=== PATIENT | female | born 1970 | race Caucasian/White ===

== ENCOUNTER 2016-04-16 08:22 | Emergency (ER) | payer OTHER ==
[~2016-04-16] VITALS: Ht 172.7 cm; Wt 70.3 kg
[~2016-04-16 08:22] MED LIST: COLA100C PO; FLON0.054; IBUP80TA PO; NEXI20CA PO; PERC5TAB6 PO; PROM-190 PO; PROZ10CA7 PO; WELLTAB40 PO
[2016-04-16] MEDS ORDERED: CLAR10CA3 PO (08:37)
[2016-04-16] MEDS ORDERED: ALBU17IN2 INH (08:37)
[2016-04-16] MEDS ORDERED: MUCI600T34 PO (08:37)
[2016-04-16] MEDS ORDERED: NS 500 ML IV ONE ×2 (08:45→11:00)
[2016-04-16] MEDS ORDERED: methylPREDNISolone INJ 125 MG/2 ML VIAL (J2930) IV ONE (08:45)
[2016-04-16] MEDS ORDERED: ALBUTEROL SULFATE 2.5 MG/0.5 ML INH NEB SOLN As Ordered ONE (08:57)
[2016-04-16] MEDS: IPRATROPIUM 0.5MG/ALBUTEROL 2.5MG INH SOL UD 3ML (DUONEB)(J7620) NEB PRN ×3 (08:58→09:16)
[2016-04-16 09:22] LABS: BASO % 0.6 % (0.0-1.0); EOS # 0.1 K/mm3 (0.0-0.50); EOS % 1.4 % (0.0-3.0); LARGE UNSTAINED CELL # 0.2 K/mm3 (0.0-0.4); LARGE UNSTAINED CELL % 2.3 % (0.0-4.0); LYMPH # 1.1 K/mm3 (1.5-4.5); LYMPH % 13.7 % (24.0-44.0); MEAN CORPUSCULAR HEMOGLOBIN 30.5 pg (27.0-33.0); MEAN CORPUSCULAR VOLUME 87.3 fl (80.0-96.0); MONO # 0.4 K/mm3 (0.0-0.8); MONO % 4.7 % (0.0-5.0); NEUTROPHILS # 6.4 K/mm3 (1.8-7.7); NEUTROPHILS % 77.3 % (36.0-66.0); PLATELET COUNT, AUTOMATED 356 k/mm3 (150-450); RED CELL DISTRIBUTION WIDTH 11.6 % (11.5-14.5); WHITE BLOOD COUNT 8.2 K/mm3 (4.0-10.0)
[2016-04-16 09:38] LABS: ALBUMIN 3.6 GM/DL (3.2-5.2); ALBUMIN/GLOBULIN RATIO 0.92 (1.00-1.93); ALKALINE PHOSPHATASE 85 U/L (45-117); ALT/SGPT 25 U/L (12-78); ANION GAP 10 MEQ/L (8-16); AST/SGOT 18 U/L (15-37); BILIRUBIN,DIRECT 0.2 MG/DL (0.0-0.2); BILIRUBIN,TOTAL 0.9 MG/DL (0.2-1.0); BLOOD UREA NITROGEN 10 MG/DL (7-18); CALCIUM LEVEL 8.8 MG/DL (8.5-10.1); CARBON DIOXIDE LEVEL 25 MEQ/L (21-32); CHLORIDE LEVEL 101 MEQ/L (98-107); GLOMERULAR FILTRATION RATE > 60.0 (>58); GLUCOSE, FASTING 120 MG/DL (70-105); POTASSIUM SERUM 3.7 MEQ/L (3.5-5.1); SODIUM LEVEL 136 MEQ/L (136-145); TOTAL PROTEIN 7.5 GM/DL (6.4-8.2)
[2016-04-16] MEDS ORDERED: NS 1,000 ML IV ONE (10:30)
[2016-04-16] MEDS ORDERED: ISOVUE-370 76% 100ML VIAL (Q9967) As Ordered ONE (10:34)
--- NOTE | 2016-04-16 11:48 | REP ---
PORTABLE CHEST: AP portable view of the chest is performed. There are no prior studies for comparison. There are mildly increased interstitial markings in the lung bases bilaterally. This may represent mild interstitial fibrosis versus a mild degree of acute interstitial edema or pneumonitis. The heart is normal in size. The mediastinal silhouette is unremarkable. The visualized osseous structures appear intact. IMPRESSION: Mildly increased bibasilar interstitial markings may represent mild fibrosis versus mild interstitial pneumonitis or edema. Signed by Edwin Rivas MD 04/16/2016 08:31 P
[2016-04-16] MEDS ORDERED: MOXIFLOXACIN 400 MG TAB PO ONE (12:30)
--- NOTE | 2016-04-16 12:48 | REP ---
CT ANGIOGRAM OF THE CHEST WITH IV CONTRAST: TECHNIQUE: Axial contrast enhanced images from the thoracic inlet to the upper abdomen using 100 mL Isovue 370 intravenous contrast material with multiplanar reformations. Pulmonary arteries appear to opacify well with contrast with no definite pulmonary embolism. There is no evidence of mediastinal, hilar, or chest wall lymphadenopathy. There is no pleural or pericardial effusion. The heart is normal in size. Mild patchy infiltrate is seen in the left lower lobe. Visualized upper abdominal structures are unremarkable. IMPRESSION: Mild patchy infiltrate left lower lobe. No CT evidence of pulmonary embolism. Signed by Edwin Rivas MD 04/16/2016 08:32 P
[2016-04-16] MEDS ORDERED: AVEL1TAB PO (13:25)
[2016-04-16] MEDS ORDERED: PRED20TA PO (13:33)
[2016-04-16 13:52] VITALS: BP 110/56
--- NOTE | 2016-04-17 12:18 | ECGEPIP ---
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
--- NOTE | 2016-04-17 12:20 | ECGEPIP ---
Stationary ECG Study 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
== END 2016-04-16 14:00 | disposition home or self-care (01) ==
LOC: EDBD 08:22 → M ED 09:28
DX: J18.9 Pneumonia, unspecified organism (principal); J98.01 Acute bronchospasm; R07.9 Chest pain, unspecified; Z77.22 Contact with and (suspected) exposure to environmental tobacco smoke (acute) (chronic); Z88.2 Allergy status to sulfonamides; Z79.899 Other long term (current) drug therapy
CPT/HCPCS: 36415; 71010; 71275; 80048; 80076; 82550; 82553; 83605; 83880; 85025; 85379; 87040; 93005; 93041; 94640; 94760; 96361; 96374; 99285; J2930; Q9967

== ENCOUNTER → 2016-04-20 | Outpatient (REF) | payer OTHER ==
[~2016-04-20] MED LIST changes: +ALBU17IN2 INH; +AVEL1TAB PO; +CLAR10CA3 PO; +MUCI600T34 PO; +PRED20TA PO
[2016-04-24 00:06] LABS: L PNEUMOPHILIA 1-6 IgG <1:128 (<1:128); L PNEUMOPHILIA 1-6 IgM < 1:16 (< 1:16)
== END ==
LOC: M LAB REF 12:42
PROVIDERS: ATTEND Internal Medicine Pulmonary Disease
DX: R05 Cough (principal)

== ENCOUNTER → 2016-05-21 | Outpatient (CLI) | payer OTHER ==
[~2016-05-21] MED LIST changes: -COLA100C PO; +COLA100C3 PO
--- NOTE | 2016-05-21 12:27 | REP ---
PA and lateral chest: Comparison is 04/16/2016. The lung lea are clear. The cardiac size is normal The toña, mediastinum, and bony thorax are unremarkable except for thoracic scoliosis convex right, unchanged. Impression: Negative PA and lateral chest. Signed by Edwin Piña MD 05/21/2016 12:18 P
== END ==
LOC: M SMT 11:06
PROVIDERS: ATTEND Internal Medicine Pulmonary Disease
DX: R05 Cough (principal)

== ENCOUNTER → 2016-06-02 | Outpatient (CLI) | payer OTHER ==
[~2016-06-02] MED LIST changes: +ISOVUE-370 76% 100ML VIAL (Q9967) As Ordered ONE
--- NOTE | 2016-06-02 16:51 | REP ---
CT NECK WITH CONTRAST: HISTORY: Right parotid swelling. CONTRAST: Isovue-370 75 mL. Calcification is present in the right tonsil. This is secondary to previous inflammatory disease. The naso-, hunter-, and hypopharynx, larynx, and subglottic trachea are otherwise normal in appearance. The salivary and thyroid glands are normal in density and size. Small lymph nodes less than 1 cm in size are present in the internal jugular chains, posterior triangles , submandibular and submental areas. Degenerative change is present in the cervical spine. The lung apices are clear. Minimal mucosal thickening is present in the ethmoid and maxillary sinuses. IMPRESSION: There is no neck mass or adenopathy. Signed by Joey Pinto MD 06/02/2016 04:53 P
== END ==
LOC: M RAD 16:05
PROVIDERS: ATTEND Otolaryngology
DX: K11.23 Chronic sialoadenitis (principal)
CPT/HCPCS: 70491; Q9967

== ENCOUNTER → 2016-06-10 | Outpatient (CLI) | payer OTHER ==
[~2016-06-10] MED LIST changes: -ISOVUE-370 76% 100ML VIAL (Q9967) As Ordered ONE
--- NOTE | 2016-06-10 08:01 | REP ---
Clinical: Abnormal lung findings. Followup. Comparison: 04/16/2016. Findings: The bilateral lung lea are well-aerated, symmetric and clear. No pulmonary parenchymal consolidation, nodule or mass lesion is appreciated. No pleural effusion/reaction or pneumothorax. Tracheobronchial tree is patent. Previously noted left lower lobe infiltrate has resolved. No obvious adenopathy. Thoracic aorta, heart and pericardium are normal for noncontrast evaluation. Surrounding musculoskeletal structures are intact. Impression: Normal noncontrast chest CT. Previously noted left lower lobe infiltrate resolved. No acute mediastinal or pleuroparenchymal process appreciated. Signed by Perico Ace MD 06/10/2016 07:52 A
== END ==
LOC: M RAD 07:11
PROVIDERS: ATTEND Internal Medicine Pulmonary Disease
DX: R91.8 Other nonspecific abnormal finding of lung field (principal)

== ENCOUNTER → 2016-06-18 | Outpatient (CLI) | payer OTHER ==
[2016-06-24 14:18] LABS: L PNEUMOPHILIA 1-6 IgG <1:128 (<1:128); L PNEUMOPHILIA 1-6 IgM < 1:16 (< 1:16)
== END ==
LOC: M LRY 16:50
PROVIDERS: ATTEND Internal Medicine Pulmonary Disease
DX: R05 Cough (principal)

== ENCOUNTER → 2016-07-14 | Outpatient (REF) | payer OTHER ==
[2016-07-14 16:07] LABS: EOS # 0.2 K/mm3 (0.0-0.50); EOS % 3.8 % (0.0-3.0); LARGE UNSTAINED CELL # 0.1 K/mm3 (0.0-0.4); LARGE UNSTAINED CELL % 1.7 % (0.0-4.0); LYMPH # 1.7 K/mm3 (1.5-4.5); LYMPH % 30.5 % (24.0-44.0); MEAN CORPUSCULAR HEMOGLOBIN 31.3 pg (27.0-33.0); MEAN CORPUSCULAR VOLUME 91.9 fl (80.0-96.0); MONO # 0.4 K/mm3 (0.0-0.8); MONO % 6.8 % (0.0-5.0); NEUTROPHILS % 56.2 % (36.0-66.0); PLATELET COUNT, AUTOMATED 262 k/mm3 (150-450); RED CELL DISTRIBUTION WIDTH 12.7 % (11.5-14.5); WHITE BLOOD COUNT 5.4 K/mm3 (4.0-10.0)
[2016-07-14 16:08] LABS: ALBUMIN 3.9 GM/DL (3.2-5.2); ALBUMIN/GLOBULIN RATIO 1.18 (1.00-1.93); ALKALINE PHOSPHATASE 55 U/L (45-117); ALT/SGPT 25 U/L (12-78); ANION GAP 5 MEQ/L (8-16); AST/SGOT 16 U/L (15-37); BILIRUBIN,TOTAL 0.6 MG/DL (0.2-1.0); BLOOD UREA NITROGEN 12 MG/DL (7-18); CALCIUM LEVEL 8.9 MG/DL (8.5-10.1); CARBON DIOXIDE LEVEL 29 MEQ/L (21-32); CHLORIDE LEVEL 105 MEQ/L (98-107); CREATININE FOR GFR 0.71 MG/DL (0.55-1.02); GLOMERULAR FILTRATION RATE > 60.0 (>58); GLUCOSE, FASTING 91 MG/DL (70-105); IMMUNOGLOBULIN E 46.5 IU/ML (<100); IMMUNOGLOBULIN G 1020 MG/DL (681-1648); SODIUM LEVEL 139 MEQ/L (136-145); TOTAL PROTEIN 7.2 GM/DL (6.4-8.2)
[2016-07-14 20:29] LABS: ERYTHROCYTE SEDIMENTATION RATE 8 mm/hr (0-20)
[2016-07-17 08:06] LABS: IgG SERUM (part of Subclasses) 961 mg/dL (700-1600); IgG Subclass 1 472 mg/dL (248-810); IgG Subclass 2 367 mg/dL (130-555); IgG Subclass 3 90 mg/dL (15-102); IgG Subclass 4 99 mg/dL (2-96)
== END ==
LOC: M SFHCPLAZ 12:43
PROVIDERS: ATTEND Internal Medicine Infectious Disease
DX: J15.7 Pneumonia due to Mycoplasma pneumoniae (principal); R21 Rash and other nonspecific skin eruption

== ENCOUNTER → 2016-07-27 | Outpatient (REF) | payer OTHER | LOC: M SFHCPLAZ 13:06 | PROVIDERS: ATTEND Internal Medicine Infectious Disease | DX: J15.7 Pneumonia due to Mycoplasma pneumoniae (principal) ==

== ENCOUNTER → 2016-08-09 | Outpatient (CLI) | payer OTHER | LOC: M SMT 09:58 | PROVIDERS: ATTEND Internal Medicine Infectious Disease | DX: J15.7 Pneumonia due to Mycoplasma pneumoniae (principal) ==

== ENCOUNTER → 2016-08-10 | Outpatient (CLI) | payer OTHER ==
[~2016-08-10] MED LIST changes: +METHACHOLINE KIT (J7674) INH ONE
--- NOTE | 2016-08-10 09:21 | PFTRPT ---
Tech: Grey JONES RRT Age: 45 Sex: Female Race: Height: 68.00 Inches Weight: 158.00 Lbs BSA: 1.85 Diagnosis: R05 METHACHOLINE CHALLENGE REPORT: ORDERING PROVIDER: Nikloas Cutler MD DATE OF SERVICE: 08/10/16 INTERPRETATION: The study was of excellent technical quality. Under protocol, methacholine was administered. At a dose of 2.5 mg (13.875 CDUs), a 22% decline in the FEV1 was noted. The PC20 of 1.61 is significant. Flow rates returned to baseline post bronchodilator administration. IMPRESSION: Positive methacholine challenge study. MTDD
== END ==
LOC: M CARPUL 08:38
PROVIDERS: ATTEND Internal Medicine Pulmonary Disease
DX: R05 Cough (principal)

== ENCOUNTER → 2016-09-09 | Outpatient (CLI) | payer OTHER ==
[~2016-09-09] MED LIST changes: -AVEL1TAB PO; +AVEL1TAB3 PO; -COLA100C3 PO; +COLA100C5 PO; -METHACHOLINE KIT (J7674) INH ONE; -MUCI600T34 PO; +MUCI600T37 PO; +PERC5TAB12 PO; -PERC5TAB6 PO
[2016-09-15 00:06] LABS: ANTI TETANUS ANTIBODY 1.32 IU/mL (<0.10); STREP PNEUMO TYPE 12F 0.7 ug/mL (>1.3); STREP PNEUMO TYPE 18C 8.4 ug/mL (>1.3); STREP PNEUMO TYPE 19A 13.8 ug/mL (>1.3); STREP PNEUMO TYPE 19F 14.4 ug/mL (>1.3); STREP PNEUMO TYPE 23F 13.5 ug/mL (>1.3); STREP PNEUMO TYPE 6B 21.9 ug/mL (>1.3); STREP PNEUMO TYPE 7F 1.2 ug/mL (>1.3); STREP PNEUMO TYPE 9N 6.9 ug/mL (>1.3); STREP PNEUMO TYPE 9V 4.4 ug/mL (>1.3)
== END ==
LOC: M LRY 09:43
PROVIDERS: ATTEND Allergy & Immunology Allergy
DX: J32.9 Chronic sinusitis, unspecified (principal)

== ENCOUNTER → 2017-02-26 | Outpatient (CLI) | payer OTHER | LOC: M RAD 09:47 | DX: R48.0 Dyslexia and alexia (principal) ==

== ENCOUNTER → 2017-03-29 | Outpatient (REF) | payer OTHER ==
[2017-03-29 14:29] LABS: ESTIMATED AVERAGE GLUCOSE 100 MG/DL (60-110); HEMOGLOBIN A1c 5.1 %
[2017-03-29 14:34] LABS: TOTAL PROTEIN 7.5 GM/DL (6.4-8.2)
[2017-03-29 14:36] LABS: VITAMIN B12 LEVEL 755 PG/ML
[2017-03-30 12:51] LABS: ALBUMIN % 61.3 % (55.8-66.1); ALPHA-1-GLOBULIN % 4.4 % (2.9-4.9); ALPHA-1-GLOBULINS 0.33 GM/DL (0.17-0.41); ALPHA-2-GLOBULINS 0.65 GM/DL (0.42-0.99); ALPHA-2-GLOBULINS % 8.7 % (7.1-11.8); BETA-1-GLOBULINS 0.49 GM/DL (0.28-0.60); BETA-1-GLOBULINS % 6.5 % (4.7-7.2); BETA-2-GLOBULINS 0.44 GM/DL (0.19-0.55); BETA-2-GLOBULINS % 5.9 % (3.2-6.5); GAMMA GLOBULIN % 13.2 % (11.1-18.8); GAMMA GLOBULINS 0.99 GM/DL (0.65-1.58)
== END ==
LOC: M LABNEURO 08:59
DX: G31.84 Mild cognitive impairment of uncertain or unknown etiology (principal)
CPT/HCPCS: 82746

== ENCOUNTER 2017-06-02 07:41 | Emergency (ER) | payer OTHER ==
[2017-06-02 08:58] LABS: BASO % 0.7 % (0.0-1.0); EOS # 0.2 10^3/uL (0.0-0.50); EOS % 4.2 % (0.0-3.0); HEMATOCRIT 44.2 % (36.0-47.0); IMMATURE GRANULOCYTE % 0.4 % (0-3.0); LYMPH % 22.2 % (24.0-44.0); MEAN CORPUSCULAR HEMOGLOBIN 30.9 pg (27.0-33.0); MEAN CORPUSCULAR HGB CONC 33.9 g/dl (32.0-36.5); MEAN CORPUSCULAR VOLUME 90.9 fl (80.0-96.0); MONO # 0.7 10^3/uL (0.0-0.8); MONO % 15.2 % (0.0-5.0); NEUTROPHILS # 2.6 10^3/uL (1.8-7.7); NEUTROPHILS % 57.3 % (36.0-66.0); PLATELET COUNT, AUTOMATED 267 10^3/uL (150-450); RED BLOOD COUNT 4.86 10^6/uL (4.00-5.40); RED CELL DISTRIBUTION WIDTH 11.8 % (11.5-14.5); WHITE BLOOD COUNT 4.5 10^3/uL (4.0-10.0)
[2017-06-02 09:13] LABS: KETONE, URINE AUTO RFX NEGATIVE (NEGATIVE); LEUKOCYTE ESTERASE UR AUTO RFX NEGATIVE (NEGATIVE); NITRITE, URINE AUTO RFX NEGATIVE (NEGATIVE); RBC, URINE AUTO RFX 1 /HPF (0-3); SPECIFIC GRAVITY UR AUTO RFX 1.004 (1.002-1.035); SQUAM EPITHELIAL CELL UR AURFX 0 /HPF (0-6); WBC, URINE AUTO RFX 1 /HPF (0-3)
[2017-06-02 09:16] LABS: ALBUMIN 4.1 GM/DL (3.2-5.2); ALBUMIN/GLOBULIN RATIO 1.14 (1.00-1.93); ALKALINE PHOSPHATASE 58 U/L (45-117); ALT/SGPT 50 U/L (12-78); AMYLASE 41 U/L (25-115); ANION GAP 5 MEQ/L (8-16); AST/SGOT 39 U/L (7-37); BILIRUBIN,DIRECT 0.2 MG/DL (0.0-0.2); BILIRUBIN,TOTAL 0.6 MG/DL (0.2-1.0); BLOOD UREA NITROGEN 9 MG/DL (7-18); CALCIUM LEVEL 9.4 MG/DL (8.5-10.1); CARBON DIOXIDE LEVEL 28 MEQ/L (21-32); CHLORIDE LEVEL 107 MEQ/L (98-107); CREATININE FOR GFR 0.85 MG/DL (0.55-1.30); GLOMERULAR FILTRATION RATE > 60.0 (>58); GLUCOSE, FASTING 100 MG/DL (70-100); LIPASE 178 U/L (73-393); POTASSIUM SERUM 4.2 MEQ/L (3.5-5.1); SODIUM LEVEL 140 MEQ/L (136-145); TOTAL PROTEIN 7.7 GM/DL (6.4-8.2)
[2017-06-02] MEDS: NS 1,000 ML IV (09:20)
[2017-06-02] MEDS ORDERED: ISOVUE-370 76% 100ML VIAL (Q9967) As Ordered (09:44)
== END 2017-06-02 10:20 | disposition home or self-care (01) ==
LOC: M ED 07:41
DX: E86.0 Dehydration (principal); M32.9 Systemic lupus erythematosus, unspecified; G47.33 Obstructive sleep apnea (adult) (pediatric); F33.9 Major depressive disorder, recurrent, unspecified; Z79.899 Other long term (current) drug therapy; Z79.51 Long term (current) use of inhaled steroids; Z98.890 Other specified postprocedural states; Z88.8 Allergy status to other drugs, medicaments and biological substances; Z91.040 Latex allergy status; Z88.2 Allergy status to sulfonamides; Z91.048 Other nonmedicinal substance allergy status
CPT/HCPCS: Q9967

== ENCOUNTER → 2017-06-10 | Outpatient (REF) | payer OTHER ==
[2017-06-10 10:57] LABS: INR 0.92; PROTHROMBIN TIME 12.4 SECONDS (12.4-14.5)
[2017-06-10 10:58] LABS: PARTIAL THROMBOPLASTIN TIME 26.1 SECONDS (26.8-37.9)
[2017-06-10 11:13] LABS: COLLAGEN EPINEPHRINE 122 SECONDS (74-162)
[2017-06-14 00:06] LABS: F8 ACTIVITY FOR F8 PANEL 113 % (57-163); F8 ACTIVITY vWB FOR F8 PANEL 89 % (50-200); F8 ANTIGEN FOR F8 PANEL 140 % (50-200); INTERPRETATION: Note (.)
== END ==
LOC: M ONCM 09:32
DX: L93.0 Discoid lupus erythematosus (principal); D68.8 Other specified coagulation defects
CPT/HCPCS: 85246

== ENCOUNTER → 2017-06-16 | Outpatient (CLI) | payer OTHER | LOC: M RAD 07:32 | DX: R10.11 Right upper quadrant pain (principal) | CPT/HCPCS: A9537 ==

== ENCOUNTER → 2017-11-28 | Outpatient (CLI) | payer OTHER | LOC: M CARPUL 11:16 | DX: I10 Essential (primary) hypertension (principal) ==

== ENCOUNTER → 2017-12-22 | Outpatient (CLI) | payer OTHER | LOC: M RAD 06:18 | DX: R10.13 Epigastric pain (principal) | CPT/HCPCS: 76705 ==

== ENCOUNTER → 2018-02-02 | Outpatient (REF) | payer OTHER ==
[~2018-02-02] MED LIST changes: +BENA25CA4 PO; +IMUR50TA7 PO; +PHEN-593 PO; +QVAR80AE10 IN; +VALT1TAB PO; +ZOFR4TAB14 PO; +plaquenil PO
== END ==
LOC: M SFHCPLAZ 15:43
PROVIDERS: ATTEND Internal Medicine Infectious Disease
DX: Z22.322 Carrier or suspected carrier of Methicillin resistant Staphylococcus aureus (principal)

== ENCOUNTER → 2018-02-11 | Outpatient (REF) | payer OTHER ==
[2018-02-11 22:19] LABS: CHLAMYDIA DNA AMPLIFICATION NEGATIVE (NEGATIVE); GC DNA AMPLIFICATION NEGATIVE (NEGATIVE)
== END ==
LOC: M SFHCLERA 09:51
PROVIDERS: ATTEND Nurse Practitioner Family
DX: N89.8 Other specified noninflammatory disorders of vagina (principal)

== ENCOUNTER 2018-02-12 14:33 | Emergency (ER) | payer OTHER ==
[~2018-02-12] VITALS: Ht 172.7 cm; Wt 72.7 kg
[2018-02-12 14:33] VITALS: BP 136/83
[~2018-02-12 14:33] MED LIST changes: -BENA25CA4 PO; -IMUR50TA7 PO; -PHEN-593 PO; -VALT1TAB PO
[2018-02-12] MEDS ORDERED: PHEN-593 PO (14:41)
[2018-02-12] MEDS ORDERED: IMUR50TA7 PO (14:41)
[2018-02-12] MEDS ORDERED: VALT1TAB PO (16:03)
[2018-02-12] MEDS ORDERED: BENA25CA4 PO (16:03)
== END 2018-02-12 16:10 | disposition home or self-care (01) ==
LOC: M ED 14:33
DX: R10.2 Pelvic and perineal pain (principal); N76.5 Ulceration of vagina; M32.9 Systemic lupus erythematosus, unspecified; G47.33 Obstructive sleep apnea (adult) (pediatric); M54.9 Dorsalgia, unspecified; F41.9 Anxiety disorder, unspecified; F32.9 Major depressive disorder, single episode, unspecified; Z88.3 Allergy status to other anti-infective agents; Z88.2 Allergy status to sulfonamides; Z91.040 Latex allergy status; Z91.048 Other nonmedicinal substance allergy status; Z79.899 Other long term (current) drug therapy; Z79.51 Long term (current) use of inhaled steroids

== ENCOUNTER → 2018-03-02 | Outpatient (REF) | payer OTHER ==
[~2018-03-02] MED LIST changes: +BENA25CA4 PO; +IMUR50TA7 PO; +PHEN-593 PO; +VALT1TAB PO
== END ==
LOC: M SFHCPLAZ 13:54
PROVIDERS: ATTEND Internal Medicine Infectious Disease
DX: Z22.322 Carrier or suspected carrier of Methicillin resistant Staphylococcus aureus (principal)

== ENCOUNTER → 2018-05-22 | Outpatient (REF) | payer OTHER ==
[~2018-05-22] MED LIST changes: +IMUR50TA10 PO; -IMUR50TA7 PO
== END ==
LOC: M SFHCPLAZ 15:34
PROVIDERS: ATTEND Internal Medicine Infectious Disease
DX: Z22.322 Carrier or suspected carrier of Methicillin resistant Staphylococcus aureus (principal)

== ENCOUNTER → 2019-01-02 | Outpatient (CLI) | payer OTHER ==
--- NOTE | 2019-01-02 15:35 | REP ---
Two-view chest: 01/02/2019. Indication: Dyspnea. Comparison: 05/21/2016. Findings: The lungs are clear. There is no pleural effusion or pneumothorax. Dextroscoliotic curve of the thoracic spine is present with the convexity centered at T10/T11. The cardiomediastinal silhouette is unremarkable. Impression: No acute cardiopulmonary process. Electronically Signed by Rafy Cotto DO 01/02/2019 12:00 P
== END ==
LOC: M LRY 11:37
PROVIDERS: ATTEND Nurse Practitioner Family
DX: R06.89 Other abnormalities of breathing (principal)

== ENCOUNTER → 2019-01-02 | Outpatient (CLI) | payer OTHER ==
[2019-01-02 16:39] LABS: BASO # 0.1 10^3/uL (0.0-0.2); EOS # 0.3 10^3/uL (0.0-0.5); EOS % 5.2 % (0.0-3.0); HEMATOCRIT 41.6 % (36.0-47.0); HEMOGLOBIN 13.8 g/dl (12.0-15.5); LYMPH # 1.5 10^3/uL (1.5-5.0); LYMPH % 28.1 % (24.0-44.0); MEAN CORPUSCULAR HEMOGLOBIN 33.2 pg (27.0-33.0); MEAN CORPUSCULAR HGB CONC 33.2 g/dl (32.0-36.5); MONO # 0.8 10^3/uL (0.0-0.8); NEUTROPHILS # 2.6 10^3/uL (1.5-8.5); NEUTROPHILS % 50.3 % (36.0-66.0); PLATELET COUNT, AUTOMATED 240 10^3/uL (150-450); RED BLOOD COUNT 4.16 10^6/uL (4.00-5.40); WHITE BLOOD COUNT 5.2 10^3/uL (4.0-10.0)
[2019-01-02 16:47] LABS: ALBUMIN 3.8 GM/DL (3.2-5.2); ALT/SGPT 24 U/L (12-78); BILIRUBIN,TOTAL 0.5 MG/DL (0.2-1.0); BLOOD UREA NITROGEN 10 MG/DL (7-18); CALCIUM LEVEL 8.9 MG/DL (8.5-10.1); CARBON DIOXIDE LEVEL 32 MEQ/L (21-32); CHLORIDE LEVEL 104 MEQ/L (98-107); CREATININE FOR GFR 0.73 MG/DL (0.55-1.30); GLOMERULAR FILTRATION RATE > 60.0 (>58); GLUCOSE, FASTING 93 MG/DL (70-100); POTASSIUM SERUM 4.1 MEQ/L (3.5-5.1); SODIUM LEVEL 141 MEQ/L (136-145); TOTAL PROTEIN 7.4 GM/DL (6.4-8.2)
== END ==
LOC: M LRY 13:00
DX: M35.1 Other overlap syndromes (principal); Z79.51 Long term (current) use of inhaled steroids; Z79.899 Other long term (current) drug therapy
CPT/HCPCS: 36415; 71046; 80053; 85025; G0463

== ENCOUNTER → 2019-02-28 | Outpatient (CLI) | payer OTHER ==
[2019-02-28 17:16] LABS: ALBUMIN 4.1 GM/DL (3.2-5.2); ALT/SGPT 24 U/L (12-78); BILIRUBIN,TOTAL 0.8 MG/DL (0.2-1.0); BLOOD UREA NITROGEN 10 MG/DL (7-18); CALCIUM LEVEL 8.9 MG/DL (8.5-10.1); CARBON DIOXIDE LEVEL 28 MEQ/L (21-32); CHLORIDE LEVEL 105 MEQ/L (98-107); CREATININE FOR GFR 0.65 MG/DL (0.55-1.30); GLOMERULAR FILTRATION RATE > 60.0 (>58); GLUCOSE, FASTING 98 MG/DL (70-100); POTASSIUM SERUM 4.1 MEQ/L (3.5-5.1); SODIUM LEVEL 139 MEQ/L (136-145); TOTAL PROTEIN 7.3 GM/DL (6.4-8.2)
[2019-02-28 17:24] LABS: BASO # 0.1 10^3/uL (0.0-0.2); EOS # 0.2 10^3/uL (0.0-0.5); HEMATOCRIT 41.4 % (36.0-47.0); HEMOGLOBIN 13.7 g/dl (12.0-15.5); LYMPH # 1.4 10^3/uL (1.5-5.0); LYMPH % 27.1 % (24.0-44.0); MEAN CORPUSCULAR HEMOGLOBIN 32.4 pg (27.0-33.0); MEAN CORPUSCULAR HGB CONC 33.1 g/dl (32.0-36.5); MEAN CORPUSCULAR VOLUME 97.9 fl (80.0-96.0); MONO # 0.5 10^3/uL (0.0-0.8); MONO % 9.6 % (0.0-5.0); NEUTROPHILS % 58.9 % (36.0-66.0); PLATELET COUNT, AUTOMATED 203 10^3/uL (150-450); RED BLOOD COUNT 4.23 10^6/uL (4.00-5.40)
== END ==
LOC: M LRY 10:44
PROVIDERS: ATTEND Nurse Practitioner Family
DX: M35.1 Other overlap syndromes (principal); Z79.899 Other long term (current) drug therapy
CPT/HCPCS: 36415; 80053; 85025; G0463

== ENCOUNTER → 2019-03-26 | Outpatient (CLI) | payer OTHER ==
--- NOTE | 2019-03-26 15:39 | REP ---
Clinical: Adnexal cyst. Technique: Transabdominal pelvic ultrasound followed by transvaginal examination for better evaluation of the endometrium and adnexa rate Findings: Bladder is normal and measures 10.8 x 10.4 x 11.5 cm. Evidence of prior hysterectomy. Right ovary measures 4.0 x 2.3 x 2.0 cm (RI 0.44) and includes 2.0 cm presumed physiologic cyst. Left ovary is not identified and the previously suggested 4 cm left adnexal cyst may have resolved. Impression: 1. Evidence of prior hysterectomy. 2. Left ovary and previously identified left adnexal cyst not visualized. 3. Right ovary includes new 2 cm physiologic cyst. Electronically Signed by Perico Ace MD 03/26/2019 03:31 P
== END ==
LOC: M LRY 13:44
PROVIDERS: ATTEND Family Medicine
DX: N83.291 Other ovarian cyst, right side (principal)

== ENCOUNTER → 2019-08-07 | Outpatient (REF) | payer OTHER ==
[~2019-08-07] MED LIST changes: +BUPR150T3; +GABA-1171; +HYDR200T3; +LORA-674; +MELO15TA28; +OFLOSO AD; +REST0.05; +SERT50TA29; +VALA1TAB5
[2019-08-07 14:13] LABS: BASO # 0.1 10^3/uL (0.0-0.2); BASO % 1.2 % (0.0-1.0); EOS # 0.1 10^3/uL (0.0-0.5); EOS % 2.5 % (0.0-3.0); HEMATOCRIT 40.8 % (36.0-47.0); HEMOGLOBIN 14.2 g/dl (12.0-15.5); LYMPH # 0.9 10^3/uL (1.5-5.0); LYMPH % 21.7 % (24.0-44.0); MEAN CORPUSCULAR HEMOGLOBIN 36.1 pg (27.0-33.0); MEAN CORPUSCULAR HGB CONC 34.8 g/dl (32.0-36.5); MEAN CORPUSCULAR VOLUME 103.8 fl (80.0-96.0); MONO # 0.5 10^3/uL (0.0-0.8); MONO % 11.1 % (0.0-5.0); NEUTROPHILS # 2.6 10^3/uL (1.5-8.5); NEUTROPHILS % 63.3 % (36.0-66.0); PLATELET COUNT, AUTOMATED 243 10^3/uL (150-450); RED BLOOD COUNT 3.93 10^6/uL (4.00-5.40); WHITE BLOOD COUNT 4.1 10^3/uL (4.0-10.0)
[2019-08-07 14:25] LABS: ALBUMIN 4.3 GM/DL (3.2-5.2); ALT/SGPT 56 U/L (12-78); BILIRUBIN,TOTAL 0.9 MG/DL (0.2-1.0); BLOOD UREA NITROGEN 10 MG/DL (7-18); CALCIUM LEVEL 9.6 MG/DL (8.5-10.1); CARBON DIOXIDE LEVEL 30 MEQ/L (21-32); CHLORIDE LEVEL 102 MEQ/L (98-107); CREATININE FOR GFR 0.62 MG/DL (0.55-1.30); GLOMERULAR FILTRATION RATE > 60.0 (>58); GLUCOSE, FASTING 95 MG/DL (70-100); POTASSIUM SERUM 4.4 MEQ/L (3.5-5.1); SODIUM LEVEL 136 MEQ/L (136-145); TOTAL PROTEIN 7.5 GM/DL (6.4-8.2)
== END ==
LOC: M SFHCLERA 10:43
PROVIDERS: ATTEND Family Medicine
DX: M32.9 Systemic lupus erythematosus, unspecified (principal)
CPT/HCPCS: 36415; 80053; 85025; G0463

== ENCOUNTER → 2019-08-13 | Outpatient (CLI) | payer OTHER ==
[~2019-08-13] MED LIST changes: -BUPR150T3; -GABA-1171; -HYDR200T3; -LORA-674; -MELO15TA28; -OFLOSO AD; -REST0.05; -SERT50TA29; -VALA1TAB5
--- NOTE | 2019-08-13 09:57 | REPPI ---
Clinical: Cervical pain. Technique: AP, lateral, flexion/extension, bilateral oblique, and open mouth views of the cervical spine. The placenta overlies the closed to the for further. Findings: There appears to be chronic anterolisthesis at the C7-T1 level of approximately 5 mm which appears to remain relatively stable on flexion and extension. Early advanced degenerative disc osteophyte complexes are also identified at the C4-5 C5-6, and to a lesser extent C6-7 levels. Findings include osteophytosis, endplate sclerosis, and disc space narrowing. Oblique views suggest foraminal narrowing due to hypertrophic facet changes. Open mouth view demonstrates normal C1-C2 articulation and odontoid process. Impression: Degenerative changes as described above. Electronically Signed by Perico Ace MD 08/13/2019 09:48 A
== END ==
LOC: M PLAIMG 09:24
PROVIDERS: ATTEND Family Medicine
DX: M54.2 Cervicalgia (principal)
CPT/HCPCS: 72052; G0463

== ENCOUNTER → 2019-10-08 | Outpatient (CLI) | payer OTHER ==
[~2019-10-08] MED LIST changes: +BUPR150T3; +GABA-1171; +HYDR200T3; +LORA-674; +MELO15TA28; +OFLOSO AD; +REST0.05; +SERT50TA29; +VALA1TAB5
--- NOTE | 2019-10-08 13:22 | REPVR ---
PROCEDURE INFORMATION: Exam: CT Maxillofacial Without Contrast, Sinus Exam date and time: 10/08/2019 12:59 PM Age: 48 years old Clinical indication: Condition or disease; Other: Rhinitis; Additional info: J30.9 allergic rhinitis TECHNIQUE: Imaging protocol: CT Maxillofacial without contrast. Focus on the sinuses. Radiation optimization: All CT scans at this facility use at least one of these dose optimization techniques: automated exposure control; mA and/or kV adjustment per patient size (includes targeted exams where dose is matched to clinical indication); or iterative reconstruction. COMPARISON: No relevant prior studies available. FINDINGS: Frontal sinuses: There is minimal mucosal thickening in the frontal sinuses near the frontal recesses. No air-fluid levels. Ethmoid air cells: Normal. No air-fluid levels. Sphenoid sinuses: Normal. No air-fluid levels. Maxillary sinuses: There is moderate mucosal thickening in the right maxillary sinus and mild mucosal thickening in the left maxillary sinus. There are no air-fluid levels. The right ostiomeatal unit is patent. There is obstruction of the left maxillary ostium and infundibulum by mucosal thickening. Orbits: Unremarkable. Nasal cavity/Septum: Unremarkable. Soft tissues: Unremarkable. Bones/joints: Unremarkable. IMPRESSION: 1. No acute abnormality. 2. Chronic findings as discussed above. Electronically signed by: Lucas Nguyen On 10/08/2019 13:22:49 PM
== END ==
LOC: M RAD 12:49
PROVIDERS: ATTEND Otolaryngology
DX: J30.9 Allergic rhinitis, unspecified (principal); R19.7 Diarrhea, unspecified

== ENCOUNTER → 2019-10-08 | Outpatient (REF) | payer OTHER | LOC: M SFHCLERA 13:55 | PROVIDERS: ATTEND Family Medicine | DX: R19.7 Diarrhea, unspecified (principal) ==

== ENCOUNTER → 2019-11-21 | Outpatient (CLI) | payer OTHER ==
[2019-11-21 18:39] LABS: BASO # 0.1 10^3/uL (0.0-0.2); EOS # 0.2 10^3/uL (0.0-0.5); EOS % 3.6 % (0.0-3.0); HEMATOCRIT 35.2 % (36.0-47.0); HEMOGLOBIN 12.1 g/dl (12.0-15.5); LYMPH # 1.7 10^3/uL (1.5-5.0); MEAN CORPUSCULAR HGB CONC 34.4 g/dl (32.0-36.5); MEAN CORPUSCULAR VOLUME 104.8 fl (80.0-96.0); MONO # 0.6 10^3/uL (0.0-0.8); MONO % 11.3 % (0.0-5.0); NEUTROPHILS # 2.5 10^3/uL (1.5-8.5); NEUTROPHILS % 49.5 % (36.0-66.0); PLATELET COUNT, AUTOMATED 250 10^3/uL (150-450); RED BLOOD COUNT 3.36 10^6/uL (4.00-5.40); WHITE BLOOD COUNT 5.1 10^3/uL (4.0-10.0)
[2019-11-21 19:00] LABS: ALBUMIN 4.1 GM/DL (3.2-5.2); ALT/SGPT 39 U/L (12-78); BILIRUBIN,TOTAL 0.9 MG/DL (0.2-1.0); BLOOD UREA NITROGEN 10 MG/DL (7-18); CALCIUM LEVEL 9.4 MG/DL (8.5-10.1); CARBON DIOXIDE LEVEL 32 MEQ/L (21-32); CHLORIDE LEVEL 101 MEQ/L (98-107); CREATININE FOR GFR 0.68 MG/DL (0.55-1.30); GLOMERULAR FILTRATION RATE > 60.0 (>58); GLUCOSE, FASTING 95 MG/DL (70-100); POTASSIUM SERUM 3.8 MEQ/L (3.5-5.1); SODIUM LEVEL 137 MEQ/L (136-145); TOTAL PROTEIN 7.7 GM/DL (6.4-8.2)
== END ==
LOC: M LAB 16:46
PROVIDERS: ATTEND Nurse Practitioner Family
DX: R41.3 Other amnesia (principal); R23.8 Other skin changes; Z79.899 Other long term (current) drug therapy

== ENCOUNTER → 2019-11-21 | Outpatient (CLI) | payer OTHER ==
--- NOTE | 2019-11-21 18:57 | REPVR ---
PROCEDURE INFORMATION: Exam: MR Lumbar Spine Without Contrast. Exam date and time: 11/21/2019 5:52 PM Age: 48 years old Clinical indication: Condition or disease; Spondylosis, lumbosacral; Thoracolumbar region; With myelopathy; Additional info: Spondyls w/o myelopathy or radiculopathy, thoracol TECHNIQUE: Imaging protocol: Multiplanar magnetic resonance images of the lumbar spine without intravenous contrast. COMPARISON: No relevant prior studies available. FINDINGS: Vertebrae: No acute compression fracture is seen. Bone marrow signal is heterogeneous but within normal limits. Spinal cord: The conus medullaris terminates at the T12-L1 level. There is no evidence of arachnoiditis or cauda equina compression. L1-L2: No significant disc disease. No significant spinal stenosis or neural foraminal narrowing. L2-L3: There is minimal diffuse circumferential disc bulging and mild facet arthropathy. There is no significant spinal canal or neural foraminal stenosis. L3-L4: There is minimal diffuse circumferential disc bulging and mild facet arthropathy. There is no significant spinal canal or neural foraminal stenosis. L4-L5: There is mild diffuse circumferential disc bulging, thickening of the ligamentum flavum, and facet arthropathy. This is causing minimal spinal canal stenosis and minimal left neural foraminal narrowing. L5-S1: There is mild diffuse circumferential disc bulging and moderate facet arthropathy. There is no spinal canal stenosis or right neural foraminal narrowing. Mild left neural foraminal narrowing is present. Soft tissues: Unremarkable. IMPRESSION: 1. No acute abnormality. 2. Chronic findings as discussed above. Electronically signed by: Lucas Nguyen On 11/21/2019 18:57:23 PM
== END ==
LOC: M RAD 16:52
PROVIDERS: ATTEND Pain Medicine Interventional Pain Medicine
DX: M47.817 Spondylosis without myelopathy or radiculopathy, lumbosacral region (principal); M51.26 Other intervertebral disc displacement, lumbar region; R41.3 Other amnesia; R23.8 Other skin changes; Z79.899 Other long term (current) drug therapy

== ENCOUNTER 2019-12-06 18:24 | Emergency (ER) | payer OTHER ==
[~2019-12-06] VITALS: Ht 172.7 cm; Wt 81.8 kg
[~2019-12-06 18:24] MED LIST changes: -BUPR150T3; -GABA-1171; -HYDR200T3; -LORA-674; -MELO15TA28; -OFLOSO AD; -REST0.05; -SERT50TA29; -VALA1TAB5
[2019-12-06 19:00] VITALS: BP 130/84
[2019-12-06] MEDS ORDERED: HYDR200T3 (19:13)
[2019-12-06] MEDS ORDERED: REST0.05 (19:13)
[2019-12-06] MEDS ORDERED: BUPR150T3 (19:13)
[2019-12-06] MEDS ORDERED: GABA-1171 (19:13)
[2019-12-06] MEDS ORDERED: VALA1TAB5 (19:13)
[2019-12-06] MEDS ORDERED: OFLOSO AD (19:13)
[2019-12-06] MEDS ORDERED: SERT50TA29 (19:13)
[2019-12-06] MEDS ORDERED: MELO15TA28 (19:13)
[2019-12-06] MEDS ORDERED: LORA-674 (19:13)
== END 2019-12-06 20:20 | disposition left against medical advice (07) ==
LOC: EDBD 18:24 → M ED 18:24
DX: Z53.20 Procedure and treatment not carried out because of patient's decision for unspecified reasons (principal); I86.8 Varicose veins of other specified sites; J45.909 Unspecified asthma, uncomplicated; Z91.040 Latex allergy status; Z88.1 Allergy status to other antibiotic agents; Z88.2 Allergy status to sulfonamides

== ENCOUNTER → 2020-03-05 | Outpatient (REF) | payer OTHER ==
[~2020-03-05] MED LIST changes: +BUPR150T4; +GABA-1171; +HYDR200T3; +LORA-674; +MELO15TA28; +OFLOSO AD; -PHEN-593 PO; +PHEN1TAB73 PO; +REST0.05; +SERT50TA29; +VALA1TAB5
== END ==
LOC: M LAB REF 15:59
PROVIDERS: ATTEND Otolaryngology
DX: H92.01 Otalgia, right ear (principal)

== ENCOUNTER → 2020-05-28 | Outpatient (CLI) | payer OTHER ==
[~2020-05-28] MED LIST changes: +BUPR150T12; -BUPR150T4; +ISOVUE-370 76% 100ML VIAL As Ordered ONE
--- NOTE | 2020-05-28 11:23 | REP ---
INDICATION: TINITUS, NEOPLASM PAROTID GLAND. COMPARISON: CT maxillofacial 10/08/2019. TECHNIQUE: Axial CT images with multiplanar reformations with contrast. FINDINGS: PE oropharynx, nasopharynx, hypopharynx and larynx appear unremarkable. No significant lymphadenopathy. And no mass lesion or abnormal enhancement. No definite parotid lesion is seen. Dental hardware somewhat limits evaluation at the levels of the hardware. Paranasal sinuses and mastoid air cells are clear. IAC's are clear. The right vertebral artery is dominant. Vertebral arteries are present throughout their cervical course. The common and internal carotid arteries widely patent. There is straightening of the cervical spine and moderate multilevel degenerative disc disease. No definite high-grade canal stenosis. There is significant multilevel foraminal stenosis secondary to disc osteophyte complex formation. IMPRESSION: 1. No definite mass lesion or lymphadenopathy. No definite parotid lesion seen. 2. ICAs appear clear. 3. Degenerative changes of the cervical spine with multilevel foraminal stenosis. <Electronically signed by Atul Varghese > 05/28/20 [id number]
--- NOTE | 2020-05-28 11:56 | REP ---
INDICATION: TINITUS, NEOPLASM PAROTID GLAND. COMPARISON: None. TECHNIQUE: Axial CT images with multiplanar reformations. FINDINGS: On the right, EAC and IAC are clear. The cochlear and semicircular canals appear intact. Ossicles and scutum appear intact. No definite abnormal soft tissue or abnormal bony erosion. On the left, EAC and IAC are clear. The cochlear and semicircular canals appear intact. Ossicles and scutum appear intact. No definite abnormal soft tissue or abnormal bony erosion. IMPRESSION: Normal examination. No mass lesions, no evidence of abnormal bony erosion. <Electronically signed by Atul Varghese > 05/28/20 [id number]
== END ==
LOC: M RAD 09:42
PROVIDERS: ATTEND Otolaryngology
DX: H93.11 Tinnitus, right ear (principal); M50.30 Other cervical disc degeneration, unspecified cervical region; M99.81 Other biomechanical lesions of cervical region
CPT/HCPCS: 70480; 70491; Q9967

== ENCOUNTER → 2020-06-24 | Outpatient (CLI) | payer OTHER ==
[~2020-06-24] MED LIST changes: -ISOVUE-370 76% 100ML VIAL As Ordered ONE
--- NOTE | 2020-06-24 08:39 | REP ---
INDICATION: PULSITILE TINITIS RIGHT EAR, CAROTID STENOSIS? COMPARISON: None. TECHNIQUE: Rivas scale and color Doppler evaluation using linear high frequency transducer Findings: FINDINGS: Two-dimensional rivas scale and color images demonstrate normal arterial lumen with laminar flow and no appreciable narrowing. Color Doppler interrogation demonstrates normal arterial wave patterns and velocities with no significant spectral broadening. Normal flow direction is appreciated in the bilateral vertebral arteries. ICA peak systolic velocity: Right 74.6 cm/s; Left 62.7 cm/s ICA diastolic velocity: Right 25.4 cm/s; Left 24.3 cm/s ECA peak systolic velocity: Right 86.3 cm/s; Left 104.0 cm/s CCA peak systolic velocity: Right 106.0 cm/s; Left 118.0 cm/s ICA/CCA ratio: Right 0.70 cm/s; Left 0.53 cm/s IMPRESSION: No hemodynamically significant areas of narrowing or stenosis appreciated. Based on set standards narrowing falls within the normal range. <Electronically signed by Perico Ace > 06/24/20 0825
== END ==
LOC: M RAD 07:43
PROVIDERS: ATTEND Otolaryngology
DX: H93.A1 Pulsatile tinnitus, right ear (principal)

== ENCOUNTER → 2020-09-11 | Outpatient (REF) | payer OTHER | LOC: M SFHCLERA 09:30 | PROVIDERS: ATTEND Nurse Practitioner Family | DX: Z51.81 Encounter for therapeutic drug level monitoring (principal); Z79.899 Other long term (current) drug therapy ==

== ENCOUNTER → 2020-09-11 | Outpatient (CLI) | payer OTHER ==
--- NOTE | 2020-09-11 10:14 | REP ---
INDICATION: SCIATICA. COMPARISON: None. TECHNIQUE: Five views of the lumbar spine are provided. FINDINGS: Lumbar vertebral body heights are preserved. Alignment is normal. There is disc space narrowing at L4-5 mild in degree. Disc spaces are otherwise preserved. There is no evidence of spondylolysis or spondylolisthesis. There is osteoarthritic facet hypertrophy and narrowing at L5-S1 and L4-5 bilaterally. Sacrum and SI joints are intact. Psoas margins are symmetric. There are clips in right upper quadrant of the abdomen. The bowel gas pattern is normal. IMPRESSION: Mild degenerative disc disease at L4-5 and facet osteoarthropathy at L4-5 and L5-S1 bilaterally. No acute bony abnormality. <Electronically signed by Rodrigo Mayfield > 09/11/20 [id number]
[2020-09-11 12:12] LABS: BASO # 0.1 10^3/uL (0.0-0.2); EOS # 0.1 10^3/uL (0.0-0.5); EOS % 2.9 % (0.0-3.0); HEMATOCRIT 40.5 % (36.0-47.0); HEMOGLOBIN 13.5 g/dl (12.0-15.5); LYMPH % 21.6 % (24.0-44.0); MEAN CORPUSCULAR HEMOGLOBIN 33.3 pg (27.0-33.0); MEAN CORPUSCULAR HGB CONC 33.3 g/dl (32.0-36.5); MONO # 0.7 10^3/uL (0.0-0.8); MONO % 13.5 % (2.0-8.0); NEUTROPHILS # 2.9 10^3/uL (1.5-8.5); NEUTROPHILS % 60.2 % (36.0-66.0); PLATELET COUNT, AUTOMATED 220 10^3/uL (150-450); RED BLOOD COUNT 4.05 10^6/uL (4.00-5.40); WHITE BLOOD COUNT 4.8 10^3/uL (4.0-10.0)
[2020-09-11 12:54] LABS: ALBUMIN 3.7 GM/DL (3.2-5.2); ALT/SGPT 39 U/L (12-78); BILIRUBIN,TOTAL 0.5 MG/DL (0.2-1.0); BLOOD UREA NITROGEN 11 MG/DL (7-18); CARBON DIOXIDE LEVEL 30 MEQ/L (21-32); CHLORIDE LEVEL 104 MEQ/L (98-107); CREATININE FOR GFR 0.53 MG/DL (0.55-1.30); GLOMERULAR FILTRATION RATE > 60.0 (>51); GLUCOSE, FASTING 86 MG/DL (70-100); POTASSIUM SERUM 4.2 MEQ/L (3.5-5.1); SODIUM LEVEL 138 MEQ/L (136-145); TOTAL PROTEIN 6.8 GM/DL (6.4-8.2)
== END ==
LOC: M WUC 09:49
PROVIDERS: ATTEND Nurse Practitioner Family
DX: Z51.81 Encounter for therapeutic drug level monitoring (principal); M54.42 Lumbago with sciatica, left side

== ENCOUNTER 2020-09-20 08:06 | Emergency (ER) | payer OTHER ==
[~2020-09-20] VITALS: Ht 172.7 cm; Wt 91.4 kg
[2020-09-20] MEDS ORDERED: ZANA4TAB (08:18)
[2020-09-20] MEDS ORDERED: METH4PACK (08:18)
[2020-09-20] MEDS ORDERED: MORPHINE 4 MG/ML 1ML VIAL/SYRINGE (J2270) IV ONE (08:55)
[2020-09-20 09:07] LABS: BASO # 0.1 10^3/uL (0.0-0.2); EOS # 0.1 10^3/uL (0.0-0.5); EOS % 1.4 % (0.0-3.0); HEMOGLOBIN 15.2 g/dl (12.0-15.5); LYMPH # 1.6 10^3/uL (1.5-5.0); LYMPH % 27.1 % (24.0-44.0); MEAN CORPUSCULAR HEMOGLOBIN 33.7 pg (27.0-33.0); MEAN CORPUSCULAR HGB CONC 33.8 g/dl (32.0-36.5); MEAN CORPUSCULAR VOLUME 99.8 fl (80.0-96.0); MONO # 0.7 10^3/uL (0.0-0.8); MONO % 11.8 % (2.0-8.0); NEUTROPHILS # 3.4 10^3/uL (1.5-8.5); NEUTROPHILS % 57.7 % (36.0-66.0); PLATELET COUNT, AUTOMATED 257 10^3/uL (150-450); RED BLOOD COUNT 4.51 10^6/uL (4.00-5.40); WHITE BLOOD COUNT 5.8 10^3/uL (4.0-10.0)
[2020-09-20 09:31] LABS: BLOOD UREA NITROGEN 15 MG/DL (7-18); CALCIUM LEVEL 9.7 MG/DL (8.5-10.1); CARBON DIOXIDE LEVEL 30 MEQ/L (21-32); CHLORIDE LEVEL 102 MEQ/L (98-107); GLOMERULAR FILTRATION RATE > 60.0 (>51); GLUCOSE, FASTING 93 MG/DL (70-100); POTASSIUM SERUM 4.3 MEQ/L (3.5-5.1); SODIUM LEVEL 138 MEQ/L (136-145)
[2020-09-20] MEDS ORDERED: PERC5TAB12 PO (09:59)
[2020-09-20 10:00] VITALS: BP 137/88
[2020-09-20] MEDS ORDERED: CYCL5TAB PO (10:00)
== END 2020-09-20 10:12 | disposition home or self-care (01) ==
LOC: M ED 08:06
DX: M54.42 Lumbago with sciatica, left side (principal); J45.909 Unspecified asthma, uncomplicated; F41.9 Anxiety disorder, unspecified; G47.33 Obstructive sleep apnea (adult) (pediatric); M32.9 Systemic lupus erythematosus, unspecified; Z79.899 Other long term (current) drug therapy; Z88.1 Allergy status to other antibiotic agents; Z88.2 Allergy status to sulfonamides; Z88.8 Allergy status to other drugs, medicaments and biological substances; Z91.040 Latex allergy status
CPT/HCPCS: 80048; 85025; 96374; 99284; J2270

== ENCOUNTER → 2020-10-01 | Outpatient (CLI) | payer OTHER ==
[~2020-10-01] MED LIST changes: +CYCL5TAB PO; +METH4PACK; +ZANA4TAB
--- NOTE | 2020-10-02 11:35 | REPVR ---
PROCEDURE INFORMATION: Exam: MR Lumbar Spine Without Contrast Exam date and time: 10/01/2020 11:11 AM Age: 49 years old Clinical indication: Low back pain; Additional info: Lt sided lbp w/ sciatica TECHNIQUE: Imaging protocol: Multiplanar magnetic resonance images of the lumbar spine without intravenous contrast. COMPARISON: MRI-Spine, L.S. without con 11/21/2019 5:49 PM FINDINGS: Vertebrae: There is 3 mm of grade 1 retrolisthesis of L5 with respect to S1. Normal vertebral body alignment is otherwise preserved. Vertebral body heights are within normal limits. Aside from scattered multilevel hemangiomas, marrow signal is within normal limits. Spinal cord: Normal signal. No cord compression. L1-L2: No significant disc disease. No significant spinal canal stenosis. No neural foraminal stenosis. L2-L3: No significant disc disease. No significant spinal canal stenosis. No neural foraminal stenosis. L3-L4: There is shallow disc bulging. There is mild facet hypertrophy. The spinal canal and neural foramina are patent. L4-L5: There is shallow disc bulging. There is moderate facet hypertrophy. Fluid is noted within the facet joints. The neural foramina are patent. L5-S1: There is diffuse disc bulging/uncovering related to listhesis with a superimposed large left foraminal disc extrusion. This contributes to severe left neural foraminal narrowing and compression of the exiting left L5 nerve root. Soft tissues: Unremarkable. Reproductive: There is a partially imaged 3.1 cm right adnexal cyst. This would be better evaluated sonographically on a nonemergent basis. IMPRESSION: Large left foraminal disc extrusion at L5/S1 results in potential compromise of the exiting left L5 nerve root. Electronically signed by: Sana Prather On 10/02/2020 11:35:14 AM
== END ==
LOC: M PLAIMG 09:49
PROVIDERS: ATTEND Family Medicine
DX: M54.42 Lumbago with sciatica, left side (principal)

== ENCOUNTER → 2020-12-09 | Outpatient (CLI) | payer OTHER ==
--- NOTE | 2020-12-09 12:12 | REP ---
INDICATION: RT OVARIAN CYST. COMPARISON: 03/26/2019 pelvic ultrasound. MRI lumbar spine 10/01/2020. TECHNIQUE: Transabdominal and transvaginal scanning performed. FINDINGS: There has been a prior hysterectomy. The bladder measures 14.5 x 10.0 x 9.2cm. The right ovary has dimensions of 2.4 x 1.7 x 2.6 cm. It's Doppler flow is normal with a resistive index of 0.63. The left ovary could not be visualized. A simple cystic structure of the right ovary is unchanged compared to 03/26/2019 exam, 1.8 x 1.2 x 1.6 cm. No free fluid is seen in the cul-de-sac. IMPRESSION: Stable simple cyst right ovary compared to 03/26/2019, maximum diameter 1.8 cm. <Electronically signed by Edwin Rivas > 12/09/20 [id number]
== END ==
LOC: M RAD 09:38
PROVIDERS: ATTEND Family Medicine
DX: N83.201 Unspecified ovarian cyst, right side (principal)

== ENCOUNTER 2020-12-20 21:23 | Inpatient (IN) | payer OTHER ==
[~2020-12-20] VITALS: Ht 172.7 cm; Wt 93.6 kg
[~2020-12-20 21:23] MED LIST changes: -BUPR150T12; +BUPR150T12 PO; -HYDR200T3; +HYDR200T3 PO; -LORA-674; +LORA-674 PO; -MELO15TA28; +MELO15TA28 PO; -REST0.05; +REST0.05 OU
--- OUTSIDE RECORDS SUMMARY | 2020-12-20 21:29 | CCD | Continuity of Care Document ---
Author Author Radha SHAY F.N.P. Organization Unknown Address [address], [address] [place] [address] Phone [phone] Care Team Providers Care Analysis Specialist Name Role Phone Joey Botello DO AUTM [phone] Problems Description No Information Available Social History Type Date Description Comments Sex Unknown ETOH Use Currently consumes alcohol DAILY Tobacco Use Start: Unknown Patient has never smoked Sun Exposure moderate amount of sun exposure Sun Exposure Tanning bed - Has used in past. No longer using. Sun Exposure Has experienced blistering from sunburns Sun Exposure history of sunburn Sun Exposure Uses > 30 SPF Allergies, Adverse Reactions, Alerts Active Allergies Criticality Reaction | Severity Comments Date sulfa Unable to assess criticality 09/15/2020 Medications Active Medications SIG Qnty Indications Ordering Provide r Date Metronidazole 1% Gel apply to face sparingly daily 55gm L71.0 Robert BloodNDominguezP. 2020 Mobic Unknown Plaquenil Unknown Imuran Unknown Wellbutrin XL Unknown Zoloft Unknown Restasis Unknown Albuterol Sulfate Unknown 0 000 Qvar Redihaler Unknown Valacyclovir HCL Unknown 00 Immunizations Description No Information Available Vital Signs Date Vital Result Comment 09/15/2020 7:59am BP Systolic 115 mmHg BP Diastolic 75 mmHg Weight 207.00 lb Height 68 inches 5'8" BMI (Body Mass Index) 31.5 kg/m2 Results Test Acquired Date Facility Test Result H/L Range Note BXDX Pathology 09/15/2020 [facility] LC Icd9 Code ICD9 Code: L57.0 1, 2 PDFReport SEE IMAGE 1 Recheck for any [place] 2 ICD9 Code: L57.0 Protocol: shave Clinical Text: BCC Final Diagnosis: FOCAL PARTIAL THICKNESS SQUAMOUS ATYPIA, CONSISTENT WITH EARLY ACTINIC KERATOSIS, WITH ALSO MILD PERIFOLLICULAR LYMPHOCYTIC INFILTRATE, SEE NOTE. Final Diagnosis: NOTE: THE FINDINGS ARE SUBTLE AND NO CARCINOMA IS SEEN. THERE IS EARLY ACTINIC KERATOSIS AND POSSIBLE ROSACEA LIKE CHANGES. IF THERE IS NODULARITY OR INDURATION REMAINING CLINICALLY, A DEEPER BIOPSY IS RECOMMENDED. Gross Text: The specimen grossly was oval shaped, measuring 5 x 3 mm. on the surface and 1 mm. deep. All of the tissue was submitted for processing. Microscopic Description: The epidermis shows partial thickness keratinocytic atypia between adnexa. There is a focal dermal fibrosis. Deeper levels were examined. CPT: 98675*1 Procedures Date Code Description Status 09/15/2020 59747 Office Consultation Level 4 Comp leted 09/15/2020 95466 Shave Biopsy Of Skin, Single Les ion Completed Medical Devices Description No Information Available Encounters Type Date Location Provider Dx Diagnosis Office Visit 09/15/2020 7:45a Main Office Ernestina O'christian, F.N.P. R21 Rash and other nonspecific skin eruption D48.5 Neoplasm of uncertain behavi or of skin L71.0 Perioral dermatitis R20.8 Other disturbances of skin s ensation Assessments Date Code Description Provider 09/15/2020 R21 Rash and other nonspecific skin eruption Ernestina O'christian, F.N.P. 09/15/2020 D48.5 Neoplasm of uncertain behavior o f skin Ernestina O'christian, F.N.P. 09/15/2020 L71.0 Perioral dermatitis Ernestina O' christian, F.N.P. 09/15/2020 R20.8 Other disturbances of skin sensa tion Ernestina O'christian, F.N.P. Plan of Treatment Future Appointment(s):* 10/15/2020 8:45 am - Ernestina O'christian, F.N.P. at Main Office 09/15/2020 - Ernestina O'christian, F.N.P.* R21 Rash and other nonspecific skin eruption* Comments:* See below * D48.5 Neoplasm of uncertain behavior of skin* Comments:* Shave biopsy todayWound care instructions given. Will call with pathology when available. * L71.0 Perioral dermatitis* New Medication:* Metronidazole 1 % - apply to face sparingly daily * Comments:* Discussed diagnosis and treatment - Perioral dermatitis. Discussed perioral dermatitis can return once you have had it.Discussed it can get better with topicals.Discussed it can also get better with change of seasons.Start Metronidazole 1% gel daily to face. Call with problems.` * R20.8 Other disturbances of skin sensation* Comments:* See above. * Follow up:* 1 month - perioral derm fu Functional Status Description No Information Available Mental Status Description No Information Available Referrals Refer to Reason for Referral Status Appt Date Ernestina Shay FNP Created [address], [address] [place] [address] [phone]
--- OUTSIDE RECORDS SUMMARY | 2020-12-20 21:29 | CCD ---
Author Author [facility] em[facility] Organization [facility] ems Address Unknown Phone Unavailable Care Team Providers Care Collision Repairer Name Role Phone Tavo Boetllo Unavailable PROBLEMS Type Condition ICD9-CM Code [id number] Code Onset Dates Condition S tatus W/U Status Risk SNOMED Code Notes Problem Malar rash R21 Active confirmed 82927213 Problem Post-nasal drip R09.82 Active confirmed 7580 3007 Problem MRSA carrier Z22.322 Active confirmed 123723 000 Problem Lesion of throat J39.2 Active confirmed 758 83704 Problem Adnexal cyst N94.9 Active confirmed 8838581 1922490 Problem Nasal ulcer J34.0 Active confirmed 69895344 Problem Dysthymia F34.1 Active confirmed 34338036 Problem Moderate persistent asthma, unspecified whether complicate d J45.40 Active confirmed 607367570 Problem Anxiety F41.9 Active confirmed 75222896 Problem Lupus M32.9 Active confirmed 122044904 Problem Memory loss R41.3 Active confirmed 84716580 Problem History of skin cancer Z85.828 Active confirmed 167399969 Problem ANETA (obstructive sleep apnea) G47.33 Active confirm ed 57776713 Problem Acute left-sided low back pain with left-sided sciatica M54.42 Active confirmed 644342233 Problem Seasonal allergies J30.2 Active confirmed 4 94294999 Problem Pneumonia of left lower lobe due to Mycoplasma pneumoniae J15.7 Active confirmed 11175657 Problem Thoracic disc disease M51.9 Active confirmed 865586904 Problem Other chronic pain G89.29 Active confirmed 8 8480404 Problem Gastroesophageal reflux disease without esophagitis K21.9 Active confirmed 297421497 Problem Short-term memory loss R41.3 Active confirmed 098603401 ALLERGIES Allergen (clinical drug ingredient) Drug/Non Drug Allergy do cumented on EMR Reaction Allergy Type Onset Date Status Latex (for allergy use only) Rash Drug Allergy Active Sulfa (for allergy use only) Joint swelling Drug Allergy Active Adhesive Bandages Rash Drug Allergy Activ e topiramate Topamax([facility] Code:[address]-43) Rash Drug Allergy Active ENCOUNTERS from 1970 to 2020-09-23 Encounter Location Date Provider Diagnosis [facility] [address] [facility] [phone] [place] [address] Sep, Tavo Botello IMMUNIZATIONS Vaccine Route Administration Date Status Influenza 6mo & up Fluzone Unknown Mar 10, 2015 Other s SOCIAL HISTORY Tobacco Use: Social History Observation Description Date Details (start date - stop date) Never Smoker Sex Assigned At : Social History Observation Description Sex Assigned At Unknown Education: Question Answer Notes Level of Education: College Language: Question Answer Notes Languages spoken: Thai Druze: Question Answer Notes Druze 01 Agnostic Sexual Hx: Question Answer Notes Had sex in the last 12 months (vaginal, oral, or anal)? Yes with Men only Use protection? No Alcohol Screening: Question Answer Notes Did you have a drink containing alcohol in the past year? Ye s Points 1 Interpretation Negative How often did you have six or more drinks on one occas ion in the past year? Never (0 points) How many drinks did you have on a typica l day when you were drinking in the past year? 1 or 2 (0 points) How often did you have a drink containing alcohol in t he past year? Monthly or less (1 point) Tobacco Use: Question Answer Notes Are you a: never smoker REASON FOR REFERRAL No Information VITAL SIGNS No information MEDICATIONS Medication SIG (Take, Route, Frequency, Duration) Notes Start Da te End Date Status Mobic 15 MG 1 tablet Orally Once a day Active Medrol 4 MG as directed Orally Daily for 6 days Aug, Active Flonase Allergy Relief 50 MCG/ACT 1 spray in each nost ril Nasally Once a day for 30 day(s) Active Restasis 0.05 % 1 drop into affected eye Ophthalmic Twice a day Active busPIRone HCl 10 MG 1 tablet Orally Daily Active ProAir HFA 108 (90 Base) MCG/ACT 2 puffs as needed Inh alation every 6 hrs for 10 day(s) Dec, Active Cyclobenzaprine HCl 5 MG 1 tablet at bedtime as neede d Orally Once a day for 30 days Jul, Active Spiriva HandiHaler 18 MCG 1 capsule by inhaling the co ntents of the capsule using the HandiHaler device Inhalation Once a day Not-Taking Omeprazole 40 MG 1 cap Orally Daily Active Zoloft 100 MG 1 tablet Orally Once a day Active Valtrex 500 MG 1 tablet Orally Once a day for 30 day(s) Active Zanaflex 4 MG 1 tablet as needed Orally before bedtime for 7 d ay(s) Aug, Active Plaquenil 200 MG 1.5 tablet with food or milk Orally Once a day Active Qvar 40 mg orally Daily Active Wellbutrin XL 150 MG 1 tablet in the morning Orally Once a day Active Claritin 10 MG 1 capsule Orally Once a day for 90 days Active Imuran 50 MG 2 tablets Orally Daily Active PROCEDURES No Information RESULTS No Results REASON FOR VISIT Pain Medicine MEDICAL (GENERAL) HISTORY Type Description Date Medical History MRSA carrier no MRSA infections Medical History lupus erythematosus on Plaquenil Medical History seasonal allergies with sinusitis Medical History history of mycoplasma pneumonia Medical History Mild persistent asthma Medical History ANETA Medical History anxiety Medical History dysthmia Medical History allergic conjunctivitis Medical History Dry eyes with lupus Surgical History Hysterectomy 2014 Surgical History cholecystectomy Surgical History varicous vein surgery bilateral 2004 Hospitalization History related to surgery Hospitalization History pneumonia 05/2016 Goals Section No Information Health Concerns No Information MEDICAL EQUIPMENT No Information MENTAL STATUS No Information FUNCTIONAL STATUS No Information ASSESSMENTS No Information PLAN OF TREATMENT Medication Medication Name Sig Start Date Stop Date Medrol 4 MG as directed Orally Daily for 6 days Aug, Zanaflex 4 MG 1 tablet as needed Orally before bedtime for 7 day(s) Aug, Next Appt Details Provider Name:Tavo Botello, 2020-09-24 01:00:00 PM, [address] [facility], , [place], [address], Insurance Providers Payer Name Payer Address Payer Phone Insured Name Patient Relati onship to Insured Coverage Start Date Coverage End Date [facility] INSURANCE [address] [place] [address] TAVO JOHNSON
--- OUTSIDE RECORDS SUMMARY | 2020-12-20 21:29 | CCD ---
Author Author [facility] em[facility] Organization [facility] ems Address Unknown Phone Unavailable Care Team Providers Care General Distillery Worker Name Role Phone Tavo Botello Unavailable PROBLEMS Type Condition ICD9-CM Code [id number] Code Onset Dates Condition S tatus W/U Status Risk SNOMED Code Notes Problem Lesion of throat J39.2 Active confirmed 758 83077 Problem Malar rash R21 Active confirmed 84031803 Problem Nasal ulcer J34.0 Active confirmed 68434026 Problem MRSA carrier Z22.322 Active confirmed 569843 000 Problem Moderate persistent asthma, unspecified whether complicate d J45.40 Active confirmed 922814515 Problem Adnexal cyst N94.9 Active confirmed 2482341 1402113 Problem Seasonal allergies J30.2 Active confirmed 4 54354305 Problem Dysthymia F34.1 Active confirmed 95383976 Problem Lupus M32.9 Active confirmed 782107444 Problem Memory loss R41.3 Active confirmed 37219227 Problem Thoracic disc disease M51.9 Active confirmed 274297740 Problem Left-sided low back pain wit h left-sided sciatica, unspecified chronicity M54.42 Active confirmed 920505314 Problem Anxiety F41.9 Active confirmed 13905275 Problem Pneumonia of left lower lobe due to Mycoplasma pneumoniae J15.7 Active confirmed 12830356 Problem Acute left-sided low back pain with left-sided sciatica M54.42 Active confirmed 372106388 Problem ANETA (obstructive sleep apnea) G47.33 Active confirm ed 49360565 Problem Post-nasal drip R09.82 Active confirmed 7580 3007 Problem Other chronic pain G89.29 Active confirmed 8 0338172 Problem Gastroesophageal reflux disease without esophagitis K21.9 Active confirmed 890267125 Problem Short-term memory loss R41.3 Active confirmed 370130918 Problem History of skin cancer Z85.828 Active confirmed 431610244 ALLERGIES Allergen (clinical drug ingredient) Drug/Non Drug Allergy do cumented on EMR Reaction Allergy Type Onset Date Status Latex (for allergy use only) Rash Drug Allergy Active Sulfa (for allergy use only) Joint swelling Drug Allergy Active Adhesive Bandages Rash Drug Allergy Activ e topiramate Topamax([facility] Code:[address]-62) Rash Drug Allergy Active ENCOUNTERS from 1969 to 2020-09-29 Encounter [facility] [address] [facility] [phone] [place] [address] 11 Sep, 2020 Tavo Botello IMMUNIZATIONS Vaccine Route Administration Date Status Influenza 6mo & up Fluzone Unknown Mar 10, 2015 Other s SOCIAL HISTORY Tobacco Use: Social History Observation Description Date Details (start date - stop date) Never Smoker Sex Assigned At : Social History Observation Description Sex Assigned At Unknown Education: Question Answer Notes Level of Education: College Language: Question Answer Notes Languages spoken: Korean Muslim: Question Answer Notes Muslim 01 Agnostic Sexual Hx: Question Answer Notes [...] Notes Start Da te End Date Status Claritin 10 MG 1 capsule Orally Once a day for 90 days Active Plaquenil 200 MG 1.5 tablet with food or milk Orally Once a day Active Flonase Allergy Relief 50 MCG/ACT 1 spray in each nost ril Nasally Once a day for 30 day(s) Active Restasis 0.05 % 1 drop into affected eye Ophthalmic Twice a day Active ProAir HFA 108 (90 Base) MCG/ACT 2 puffs as needed Inh alation every 6 hrs for 10 day(s) Dec, Active Mobic 15 MG 1 tablet Orally Once a day Active Spiriva HandiHaler 18 MCG 1 capsule by inhaling the co ntents of the capsule using the HandiHaler device Inhalation Once a day Not-Taking Topamax 25 MG 1 tablet Orally bid for 90 days Sep, Active Percocet 5-325 MG 1 tablet as needed Orally every 6 hrs for 5 days Active Percocet 5-325 MG 1 tablet as needed Orally every 6 hrs fo r 5 days PRN for severe pain MDD=4 tabsDx: 54.42 Sep, A ctive Gabapentin 100 MG 1 capsule Orally Once a day for 30 day(s ) Start once before bed for 5 days, can increase to twice a day for 5 days, then can increase to three times a day Sep, Active Cyclobenzaprine HCl 5 MG 1 tablet at bedtime as neede d Orally three times a day for 30 days Jul, Active Wellbutrin XL 150 MG 1 tablet in the morning Orally Once a day for 90 days Active busPIRone HCl 10 MG 1 tablet Orally Daily Active Qvar 40 mg orally Daily Active Valtrex 500 MG 1 tablet Orally Once a day for 30 day(s) Active metroNIDAZOLE 1 % 1 application Externally Once a day Active Omeprazole 40 MG 1 cap Orally Daily Active Imuran 50 MG 2 tablets Orally Daily Active Percocet 5-325 MG 1 tablet as needed Orally every 6 hrs fo r 5 days MDD= 4 TabsDx: 54.42 Sep, Active oxyCODONE-Acetaminophen 5-325 MG 1 tablet as needed Or ally every 6 hrs for 5 days MDD= 4 TabsDx: 54.42 Sep, Active Zoloft 100 MG 1 tablet Orally Once a day for 90 days Active PROCEDURES No Information RESULTS No Results REASON FOR VISIT MRI lumbar spine MEDICAL (GENERAL) HISTORY Type Description Date Medical [...] related to surgery Hospitalization History pneumonia 05/2016 Hospitalization History sciatica 09/20/2020 Goals Section No Information Health Concerns No Information MEDICAL EQUIPMENT No Information MENTAL STATUS No Information FUNCTIONAL STATUS No Information ASSESSMENTS No Information PLAN OF TREATMENT Medication Medication Name Sig Start Date Stop Date Percocet 5-325 MG 1 tablet as needed Orally every 6 hrs for 5 da ys Sep, Percocet 5-325 MG 1 tablet as needed Orally every 6 hrs for 5 da ys Sep, Percocet 5-325 MG 1 tablet as needed Orally every 6 hrs for 5 da ys Topamax 25 MG 1 tablet Orally bid for 90 days Sep, Zoloft 100 MG 1 tablet Orally Once a day for 90 days oxyCODONE-Acetaminophen 5-325 MG 1 tablet as needed Or ally every 6 hrs for 5 days Sep, Wellbutrin XL 150 MG 1 tablet in the morning Orally Once a day f or 90 days Gabapentin 100 MG 1 capsule Orally Once a day for 30 day(s) 2020 Cyclobenzaprine HCl 5 MG 1 tablet at bedtime as neede d Orally three times a day for 30 days Jul, Insurance Providers Payer Name Payer Address Payer Phone Insured Name Patient Relati onship to Insured Coverage Start Date Coverage End Date [facility] [address] [place] [id number] TAVO JOHNSON
--- OUTSIDE RECORDS SUMMARY | 2020-12-20 21:29 | CCD ---
Continuity of Care Document (CCD) Created on: 11/10/2020 Radha Woodall External Reference #: [id number] : [id number] Sex: Female Author Author Radha SHAY F.N.P. Organization Unknown Address [address], [address] [place] [address] Phone [phone] Care Team Providers Care Maintenance Mechanic Supervisor Name Role Phone Joey Botello DO AUTM [phone] Problems Description No Information Available Social History [...] sunburn Sun Exposure Uses > 30 SPF Allergies and adverse reactions Active Allergies Criticality Reaction | Severity Comments Date sulfa Unable to assess criticality 09/15/2020 Medications Active Medications SIG Qnty Indications Ordering Provide r Date Metronidazole 1% Gel apply to face sparingly daily 55gm L71.0 Aleksey Blood.N.P. 2020 Mobic Unknown Plaquenil Unknown Imuran Unknown Wellbutrin XL Unknown Zoloft Unknown Restasis Unknown Albuterol Sulfate Unknown 0 000 Qvar Redihaler Unknown Valacyclovir HCL Unknown 00 Immunizations Description No Information Available Vital Signs Date Vital Result Comment 11/04/2020 9:51am BP Systolic 142 mmHg BP Diastolic 84 mmHg Heart Rate 75 /min Weight 210.00 lb 09/15/2020 7:59am BP Systolic 115 mmHg BP [...] dermal fibrosis. Deeper levels were examined. CPT: 76296*1 Procedures Date Code Description Status 11/04/2020 53077 Office/Outpatient Established Lo w MDM 20-29 Min Completed 09/15/2020 00585 Office Consultation Level 4 Comp leted 09/15/2020 02558 Shave Biopsy Of Skin, Single Les ion Completed Medical Devices Description No Information Available Encounters Type Date Location Provider Dx Diagnosis Office Visit 11/04/2020 10:00a Main Office Ernestina Tyson'christian, F.N.P. L71.0 Perioral dermatitis L57.0 Actinic keratosis Office Visit 09/15/2020 7:45a Main Office Ernestina Tyson'christian, F.N.P. R21 Rash and other nonspecific skin eruption D48.5 Neoplasm of uncertain behavi or of skin L71.0 Perioral dermatitis R20.8 Other disturbances of skin s ensation Assessments Date Code Description Provider 11/04/2020 L71.0 Perioral dermatitis Ernestina Tyson' christian, F.N.P. 11/04/2020 L57.0 Actinic keratosis Ernestina Tyson'melany barakat, F.N.P. 09/15/2020 R21 Rash and other nonspecific skin eruption Ernestina Tyson'christian, F.N.P. 09/15/2020 D48.5 Neoplasm of uncertain behavior o f skin Robert BloodNRoger. 09/15/2020 L71.0 Perioral dermatitis Christina Moya 09/15/2020 R20.8 Other disturbances of skin sensa tion Sathya Blood. Plan of Treatment 11/04/2020 - Sathya Blood.* L71.0 Perioral dermatitis* Comments:* Improved.Knows that perioral dermatitis can return once you have had it.Continue Metronidazole 1% gel PRN to face.Sunscreen and sun protection discussed. * L57.0 Actinic keratosis* Comments:* Discussed actinic keratoses are precancerous proliferations that occur within sun damaged skin. If untreated, a small subset of AK's can develop into SCC's. No treatment needed at this time.Monitor for recurrence.Call with any problems. * Follow up:* Next available - [facility] Functional Status Description No Information Available Mental Status Description No Information Available Referrals Refer to Reason for Referral Status Appt Date Ernestina Shay FNP Created [address], [address] [place] [address] [phone]
--- OUTSIDE RECORDS SUMMARY | 2020-12-20 21:29 | CCD ---
Author Author [facility] Syst ems Organization [facility] ems Address Unknown Phone Unavailable Care Team Providers Care Guardian Ad Litem Name Role Phone Tavo Botello Unavailable PROBLEMS Type Condition ICD9-CM Code [id number] Code Onset Dates Condition S tatus W/U Status Risk SNOMED Code Notes Problem Lesion of throat J39.2 Active confirmed 758 09419 Problem Malar rash R21 Active confirmed 51242721 Problem Nasal ulcer J34.0 Active confirmed 02284731 Problem MRSA carrier Z22.322 Active confirmed 540120 000 Problem Moderate persistent asthma, unspecified whether complicate d J45.40 Active confirmed 103237535 Problem Adnexal cyst N94.9 Active confirmed 6856798 1953433 Problem Seasonal allergies J30.2 Active confirmed 4 49247306 Problem Dysthymia F34.1 Active confirmed 17201319 Problem Lupus M32.9 Active confirmed 532705760 Problem Memory loss R41.3 Active confirmed 56115147 Problem Thoracic disc disease M51.9 Active confirmed 282332785 Problem Left-sided low back pain wit h left-sided sciatica, unspecified chronicity M54.42 Active confirmed 960781734 Problem Anxiety F41.9 Active confirmed 67365604 Problem Pneumonia of left lower lobe due to Mycoplasma pneumoniae J15.7 Active confirmed 92380191 Problem Acute left-sided low back pain with left-sided sciatica M54.42 Active confirmed 087563912 Problem ANETA (obstructive sleep apnea) G47.33 Active confirm ed 72836021 Problem Post-nasal drip R09.82 Active confirmed 7580 3007 Problem Other chronic pain G89.29 Active confirmed 8 8244916 Problem Gastroesophageal reflux disease without esophagitis K21.9 Active confirmed 286682912 Problem Short-term memory loss R41.3 Active confirmed 428843159 Problem History of skin cancer Z85.828 Active confirmed 860327202 ALLERGIES Allergen (clinical drug ingredient) Drug/Non Drug Allergy do cumented on EMR Reaction Allergy Type Onset Date Status Latex (for allergy use only) Rash Drug Allergy Active Sulfa (for allergy use only) Joint swelling Drug Allergy Active Adhesive Bandages Rash Drug Allergy Activ e topiramate Topamax([facility] Code:[address]-01) Rash Drug Allergy Active ENCOUNTERS from 1969 to 2020-09-30 Encounter Location Date Provider Diagnosis [facility] [place] [address] [facility] [phone] [place] [address] 11 Sep, 2020 Tavo Botello Dysthymia F34.1 and Left-tomas ed low back pain with left- sided sciatica, unspecified chronicity M54.42 IMMUNIZATIONS Vaccine Route Administration Date Status Influenza 6mo & up Fluzone Unknown Mar 10, 2015 Other s SOCIAL HISTORY Tobacco Use: Social History Observation Description Date Details (start date - stop date) Never Smoker Sex Assigned At : Social History Observation Description Sex Assigned At Unknown Education: Question Answer Notes Level of Education: College Language: Question Answer Notes Languages spoken: Maori Mormon: Question Answer Notes Mormon 01 Agnostic Sexual Hx: Question Answer Notes [...] you a: never smoker REASON FOR REFERRAL from 1969 to 2020-09-30 Reason Please evaluate and treat as needed Diagnosis 1 Left-sided low back pain wit h left-sided sciatica, unspecified chronicity (M54.42) Referral Organization [facility] [place] Referring Provider First Name Tavo Referring Provider Last Name Ayan Referring Provider Specialty Family Medicine Referred Provider [place] y Referred Provider Specialty Physical Therapist Referral Priority Urgent VITAL SIGNS Weight 205.8 lbs Sep, Height 68 in Sep, BMI 31.29 kg/m2 Sep, Heart Rate 83 /min Sep, Respiratory Rate 17 /min Sep, Temperature 97.7 degrees Fahrenheit Sep, Oximetry 99 Sep, Blood pressure systolic 147 mm Hg Sep, Blood pressure diastolic 88 mm Hg Sep, MEDICATIONS Medication SIG (Take, Route, Frequency, Duration) [...] r 5 days PRN for severe pain -11/23MDD=4 tabsDx: 54.42 Sep, A ctive Gabapentin 100 [...] Information RESULTS No Results REASON FOR VISIT discuss medication; fmla paperwork MEDICAL (GENERAL) HISTORY Type Description Date Medical [...] No Information FUNCTIONAL STATUS No Information ASSESSMENTS Encounter Date Diagnosis Assessment Notes Treatment Notes Treatm ent Clinical Notes Sep, Dysthymia (ICD-10 - F34.1) Patient no longer following with psychiatrist. Still follows with counselor. Refilling medications at this time. If symptoms worsen will recommend patient follow-up with a psychiatrist. Has been stable on this regimen for a while. Sep, Left-sided low back pain wit h left-sided sciatica, unspecified chronicity (ICD-10 - M54.42) History of left lower extremity radiating pain. Pain radiates down from back into the leg. Patient denies low back pain but that is where pain originates. Has been bothering for the last 6 weeks or so. Denies any injury. Evident on exam patient has decreased sensation on the left lower extremity. Suspect radiculopathy symptoms. Discussed possible causes including herniated disc, pinched nerve. Noted x-ray did not reveal cause. Discussed that MRI may be beneficial. Patient agreed. Ordering at this time. Discussed physical therapy may be beneficial for treatment. Often can be effective. Patient agreed at this time. Referred to physical therapy [facility]. Continue muscle relaxer as needed. Cautioned on sleepiness and use wall driving. Patient understood. Discussed continuation of Percocet to only use with severe pain. Provided prescription to patient. Cautioned patient on side effects and possible risk for dependence and abuse. Patient understood. Also discussed starting medication such as gabapentin for neuropathy/radiculopathy symptoms. May be beneficial. Discussed to start once a day at night and can slowly titrate up to 3 times a day over the next several weeks. Any side effects or questions to call the office. Had errors printing out script of percocet to patient, therefore had to add others to reprint, only one script for 5 days q6h, mdd 4 tablets provided to patient. PLAN OF TREATMENT Medication Medication Name Sig [...] times a day for 30 days Jul, Treatment Notes Assessment Notes Clinical Notes Dysthymia Patient no longer fo llowing with psychiatrist. Still follows with counselor. Refilling medications at this time. If symptoms worsen will recommend patient follow-up with a psychiatrist. Has been stable on this regimen for a while. Left-sided low back pain with left-sided sciatica, unspecifi ed chronicity History of left lower extremity radiating pain. Pain radiates down from back into the leg. Patient denies low back pain but that is where pain originates. Has been bothering for the last 6 weeks or so. Denies any injury. Evident on exam patient has decreased sensation on the left lower extremity. Suspect radiculopathy symptoms. Discussed possible causes including herniated disc, pinched nerve. Noted x-ray did not reveal cause. Discussed that MRI may be beneficial. Patient agreed. Ordering at this time. Discussed physical therapy may be beneficial for treatment. Often can be effective. Patient agreed at this time. Referred to physical therapy [facility].Continue muscle relaxer as needed. Cautioned on sleepiness and use wall driving. Patient understood. Discussed continuation of Percocet to only use with severe pain. Provided prescription to patient. Cautioned patient on side effects and possible risk for dependence and abuse. Patient understood. Also discussed sta rting medication such as gabapentin for neuropathy/radiculopathy symptoms. May be beneficial. Discussed to start once a day at night and can slowly titrate up to 3 times a day over the next several weeks. Any side effects or questions to call the office.Had errors printing out script of percocet to patient, therefore had to add others to reprint, only one script for 5 days q6h, mdd 4 tablets provided to patient. Treatment Notes Test Name Order Date [facility] without con 2020-09-24 Referrals Referral Date Details Please evaluate and treat as needed, Physical Therapy [place] Next Appt Details pending mri/2 mth Reason: Insurance Providers Payer Name Payer Address Payer Phone Insured Name Patient Relati onship to Insured Coverage Start Date Coverage End Date [facility] INS[facility] [id number] [place] [id number] TAVO JOHNSON
--- OUTSIDE RECORDS SUMMARY | 2020-12-20 21:29 | CCD ---
Author Author [facility] Syst ems Organization [facility] ems Address Unknown Phone Unavailable Care Team Providers Care Patch Sander Name Role Phone Tavo Botello Unavailable PROBLEMS Type Condition ICD9-CM Code OMY10-QH Code Onset Dates Condition S tatus W/U Status Risk SNOMED Code Notes Problem MRSA carrier Z22.322 Active confirmed 951015 000 Problem Lesion of throat J39.2 Active confirmed 754 63260 Problem Moderate persistent asthma, unspecified whether complicate d J45.40 Active confirmed 094916240 Problem Nasal ulcer J34.0 Active confirmed 68053132 Problem Dysthymia F34.1 Active confirmed 30797239 Problem Adnexal cyst N94.9 Active confirmed 5616231 1162313 Problem ANETA (obstructive sleep apnea) G47.33 Active confirm ed 76972618 Problem Seasonal allergies J30.2 Active confirmed 4 61501903 Problem Memory loss R41.3 Active confirmed 90301565 Problem Thoracic disc disease M51.9 Active confirmed 919330928 Problem Other chronic pain G89.29 Active confirmed 8 3629929 Problem Acute left-sided low back pain with left-sided sciatica M54.42 Active confirmed 373753945 Problem Lupus M32.9 Active confirmed 474949129 Problem Post-nasal drip R09.82 Active confirmed 7580 3007 Problem Lumbago with sciatica, right side M54.41 Active confirmed 436637951 Problem Anxiety F41.9 Active confirmed 93570447 Problem Pneumonia of left lower lobe due to Mycoplasma pneumoniae J15.7 Active confirmed 58999265 Problem Malar rash R21 Active confirmed 76381818 Problem Gastroesophageal reflux disease without esophagitis K21.9 Active confirmed 318440597 Problem Short-term memory loss R41.3 Active confirmed 305858951 Problem History of skin cancer Z85.828 Active confirmed 273411415 Problem Left-sided low back pain wit h left-sided sciatica, unspecified chronicity M54.42 Active confirmed 814311280 ALLERGIES Allergen (clinical drug ingredient) Drug/Non Drug Allergy do cumented on EMR Reaction Allergy Type Onset Date Status Latex (for allergy use only) Rash Drug Allergy Active Sulfa (for allergy use only) Joint swelling Drug Allergy Active Adhesive Bandages Rash Drug Allergy Activ e topiramate Topamax([facility] Code:[address]-48) Rash Drug Allergy Active ENCOUNTERS from 1969 to 2020-11-26 Encounter Location Date [facility] [address] [facility] [phone] [place] [address] 13 Nov, 2020 Tavo Botello Other chronic pain G89.29 IMMUNIZATIONS Vaccine Route Administration Date Status Influenza 6mo & up Fluzone Unknown Mar 10, 2015 Other s SOCIAL HISTORY Tobacco Use: Social History Observation Description Date Details (start date - stop date) Never Smoker Sex Assigned At : Social History Observation Description Sex Assigned At Unknown Education: Question Answer Notes Level of Education: College Language: Question Answer Notes Languages spoken: Malian Baptist: Question Answer Notes Baptist 01 Agnostic Sexual Hx: Question Answer Notes [...] smoker REASON FOR REFERRAL from 1969 to 2020-11-26 Reason Continued management Diagnosis 1 Other chronic pain (G89.29) Referral Organization [facility] Leonela Referring Provider First Name Tavo Referring Provider Last Name Ayan Referring Provider Specialty Family Medicine Referred Provider Aureliano ([facility]) Jhonathan Referred Provider Specialty Pain Medicine Referral Priority Routine VITAL SIGNS No information MEDICATIONS Medication SIG [...] Once a day for 30 day(s) Active Valtrex 500 MG 1 tablet Orally Once a day for 30 day(s) Active ProAir HFA 108 (90 Base) MCG/ACT 2 puffs as needed Inh alation every 6 hrs for 10 day(s) Dec, Active Topamax 25 MG 1 tablet Orally bid for 90 days Sep, Active Spiriva HandiHaler 18 MCG 1 capsule by inhaling the co ntents of the capsule using the HandiHaler device Inhalation Once a day Not-Taking Percocet 5-325 MG 1 tablet as needed Orally every 6 hrs fo r 5 days MDD= 4 TabsDx: 54.42Severe pain Sep, Active Percocet 5-325 MG 1 tablet as needed Orally every 6 hrs fo r 5 days PRN for severe pain MDD=4 tabsDx: 54.42 Sep, A ctive Percocet 5-325 MG 1 tablet as needed Orally every 6 hrs for 7 days Active Gabapentin 100 MG 1 capsule Orally Once a day for 30 day(s ) Start once before bed for 5 days, can increase to twice a day for 5 days, then can increase to three times a day Sep, Active Restasis 0.05 % 1 drop into affected eye Ophthalmic Twice a day Active Mobic 15 MG 1 tablet Orally Once a day Active busPIRone HCl 10 MG 1 tablet Orally Daily Active Qvar 40 mg orally Daily Active oxyCODONE-Acetaminophen 5-325 MG 1 tablet as needed Or ally every 6 hrs for 5 days MDD= 4 TabsDx: 54.42 Sep, Active metroNIDAZOLE 1 % 1 application Externally Once a day Active Omeprazole 40 MG 1 cap Orally Daily Active Imuran 50 MG 2 tablets Orally Daily Active Cyclobenzaprine HCl 5 MG 1 tablet at bedtime as neede d Orally three times a day for 30 days Jul, Active Wellbutrin XL 150 MG 1 tablet in the morning Orally Once a day for 90 days Active Zoloft 100 MG 1 tablet Orally Once a day for 90 days Active PROCEDURES No Information RESULTS No Results REASON FOR VISIT Pain Management Referral MEDICAL (GENERAL) HISTORY Type Description Date Medical [...] Notes Treatment Notes Treatm ent Clinical Notes Nov, Other chronic pain (ICD-10 - G89.29) PLAN OF TREATMENT Medication Medication Name Sig Start Date Stop Date Percocet 5-325 MG 1 tablet as needed Orally every 6 hrs for 7 da ys Cyclobenzaprine HCl 5 MG 1 tablet at bedtime as neede d Orally three times a day for 30 days Jul, Percocet 5-325 MG 1 tablet as needed Orally every 6 hrs for 5 da ys Sep, Percocet 5-325 MG 1 tablet as needed Orally every 6 hrs for 5 da ys Sep, Zoloft 100 MG 1 tablet Orally Once a day for 90 days Wellbutrin XL 150 MG 1 tablet in the morning Orally Once a day f or 90 days Topamax 25 MG 1 tablet Orally bid for 90 days Sep, Gabapentin 100 MG 1 capsule Orally Once a day for 30 day(s) 2020 oxyCODONE-Acetaminophen 5-325 MG 1 tablet as needed Or ally every 6 hrs for 5 days Sep, Referrals Referral Date Details Continued management, Lilian Dueñas ([facility]) Insurance Providers Payer Name Payer Address Payer Phone Insured Name Patient Relati onship to Insured Coverage Start Date Coverage End Date [facility] INSURANCE [address] [place] [address] TAVO JOHNSON
--- OUTSIDE RECORDS SUMMARY | 2020-12-20 21:29 | CCD ---
Author Author [facility] Syst ems Organization [facility] ems Address Unknown Phone Unavailable Care Team Providers Care Medical Office Assistant Instructor Name Role Phone Tavo Botello Unavailable PROBLEMS Type Condition ICD9-CM Code VFE26-VT Code Onset Dates Condition S tatus W/U Status Risk SNOMED Code Notes Problem MRSA carrier Z22.322 Active confirmed 044189 000 Problem Lesion of throat J39.2 Active confirmed 752 70688 Problem Moderate persistent asthma, unspecified whether complicate d J45.40 Active confirmed 749438203 Problem Nasal ulcer J34.0 Active confirmed 89584739 Problem Dysthymia F34.1 Active confirmed 27909438 Problem Adnexal cyst N94.9 Active confirmed 4105416 4669875 Problem ANETA (obstructive sleep apnea) G47.33 Active confirm ed 35088739 Problem Seasonal allergies J30.2 Active confirmed 4 07827996 Problem Memory loss R41.3 Active confirmed 84871479 Problem Thoracic disc disease M51.9 Active confirmed 149860424 Problem Other chronic pain G89.29 Active confirmed 8 4356047 Problem Acute left-sided low back pain with left-sided sciatica M54.42 Active confirmed 476812068 Problem Lupus M32.9 Active confirmed 504158623 Problem Post-nasal drip R09.82 Active confirmed 7580 3007 Problem Lumbago with sciatica, right side M54.41 Active confirmed 491988455 Problem Anxiety F41.9 Active confirmed 67100608 Problem Pneumonia of left lower lobe due to Mycoplasma pneumoniae J15.7 Active confirmed 79560280 Problem Malar rash R21 Active confirmed 00548996 Problem Gastroesophageal reflux disease without esophagitis K21.9 Active confirmed 806342751 Problem Short-term memory loss R41.3 Active confirmed 489324909 Problem History of skin cancer Z85.828 Active confirmed 376726660 Problem Left-sided low back pain wit h left-sided sciatica, unspecified chronicity M54.42 Active confirmed 118858203 ALLERGIES Allergen (clinical drug ingredient) Drug/Non Drug Allergy do cumented on EMR Reaction Allergy Type Onset Date Status Latex (for allergy use only) Rash Drug Allergy Active Sulfa (for allergy use only) Joint swelling Drug Allergy Active Adhesive Bandages Rash Drug Allergy Activ e topiramate Topamax([facility] Code:[address]-48) Rash Drug Allergy Active ENCOUNTERS from 1970 to 2020-11-19 Encounter Location Date Provider Diagnosis [facility] [place] [address] [facility] [phone] [place] [address] Nov, Tavo Botello Other chronic pain G89.29 an d Left-sided low back pain with left-sided sciatica, unspecified chronicity M54.42 IMMUNIZATIONS Vaccine Route [...] College Language: Question Answer Notes Languages spoken: Spanish Shinto: Question Answer Notes Shinto 01 Agnostic Sexual Hx: Question Answer Notes [...] smoker REASON FOR REFERRAL from 1969 to 2020-11-19 Reason Please evaluate and treat as needed Diagnosis 1 Left-sided low back pain wit h left-sided sciatica, unspecified chronicity (M54.42) Referral Organization [facility] Referring Provider First Name Tavo Referring Provider Last Name Ayan Referring Provider Specialty Family Medicine Referred Provider [facility] Referred Provider Specialty Orthopedic Surgery Referral Priority Urgent Clinical Notes Tavo Botello, DO 11/18/2020 1:53:29 PM > MRI 10/02/20Large left foraminal disc extrusion at L5/S1 results in potential compromise ofthe exiting left L5 nerve root. VITAL SIGNS No information MEDICATIONS Medication SIG [...] Information RESULTS No Results REASON FOR VISIT referral to ortho MEDICAL (GENERAL) HISTORY Type Description Date Medical [...] Nov, Other chronic pain (ICD-10 - G89.29) Nov, Left-sided low back pain wit h left-sided sciatica, unspecified chronicity (ICD-10 - M54.42) PLAN OF TREATMENT Medication Medication Name Sig [...] 5 days Sep, Referrals Referral Date Details Please evaluate and treat as needed, [facility] Insurance Providers Payer Name Payer Address Payer Phone Insured Name Patient Relati onship to Insured Coverage Start Date Coverage End Date [facility] INS[facility] [address] [place] [address] TAVO JOHNSON
--- OUTSIDE RECORDS SUMMARY | 2020-12-20 21:29 | CCD ---
Author Author [facility] Syst ems Organization [facility] ems Address Unknown Phone Unavailable Care Team Providers Care Online Trader Name Role Phone Tavo Botello Unavailable PROBLEMS Type Condition ICD9-CM Code BLZ87-BM Code Onset Dates Condition S tatus W/U Status Risk SNOMED Code Notes Problem Lesion of throat J39.2 Active confirmed 758 13891 Problem Malar rash R21 Active confirmed 84430879 Problem Nasal ulcer J34.0 Active confirmed 39178855 Problem MRSA carrier Z22.322 Active confirmed 965085 000 Problem Moderate persistent asthma, unspecified whether complicate d J45.40 Active confirmed 451543048 Problem Adnexal cyst N94.9 Active confirmed 2299486 9116646 Problem Seasonal allergies J30.2 Active confirmed 4 90062824 Problem Dysthymia F34.1 Active confirmed 48248294 Problem Lupus M32.9 Active confirmed 342398413 Problem Memory loss R41.3 Active confirmed 47338487 Problem Thoracic disc disease M51.9 Active confirmed 484647753 Problem Left-sided low back pain wit h left-sided sciatica, unspecified chronicity M54.42 Active confirmed 957469909 Problem Anxiety F41.9 Active confirmed 82224037 Problem Pneumonia of left lower lobe due to Mycoplasma pneumoniae J15.7 Active confirmed 26611265 Problem Acute left-sided low back pain with left-sided sciatica M54.42 Active confirmed 503266009 Problem ANETA (obstructive sleep apnea) G47.33 Active confirm ed 80062696 Problem Post-nasal drip R09.82 Active confirmed 7580 3007 Problem Other chronic pain G89.29 Active confirmed 8 1748054 Problem Gastroesophageal reflux disease without esophagitis K21.9 Active confirmed 373816919 Problem Short-term memory loss R41.3 Active confirmed 505527005 Problem History of skin cancer Z85.828 Active confirmed 172024559 ALLERGIES Allergen (clinical drug ingredient) Drug/Non Drug Allergy do cumented on EMR Reaction Allergy Type Onset Date Status Latex (for allergy use only) Rash Drug Allergy Active Sulfa (for allergy use only) Joint swelling Drug Allergy Active Adhesive Bandages Rash Drug Allergy Activ e topiramate Topamax([facility] Code:[address]-96) Rash Drug Allergy Active ENCOUNTERS from 1970 to 2020-10-07 Encounter [facility] Date [facility] [address] [facility] [phone] [place] [address] Sep, Tavo Botello Left-sided low back pain wit h left-sided sciatica, unspecified chronicity M54.42 and Cyst of right ovary N83.201 IMMUNIZATIONS Vaccine Route Administration Date Status Influenza 6mo & up Fluzone Unknown Mar 10, 2015 Other s SOCIAL HISTORY Tobacco Use: Social History Observation Description Date Details (start date - stop date) Never Smoker Sex Assigned At : Social History Observation Description Sex Assigned At Unknown Education: Question Answer Notes Level of Education: College Language: Question Answer Notes Languages spoken: Tunisian Judaism: Question Answer Notes Judaism 01 Agnostic Sexual Hx: Question Answer Notes [...] RESULTS No Results REASON FOR VISIT MRI MEDICAL (GENERAL) HISTORY Type Description Date Medical History MRSA carrier no MRSA infections Medical History lupus erythematosus on [place] Medical History seasonal allergies with sinusitis Medical History history of mycoplasma pneumonia Medical History Mild persistent asthma Medical History ANETA Medical History anxiety Medical History dysthmia Medical History allergic conjunctivitis Medical History Dry eyes with lupus Surgical History Hysterectomy 2015 Surgical History cholecystectomy Surgical History varicous vein surgery bilateral 2004 Hospitalization History related to surgery Hospitalization History pneumonia 05/2016 Hospitalization History sciatica 09/20/2020 Goals Section No Information Health Concerns No Information MEDICAL EQUIPMENT No Information MENTAL STATUS No Information FUNCTIONAL STATUS No Information ASSESSMENTS Encounter Date Diagnosis Assessment Notes Treatment Notes Treatm ent Clinical Notes Sep, Left-sided low back pain wit h left-sided sciatica, unspecified chronicity (ICD-10 - M54.42) Sep, Cyst of right ovary (ICD-10 - N83.201) PLAN OF TREATMENT Medication Medication Name Sig [...] every 6 hrs for 5 days Sep, Treatment Notes Test Name Order Date PELVIS NON-OB COMPLETE 2020-10-06 Insurance Providers Payer Name Payer Address Payer Phone Insured Name Patient Relati onship to Insured Coverage Start Date Coverage End Date [facility] [address] [place] [id number] TAVO JOHNSON
--- OUTSIDE RECORDS SUMMARY | 2020-12-20 21:29 | CCD ---
Author Author Merged With [facility] Organization [facility] Address Unknown Phone Unavailable Care Team Providers Care Child And Adolescent Psychiatrist Name Role Phone Magnolia Garcia Unavailable PROBLEMS Type Condition ICD9-CM Code [id number] Code Onset Dates Condition S tatus W/U Status Risk SNOMED Code Notes Problem Lesion of throat J39.2 Active confirmed 758 67845 Problem Malar rash R21 Active confirmed 74563603 Problem Nasal ulcer J34.0 Active confirmed 51874347 Problem MRSA carrier Z22.322 Active confirmed 891097 000 Problem Moderate persistent asthma, unspecified whether complicate d J45.40 Active confirmed 125408646 Problem Adnexal cyst N94.9 Active confirmed 5823565 1680858 Problem Seasonal allergies J30.2 Active confirmed 4 90459827 Problem Dysthymia F34.1 Active confirmed 18578651 Problem Lupus M32.9 Active confirmed 194030603 Problem Memory loss R41.3 Active confirmed 83546875 Problem Thoracic disc disease M51.9 Active confirmed 544892552 Problem Left-sided low back pain wit h left-sided sciatica, unspecified chronicity M54.42 Active confirmed 139019372 Problem Anxiety F41.9 Active confirmed 51607631 Problem Pneumonia of left lower lobe due to Mycoplasma pneumoniae J15.7 Active confirmed 82828755 Problem Acute left-sided low back pain with left-sided sciatica M54.42 Active confirmed 830564963 Problem ANETA (obstructive sleep apnea) G47.33 Active confirm ed 31712406 Problem Post-nasal drip R09.82 Active confirmed 7580 3007 Problem Other chronic pain G89.29 Active confirmed 8 7868529 Problem Gastroesophageal reflux disease without esophagitis K21.9 Active confirmed 589827136 Problem Short-term memory loss R41.3 Active confirmed 918878664 Problem History of skin cancer Z85.828 Active confirmed 279792214 ALLERGIES Allergen (clinical drug ingredient) Drug/Non Drug Allergy do cumented on EMR Reaction Allergy Type Onset Date Status Latex (for allergy use only) Rash Drug Allergy Active Sulfa (for allergy use only) Joint swelling Drug Allergy Active Adhesive Bandages Rash Drug Allergy Activ e topiramate Topamax([facility] Code:[address]-65) Rash Drug Allergy Active ENCOUNTERS from 1969 to 2020-09-24 Encounter Location Date Provider Diagnosis [place] [address] [facility] [phone] [place] [address] Sep, Magnolia Jose IMMUNIZATIONS Vaccine Route Administration Date Status Influenza 6mo & up Fluzone Unknown Mar 10, 2015 Other s SOCIAL HISTORY Tobacco Use: Social History Observation Description Date Details (start date - stop date) Never Smoker Sex Assigned At : Social History Observation Description Sex Assigned At Unknown Education: Question Answer Notes Level of Education: College Language: Question Answer Notes Languages spoken: Italian Amish: Question Answer Notes Amish 01 Agnostic Sexual Hx: Question Answer Notes [...] Information RESULTS No Results REASON FOR VISIT Neurology referral MEDICAL (GENERAL) HISTORY Type Description Date Medical [...] Insured Coverage Start Date Coverage End Date [facility] [employer] [id number] [place] [id number] [place]
--- OUTSIDE RECORDS SUMMARY | 2020-12-20 21:29 | CCD ---
Author Author [facility] Organization [facility] Address Unknown Phone Unavailable Care Team Providers Care Pre Kindergarten Teacher Name Role Phone Tavo Botello Unavailable PROBLEMS Type Condition ICD9-CM Code [id number] Code Onset Dates Condition S tatus W/U Status Risk SNOMED Code Notes Problem Lesion of throat J39.2 Active confirmed 758 50935 Problem Malar rash R21 Active confirmed 30131626 Problem Nasal ulcer J34.0 Active confirmed 61282630 Problem MRSA carrier Z22.322 Active confirmed 497226 000 Problem Moderate persistent asthma, unspecified whether complicate d J45.40 Active confirmed 547715514 Problem Adnexal cyst N94.9 Active confirmed 9123323 2648168 Problem Seasonal allergies J30.2 Active confirmed 4 90099050 Problem Dysthymia F34.1 Active confirmed 24662216 Problem Lupus M32.9 Active confirmed 727135056 Problem Memory loss R41.3 Active confirmed 18861036 Problem Thoracic disc disease M51.9 Active confirmed 100749023 Problem Left-sided low back pain wit h left-sided sciatica, unspecified chronicity M54.42 Active confirmed 625628248 Problem Anxiety F41.9 Active confirmed 66726185 Problem Pneumonia of left lower lobe due to Mycoplasma pneumoniae J15.7 Active confirmed 16621368 Problem Acute left-sided low back pain with left-sided sciatica M54.42 Active confirmed 752388292 Problem ANETA (obstructive sleep apnea) G47.33 Active confirm ed 01735406 Problem Post-nasal drip R09.82 Active confirmed 7580 3007 Problem Other chronic pain G89.29 Active confirmed 8 4841859 Problem Gastroesophageal reflux disease without esophagitis K21.9 Active confirmed 489593523 Problem Short-term memory loss R41.3 Active confirmed 202996261 Problem History of skin cancer Z85.828 Active confirmed 334204274 ALLERGIES Allergen (clinical drug ingredient) Drug/Non Drug Allergy do cumented on EMR Reaction Allergy Type Onset Date Status Latex (for allergy use only) Rash Drug Allergy Active Sulfa (for allergy use only) Joint swelling Drug Allergy Active Adhesive Bandages Rash Drug Allergy Activ e topiramate Topamax([facility] Code:[address]-02) Rash Drug Allergy Active ENCOUNTERS from 1969 to 2020-10-26 Encounter [facility] Date [facility] [address] [facility] [phone] [place] [address] Oct, Tavo Botello IMMUNIZATIONS Vaccine Route Administration Date Status Influenza 6mo & up Fluzone Unknown Mar 10, 2015 Other s SOCIAL HISTORY Tobacco Use: Social History Observation Description Date Details (start date - stop date) Never Smoker Sex Assigned At : Social History Observation Description Sex Assigned At Unknown Education: Question Answer Notes Level of Education: College Language: Question Answer Notes Languages spoken: Yi Hindu: Question Answer Notes Hindu 01 Agnostic Sexual Hx: Question Answer Notes [...] Information RESULTS No Results REASON FOR VISIT physical therapy MEDICAL (GENERAL) HISTORY Type Description Date Medical [...] every 6 hrs for 5 days Sep, Insurance Providers Payer Name Payer Address Payer Phone Insured Name Patient Relati onship to Insured Coverage Start Date Coverage End Date [facility] [employer] [id number] [place] [id number] [place]
--- OUTSIDE RECORDS SUMMARY | 2020-12-20 21:30 | CCD ---
Author Author [facility] Organization [facility] Address Unknown Phone Unavailable Support Name Relationship Address Phone UE Next Of Kin Unknown Unavailable [facility] Next Of Kin [phone] [place] [address] - TAVO JOHNSON Next Of Kin Unknown Unavailable TAVO POE Next Of Kin [phone] [facility] [place] [address] Unavailable [facility] Next Of Kin [address] [place] [place] [address] [place] Next Of Kin [address] [place] [place] [address] [place] Next Of Kin [address] [facility] [place] [place] [address] [employer] [employer] [facility] CIVILIAN Next Of Kin 04/23 [place] [address] [facility] Next Of Kin [address] [place] [place] [address] - TAVO JOHNSON Next Of Kin [address] [place] [address] TAVO JOHNSON ECON [address] [place] [address] Unavailable Care Team Providers Care Fur Puller Name Role Phone Sharif Yuen Unavailable Unavailable Adia Bedoya MD Unavailable Unavailable Adia Bedoya MD Unavailable Unavailable Adia Bedoya MD Unavailable Unavailable Adia Bedoya MD Unavailable Unavailable Adia Bedoya MD Unavailable Unavailable Adia Bedoya MD Unavailable Unavailable Adia Bedoya MD Unavailable Unavailable Adia Bedoya MD Unavailable Unavailable Adia Bedoya MD Unavailable Unavailable Adia Bedoya MD Unavailable Unavailable Adia Bedoya MD Unavailable Unavailable Adia Bedoya MD Unavailable Unavailable Adia Bedoya MD Unavailable Unavailable BollaAdia MD Unavailable Unavailable BollaAdia MD Unavailable Unavailable BollaAdia MD Unavailable Unavailable BollaAdia MD Unavailable Unavailable Bolla, Adia Ring MD Unavailable Unavailable Bolla, Adia Ring MD Unavailable Unavailable Bolla, S Jhonathan HOLLINGSWORTH Unavailable Unavailable Bolla, Adia Ring MD Unavailable Unavailable Bolla, S Jhonathan HOLLINGSWORTH Unavailable Unavailable Bolla, Adia Ring MD Unavailable Unavailable Bolla, S Jhonathan HOLLINGSWORTH Unavailable Unavailable Bolla, Adia Ring MD Unavailable Unavailable Bolla, S Jhonathan HOLLINGSWORTH Unavailable Unavailable BolAdia duvall MD Unavailable Unavailable Bolla, S Jhonathan HOLLINGSWORTH Unavailable Unavailable Bolla, S Jhonathan HOLLINGSWORTH Unavailable Unavailable Bolla, S Jhonathan HOLLINGSWORTH Unavailable Unavailable BolAdia duvall MD Unavailable Unavailable Bolla, Adia Ring MD Unavailable Unavailable BolAdia duvall MD Unavailable Unavailable BollaAdia MD Unavailable Unavailable BolAdia duvall MD Unavailable Unavailable BollaAdia MD Unavailable Unavailable BolAdia duvall MD Unavailable Unavailable BollaAdia MD Unavailable Unavailable BolAdia duvall MD Unavailable Unavailable BollaAdia MD Unavailable Unavailable BolAdia duvall MD Unavailable Unavailable BollaAdia MD Unavailable Unavailable BolAdia duvall MD Unavailable Unavailable BolAdia duvall MD Unavailable Unavailable BolAdia duvall MD Unavailable Unavailable BolAdia duvall MD Unavailable Unavailable BolAdia duvall MD Unavailable Unavailable BolAdia duvall MD Unavailable Unavailable BolAdia duvall MD Unavailable Unavailable Tristen Ryan MD Unavailable Unavailable Tristen Ryan MD Unavailable Unavailable Tristen Ryan MD Unavailable Unavailable Tristen Ryan MD Unavailable Unavailable Tristen Ryan MD Unavailable Unavailable Tristen Ryan MD Unavailable Unavailable Tristen Ryan MD Unavailable Unavailable Tristen Ryan MD Unavailable Unavailable Tristen Ryan MD Unavailable Unavailable Tristen Ryan MD Unavailable Unavailable Tristen Ryan MD Unavailable Unavailable Tristen Ryan MD Unavailable Unavailable Tristen Ryan MD Unavailable Unavailable Tristen Ryan MD Unavailable Unavailable Tristen Ryan MD Unavailable Unavailable DyTristen lucio MD Unavailable Unavailable DyTristen lucio MD Unavailable Unavailable DyTristen lucio MD Unavailable Unavailable DyTristen lucio MD Unavailable Unavailable DyTristen lucio MD Unavailable Unavailable DyTristen lucio MD Unavailable Unavailable DyTristen lucio MD Unavailable Unavailable DyTristen lucio MD Unavailable Unavailable DyTristen lucio MD Unavailable Unavailable Dynaveed, C Humberto MD Unavailable Unavailable DyTristen lucio MD Unavailable Unavailable DyTristen lucio MD Unavailable Unavailable DyTristen lucio MD Unavailable Unavailable DyTristen lucio MD Unavailable Unavailable Dynaveed, C Humberto MD Unavailable Unavailable DyTristen lucio MD Unavailable Unavailable Dynaveed, C Humberto MD Unavailable Unavailable Dynaveed, C Humberto MD Unavailable Unavailable Dynaveed, C Humberto MD Unavailable Unavailable Dynaveed, Tristen Paul MD Unavailable Unavailable DyTristen lucio MD Unavailable Unavailable Dynaveed, C Humberto MD Unavailable Unavailable Dynaveed, Tristen Paul MD Unavailable Unavailable Dynaveed, C Humberto MD Unavailable Unavailable [place], Jordyn AUTOMATIC CIGAR WRAPPER TENDER Unavailable Unavailable [place], Jordyn AUTOMATIC CIGAR WRAPPER TENDER Unavailable Unavailable [place], Jordyn AUTOMATIC CIGAR WRAPPER TENDER Unavailable Unavailable [place], Jordyn AUTOMATIC CIGAR WRAPPER TENDER Unavailable Unavailable [place], Jordyn AUTOMATIC CIGAR WRAPPER TENDER Unavailable Unavailable [place], Jordyn AUTOMATIC CIGAR WRAPPER TENDER Unavailable Unavailable [place], Jordyn AUTOMATIC CIGAR WRAPPER TENDER Unavailable Unavailable [place], Jordyn AUTOMATIC CIGAR WRAPPER TENDER Unavailable Unavailable Cambria, Jordyn AUTOMATIC CIGAR WRAPPER TENDER Unavailable Unavailable [place]ria, Jordyn AUTOMATIC CIGAR WRAPPER TENDER Unavailable Unavailable [place], Jordyn AUTOMATIC CIGAR WRAPPER TENDER Unavailable Unavailable [place], Jordyn AUTOMATIC CIGAR WRAPPER TENDER Unavailable Unavailable [place], Jordyn AUTOMATIC CIGAR WRAPPER TENDER Unavailable Unavailable [place], Jordyn AUTOMATIC CIGAR WRAPPER TENDER Unavailable Unavailable [place], Jordyn AUTOMATIC CIGAR WRAPPER TENDER Unavailable Unavailable [place], Jordyn AUTOMATIC CIGAR WRAPPER TENDER Unavailable Unavailable [place], Jordyn AUTOMATIC CIGAR WRAPPER TENDER Unavailable Unavailable [place], Jordyn AUTOMATIC CIGAR WRAPPER TENDER Unavailable Unavailable [place], Jordyn AUTOMATIC CIGAR WRAPPER TENDER Unavailable Unavailable [place], Jordyn AUTOMATIC CIGAR WRAPPER TENDER Unavailable Unavailable [place], Jordyn AUTOMATIC CIGAR WRAPPER TENDER Unavailable Unavailable [place], Jordyn AUTOMATIC CIGAR WRAPPER TENDER Unavailable Unavailable [place], Jordyn AUTOMATIC CIGAR WRAPPER TENDER Unavailable Unavailable [place], Jordyn AUTOMATIC CIGAR WRAPPER TENDER Unavailable Unavailable [place], Jordyn AUTOMATIC CIGAR WRAPPER TENDER Unavailable Unavailable [place], Jordyn AUTOMATIC CIGAR WRAPPER TENDER Unavailable Unavailable [place], Jordyn AUTOMATIC CIGAR WRAPPER TENDER Unavailable Unavailable [place], Jordyn AUTOMATIC CIGAR WRAPPER TENDER Unavailable Unavailable [place], Jordyn AUTOMATIC CIGAR WRAPPER TENDER Unavailable Unavailable [place], Jordyn AUTOMATIC CIGAR WRAPPER TENDER Unavailable Unavailable [place], Jordyn AUTOMATIC CIGAR WRAPPER TENDER Unavailable Unavailable [place], Jordyn AUTOMATIC CIGAR WRAPPER TENDER Unavailable Unavailable [place], Jordyn AUTOMATIC CIGAR WRAPPER TENDER Unavailable Unavailable [place], Jordyn AUTOMATIC CIGAR WRAPPER TENDER Unavailable Unavailable [place], Jordyn AUTOMATIC CIGAR WRAPPER TENDER Unavailable Unavailable [place], Jordyn AUTOMATIC CIGAR WRAPPER TENDER Unavailable Unavailable HIGINIO CUMMINS MD Unavailable Unavailable CUMMINSHIGINIO HART MD Unavailable Unavailable CUMMINSHIGINIO HART MD Unavailable Unavailable CUMMINSHIGINIO AHRT MD Unavailable Unavailable CUMMINSHIGINIO HART MD Unavailable Unavailable CUMMINSHIGINIO HART MD Unavailable Unavailable CUMMINSHIGINIO HART MD Unavailable Unavailable CUMMINSHIGINIO HART MD Unavailable Unavailable CUMMINSHIGINIO HART MD Unavailable Unavailable CUMMINSHIGINIO HART MD Unavailable Unavailable CUMMINSHIGINIO HART MD Unavailable Unavailable CUMMINSHIGINIO HART MD Unavailable Unavailable CUMMINSHIGINIO HART MD Unavailable Unavailable CUMMINSHIGINIO HART MD Unavailable Unavailable CUMMINSHIGINIO HART MD Unavailable Unavailable HIGINIO CUMMINS MD Unavailable Unavailable CUMMINSHIGINIO HART MD Unavailable Unavailable CUMMINSHIGINIO HART MD Unavailable Unavailable CUMMINSHIGINIO HART MD Unavailable Unavailable CUMMINSHIGINIO HART MD Unavailable Unavailable CUMMINSHIGINIO HART MD Unavailable Unavailable CUMMINSHIGINIO HART MD Unavailable Unavailable CUMMINSHIGINIO HART MD Unavailable Unavailable CUMMINSHIGINIO HART MD Unavailable Unavailable CUMMINSHIGINIO HART MD Unavailable Unavailable CUMMINSHIGINIO HART MD Unavailable Unavailable CUMMINSHIGINIO HART MD Unavailable Unavailable CUMMINSHIGINIO HART MD Unavailable Unavailable CUMMINSHIGINIO HART MD Unavailable Unavailable CUMMINSHIGINIO HART MD Unavailable Unavailable CUMMINSHIGINIO HART MD Unavailable Unavailable CUMMINSHIGINIO HART MD Unavailable Unavailable CUMMINSHIGINIO HART MD Unavailable Unavailable CUMMINSHIGINIO HART MD Unavailable Unavailable CUMMINSHIGINIO HART MD Unavailable Unavailable CUMMINSHIGINIO HART MD Unavailable Unavailable HIGINIO CUMMINS MD Unavailable Unavailable HIGINIO CUMMINS MD Unavailable Unavailable HIGINIO CUMMINS MD Unavailable Unavailable HIGINIO CUMMINS MD Unavailable Unavailable HIGINIO CUMMINS MD Unavailable Unavailable Vaughns II, Aleksey Nguyen MD Unavailable Unavailable Vaughns II, Aleksey Nguyen MD Unavailable Unavailable Vaughns II, Aleskey Nguyen MD Unavailable Unavailable Vaughns II, Aleksey Nguyen MD Unavailable Unavailable Vaughns II, Aleksey Nguyen MD Unavailable Unavailable Vaughns II, Aleksey Nguyen MD Unavailable Unavailable Vaughns II, Aleksey Nguyen MD Unavailable Unavailable Vaughns II, Aleksey Nguyen MD Unavailable Unavailable Vaughns II, Aleksey Nguyen MD Unavailable Unavailable Petros Cutler MD Unavailable Unavailable Petros Cutler MD Unavailable Unavailable Petros Cutlre MD Unavailable Unavailable Petros Cutler MD Unavailable Unavailable Petros Cutler MD Unavailable Unavailable Petros Cutler MD Unavailable Unavailable Petros Cutler MD Unavailable Unavailable Petros Cutler MD Unavailable Unavailable Petros Cutler MD Unavailable Unavailable Petros Cutler MD Unavailable Unavailable Petros Cutler MD Unavailable Unavailable Petros Cutler MD Unavailable Unavailable Petros Cutler MD Unavailable Unavailable Petros Cutler MD Unavailable Unavailable Petros Cutler MD Unavailable Unavailable Petros Cutler MD Unavailable Unavailable Petros Cutler MD Unavailable Unavailable Petros Cutler MD Unavailable Unavailable Petros Cutler MD Unavailable Unavailable Petros Cutler MD Unavailable Unavailable Petros Cutler MD Unavailable Unavailable Petros Cutler MD Unavailable Unavailable Petros Cutler MD Unavailable Unavailable Petros Cutler MD Unavailable Unavailable Petros Cutler MD Unavailable Unavailable Petros Cutler MD Unavailable Unavailable Petros Cutler MD Unavailable Unavailable Petros Cutler MD Unavailable Unavailable Petros Cutler MD Unavailable Unavailable Petros Cutler MD Unavailable Unavailable Petros Cutler MD Unavailable Unavailable Petros Cutler MD Unavailable Unavailable Petros Cutler MD Unavailable Unavailable Petros Cutler MD Unavailable Unavailable Petros Cutler MD Unavailable Unavailable Petros Cutler MD Unavailable Unavailable Petros Cutler MD Unavailable Unavailable Petros Cutler MD Unavailable Unavailable Petros Cutler MD Unavailable Unavailable Petros Cutler MD Unavailable Unavailable Petros Cutler MD Unavailable Unavailable Petros Cutler MD Unavailable Unavailable Petros Cutler MD Unavailable Unavailable Petros Cutler MD Unavailable Unavailable Petros Cutler MD Unavailable Unavailable Petros Cutler MD Unavailable Unavailable Petros Cutler MD Unavailable Unavailable Petros Cutler MD Unavailable Unavailable Petros Cutler MD Unavailable Unavailable Petros Cutler MD Unavailable Unavailable Petros Cutler MD Unavailable Unavailable Cutler, Petros Connor MD Unavailable Unavailable Cutler, Petros Connor MD Unavailable Unavailable Cutler, Petros Connor MD Unavailable Unavailable SHANNAN, C BOLIVAR MD Unavailable Unavailable SHANNAN, C BOLIVAR MD Unavailable Unavailable SHANNAN, C BOLIVAR MD Unavailable Unavailable SHANNAN, C BOLIVAR MD Unavailable Unavailable SHANNAN, C BOLIVAR MD Unavailable Unavailable SHANNAN, C BOLIVAR MD Unavailable Unavailable SHANNAN, C BOLIVAR MD Unavailable Unavailable SHANNAN, C BOLIVAR MD Unavailable Unavailable SHANNAN, C BOLIVAR MD Unavailable Unavailable SHANNAN, C BOLIVAR MD Unavailable Unavailable SHANNAN, C BOLIVAR MD Unavailable Unavailable SHANNAN, C BOLIVAR MD Unavailable Unavailable SHANNAN, C BOLIVAR MD Unavailable Unavailable SHANNAN, C BOLIVAR MD Unavailable Unavailable SHANNAN, C BOLIVAR MD Unavailable Unavailable SHANNAN, C BOLIVAR MD Unavailable Unavailable SHANNAN, C BOLIVAR MD Unavailable Unavailable SHANNAN, C BOLIVAR MD Unavailable Unavailable SHANNAN, C BOLIVAR MD Unavailable Unavailable SHANNAN, C BOLIVAR MD Unavailable Unavailable SHANNAN, C BOLIVAR MD Unavailable Unavailable SHANNAN, C BOLIVAR MD Unavailable Unavailable SHANNAN, C BOLIVAR MD Unavailable Unavailable SHANNAN, C BOLIVAR MD Unavailable Unavailable SHANNAN, C BOLIVAR MD Unavailable Unavailable SHANNAN, C BOLIVAR MD Unavailable Unavailable SHANNAN, C BOLIVAR MD Unavailable Unavailable SHANNAN, C BOLIVAR MD Unavailable Unavailable SHANNAN, C BOLIVAR MD Unavailable Unavailable SHANNAN, C BOLIVAR MD Unavailable Unavailable SHANNAN, C BOLIVAR MD Unavailable Unavailable SHANNAN, C BOLIVAR MD Unavailable Unavailable SHANNAN, C BOLIVAR MD Unavailable Unavailable SHANNAN, C BOLIVAR MD Unavailable Unavailable Re-disclosure Warning The records that you are about to access may contain information from federally-assisted alcohol or drug abuse programs. If such information is present, then the following federally mandated warning applies: This information has been disclosed to you from records protected by federal confidentiality rules (42 CFR part 2). The federal rules prohibit you from making any further disclosure of this information unless further disclosure is expressly permitted by the written consent of the person to whom it pertains or as otherwise permitted by 42 CFR part 2. A general authorization for the release of medical or other information is NOT sufficient for this purpose. The Federal rules restrict any use of the information to criminally investigate or prosecute any alcohol or drug abuse patient.The records that you are about to access may contain highly sensitive health information, the redisclosure of which is protected by Article 27-F of the [facility] Public Health law. If you continue you may have access to information: Regarding HIV / AIDS; Provided by facilities licensed or operated by the [facility] Office of Mental Health; or Provided by the [facility] Office for People With Developmental Disabilities. If such information is present, then the following [facility] mandated warning applies: This information has been disclosed to you from confidential records which are protected by state law. State law prohibits you from making any further disclosure of this information without the specific written consent of the person to whom it pertains, or as otherwise permitted by law. Any unauthorized further disclosure in violation of state law may result in a fine or fpc sentence or both. A general authorization for the release of medical or other information is NOT sufficient authorization for further disc losure. Allergies and Adverse Reactions Type Description Substance Reaction Status Data Source(s ) Propensity to adverse reactions BANDAID ADHESIVE BANDAID ADHESIVE RED NESS [facility] Propensity to adverse reactions LATEX LATEX REDNESS [facility] Propensity to adverse reactions SULFA (sulfonamide) SULFA (sulfo namide) ANAPHYLAXIS [facility] Family History Family Member Name Family Member Gender Family Member Status Date o f Status Description Data Source(s) Unknown Unknown Problem 06/13/2014 12:00:00 AM EDT [facility] ([facility] ) MATERNAL GREAT AUNTS X2 BOTH DIAGNOSED I N THERE 50'S Unknown Male Problem [facility] ([facility]) () Unknown Male Problem [facility] ([facility] () Encounters Encounter Providers Location Date Indications Data Source(s ) Outpatient Attender: Humberto Ryan MDReferrer: Selvin Prado II [id number] 12/09/2020 12:00:00 AM EDT [facility] [place] [address] [address] 11/26/2020 12:00:00 AM EDT eCW1 ([facility]) Outpatient Attender: TAVO CUMMINS MDConsultant: TAVO Bolden MD 11/25/2020 08:19:50 AM EDT [facility] Unknown [address] [address] 11/18/2020 12:00:00 AM EDT eCW1 ([facility]) Outpatient Attender: Ernestina Lozano [facility] Main Office 11/04/2020 10:00:00 AM EDT [facility] [place] [address] [address] 10/23/2020 12:00:00 AM EDT eCW1 ([facility]) [place] [address] [address] 10/06/2020 12:00:00 AM EDT eCW1 ([facility]) [place] [address] [address] 09/24/2020 12:00:00 AM EDT eCW1 ([facility]) [place] [address] [address] 09/24/2020 12:00:00 AM EDT eCW1 ([facility]) [place] [address] [address] 09/23/2020 12:00:00 AM EDT eCW1 ([facility]) [place] [address] [address] 09/22/2020 12:00:00 AM EDT eCW1 ([facility]) Outpatient Attender: Ernestina Lozano [facility] Main Office 09/15/2020 07:45:00 AM EDT [facility] [place] [address] [address] 09/11/2020 12:00:00 AM EDT eCW1 ([facility]) [place] [address] [address] 09/11/2020 12:00:00 AM EDT eCW1 ([facility]) [place] [address] [address] 07/08/2020 12:00:00 AM EDT eCW1 ([facility]) [place] [address] [address] 07/03/2020 12:00:00 AM EDT [facility]CW1 ([facility]) [place] [address] [address] 06/24/2020 12:00:00 AM EDT eCW1 ([facility]) Outpatient Attender: BOLIVAR Mensah/Doreen/Niko/Reind l 06/11/2020 09:00:00 AM EDT [facility] Outpatient Attender: Nikolas Mensah/Doreen/Niko/R celinal 06/04/2020 11:30:00 AM EDT [facility] [place] [address] [address] 06/04/2020 12:00:00 AM EDT eCW1 ([facility]) [place] [address] [address] 05/29/2020 12:00:00 AM EDT eCW1 ([facility]) [place]patient [address] [address] 05/29/2020 12:00:00 AM EDT eCW1 ([facility]) Outpatient Attender: BOLIVAR Mensah/Doreen/Niko/Reind l 04/30/2020 09:00:00 AM EDT [facility] Outpatient Attender: BOLIVAR Mensah/Doreen/Niko/Reind l 03/05/2020 01:30:00 PM EST [facility] ([facility] [place] [address] [address] 03/04/2020 12:00:00 AM EST eCW1 ([facility]) [place] [address] [address] 03/04/2020 12:00:00 AM EST eCW1 ([facility]) Diaphragmatic hernia without obstruction or gangrene 02/04/2020 12:00:00 AM EST Other specified diseases of esophagusInt ramucosal lesion in antrum of stomachIntramucosal lesion in antrum of stomachDvrtclos of lg int w/o perforation or abscess w/o bleedingDiaphragmatic hernia without obstruction or gangreneScreening for malignant neoplasm of colonFamily history of Colon Cancer-2- 2nd degree relativesChange in Bowel HabitsAcid reflux gMED ([facility]) Other specified diseases of esophagus Intramucosal lesion in antrum of stomach Intramucosal lesion in antrum of stomach Dvrtclos of lg int w/o perforation or ab scess w/o bleeding Diaphragmatic hernia without obstruction or gangrene Screening for malignant neoplasm of colo n Family history of Colon Cancer-2- 2nd de gree relatives Change in Bowel Habits Acid reflux Unknown [address] [facility] [place] [address] 01/01/2020 12:00:00 AM EST eCW1 ([facility]) Unknown [address] [facility] [place] [address] 12/31/2019 12:00:00 AM EST eCW1 ([facility]) Jhonathan Bedoya MD: [id number] [facility] [address], [place] [address], Ph. Attender: Jhonathan CHAVEZ - [facility] - Main Office 11/22/2019 12:00:00 AM EDT WERO ([facility]) Outpatient Attender: BOLIVAR Mensah/Doreen/Niko/Damien blankenship 11/19/2019 09:00:00 AM EDT [facility] Unknown [address] [address] 11/16/2019 12:00:00 AM EDT eCW1 ([facility]) Jhonathan Bedoya MD: [id number], [place] [address], Ph. Attender: Jhonathan Bedoya MD [place] - [facility] - Main Office 11/13/2019 12:00:00 AM EDT [facility] ([facility]) Jhonathan Bedoya MD: [id number] [address] [facility] [address], [address], [place] [address], Ph. Attender: Jhonathan Bedoya MD [place] - [facility] - [facility] Office 11/13/2019 12:00:00 AM EDT [facility] ([facility]) Outpatient Attender: Nikolas Mensah/Doreen/Niko/R eindl 11/08/2019 08:30:00 AM EDT [facility] ([facility] [place] [address] [address] 11/06/2019 12:00:00 AM EDT eCW1 ([facility]) [place] [address] [address] 11/06/2019 12:00:00 AM EDT eCW1 ([facility]) Outpatient Attender: TAVO CUMMINS MDConsultant: TAVO Bolden MD 08/21/2019 02:18:00 PM EDT - 09/13/2019 02:14:00 PM EDT [facility] Patient discharged. Outpatient Attender: Sharif Casondmitter: Sharif Lara [address] 07/17/2019 02:30:00 PM EDT [facility] ([facility]) Patient admitted. Immunizations Vaccine Date Status Description Data Source(s) COVID-19 VACCINE Moderna 06/04/2020 12:00:00 AM EDT completed [facility] Vaccine Series Complete: YESThis Data wa s Submitted to [facility] Via [employer]. COVID-19 VACCINE Moderna 05/08/2020 12:00:00 AM EDT completed [place] Vaccine Series Complete: NOThis Data was Submitted to [facility] Via [employer]. Medications Medication Brand Name Start Date Product Form Dose Route Admi nistrative Instructions Pharmacy Instructions Status Indications Reaction Description Data Source(s) Acetaminophen 325 MG / Oxycodone Hydroch loride 5 MG Oral Tablet oxyCODONE- Acetaminophen 5-325 MG oxyCODONE-Acetaminophen 5-325 MG 09/24/2020 12:00:00 A M EDT 1.0 {tablet_as_needed} active o xyCODONE-Acetaminophen 5-325 MG eCW1 ([facility]) gabapentin 100 MG Oral Capsule Gabapentin 100 MG Gabapentin 100 MG 09/24/2020 12:00:00 AM EDT 1.0 {capsule} active G abapentin 100 MG eCW1 ([facility]) topiramate 25 MG Oral Tablet [Topamax] Topamax 25 MG Topamax 25 MG 09/24/2020 12:00:00 AM EDT 1.0 {tablet} active To pamax 25 MG eCW1 ([facility]) Acetaminophen 325 MG / Oxycodone Hydroch loride 5 MG Oral Tablet oxyCODONE- Acetaminophen 5-325 MG oxyCODONE-Acetaminophen 5-325 MG 09/24/2020 12:00:00 A M EDT 1.0 {tablet_as_needed} active o xyCODONE-Acetaminophen 5-325 MG eCW1 ([facility]) Acetaminophen 325 MG / Oxycodone Hydroch loride 5 MG Oral Tablet [Percocet] Percocet 5-325 MG Percocet 5-325 MG 09/24/2020 12:00:00 AM EDT 1 .0 {tablet_as_needed} active Percocet 5-32 5 MG eCW1 ([facility]) gabapentin 100 MG Oral Capsule Gabapentin 100 MG Gabapentin 100 MG 09/24/2020 12:00:00 AM EDT 1.0 {capsule} active G abapentin 100 MG eCW1 ([facility]) Acetaminophen 325 MG / Oxycodone Hydroch loride 5 MG Oral Tablet oxyCODONE- Acetaminophen 5-325 MG oxyCODONE-Acetaminophen 5-325 MG 09/24/2020 12:00:00 A M EDT 1.0 {tablet_as_needed} active o xyCODONE-Acetaminophen 5-325 MG eCW1 ([facility]) Acetaminophen 325 MG / Oxycodone Hydroch loride 5 MG Oral Tablet [Percocet] Percocet 5-325 MG Percocet 5-325 MG 09/24/2020 12:00:00 AM EDT 1 .0 {tablet_as_needed} active Percocet 5-32 5 MG eCW1 ([facility]) Acetaminophen 325 MG / Oxycodone Hydroch loride 5 MG Oral Tablet [Percocet] Percocet 5-325 MG Percocet 5-325 MG 09/24/2020 12:00:00 AM EDT 1 .0 {tablet_as_needed} active Percocet 5-32 5 MG eCW1 ([facility]) gabapentin 100 MG Oral Capsule Gabapentin 100 MG Gabapentin 100 MG 09/24/2020 12:00:00 AM EDT 1.0 {capsule} active G abapentin 100 MG eCW1 ([facility]) topiramate 25 MG Oral Tablet [Topamax] Topamax 25 MG Topamax 25 MG 09/24/2020 12:00:00 AM EDT 1.0 {tablet} active To pamax 25 MG eCW1 ([facility]) gabapentin 100 MG Oral Capsule Gabapentin 100 MG Gabapentin 100 MG 09/24/2020 12:00:00 AM EDT 1.0 {capsule} active G abapentin 100 MG eCW1 ([facility]) Acetaminophen 325 MG / Oxycodone Hydroch loride 5 MG Oral Tablet oxyCODONE- Acetaminophen 5-325 MG oxyCODONE-Acetaminophen 5-325 MG 09/24/2020 12:00:00 A M EDT 1.0 {tablet_as_needed} active o xyCODONE-Acetaminophen 5-325 MG eCW1 ([facility]) Acetaminophen 325 MG / Oxycodone Hydroch loride 5 MG Oral Tablet [Percocet] Percocet 5-325 MG Percocet 5-325 MG 09/24/2020 12:00:00 AM EDT 1 .0 {tablet_as_needed} active Percocet 5-32 5 MG eCW1 ([facility]) topiramate 25 MG Oral Tablet [Topamax] Topamax 25 MG Topamax 25 MG 09/24/2020 12:00:00 AM EDT 1.0 {tablet} active To pamax 25 MG eCW1 ([facility]) Acetaminophen 325 MG / Oxycodone Hydroch loride 5 MG Oral Tablet [Percocet] Percocet 5-325 MG Percocet 5-325 MG 09/24/2020 12:00:00 AM EDT 1 .0 {tablet_as_needed} active Percocet 5-32 5 MG eCW1 ([facility]) Acetaminophen 325 MG / Oxycodone Hydroch loride 5 MG Oral Tablet oxyCODONE- Acetaminophen 5-325 MG oxyCODONE-Acetaminophen 5-325 MG 09/24/2020 12:00:00 A M EDT 1.0 {tablet_as_needed} active o xyCODONE-Acetaminophen 5-325 MG eCW1 ([facility]) Acetaminophen 325 MG / Oxycodone Hydroch loride 5 MG Oral Tablet [Percocet] Percocet 5-325 MG Percocet 5-325 MG 09/24/2020 12:00:00 AM EDT 1 .0 {tablet_as_needed} active Percocet 5-32 5 MG eCW1 ([facility]) Acetaminophen 325 MG / Oxycodone Hydroch loride 5 MG Oral Tablet oxyCODONE- Acetaminophen 5-325 MG oxyCODONE-Acetaminophen 5-325 MG 09/24/2020 12:00:00 A M EDT 1.0 {tablet_as_needed} active o xyCODONE-Acetaminophen 5-325 MG eCW1 ([facility]) Acetaminophen 325 MG / Oxycodone Hydroch loride 5 MG Oral Tablet oxyCODONE- Acetaminophen 5-325 MG oxyCODONE-Acetaminophen 5-325 MG 09/24/2020 12:00:00 A M EDT 1.0 {tablet_as_needed} active o xyCODONE-Acetaminophen 5-325 MG eCW1 ([facility]) Acetaminophen 325 MG / Oxycodone Hydroch loride 5 MG Oral Tablet [Percocet] Percocet 5-325 MG Percocet 5-325 MG 09/24/2020 12:00:00 AM EDT 1 .0 {tablet_as_needed} active Percocet 5-32 5 MG eCW1 ([facility]) topiramate 25 MG Oral Tablet [Topamax] Topamax 25 MG Topamax 25 MG 09/24/2020 12:00:00 AM EDT 1.0 {tablet} active To pamax 25 MG eCW1 ([facility]) Acetaminophen 325 MG / Oxycodone Hydroch loride 5 MG Oral Tablet [Percocet] Percocet 5-325 MG Percocet 5-325 MG 09/24/2020 12:00:00 AM EDT 1 .0 {tablet_as_needed} active Percocet 5-32 5 MG eCW1 ([facility]) Acetaminophen 325 MG / Oxycodone Hydroch loride 5 MG Oral Tablet [Percocet] Percocet 5-325 MG Percocet 5-325 MG 09/24/2020 12:00:00 AM EDT 1 .0 {tablet_as_needed} active Percocet 5-32 5 MG eCW1 ([facility]) gabapentin 100 MG Oral Capsule Gabapentin 100 MG Gabapentin 100 MG 09/24/2020 12:00:00 AM EDT 1.0 {capsule} active G abapentin 100 MG eCW1 ([facility]) Acetaminophen 325 MG / Oxycodone Hydroch loride 5 MG Oral Tablet [Percocet] Percocet 5-325 MG Percocet 5-325 MG 09/24/2020 12:00:00 AM EDT 1 .0 {tablet_as_needed} active Percocet 5-32 5 MG eCW1 ([facility]) gabapentin 100 MG Oral Capsule Gabapentin 100 MG Gabapentin 100 MG 09/24/2020 12:00:00 AM EDT 1.0 {capsule} active G abapentin 100 MG eCW1 ([facility]) topiramate 25 MG Oral Tablet [Topamax] Topamax 25 MG Topamax 25 MG 09/24/2020 12:00:00 AM EDT 1.0 {tablet} active To pamax 25 MG eCW1 ([facility]) topiramate 25 MG Oral Tablet [Topamax] Topamax 25 MG Topamax 25 MG 09/24/2020 12:00:00 AM EDT 1.0 {tablet} active To pamax 25 MG eCW1 ([facility]) topiramate 25 MG Oral Tablet [Topamax] Topamax 25 MG Topamax 25 MG 09/24/2020 12:00:00 AM EDT 1.0 {tablet} active To pamax 25 MG eCW1 ([facility]) Acetaminophen 325 MG / Oxycodone Hydroch loride 5 MG Oral Tablet [Percocet] Percocet 5-325 MG Percocet 5-325 MG 09/24/2020 12:00:00 AM EDT 1 .0 {tablet_as_needed} active Percocet 5-32 5 MG eCW1 ([facility]) Acetaminophen 325 MG / Oxycodone Hydroch loride 5 MG Oral Tablet [Percocet] Percocet 5-325 MG Percocet 5-325 MG 09/24/2020 12:00:00 AM EDT 1 .0 {tablet_as_needed} active Percocet 5-32 5 MG eCW1 ([facility]) gabapentin 100 MG Oral Capsule Gabapentin 100 MG Gabapentin 100 MG 09/24/2020 12:00:00 AM EDT 1.0 {capsule} active G abapentin 100 MG eCW1 ([facility]) Acetaminophen 325 MG / Oxycodone Hydroch loride 5 MG Oral Tablet [Percocet] Percocet 5-325 MG Percocet 5-325 MG 09/24/2020 12:00:00 AM EDT 1 .0 {tablet_as_needed} active Percocet 5-32 5 MG eCW1 ([facility]) Acetaminophen 325 MG / Oxycodone Hydroch loride 5 MG Oral Tablet [Percocet] Percocet 5-325 MG Percocet 5-325 MG 09/24/2020 12:00:00 AM EDT 1 .0 {tablet_as_needed} active Percocet 5-32 5 MG eCW1 ([facility]) Metronidazole 0.01 MG/MG Topical Gel Metronidazole 09/15/2020 12:00 :00 AM EDT active MEDENT ([facility]) tizanidine 4 MG Oral Tablet [Zanaflex] Zanaflex 4 MG Zanafle x 4 MG 09/11/2020 12:00:00 AM EDT 1.0 {tablet_as_needed} active Zanaflex 4 MG eCW1 ([facility]) Medrol 4 MG Medrol 4 MG 09/11/2020 12:00:00 AM EDT active Medrol 4 MG eCW1 ([facility]) tizanidine 4 MG Oral Tablet [Zanaflex] Zanaflex 4 MG Zanafle x 4 MG 09/11/2020 12:00:00 AM EDT 1.0 {tablet_as_needed} active Zanaflex 4 MG eCW1 ([facility]) Medrol 4 MG Medrol 4 MG 09/11/2020 12:00:00 AM EDT active Medrol 4 MG eCW1 ([facility]) Medrol 4 MG Medrol 4 MG 09/11/2020 12:00:00 AM EDT active Medrol 4 MG eCW1 ([facility]) tizanidine 4 MG Oral Tablet [Zanaflex] Zanaflex 4 MG Zanafle x 4 MG 09/11/2020 12:00:00 AM EDT 1.0 {tablet_as_needed} active Zanaflex 4 MG eCW1 ([facility]) Ciprofloxacin 3 MG/ML / Dexamethasone 1 MG/ML Otic Mel pension [Ciprodex] Ciprodex 06/11/2020 12:00:00 AM EDT active MEDENT ([facility], ) 12/24/2019 12:00:00 AM EST compl eted Suprep Bowel Prep Kit 17.5-3.13-1.6 gram recon soln gMED ([facility], /[facility], [facility]) Ofloxacin 3 MG/ML Otic Solution Ofloxacin (Otic) 11/19/2019 12:00:00 AM EDT AURICULAR active MEDENT ([facility], ) Qvar Redihaler Qvar Redihaler 11/08/2019 12:00:00 AM EDT RESPIRATORY active MEDENT ([facility], ) Cyclobenzaprine hydrochloride 5 MG Oral Tablet cyclobe nzaprine 5 mg tablet cyclobenzaprine 5 mg tablet completed cyclobenzaprine hydrochloride 5 MG Oral Tablet WERO ([facility]) buspirone hydrochloride 5 MG Oral Tablet buspirone 5 m g tablet buspirone 5 mg tablet completed buspirone hydro chloride 5 MG Oral Tablet [facility]ERO ([facility]) 0.5 ML Streptococcus pneumoniae serotype 1 capsular antigen diphtheria [id number] protein conjugate vaccine 0.0044 MG/ML / Streptococcus pneumoniae serotype 14 capsular antigen diphtheria [id number] protein conjugate vaccine 0.0044 MG/ML / Streptococcus pneumonia Prevnar 13 (PF) 0.5 mL intramuscular syringe Prevnar 13 (PF) 0.5 mL intramuscular syringe comp leted 0.5 ML Streptococcus pneumoniae serotype 1 capsular antigen diphtheria [id number] protein conjugate vaccine 0.0044 MG/ML / Streptococcus pneumoniae serotype 14 capsular antigen diphtheria [id number] protein conjugate vaccine 0.0044 MG/ML / Streptococcus pneumoniae serotype 18C capsular antigen diphtheria [id number] protein conjugate vaccine 0.0044 MG/ML / Streptococcus pneumoniae serotype 19A capsular antigen d iphtheria [id number] protein conjugate vaccine 0.0044 MG/ML / Streptococcus pneumoniae serotype 19F capsular antigen diphtheria CFQ532 protein conjugate vaccine 0.0044 MG/ML / Streptococcus pneumoniae serotype 23F capsular antigen diphtheria [id number] protein conjugate vaccine 0.0044 MG/ML / Streptococcus pneumoniae serotype 3 capsular antigen diphtheria [id number] protein conjugate vaccine 0.0044 MG/ML / Streptococcus pneumoniae serotype 4 capsular antigen diphtheria FIN394 protein conjugate vaccine 0.0044 MG/ML / Streptococcus pneumoniae serotype 5 capsular antigen diphtheria [id number] protein conjugate vaccine 0.0044 MG/ML / Streptococcus pneumoniae serotype 6A capsular antigen diphtheria [id number] protein conjugate vaccine 0.0044 MG/ML / Streptococcus pneumoniae serotype 6B capsular antigen diphtheria HAO453 protein conjugate vaccine 0.0088 MG/ML / Streptococcus pneumoniae serotype 7F capsular antigen diphtheria [id number] protein conjugate vaccine 0.0044 MG/ML / Streptococcus pneumoniae serotype 9V capsular antigen diphtheria [id number] protein conjugate vaccine 0.0044 MG/ML Prefilled Syringe [Prevnar 13] WERO ([facility]) NITROFURANTOIN, MACROCRYSTALS 25 MG / Ni trofurantoin, Monohydrate 75 MG Oral Capsule nitrofurantoin monohydrate/macrocrystals 100 mg capsule TAKE 1 CAPSULE BY MOUTH TWICE DAILY nitrofurantoin monohydrate/macrocrystals 100 mg capsule TAKE 1 CAPSULE BY MOUTH TWICE DAILY co mpleted nitrofurantoin, macrocrystals 25 MG / nitrofurantoin, monohydrate 75 MG Oral Capsule WERO ([facility]) Cyclobenzaprine hydrochloride 5 MG Oral Tablet cyclobe nzaprine 5 mg tablet cyclobenzaprine 5 mg tablet completed cyclobenzaprine hydrochloride 5 MG Oral Tablet WERO ([facility]) valacyclovir 1000 MG Oral Tablet valacyclovir 1 gram t ablet valacyclovir 1 gram tablet completed valacyclovir 10 00 MG Oral Tablet WERO ([facility]) 24 HR Bupropion Hydrochloride 300 MG Ext ended Release Oral Tablet [Wellbutrin] Wellbutrin XL 300 mg 24 hr tablet, extended release Wellbutrin XL 300 mg 24 hr tablet, extended release completed 24 HR bupropion hydrochloride 300 MG Extended Release Oral Tablet [Wellbutrin] WERO ([facility]) 24 HR Bupropion Hydrochloride 300 MG Ext ended Release Oral Tablet [Wellbutrin] Wellbutrin XL 300 mg 24 hr tablet, extended release Wellbutrin XL 300 mg 24 hr tablet, extended release completed 24 HR bupropion hydrochloride 300 MG Extended Release Oral Tablet [Wellbutrin] WERO ([facility]) Loratadine 10 MG Oral Tablet loratadine 10 mg tablet loratadine 10 mg tablet completed loratadine 10 MG Oral Tablet WERO ([facility]) 0.5 ML Streptococcus pneumoniae serotype 1 capsular antigen diphtheria [id number] protein conjugate vaccine 0.0044 MG/ML / Streptococcus pneumoniae serotype 14 capsular antigen diphtheria TOZ459 protein conjugate vaccine 0.0044 MG/ML / Streptococcus pneumonia Prevnar 13 (PF) 0.5 mL intramuscular syringe Prevnar 13 (PF) 0.5 mL intramuscular syringe comp leted 0.5 ML Streptococcus pneumoniae serotype 1 capsular antigen diphtheria [id number] protein conjugate vaccine 0.0044 MG/ML / Streptococcus pneumoniae serotype 14 capsular antigen diphtheria OSE111 protein conjugate vaccine 0.0044 MG/ML / Streptococcus pneumoniae serotype 18C capsular antigen diphtheria HWA030 protein conjugate vaccine 0.0044 MG/ML / Streptococcus pneumoniae serotype 19A capsular antigen d iphtheria OHF095 protein conjugate vaccine 0.0044 MG/ML / Streptococcus pneumoniae serotype 19F capsular antigen diphtheria BEF447 protein conjugate vaccine 0.0044 MG/ML / Streptococcus pneumoniae serotype 23F capsular antigen diphtheria [id number] protein conjugate vaccine 0.0044 MG/ML / Streptococcus pneumoniae serotype 3 capsular antigen diphtheria [id number] protein conjugate vaccine 0.0044 MG/ML / Streptococcus pneumoniae serotype 4 capsular antigen diphtheria FVC454 protein conjugate vaccine 0.0044 MG/ML / Streptococcus pneumoniae serotype 5 capsular antigen diphtheria [id number] protein conjugate vaccine 0.0044 MG/ML / Streptococcus pneumoniae serotype 6A capsular antigen diphtheria [id number] protein conjugate vaccine 0.0044 MG/ML / Streptococcus pneumoniae serotype 6B capsular antigen diphtheria [id number] protein conjugate vaccine 0.0088 MG/ML / Streptococcus pneumoniae serotype 7F capsular antigen diphtheria [id number] protein conjugate vaccine 0.0044 MG/ML / Streptococcus pneumoniae serotype 9V capsular antigen diphtheria VZA035 protein conjugate vaccine 0.0044 MG/ML Prefilled Syringe [Prevnar 13] WERO ([facility]) 24 HR Bupropion Hydrochloride 150 MG Ext ended Release Oral Tablet bupropion HCl XL 150 mg 24 hr tablet, extended release bupropion HCl XL 150 mg 24 hr tablet, extended release completed 24 HR bupropion hydrochloride 150 MG Extended Release Oral Tablet WERO ([facility]) valacyclovir 1000 MG Oral Tablet valacyclovir 1 gram t ablet valacyclovir 1 gram tablet completed valacyclovir 10 00 MG Oral Tablet WERO ([facility]) Azithromycin 250 MG Oral Tablet azithromycin 250 mg ta blet azithromycin 250 mg tablet completed azithromycin 25 0 MG Oral Tablet WERO ([facility]) bacitracin zinc 0.5 UNT/MG Topical Ointm ent bacitracin zinc 500 unit/gram topical ointment bacitracin zinc 500 unit/gram topical ointment completed bacitracin zinc 0.5 UNT/MG Topic al Ointment WERO ([facility]) bismuth subsalicylate 17.5 MG/ML Oral Hooks spension Bismatrol 262 mg/15 mL oral suspension Bismatrol 262 mg/15 mL oral suspension completed bismuth subsalicylate 17.5 MG/ML Oral Suspension WERO ([facility]) 200 ACTUAT Albuterol 0.09 MG/ACTUAT Mete red Dose Inhaler [ProAir] ProAir HFA 90 mcg/actuation aerosol inhaler ProAir HFA 90 mcg/actuation aerosol inhaler completed [id number] 200 ACTUAT albuterol 0.09 MG/ACTUAT Metered Dose Inhaler [ProAir] WERO ([facility]) Acetaminophen 325 MG Oral Tablet acetaminophen 325 mg tablet acetaminophen 325 mg tablet completed acetaminophe n 325 MG Oral Tablet WERO ([facility]) Azithromycin 250 MG Oral Tablet azithromycin 250 mg ta blet azithromycin 250 mg tablet completed azithromycin 25 0 MG Oral Tablet WERO ([facility]) NITROFURANTOIN, MACROCRYSTALS 25 MG / Ni trofurantoin, Monohydrate 75 MG Oral Capsule nitrofurantoin monohydrate/macrocrystals 100 mg capsule TAKE 1 CAPSULE BY MOUTH TWICE DAILY nitrofurantoin monohydrate/macrocrystals 100 mg capsule TAKE 1 CAPSULE BY MOUTH TWICE DAILY co mpleted nitrofurantoin, macrocrystals 25 MG / nitrofurantoin, monohydrate 75 MG Oral Capsule WERO ([facility]) Sodium Chloride 0.111 MEQ/ML Nasal [place] [Deep Sea] [place] Nasal 0.65 % spray aerosol [place] Nasal 0.65 % spray aerosol completed sodium chloride 0.111 MEQ/ML Nasal [place] [Deep Sea] WERO ([facility]) 24 HR Bupropion Hydrochloride 150 MG Ext ended Release Oral Tablet bupropion HCl XL 150 mg 24 hr tablet, extended release bupropion HCl XL 150 mg 24 hr tablet, extended release completed 24 HR bupropion hydrochloride 150 MG Extended Release Oral Tablet WERO ([facility]) 200 ACTUAT Albuterol 0.09 MG/ACTUAT Mete red Dose Inhaler [ProAir] ProAir HFA 90 mcg/actuation aerosol inhaler ProAir HFA 90 mcg/actuation aerosol inhaler completed [id number] 200 ACTUAT albuterol 0.09 MG/ACTUAT Metered Dose Inhaler [ProAir] WERO ([facility]) Ibuprofen 200 MG Oral Tablet ibuprofen 200 mg tablet ibuprofen 2 00 mg tablet completed ibuprofen 200 MG Oral Tablet W[facility] ([facility]) benzonatate 100 MG Oral Capsule benzonatate 100 mg cap arpita benzonatate 100 mg capsule completed benzonatate 10 0 MG Oral Capsule WERO ([facility]) Sertraline 25 MG Oral Tablet sertraline 25 mg tablet sertraline 25 mg tablet completed sertraline 25 MG Oral Tablet WERO ([facility]) bismuth subsalicylate 17.5 MG/ML Oral Hooks spension Bismatrol 262 mg/15 mL oral suspension Bismatrol 262 mg/15 mL oral suspension completed bismuth subsalicylate 17.5 MG/ML Oral Suspension WERO ([facility]) Ibuprofen 200 MG Oral Tablet ibuprofen 200 mg tablet ibuprofen 2 00 mg tablet completed ibuprofen 200 MG Oral Tablet WERO ([facility]) buspirone hydrochloride 5 MG Oral Tablet buspirone 5 m g tablet buspirone 5 mg tablet completed buspirone hydro chloride 5 MG Oral Tablet WERO ([facility]) benzonatate 100 MG Oral Capsule benzonatate 100 mg cap arpita benzonatate 100 mg capsule completed benzonatate 10 0 MG Oral Capsule WERO ([facility]) Sodium Chloride 0.111 MEQ/ML Nasal [place] [Deep Sea] [place] Nasal 0.65 % spray aerosol [place] Nasal 0.65 % spray aerosol completed sodium chloride 0.111 MEQ/ML Nasal [place] [Deep Sea] WERO ([facility]) Sertraline 25 MG Oral Tablet sertraline 25 mg tablet sertraline 25 mg tablet completed sertraline 25 MG Oral Tablet WERO ([facility]) Insurance Providers Payer name Policy type / Coverage type Policy ID Covered green party ID Covered green party's relationship to [place] Policy [place] Plan Information U [id number] [facility] [id number] U [id number] Self [id number] [facility] [id number] [facility] [id number] [facility] [id number] [facility] [id number] [facility] [id number] [facility] [id number] [facility] [id number] [facility] [id number] [facility] [id number] [facility] [id number] [facility] [id number] [facility] [id number] [facility] [id number] [facility] [id number] U [id number] [facility] [id number] U [id number] Self [id number] U [id number] Self [id number] [facility] (2018) Health Maintenance Organization (O) [id number] Family Dependent [id number] ANSI-Not a Secondary Insurance [id number] ANSI-Not a Secondary Insurance [id number] ANSI-Not a Secondary Insurance [id number] ANSI-Not a Secondary Insurance [id number] ANSI-Not a Secondary Insurance [id number] ANSI-Not a Secondary Insurance [id number] [place] Part B [id number] Family Dependent [id number] [employer] Health Maintenance Organization (HMO) 0 [id number] Family Dependent [id number] [facility] (2018) Health Maintenance Organization (HMO) [id number] Family Dependent [id number] [facility] [place] [id number] 01 [id number] [place] [employer] [id number] Family Dependent [id number] [place] [employer] CO UNAVAILABLE 01 UNAVAILABLE [place] [employer] [facility] PHYSICIAN CO UNAVAILABLE 01 UNAVAILABLE [place] [employer] [id number] Family Dependent [id number] [employer] [place] REG O [id number] P [id number] [employer] [place] O [id number] P [id number] [place] (2018) Commercial [id number] Family Dependent [id number] [employer] [id number] Family Dependent [id number] [employer] PPO O [id number] S [id number] MEDICARE C [id number] S [id number] A [employer] [place] O [id number] O [id number] [employer] [place] [id number] HU2 [id number] [employer] [place] O [id number] S [id number] HEALTH[employer]/ AD O [id number] S [id number] [employer] Health Maintenance Organization (HMO) [id number] Family Dependent [employer]ALTH[employer] O [id number] U [id number] [place] [employer] [id number] HU2 [id number] [place] [employer] [place] [id number] 01 [id number] [employer] [facility]AST REG O [id number] S [id number] [place] [id number] E[place] REGION [id number] [facility] [id number] SPOUSE [id number] EAST [id number] S [id number] [employer] LIFE [id number] S [id number] ANSI-Not a Secondary Insurance [id number] ANSI-Not a Secondary Insurance [id number] [facility] [employer] [place] Part B [id number] Family Dependent [id number] [facility] Health Maintenance Organization (HMO) [id number] Family Dependent [id number] Problems, Conditions, and Diagnoses Code Display Name Description Problem Type Effective Dates Data Source(s) M5442 Lumbago with sciatica, left side Lumbago with sc iatica, left side Diagnosis 11/28/2020 08:58:00 AM EDT [facility] J44.9 Chronic obstructive pulmonary disease, u nspecified Chronic obstructive pulmonary disease, unspecified Diagnosis 10/14/2020 12:00:00 AM EDT [facility] ([facility]) M32.9 Systemic lupus erythematosus, unspecifie d Systemic lupus erythematosus, unspecified Diagnosis 10/14/2020 12:00:00 AM EDT [facility] ([facility]) F41.1 Generalized anxiety disorder Generalized anxiety disor yuri Diagnosis 10/14/2020 12:00:00 AM EDT [facility] ([facility]) F10.10 Alcohol abuse, uncomplicated Alcohol use disorder, Mil d Diagnosis 10/14/2020 12:00:00 AM EDT [facility] ([facility]) F32.9 Major depressive disorder, single episod e, unspecified Unspecified depressive disorder Diagnosis 10/14/2020 12:00:00 AM EDT [facility] ([facility]) M54.41 [id number] Lumbago with sciatica, right side Problem 11/18/2020 12:00:00 AM EDT eCW1 ([facility]) M54.42 [id number] Left-sided low back pain with left-sided sciatica, unspecified chronicity Problem 09/24/2020 12:00:00 AM EDT eCW1 ([facility]) M54.42 [id number] Acute left-sided low back pain w ith left-sided sciatica Problem 09/11/2020 12:00:00 AM EDT eC ([facility]) Z85.828 [id number] History of skin cancer Problem 06/24/2020 12 :00:00 AM EDT eCW1 ([facility]) R41.3 [id number] Short-term memory loss Problem 11/21/2019 12 :00:00 AM EDT eC1 ([facility]) Surgeries/Procedures Procedure Description Date Indications Data Source(s) OFFICE OUTPATIENT VISIT 15 MINUTES 11/04/2020 12:00:00 AM EDT ARNALDO ([facility]) Shave Biopsy Of Skin, Single Lesion 09/15/2020 12:00:0 0 AM EDT ARNALDO ([facility]) OFFICE CONSULTATION NEW/ESTAB PATIENT 60 MIN 12:00:00 AM EDT ARNALDO ([facility]) Spirometry 06/04/2020 12:00:00 AM EDT M MIKAELA ([facility]) EGD 02/04/2020 12:00:00 AM EST g MED ([facility], /[facility]) Colonoscopy 02/04/2020 12:00:00 AM EST g MED ([facility], /[facility]) MRI, lumbar spine, w/o contrast 11/13/2019 12:00:00 AM EDT WERO ([facility]) Spirometry 11/08/2019 12:00:00 AM EDT Myah AL ([facility], ) Results ID Date Data Source [id number] 12/09/2020 03:22:27 PM EDT [facility] Name Value Range Interpretation Code Description Data Maude rce(s) Supporting Document(s) Progress Note [facility] YKRZWq8qIzGBQaQn27/RMQwdAMVbw3FxRBavBPo9FHexMDFqF3OcWMR3zJ4bBCC3WZzTWmHxBgGjLJE6 lbm [file] 7zkEOxhz9e+5dBQGuT7PLlk6t+wall cleaner/dFs89PVSNPqHXFSDQAxcK8QQBwPw6JDAvJunfJfpmLMnk0o8ES [file] AgICAgICAgICAgICAgICAgICAgICAgICAgICAgICAgICAgICAgICAgICAgICAgICAgICAgICAgICAgIC AgICANCiAgICAgICAgICAgICAgICAgICAgICAgICAg ICAgICAgICAgICAgICAgICAgICAgICAgICAgICAgICAgICAgICAgICAgICAgICAgICAgICAgICAgICAg ICAgICAgICAgICAgICANCiAgICAgICAgICAgICAgICAgICAgICAgICAgICAgICAgICAgICAgICAgICAg ICAgICAgICAgICAgICAgICAgICAgICAgICAgICAgIC AgICAgICAgICAgICAgICAgICAgICAgICANCiAgICAgICAgICAgICAgICAgICAgICAgICAgICAgICAgIC AgICAgICAgICAgICAgICAgICAgICAgICAgICAgICAgICAgICAgICAgICAgICAgICAgICAgICAgICAgIC AgICAgICANCiAgICAgICAgICAgICAgICAgICAgICAg ICAgICAgICAgICAgICAgICAgICAgICAgICAgICAgICAgICAgICAgICAgICAgICAgICAgICAgICAgICAg ICAgICAgICAgICAgICAgICANCiAgICAgICAgICAgICAgICAgICAgICAgICAgICAgICAgICAgICAgICAg ICAgICAgICAgICAgICAgICAgICAgICAgICAgICAgIC AgICAgICAgICAgICAgICAgICAgICAgICAgICANCiAgICAgICAgICAgICAgICAgICAgICAgICAgICAgIC AgICAgICAgICAgICAgICAgICAgICAgICAgICAgICAgICAgICAgICAgICAgICAgICAgICAgICAgICAgIC AgICAgICAgICANCiAgICAgICAgICAgICAgICAgICAg ICAgICAgICAgICAgICAgICAgICAgICAgICAgICAgICAgICAgICAgICAgICAgICAgICAgICAgICAgICAg ICAgICAgICAgICAgICAgICAgICANCiAgICAgICAgICAgICAgICAgICAgICAgICAgICAgICAgICAgICAg ICAgICAgICAgICAgICAgICAgICAgICAgICAgICAgIC AgICAgICAgICAgICAgICAgICAgICAgICAgICAgICANCiAgICAgICAgICAgICAgICAgICAgICAgICAgIC AgICAgICAgICAgICAgICAgICAgICAgICAgICAgICAgICAgICAgICAgICAgICAgICAgICAgICAgICAgIC AgICAgICAgICAgICANCjw/iPDoL3xqvGQtehC4I6rs Ns9WGv0IQF7uj5NnLZErLPrckrLzJpjSJaDgPOZrBjdVMvk6GSccDO3IjKAzO5MwB2XpYIwlJW1RHUHl KIGjsZEaIASyZUCrDnH1BXVvBDduCE4HcBLaJMrsPTEsLNUjOfNkYMNqOBVhKRSuQYJcQQQKWZ2DMpEv F0NclM21VDXPCv8+EKqomtAsYkyLBnS4DBHtg2TkQR z0TI3UBPWxDjqcs2ObNazoCCJZCFlbDX9DYBQ1COU1JHBpYe5VRIGtN732czHcIZ0NGd7PTeIkIX0igt 9BLpdoSYMsAslGCyy3JAtuSW5AcJIzYWgSlc7tbyLrnkCPe0UxrkFkiNYWRL1yhpBMEQXprYudCMiVWF wgTUQgYXQgMTAvMjYvMjAyMSAgMTozMCBQTSkNCiAg C7Eis6SoQwZ1WIRbMyRyOZfdVIPhRzA3FT67rGjzNW3ZBOKiRMUaWU31IEG4QTBeVj0AWy2QCfHvHH9n tg7TVdPuWAYzKlnNQgj1VZurKS2ZtLWcQ3XncNPsx8sWNtYjE0AXCTE9OGNkMp6HMFGhAmQdZUOmQEll BD8xOQVgIZPYkVdwukE4HL0HBA4yhiUgKP3KVtHkWi 4sUe8HDdTaO5KhY9BtQXKcUXUICApyYM8GMJtkEO6yUK5Xq2WCvJPzeL0ope4JGFTcSLFrMmisej3EUq uyL7Q0sGkvXYKpPsdlHDXJTCsxRG4TZWTaAQK9TKFkVnGzTUVIHkYlA30hQA2HY4Phg31xYhG8CQQlUl HmFIyrPZ10zQbgfsNhaXIwiAchHU4NQf8+DQplbmRv SdfSYcrxOTGVDlKsRuTZFpYrHNQcOEFfVVOiDaZ2EcGmHr0VBOIvPVSkFYNcOiBxHFJnPGFsVItqGRBw DYGbUHPrXNHaRNMtRP0VMoKfRRNsTZW9JHbaNEEbHLZayp8LOYMpDLPuLVL8YhIoBOGpNTZeOZuzVKAo MVWzMqZrVNNmVHAkPT2GPoCsAOWdOVY4QWSuAQHzAP Scbs4CDFOiYJJsHiOvDSJrNIHkILRsBNlqHFIlRAF6QrI4SQMbGTOzQV1XTtXuEWYhLEZ2JVXmVOVjEW Fsnw4OKQNsDXGnXWQxPgDsXWWkCLWaYYzkUFXiJUSfNADzDNYbDOGpMX4UNkQfCMDwXGC1CxizRCLfMH Uwxg5PYSToKGHcLcN5ClTdKSPlMGQhVVdwSPEoIQCh Vgq9YDXoPSGjUE5NUmZvSYCoBEC5TqukHWBuPYFygz8MDHNrRHYvSDqvRcImRYOcBFSxKCsyZNEmBQY7 ZWQ2GZJgRKKnKI1PPcVvNPWwODNsEQCzKHYyOVVidj4CILHpQTU2Dqt7BWRzDPVhCHLcFPonFNQqOVL9 GLbyGPOwOLJnWK3OSmYzLLCzQYu0COYiKVYzCCGggg 8QOFYoBKG6MMUzATChREKcGTXkZLqtVQUkQFU2RgizRKWmZBTnGI2RNrVvHEZdPDM4RiChGJFbXNMrvx 5RCPLcOKS0ZIwmTpXeTHEpENIePLqjKHXsBPYwRBelICFqWIWlXN1SJxUuBCOdDIE0LZfeAIQnRCWhxj 9FQUKlSDK8Wvw3FSApATAgONHtPAnzERAlNFJrWOX1 MVNoIRMqRK3EYrDtFGDgYULyQUxeOVOfPNGamk3XkQCgqNgvon2HKJiTDg8GyZxdXYFoWCmuNc6boETx FCNqCMVIHs6ZvzAnRBRmJYTVLYdgWEFcLCwkPRp4KnThBVF2ENO3SyA6NFB9NfObJlTqNIZxQ1HlOqG0 F5R3IMpzPDVoFxClBGufWjd7Uwj7T3QsHZF2JuD5J0 Q+BG2wZNr+Fk3Ze7SbbeL8oyRmLZa9RyTrOg7TRFIAW9JBUd== ID Date Data Source [id number] 09/15/2020 08:28:00 AM EDT MEDENT ([facility]) Name Value Range Interpretation Code Description Data Maude rce(s) Supporting Document(s) Laboratory test finding (navigational concept) Laboratory test result MEDENT ([facility]) Recheck for any AK Laboratory test finding (navigational concept) Laboratory test result MEDENT ([facility]) Recheck for any [place] ID Date Data Source Comprehensive Metabolic Profile (CMP) 09/11/2020 12:00:00 AM EDT eCW1 ([facility]) Name Value Range Interpretation Code Description Data Maude rce(s) Supporting Document(s) 11 7-18 BLOOD UREA NITROGEN eCW1 ([facility]) 0.53 0.55-1.30 CREATININE FOR GFR eCW1 ([facility] to [facility]) 86 70-100 GLUCOSE, FASTING eCW1 ([facility]) 138 136-145 SODIUM LEVEL eCW1 ([facility]) > 60.0 >51 GLOMERULAR FILTRATION RATE eCW 1 ([facility]) 4.2 3.5-5.1 POTASSIUM SERUM eCW1 ([facility]) 104 98-107 CHLORIDE LEVEL eCW1 ([facility]) 9.0 8.5-10.1 CALCIUM LEVEL eCW1 ([facility]) 30 21-32 CARBON DIOXIDE LEVEL eCW1 ([facility]) 25 7-37 AST/SGOT eCW1 ([facility]) 39 12-78 ALT/SGPT eCW1 ([facility]) 0.5 0.2-1.0 BILIRUBIN,TOTAL eCW1 ([facility]) 6.8 6.4-8.2 TOTAL PROTEIN eCW1 ([facility]) 65 45-117 ALKALINE PHOSPHATASE eCW1 ([facility]) 3.7 3.2-5.2 ALBUMIN eCW1 ([facility]) 1.2 1.2-2.2 ALBUMIN/GLOBULIN RATIO eCW1 ([facility]) ID Date Data Source CBC with Differential 09/11/2020 12:00:00 AM EDT eCW1 ([facility]) Name Value Range Interpretation Code Description Data Maude rce(s) Supporting Document(s) 4.05 4.00-5.40 RED BLOOD COUNT eCW1 ([facility]) 4.8 4.0-10.0 WHITE BLOOD COUNT eCW1 ([facility]) 40.5 36.0-47.0 HEMATOCRIT eCW1 ([facility]) 100.0 80.0-96.0 MEAN CORPUSCULAR VOLUME e CW1 ([facility]) 13.5 12.0-15.5 HEMOGLOBIN eCW1 ([facility]) 11.7 11.5-14.5 RED CELL DISTRIBUTION WID TH eCW1 ([facility]) 33.3 27.0-33.0 MEAN CORPUSCULAR HEMOGLOB IN eCW1 ([facility]) 33.3 32.0-36.5 MEAN CORPUSCULAR HGB CONC eCW1 ([facility]) 21.6 24.0-44.0 LYMPH % eCW1 ([facility]) 220 150-450 PLATELET COUNT, AUTOMATED eCW1 ([facility]) 60.2 36.0-66.0 NEUTROPHILS % eCW1 ([facility]) 2.9 0.0-3.0 EOS % eCW1 ([facility]) 13.5 2.0-8.0 MONO % eCW1 ([facility]) 2.9 1.5-8.5 NEUTROPHILS # eCW1 ([facility]) 1.0 0.0-1.0 BASO % eCW1 ([facility]) 0.7 0.0-0.8 MONO # eCW1 ([facility]) 1.0 1.5-5.0 LYMPH # eCW1 ([facility]) 0.1 0.0-0.5 EOS # eCW1 ([facility]) 0.1 0.0-0.2 BASO # eCW1 ([facility]) ID Date Data Source [id number] 03/05/2020 04:07:00 PM EST MEDENT ([facility]) Name Value Range Interpretation Code Description Data Maude rce(s) Supporting Document(s) Fungal Smear Laboratory test result MEDENT ([facility]) Testing performed at reference lab . Rep ort copy to follow on a separate form. 04/03/20 REF LAB#:[id number] FAISAL/Calcofluor preparatio No fungus observed. Fungal Culture Other Source Laboratory test result MEDENT ([facility]) Testing performed at reference lab . Rep ort copy to follow on a separate form. 04/03/20 REF LAB#:[id number] FUNGUS CULTURE [facility] No Yeast or Mold Isolated after 4 weeks. ID Date Data Source [id number] 03/05/2020 04:07:00 PM EST MEDENT ([facility]) Name Value Range Interpretation Code Description Data Maude rce(s) Supporting Document(s) Bacteria identified in Ear by Aerobe culture Laboratory test res ult Normal (applies to non-numeric results) MEDENT [facility] FULL REPORT IN LAB NOTES (eCW and Medent ). DECREASED NORMAL ZAC PRESENT ID Date Data Source [id number] 02/13/2020 12:00:00 AM EST [facility] Tavo Cummins DO Patient Name: BLANK [id number] [facility] Date of : 1970[place] [address] Date of Exam: 02/13/2020PH#: Fax: [phone] EXAM: MAMMO SCREENING WITH CADCLINICAL INFORMATION: Screening.Based on the personal health history and familial cancer history yourpatient supplied at the time of imaging, her lifetime risk of breast cancerestimated by the Tyrer-Cuzick model is 21.5%. However, due to the unknowngene mutation status, there are limitations to the accuracy of this riskestimate. Similarly, if anything changes in the personal and/or familyhistory this percentage could increase or decrease. Currently, [facility] and [place] Cancer Society recommendadjunctive breast MRI screening starting at age 30 for women with a> 20-25% lifetime risk of developing breast cancer.The patient has previously received genetic testing.Digital screening (2D only) mammography was performed bilaterally in the CCand MLO projections. Today's exam was compared to the prior exam(s).By history, the patient has no complaints of a palpable breast abnormalityor other significant breast complaints.The patient states last clinical breast exam was over a year ago.The breasts are unchanged in size and shape. Once again, denseheterogeneous fibroglandular elements are seen bilaterally in a stableappearing pattern but to such a degree that the s ensitivity of themammogram in detecting cancer is decreased. There are no vianney- soft tissuedensities or spiculated masses. There is no internal architecturaldistortion. There are no suspicious vianney-calcific clusters. Skinthickening or nipple retraction is not present. Stable benigncalcifications are again seen bilaterally.The Volpara volumetric breast density category is C, the breasts areheterogeneously dense which may obscure small masses.IMPRESSION:BI-RADS Category 2 - Benign Finding(s). Stable mammogram. There is noevidence of malignant alteration of the breasts. Followup examinationrecommended in one year.This mammogram was read with the assistance of [employer], an FDAapproved computer aided detection system for mammography.Negative x-ray reports should not delay surgical consultation if a dominantor clinically suspicious mass is present.Not all breast cancers can be identified by mammography. Therefore, werecommend that you continue to perform regular breast self-examination andphysical examination and then promptly contact your physician of anyconcerns or changes.Adenosis and dense breasts may obscure an underlying neoplasm.CHRISTINA Russ/Ameya you for referamie PARSONA ALEX to our office. Electronically Signed - CHEVY NOYOLA, DO 02/13/20 16:43 Name Value Range Interpretation Code Description Data Maude rce(s) Supporting Document(s) ID Date Data Source [id number] 01/30/2020 01:48:00 PM EST [facility] Name Value Range Interpretation Code Description Data Maude rce(s) Supporting Document(s) SARS coronavirus 2 RNA [Presence] in Res piratory specimen by JOAO with probe detection [facility] This lab was ordered by Magan wiseman of [facility] and reported by [employer]. ID Date Data Source [id number] 01/30/2020 12:00:00 AM EST gMED ([facility], /[facility] [employer]) Name Value Range Interpretation Code Description Data Maude rce(s) Supporting Document(s) Venipuncture DONE -- Venipuncture gMED ([facility]) ID Date Data Source [id number] 01/30/2020 12:00:00 AM EST gMED ([facility]) Name Value Range Interpretation Code Description Data Maude rce(s) Supporting Document(s) Tissue Transglutaminase IgA 7 Units 0-20 Tissue T ransglutaminase IgA gMED ([facility], /[facility]) Total IgA 277 mg/dL 40-350 Total IgA gMED ([facility], /[facility]) Tissue Transglutaminase IgG 2 Units 0-20 Tissue T ransglutaminase IgG gMED ([facility], /[facility]) ID Date Data Source [id number] 01/30/2020 12:00:00 AM EST [facility]MED [facility] [employer], [facility]) Name Value Range Interpretation Code Description Data Maude rce(s) Supporting Document(s) C reactive protein [Mass/volume] in Serum or Plasma <0.4 0-1.0 CRP gMED ([facility], /[facility] [employer], [facility]) ID Date Data Source GASTROINTESTINAL GI PANEL (GIPANEL) 11/13/2019 04:31:35 AM EDT eCW1 ([facility]) Name Value Range Interpretation Code Description Data Maude rce(s) Supporting Document(s) This Gastrointestinal PCR Panel detects the following bacteria, GASTROINTESTINAL (GI) PANEL eCW1 ([facility]) ID Date Data Source TSH 11/13/2019 04:30:15 AM EDT eCW1 ([facility]) Name Value Range Interpretation Code Description Data Maude rce(s) Supporting Document(s) 1.430 THYROID STIMULATING HORMONE eC W1 ([facility]) ID Date Data Source ERYTHROCYTE SEDIMENTATION RATE 11/13/2019 04:30:15 AM EDT eC W1 ([facility]) Name Value Range Interpretation Code Description Data Maude rce(s) Supporting Document(s) 5 ERYTHROCYTE SEDIMENTATION RATE eCW1 ([facility]) ID Date Data Source C REACTIVE PROTEIN QUANTITATIV (At [facility]) 11/13/2019 04:30 :15 AM EDT eCW1 ([facility]) Name Value Range Interpretation Code Description Data Maude rce(s) Supporting Document(s) < 0.30 C REACTIVE PROTEIN QUANTI TATIV eCW1 ([facility]) ID Date Data Source [id number] 11/08/2019 08:18:00 AM EDT MEDENT ([facility], ) Name Value Range Interpretation Code Description Data Maude rce(s) Supporting Document(s) FVC-Pred 3.38 L MEDENT ([facility], ) PDFReport Laboratory test result MEDENT ([facility], ) FVC-Pre 3.83 L MEDENT ([facility], ) FVC-LLN 2.58 L MEDENT ([facility], ) FVC-%Pred-Pre 113 L MEDENT ([facility], ) Fev1-Pred 2.72 L MEDENT ([facility], ) Fev1-Pre 2.82 L MEDENT ([facility], ) Fev1-%Pred-Pre 103 L MEDENT ([facility], ) Fev1-LLN 2.03 L MEDENT ([facility], ) Fev6-Pre 3.83 L MEDENT ([facility], ) Fev6-Pred 3.30 L MEDENT ([facility]) Fev6-%Pred-Pre 116 L MEDENT ([facility]) Fev6-LLN 2.51 L MEDENT ([facility]) Osm9yis-Rgt 74 % MEDENT ([facility]) Ocf7jkl-Ucwr 82 % MEDENT ([facility]) Jra2zqd-XVQ 71 % MEDENT ([facility]) Jsn0fhu-%Pred-Pre 90 % MEDENT ([facility]) Bxd8zck-Qrtk 98 % MEDENT ([facility]) Mdv7mtl-Gsu 100 % MEDENT ([facility]) Xcm1taj-%Pred-Pre 102 % MEDENT ([facility]) FEFMax-%Pred-Pre 93 L/E/sec MEDENT ([facility]) FEFMax-Pre 6.43 L/E/sec MEDENT ([facility]) FEFMax-Pred 6.91 L/E/sec MEDENT ([facility]) Nbe7708-Yktn 2.78 L/E/sec MEDENT ([facility]) FEFMax-LLN 4.64 L/E/sec MEDENT ([facility]) Dry7092-%Pred-Pre 75 L/E/sec MEDENT ([facility]) Nxr5836-RKJ 1.23 L/E/sec MEDENT ([facility]) Vpm2380-Hac 2.11 L/E/sec MEDENT ([facility]) ExpTime-Pre 5.66 sec MEDENT ([facility]) Hxr1kxt8-Upud 84 % MEDENT ([facility]) Fht1zoc5-LWB 74 % MEDENT ([facility]) Opo2jef3-%Pred-Pre 88 % MEDENT ([facility]) Xjf5cjq6-Kic 74 % MEDENT ([facility]) Procedure Social History Code Duration Value Status Description Data Source(s ) Smoking 09/24/2020 12:00:00 AM EDT Never Smoker completed Never S moker eCW1 ([facility]) Smoking 09/24/2020 12:00:00 AM EDT Never Smoker completed Never S moker eCW1 ([facility]) Smoking 09/24/2020 12:00:00 AM EDT Never Smoker completed Never S moker eCW1 ([facility]) Smoking 09/24/2020 12:00:00 AM EDT Never Smoker completed Never S moker eCW1 ([facility]) Smoking 09/24/2020 12:00:00 AM EDT Never Smoker completed Never S moker eCW1 ([facility]) Smoking 09/24/2020 12:00:00 AM EDT Never Smoker completed Never S moker eCW1 ([facility]) Smoking 09/24/2020 12:00:00 AM EDT Never Smoker completed Never S moker eCW1 ([facility]) Smoking 09/11/2020 12:00:00 AM EDT Never Smoker completed Never S moker eCW1 ([facility]) Smoking 09/11/2020 12:00:00 AM EDT Never Smoker completed Never S moker eCW1 ([facility]) Smoking 09/11/2020 12:00:00 AM EDT Never Smoker completed Never S moker eCW1 ([facility]) Smoking 06/04/2020 12:00:00 AM EDT Non Smoker completed Non Smoke r MEDENT ([facility] ) Smoking 05/29/2020 12:00:00 AM EDT Never Smoker completed Never S moker eCW1 ([facility]) Smoking 05/29/2020 12:00:00 AM EDT Never Smoker completed Never S moker eCW1 ([facility]) Smoking 05/29/2020 12:00:00 AM EDT Never Smoker completed Never S moker eCW1 ([facility]) Smoking 05/29/2020 12:00:00 AM EDT Never Smoker completed Never S moker eCW1 ([facility]) Smoking 05/29/2020 12:00:00 AM EDT Never Smoker completed Never S moker eCW1 ([facility]) Smoking 05/29/2020 12:00:00 AM EDT Never Smoker completed Never S moker eCW1 ([facility]) Vital Signs ID Date Data Source UNK Name Value Range Interpretation Code Description Data Source(s) Diastolic blood pressure 84 mm[Hg] 84 mm[Hg] MEDENT ([facility]) Systolic blood pressure 142 mm[Hg] 142 mm[Hg] M EDENT ([facility]) Heart rate 75 /min 75 /min MEDENT ([facility]) Body weight 210.00 [lb_av] 210.00 [lb_av] MEDEN T ([facility]) Diastolic blood pressure 88 mm[Hg] 88 mm[Hg] eCW1 ([facility]) Body weight 205.8 [lb_av] 205.8 [lb_av] eCW1 ([facility]) Body height 68 [in_i] 68 [in_i] eCW1 ([facility]) Body mass index (BMI) [Ratio] 31.29 kg/m2 31.29 kg/m2 [facility] ([facility]) Respiratory rate 17 /min 17 /min eCW1 ([facility]) Body temperature 97.7 [degF] 97.7 [degF] eCW1 ( [facility]) Systolic blood pressure 147 mm[Hg] 147 mm[Hg] e CW1 ([facility]) Heart rate 83 /min 83 /min eCW1 ([facility]) Body mass index (BMI) [Ratio] 31.5 kg/m2 31.5 k g/m2 MEDENT ([facility]) Body height 68 [in_i] 68 [in_i] MEDENT ([facility]) 5'8" Systolic blood pressure 115 mm[Hg] 115 mm[Hg] M EDENT ([facility]) Diastolic blood pressure 75 mm[Hg] 75 mm[Hg] MEDENT ([facility]) Body weight 207.00 [lb_av] 207.00 [lb_av] MEDEN T ([facility]) Body weight 207.00 [lb_av] 207.00 [lb_av] MEDEN T ([facility]) Body height 68 [in_i] 68 [in_i] MEDENT ([facility]) 5'8" Body mass index (BMI) [Ratio] 31.5 kg/m2 31.5 k g/m2 MEDENT ([facility]) Respiratory rate 16 /min 16 /min eCW1 ([facility]) Body temperature 98.2 [degF] 98.2 [degF] eCW1 ( [facility]) Systolic blood pressure 124 mm[Hg] 124 mm[Hg] e CW1 ([facility]) Body weight 208 [lb_av] 208 [lb_av] eCW1 ([facility]) Diastolic blood pressure 81 mm[Hg] 81 mm[Hg] eCW1 ([facility]) Body height 68 [in_i] 68 [in_i] eCW1 ([facility]) Body mass index (BMI) [Ratio] 31.62 kg/m2 31.62 kg/m2 eCW1 ([facility]) Heart rate 77 /min 77 /min eCW1 ([facility]) Nixon body weight 140 [lb_av] 140 [lb_av] MEDEN T ([facility] Body weight 89.359 kg 89.359 kg ARNALDO ([facility], ) Body surface area Derived from formula 2.03 m2 2.03 m2 [facility] ([facility]) Body height 68 [in_i] 68 [in_i] [facility] ([facility]) 5'8" Body weight 197.00 [lb_av] 197.00 [lb_av] MEDEN T ([facility]) Body mass index (BMI) [Ratio] 30.0 kg/m2 30.0 k g/m2 [facility] ([facility]) Body height 68 [in_i] 68 [in_i] [facility] ([facility]) 5'8" Body weight 89.359 kg 89.359 kg [facility] ([facility]) Systolic blood pressure 122 mm[Hg] 122 mm[Hg] [facility] Diastolic blood pressure 80 mm[Hg] 80 mm[Hg] [facility] ([facility]) Heart rate 72 /min 72 /min [facility] ([facility]) Oxygen saturation in Arterial blood by Pulse oximetry 98 % 98 % [facility] ([facility]) Room Air Body weight 197.00 [lb_av] 197.00 [lb_av] MEDEN T ([facility]) Body mass index (BMI) [Ratio] 30.0 kg/m2 30.0 k g/m2 [facility] ([facility]) [place] body weight 140 [lb_av] 140 [lb_av] [facility] Body surface area Derived from formula 2.03 m2 2.03 m2 [facility] ([facility]) Diastolic blood pressure 82 mm[Hg] 82 mm[Hg] eCW1 ([facility]) Body weight 195 [lb_av] 195 [lb_av] eCW1 ([facility]) Body height 68 [in_i] 68 [in_i] eCW1 ([facility]) Body mass index (BMI) [Ratio] 29.65 kg/m2 29.65 kg/m2 W1 ([facility]) Heart rate 73 /min 73 /min eCW1 ([facility]) Respiratory rate 17 /min 17 /min eCW1 ([facility]) Body temperature 97.9 [degF] 97.9 [degF] eCW1 ( [facility]) Systolic blood pressure 122 mm[Hg] 122 mm[Hg] e CW1 ([facility]) Body weight 185.00 [lb_av] 185.00 [lb_av] MEDEN T ([facility]) Body mass index (BMI) [Ratio] 28.1 kg/m2 28.1 k g/m2 MEDENT ([facility]) Body height 68 [in_i] 68 [in_i] MEDENT ([facility]) 5'8" Body surface area Derived from formula 1.98 m2 1.98 m2 [facility] ([facility]) [place] body weight 140 [lb_av] 140 [lb_av] MEDEN T ([facility]) Body weight 83.916 kg 83.916 kg MEDENT ([facility]) Body height 68 [in_i] 68 [in_i] MEDENT ([facility]) 5'8" Body weight 187.00 [lb_av] 187.00 [lb_av] MEDEN T ([facility]) Body mass index (BMI) [Ratio] 28.4 kg/m2 28.4 k g/m2 MEDENT ([facility]) [place] body weight 140 [lb_av] 140 [lb_av] MEDEN T ([facility]) Body weight 84.823 kg [facility].823 [facility] Body surface area Derived from formula 1.99 m2 1.99 m2 [facility] ([facility]) Systolic blood pressure 122 mm[Hg] 122 mm[Hg] g MED ([facility], /[facility]) Body height 68 [in_i] 68 [in_i] gMED ([facility], /[facility]) Body weight 175 [lb_av] 175 [lb_av] gMED ([facility], /[facility]) Body mass index (BMI) [Ratio] 26.61 kg/m2 26.61 kg/m2 gMED ([facility], /[facility], [facility]) Diastolic blood pressure 75 mm[Hg] 75 mm[Hg] gMED ([facility], /[facility]) Body temperature 98.2 [degF] 98.2 [degF] gMED ( [facility], /[facility], [facility]) Heart rate 75 /min 75 /min gMED ([facility], /[facility]) Respiratory rate 16 /min 16 /min gMED ([facility] /[facility], [facility]) Oxygen saturation in Arterial blood by Pulse oximetry 96 % 96 % gMED ([facility], /[facility], [facility]) Body height 68 [in_i] 68 [in_i] [facility] 5'8" Body weight 187.00 [lb_av] 187.00 [lb_av] MEDEN T ([facility]) Body mass index (BMI) [Ratio] 28.4 kg/m2 28.4 k g/m2 [facility] ([facility]) [place] body weight 140 [lb_av] 140 [lb_av] MEDEN T ([facility]) Body weight 84.823 kg 84.823 kg [facility] ([facility]) Body surface area Derived from formula 1.99 m2 1.99 m2 [facility] ([facility]) Diastolic blood pressure 79 mm[Hg] 79 mm[Hg] WERO ([facility]) Body height 68 [in_i] 68 [in_i] WERO ([facility]) Systolic blood pressure 121 mm[Hg] 121 mm[Hg] A THENA ([facility]) Body weight 184 [lb_av] 184 [lb_av] WERO ([facility]) Body mass index (BMI) [Ratio] 28 kg/m2 28 kg/ m2 WERO ([facility]) Diastolic blood pressure 79 mm[Hg] 79 mm[Hg] WERO ([facility]) Body height 68 [in_i] 68 [in_i] WERO ([facility]) Body mass index (BMI) [Ratio] 28 kg/m2 28 kg/ m2 WERO ([facility]) Systolic blood pressure 121 mm[Hg] 121 mm[Hg] A THENA ([facility]) Body weight 184 [lb_av] 184 [lb_av] WERO ([facility]) Body weight 84.823 kg 84.823 kg [facility] Systolic blood pressure 110 mm[Hg] 110 mm[Hg] EDENT ([facility], ) Diastolic blood pressure 70 mm[Hg] 70 mm[Hg] [facility] ([facility]) Body weight 187.00 [lb_av] 187.00 [lb_av] MEDEN T ([facility], ) Body mass index (BMI) [Ratio] 28.4 kg/m2 28.4 k g/m2 [facility], ) [place] body weight 140 [lb_av] 140 [lb_av] MEDEN T ([facility], ) Heart rate 80 /min 80 /min [facility] ([facility], ) Oxygen saturation in Arterial blood by Pulse oximetry 97 % 97 % [facility] ([facility], ) Room Air Body height 68 [in_i] 68 [in_i] [facility] ([facility], ) 5'8" ID Date Data Source [id number] 11/20/2020 10:57:34 AM EDT [facility] ([facility]) Name Value Range Interpretation Code Description Data Source(s) Diastolic blood pressure 84 mm[Hg] 84 mm[Hg] [facility] ([facility]) Systolic blood pressure 143 mm[Hg] 143 mm[Hg] M HARS ([facility]) Body weight 210.2 [lb_av] 210.2 [lb_av] [facility] ( [facility]) Body height 68 [in_i] 68 [in_i] [facility] ([facility]) Patient Treatment Plan of Care Planned Activity Planned Date Details Description Data Source (s) Acetaminophen 325 MG / Oxycodone Hydrochloride 5 MG Or al Tablet 09/24/2020 12:00:00 AM EDT eCW1 ([facility]) gabapentin 100 MG Oral Capsule 09/24/2020 12:00:00 AM EDT eCW1 ([facility]) Acetaminophen 325 MG / Oxycodone Hydrochloride 5 MG Or al Tablet [Percocet] 09/24/2020 12:00:00 AM EDT eCW1 ([facility]) Acetaminophen 325 MG / Oxycodone Hydrochloride 5 MG Or al Tablet [Percocet] 09/24/2020 12:00:00 AM EDT eCW1 ([facility]) topiramate 25 MG Oral Tablet [Topamax] 09/24/2020 12:00:00 AM EDT eCW1 ([facility]) Acetaminophen 325 MG / Oxycodone Hydrochloride 5 MG Or al Tablet 09/24/2020 12:00:00 AM EDT eCW1 ([facility]) gabapentin 100 MG Oral Capsule 09/24/2020 12:00:00 AM EDT eCW1 ([facility]) Acetaminophen 325 MG / Oxycodone Hydrochloride 5 MG Or al Tablet [Percocet] 09/24/2020 12:00:00 AM EDT eCW1 ([facility]) Acetaminophen 325 MG / Oxycodone Hydrochloride 5 MG Or al Tablet [Percocet] 09/24/2020 12:00:00 AM EDT eCW1 ([facility]) topiramate 25 MG Oral Tablet [Topamax] 09/24/2020 12:00:00 AM EDT eCW1 ([facility]) Acetaminophen 325 MG / Oxycodone Hydrochloride 5 MG Or al Tablet 09/24/2020 12:00:00 AM EDT eCW1 ([facility]) gabapentin 100 MG Oral Capsule 09/24/2020 12:00:00 AM EDT eCW1 ([facility]) Acetaminophen 325 MG / Oxycodone Hydrochloride 5 MG Or al Tablet [Percocet] 09/24/2020 12:00:00 AM EDT eCW1 ([facility]) Acetaminophen 325 MG / Oxycodone Hydrochloride 5 MG Or al Tablet [Percocet] 09/24/2020 12:00:00 AM EDT eCW1 ([facility]) topiramate 25 MG Oral Tablet [Topamax] 09/24/2020 12:00:00 AM EDT eCW1 ([facility]) Acetaminophen 325 MG / Oxycodone Hydrochloride 5 MG Or al Tablet 09/24/2020 12:00:00 AM EDT eCW1 ([facility]) gabapentin 100 MG Oral Capsule 09/24/2020 12:00:00 AM EDT eCW1 ([facility]) Acetaminophen 325 MG / Oxycodone Hydrochloride 5 MG Or al Tablet [Percocet] 09/24/2020 12:00:00 AM EDT eCW1 ([facility]) Acetaminophen 325 MG / Oxycodone Hydrochloride 5 MG Or al Tablet [Percocet] 09/24/2020 12:00:00 AM EDT eCW1 ([facility]) topiramate 25 MG Oral Tablet [Topamax] 09/24/2020 12:00:00 AM EDT eCW1 ([facility]) Acetaminophen 325 MG / Oxycodone Hydrochloride 5 MG Or al Tablet 09/24/2020 12:00:00 AM EDT eCW1 ([facility]) Acetaminophen 325 MG / Oxycodone Hydrochloride 5 MG Or al Tablet [Percocet] 09/24/2020 12:00:00 AM EDT eCW1 ([facility]) gabapentin 100 MG Oral Capsule 09/24/2020 12:00:00 AM EDT eCW1 ([facility]) Acetaminophen 325 MG / Oxycodone Hydrochloride 5 MG Or al Tablet [Percocet] 09/24/2020 12:00:00 AM EDT eCW1 ([facility]) topiramate 25 MG Oral Tablet [Topamax] 09/24/2020 12:00:00 AM EDT eCW1 ([facility]) Acetaminophen 325 MG / Oxycodone Hydrochloride 5 MG Or al Tablet 09/24/2020 12:00:00 AM EDT eCW1 ([facility]) Acetaminophen 325 MG / Oxycodone Hydrochloride 5 MG Or al Tablet [Percocet] 09/24/2020 12:00:00 AM EDT eCW1 ([facility]) gabapentin 100 MG Oral Capsule 09/24/2020 12:00:00 AM EDT eCW1 ([facility]) Acetaminophen 325 MG / Oxycodone Hydrochloride 5 MG Or al Tablet [Percocet] 09/24/2020 12:00:00 AM EDT eCW1 ([facility]) topiramate 25 MG Oral Tablet [Topamax] 09/24/2020 12:00:00 AM EDT eCW1 ([facility]) Acetaminophen 325 MG / Oxycodone Hydrochloride 5 MG Or al Tablet 09/24/2020 12:00:00 AM EDT eCW1 ([facility]) Acetaminophen 325 MG / Oxycodone Hydrochloride 5 MG Or al Tablet [Percocet] 09/24/2020 12:00:00 AM EDT eCW1 ([facility]) gabapentin 100 MG Oral Capsule 09/24/2020 12:00:00 AM EDT eCW1 ([facility]) Acetaminophen 325 MG / Oxycodone Hydrochloride 5 MG Or al Tablet [Percocet] 09/24/2020 12:00:00 AM EDT eCW1 ([facility]) topiramate 25 MG Oral Tablet [Topamax] 09/24/2020 12:00:00 AM EDT eCW1 ([facility]) Medrol 4 MG 09/11/2020 12:00:00 AM EDT e CW1 ([facility]) tizanidine 4 MG Oral Tablet [Zanaflex] 09/11/2020 12:00:00 AM EDT eCW1 ([facility]) Medrol 4 MG 09/11/2020 12:00:00 AM EDT e CW1 ([facility]) tizanidine 4 MG Oral Tablet [Zanaflex] 09/11/2020 12:00:00 AM EDT eCW1 ([facility]) Medrol 4 MG 09/11/2020 12:00:00 AM EDT e CW1 ([facility]) tizanidine 4 MG Oral Tablet [Zanaflex] 09/11/2020 12:00:00 AM EDT eCW1 ([facility]) 12/24/2019 12:00:00 AM EST g MED ([facility], /[facility], [facility]) NITROFURANTOIN, MACROCRYSTALS 25 MG / Ni trofurantoin, Monohydrate 75 MG Oral Capsule [facility] Ibuprofen 200 MG Oral Tablet WERO ([facility]) Sodium Chloride 0.111 MEQ/ML Nasal [place] [Deep Sea] WERO ([facility]) Cyclobenzaprine hydrochloride 5 MG Oral Tablet WERO ([facility]) buspirone hydrochloride 5 MG Oral Tablet WERO ([facility]) 24 HR Bupropion Hydrochloride 150 MG Extended Release Oral Tablet WERO ([facility]) bismuth subsalicylate 17.5 MG/ML Oral Suspension WERO ([facility]) benzonatate 100 MG Oral Capsule WERO ([facility]) Azithromycin 250 MG Oral Tablet WERO ([facility]) 24 HR Bupropion Hydrochloride 300 MG Extended Release Oral Tablet [Wellbutrin] WERO ([facility]) valacyclovir 1000 MG Oral Tablet WERO ([facility]) Sertraline 25 MG Oral Tablet WERO ([facility]) 200 ACTUAT Albuterol 0.09 MG/ACTUAT Metered Dose Inhaler [ProAir] WERO ([facility]) 0.5 ML Streptococcus pneumoniae serotype 1 capsular antigen diphtheria [id number] protein conjugate vaccine 0.0044 MG/ML / Streptococcus pneumoniae serotype 14 capsular antigen diphtheria [id number] protein conjugate vaccine 0.0044 MG/ML / Streptococcus pneumonia WERO ( [facility]) NITROFURANTOIN, MACROCRYSTALS 25 MG / Ni trofurantoin, Monohydrate 75 MG Oral Capsule [facility] ([facility] Loratadine 10 MG Oral Tablet WERO ([facility]) Ibuprofen 200 MG Oral Tablet WERO ([facility]) Sodium Chloride 0.111 MEQ/ML Nasal [place] [[place]] WERO ([facility]) Cyclobenzaprine hydrochloride 5 MG Oral Tablet WERO ([facility]) buspirone hydrochloride 5 MG Oral Tablet WERO ([facility]) 24 HR Bupropion Hydrochloride 150 MG Extended Release Oral Tablet WERO ([facility]) bismuth subsalicylate 17.5 MG/ML Oral Suspension WERO ([facility]) benzonatate 100 MG Oral Capsule WERO ([facility]) bacitracin zinc 0.5 UNT/MG Topical Ointment WERO ([facility]) Azithromycin 250 MG Oral Tablet WERO ([facility]) Acetaminophen 325 MG Oral Tablet WERO ([facility]) 24 HR Bupropion Hydrochloride 300 MG Extended Release Oral Tablet [Wellbutrin] WERO ([facility]) valacyclovir 1000 MG Oral Tablet WERO ([facility]) Sertraline 25 MG Oral Tablet WERO ([facility]) 200 ACTUAT Albuterol 0.09 MG/ACTUAT Metered Dose Inhaler [ProAir] WERO ([facility]) 0.5 ML Streptococcus pneumoniae serotype 1 capsular antigen diphtheria [id number] protein conjugate vaccine 0.0044 MG/ML / Streptococcus pneumoniae serotype 14 capsular antigen diphtheria [id number] protein conjugate vaccine 0.0044 MG/ML / Streptococcus pneumonia WERO ( [facility])
[2020-12-20 22:22] LABS: HEMATOCRIT 43.1 % (36.0-47.0); HEMOGLOBIN 14.5 g/dl (12.0-15.5); MEAN CORPUSCULAR HEMOGLOBIN 33.3 pg (27.0-33.0); MEAN CORPUSCULAR HGB CONC 33.6 g/dl (32.0-36.5); MEAN CORPUSCULAR VOLUME 98.9 fl (80.0-96.0); PLATELET COUNT, AUTOMATED 243 10^3/uL (150-450); RED BLOOD COUNT 4.36 10^6/uL (4.00-5.40); WHITE BLOOD COUNT 7.6 10^3/uL (4.0-10.0)
[2020-12-20 22:44] LABS: AMPHETAMINES LEVEL URINE NEGATIVE (NEGATIVE); BARBITURATES URINE NEGATIVE (NEGATIVE); BENZODIAZEPINES URINE NEGATIVE (NEGATIVE); CANNABINOIDS URINE POSITIVE (NEGATIVE); COCAINE METABOLITE URINE NEGATIVE (NEGATIVE); METHADONE URINE NEGATIVE (NEGATIVE); OPIATES URINE NEGATIVE (NEGATIVE); PHENCYCLIDINE URINE NEGATIVE (NEGATIVE)
[2020-12-20 22:54] LABS: BLOOD UREA NITROGEN 10 MG/DL (7-18); CALCIUM LEVEL 9.5 MG/DL (8.5-10.1); CARBON DIOXIDE LEVEL 26 MEQ/L (21-32); CHLORIDE LEVEL 108 MEQ/L (98-107); CREATININE FOR GFR 0.75 MG/DL (0.55-1.30); GLOMERULAR FILTRATION RATE > 60.0 (>51); GLUCOSE, FASTING 110 MG/DL (70-100); POTASSIUM SERUM 4.1 MEQ/L (3.5-5.1); SODIUM LEVEL 144 MEQ/L (136-145)
[2020-12-20 22:55] LABS: ACETAMINOPHEN LEVEL < 2.0 UG/ML (10.0-30.0); ALBUMIN 4.2 GM/DL (3.2-5.2); ALT/SGPT 60 U/L (12-78); BILIRUBIN,DIRECT 0.1 MG/DL (0.0-0.2); BILIRUBIN,TOTAL 0.3 MG/DL (0.2-1.0); ETHYL ALCOHOL (ETHANOL) 0.208 % (0.000-0.010); SALICYLATE LEVEL < 1.7 MG/DL (5.0-30.0)
--- OUTSIDE RECORDS SUMMARY | 2020-12-21 03:01 | CCD ---
Author Author [facility] Organization [facility] Address Unknown Phone Unavailable Support Name Relationship Address Phone UE Next Of Kin Unknown Unavailable [facility] CIVILIAN Next Of Kin [id number] [place] [address] - TAVO JOHNSON Next Of Kin Unknown Unavailable TAVO POE Next Of Kin [address] [place] [address] Unavailable [employer] Next Of Kin [address] [place] [place] [address] [place] Next Of Kin [address] [place] [place] [address] [place] Next Of Kin [address] [facility] [place] [address] [employer] CIVILIAN Next Of Kin 04/[address] [place] [address] [facility] CIVILIAN Next Of Kin [address] [place] [place] [address] - TAVO JOHNSON Next Of Kin [address] [place] [address] TAVO JOHNSON ECON [address] [place] [address] Unavailable Care Team Providers Care Razor Sharpener Name Role Phone Shraif Yuen Unavailable Unavailable Adia Bedoya MD Unavailable [...] Unavailable Dynaveed, C Humberto MD Unavailable Unavailable Swift, Jordyn E MAIL SYSTEM ADMINISTRATOR Unavailable Unavailable Swift, Jordyn E MAIL SYSTEM ADMINISTRATOR Unavailable Unavailable Swift, Jordyn E MAIL SYSTEM ADMINISTRATOR Unavailable Unavailable Swift, Jordyn E MAIL SYSTEM ADMINISTRATOR Unavailable Unavailable Swift, Jordyn E MAIL SYSTEM ADMINISTRATOR Unavailable Unavailable Swift, Jordyn E MAIL SYSTEM ADMINISTRATOR Unavailable Unavailable Swift, Jordyn E MAIL SYSTEM ADMINISTRATOR Unavailable Unavailable Swift, Jordyn E MAIL SYSTEM ADMINISTRATOR Unavailable Unavailable Swift, Jordyn E MAIL SYSTEM ADMINISTRATOR Unavailable Unavailable Swift, Jordyn E MAIL SYSTEM ADMINISTRATOR Unavailable Unavailable Swift, Jordyn E MAIL SYSTEM ADMINISTRATOR Unavailable Unavailable Swift, Jordyn E MAIL SYSTEM ADMINISTRATOR Unavailable Unavailable Swift, Jordyn E MAIL SYSTEM ADMINISTRATOR Unavailable Unavailable Swift, Jordyn E MAIL SYSTEM ADMINISTRATOR Unavailable Unavailable Swift, Jordyn E MAIL SYSTEM ADMINISTRATOR Unavailable Unavailable Swift, Jordyn E MAIL SYSTEM ADMINISTRATOR Unavailable Unavailable Swift, Jordyn E MAIL SYSTEM ADMINISTRATOR Unavailable Unavailable Swift, Jordyn E MAIL SYSTEM ADMINISTRATOR Unavailable Unavailable Swift, Jordyn E MAIL SYSTEM ADMINISTRATOR Unavailable Unavailable Swift, Jordyn E MAIL SYSTEM ADMINISTRATOR Unavailable Unavailable Swift, Jordyn E MAIL SYSTEM ADMINISTRATOR Unavailable Unavailable Swift, Jordyn E MAIL SYSTEM ADMINISTRATOR Unavailable Unavailable Swift, Jordyn E MAIL SYSTEM ADMINISTRATOR Unavailable Unavailable Swift, Jordyn E MAIL SYSTEM ADMINISTRATOR Unavailable Unavailable Swift, Jordyn E MAIL SYSTEM ADMINISTRATOR Unavailable Unavailable Swift, Jordyn E MAIL SYSTEM ADMINISTRATOR Unavailable Unavailable Swift, Jordyn E MAIL SYSTEM ADMINISTRATOR Unavailable Unavailable Swift, Jordyn E MAIL SYSTEM ADMINISTRATOR Unavailable Unavailable Swift, Jordyn E MAIL SYSTEM ADMINISTRATOR Unavailable Unavailable Swift, Jordyn E MAIL SYSTEM ADMINISTRATOR Unavailable Unavailable Swift, Jordyn E MAIL SYSTEM ADMINISTRATOR Unavailable Unavailable Swift, Jordyn E MAIL SYSTEM ADMINISTRATOR Unavailable Unavailable Swift, Jordyn E MAIL SYSTEM ADMINISTRATOR Unavailable Unavailable Swift, Jordyn E MAIL SYSTEM ADMINISTRATOR Unavailable Unavailable Swift, Jordyn E MAIL SYSTEM ADMINISTRATOR Unavailable Unavailable Swift, Jordyn E MAIL SYSTEM ADMINISTRATOR Unavailable Unavailable HIGINIO CUMMINS MD Unavailable Unavailable [...] is protected by Article 27-F of the [facility] Public Health law. If you continue you may have access to information: Regarding HIV / AIDS; Provided by facilities licensed or operated by the [facility] Office of Mental Health; or Provided by the [facility] Office for People With Developmental Disabilities. If such information is present, then the following [facility] mandated warning applies: This information has been [...] law may result in a fine or longterm sentence or both. A general authorization for the release of medical or other information is NOT sufficient authorization for further disc losure. Allergies and Adverse Reactions Type Description Substance Reaction Status Data Source(s ) Propensity to adverse reactions BANDAID ADHESIVE BANDAID ADHESIVE RED NESS [facility] Propensity to adverse reactions LATEX LATEX REDNESS [facility] Propensity to adverse reactions SULFA (sulfonamide) SULFA (sulfo namide) ANAPHYLAXIS [facility] Family History Family Member Name Family Member Gender Family Member Status Date o f Status Description Data Source(s) Unknown Unknown Problem 06/13/2014 12:00:00 AM EDT [facility] ([facility], ) MATERNAL GREAT AUNTS X2 BOTH DIAGNOSED I N THERE 50'S Unknown Male Problem MEDENT ([facility]) () Unknown Male Problem MEDENT ([facility] () Encounters Encounter Providers Location Date Indications Data Source(s ) Outpatient Attender: Humberto Ryan MDReferrer: Selvin Prado II [id number] 12/09/2020 12:00:00 AM EDT [facility] Unknown [address] [facility] [address] 11/26/2020 12:00:00 AM EDT eCW1 ([facility]) Outpatient Attender: TAVO CUMMINS MDConsultant: TAVO Bolden MD 11/25/2020 08:19:50 AM EDT [facility] Unknown [address] [facility] [address] 11/18/2020 12:00:00 AM EDT eCW1 ([facility]) Outpatient Attender: Ernestina Lozano [facility] Main Office 11/04/2020 10:00:00 AM EDT [facility] ([facility] [place] [address] [facility] [address] 10/23/2020 12:00:00 AM EDT eCW1 ([facility]) [place] [address] [facility] [address] 10/06/2020 12:00:00 AM EDT eCW1 ([facility]) Outpatient [address] [facility] [address] 09/24/2020 12:00:00 AM EDT eCW1 ([facility]) [place] [address] [facility] [address] 09/24/2020 12:00:00 AM EDT eCW1 ([facility]) [place] [address] [facility] [address] 09/23/2020 12:00:00 AM EDT eCW1 ([facility]) [place] [address] [facility] [address] 09/22/2020 12:00:00 AM EDT eCW1 ([facility]) Outpatient Attender: Ernestina Lozano [facility] Main Office 09/15/2020 07:45:00 AM EDT [facility] ([facility] Out[place] [address] [facility] [address] 09/11/2020 12:00:00 AM EDT eCW1 ([facility]) [place] [address] [facility] [address] 09/11/2020 12:00:00 AM EDT eCW1 ([facility]) [place] [address] [facility] [address] 07/08/2020 12:00:00 AM EDT eCW1 ([facility]) [place] [address] [facility] [address] 07/03/2020 12:00:00 AM EDT eCW1 ([facility]) [place] [address] [facility] [address] 06/24/2020 12:00:00 AM EDT eCW1 ([facility]) Outpatient Attender: BOLIVAR Mensah/Doreen/Niko/Reind l 06/11/2020 09:00:00 AM EDT MEDENT ([facility] ) Outpatient Attender: Nikolas Mensah/Doreen/Niko/R celinal 06/04/2020 11:30:00 AM EDT MED[facility] ([facility] ) [place] [address] [facility] [address] 06/04/2020 12:00:00 AM EDT eCW1 ([facility]) [place] [address] [facility] [address] 05/29/2020 12:00:00 AM EDT eCW1 ([facility]) Outpatient [address] [facility] [address] 05/29/2020 12:00:00 AM EDT eCW1 ([facility]) Outpatient Attender: BOLIVAR Mensah/Doreen/Niko/Reind l 04/30/2020 09:00:00 AM EDT [facility] ([facility] Outpatient Attender: BOLIVAR Mensah/Doreen/Niko/Reind l 03/05/2020 01:30:00 PM EST [facility] ([facility] [place] [address] [facility] [address] 03/04/2020 12:00:00 AM EST eCW1 ([facility]) [place] [address] [facility] [address] 03/04/2020 12:00:00 AM EST eCW1 ([facility]) Diaphragmatic hernia without obstruction or gangrene 02/04/2020 12:00:00 AM EST Other specified diseases of esophagusInt ramucosal lesion in antrum of stomachIntramucosal lesion in antrum of stomachDvrtclos of lg int w/o perforation or abscess w/o bleedingDiaphragmatic hernia without obstruction or gangreneScreening for malignant neoplasm of colonFamily history of Colon Cancer-2- 2nd degree relativesChange in Bowel HabitsAcid reflux gMED ([facility], [facility]) Other specified diseases of esophagus Intramucosal lesion in antrum of stomach Intramucosal lesion in antrum of stomach Dvrtclos of lg int w/o perforation or ab scess w/o bleeding Diaphragmatic hernia without obstruction or gangrene Screening for malignant neoplasm of colo n Family history of Colon Cancer-2- 2nd de gree relatives Change in Bowel Habits Acid reflux Unknown [address] [facility] Y [address] 01/01/2020 12:00:00 AM EST eCW1 ([facility]) Unknown [address] [facility] Y [address] 12/31/2019 12:00:00 AM EST eCW1 ([facility]) Jhonathan Bedoya MD: [id number] [facility] [address], [place] [address], Ph. Attender: Jhonathan CHAVEZ - [facility] - Main Office 11/22/2019 12:00:00 AM EDT WERO ([facility]) Outpatient Attender: BOLIVAR Mensah/Doreen/Niko/Damien blankenship 11/19/2019 09:00:00 AM EDT MEDENT ([facility]) Unknown [address] [facility], [place] [address] 11/16/2019 12:00:00 AM EDT eCW1 ([facility]) Jhonathan Bedoya MD: [address], [place] [address], Ph. Attender: Jhonathan Bedoya [place] - [facility] - Main Office 11/13/2019 12:00:00 AM EDT WERO ([facility]) Jhonathan Bedoya MD: [address] [facility] [address], [address], [place] [address], Ph. Attender: Jhonathan Bedoya [place] - [facility] 11/13/2019 12:00:00 AM EDT WERO ([facility]) Outpatient Attender: Nikolas Mensah/Doreen/Niko/R eindl 11/08/2019 08:30:00 AM EDT [facility] ([facility] [place] [address] [facility] [address] 11/06/2019 12:00:00 AM EDT eCW1 ([facility]) Unknown [address] [facility] [address] 11/06/2019 12:00:00 AM EDT eCW1 ([facility]) Outpatient Attender: TAVO CUMMINS MDConsultant: TAVO Bolden MD 08/21/2019 02:18:00 PM EDT - 09/13/2019 02:14:00 PM EDT [facility] Patient discharged. Outpatient Attender: Sharif Casondmitter: Sharif Lara [address] 07/17/2019 02:30:00 PM EDT [facility] ([facility]) Patient admitted. Immunizations Vaccine Date Status Description Data Source(s) COVID-19 VACCINE Moderna 06/04/2020 12:00:00 AM EDT completed [place] Vaccine Series Complete: YESThis Data wa s Submitted to [facility] Via [employer] COVID-19 VACCINE Moderna 05/08/2020 12:00:00 AM EDT completed [place] Vaccine Series Complete: NOThis Data was Submitted to [facility] Via [employer] Medications Medication Brand Name Start Date Product Form Dose Route Admi nistrative Instructions Pharmacy Instructions Status Indications Reaction Description Data Source(s) Acetaminophen 325 MG / Oxycodone Hydroch loride 5 MG Oral Tablet oxyCODONE- Acetaminophen 5-325 MG oxyCODONE-Acetaminophen 5-325 MG 09/24/2020 12:00:00 A M EDT 1.0 {tablet_as_needed} active o xyCODONE-Acetaminophen 5-325 MG eCW1 ([facility]) gabapentin 100 MG Oral Capsule Gabapentin 100 MG Gabapentin 100 MG 09/24/2020 12:00:00 AM EDT 1.0 {capsule} active G abapentin 100 MG eCW1 ([facility]) topiramate 25 MG Oral Tablet [Topamax] Topamax 25 MG Topamax 25 MG 09/24/2020 12:00:00 AM EDT 1.0 {tablet} active To pamax 25 MG eCW1 ([facility]) Acetaminophen 325 MG / Oxycodone Hydroch loride 5 MG Oral Tablet oxyCODONE- Acetaminophen 5-325 MG oxyCODONE-Acetaminophen 5-325 MG 09/24/2020 12:00:00 A M EDT 1.0 {tablet_as_needed} active o xyCODONE-Acetaminophen 5-325 MG eCW1 ([facility]) Acetaminophen 325 MG / Oxycodone Hydroch loride 5 MG Oral Tablet [Percocet] Percocet 5-325 MG Percocet 5-325 MG 09/24/2020 12:00:00 AM EDT 1 .0 {tablet_as_needed} active Percocet 5-32 5 MG eCW1 ([facility]) gabapentin 100 MG Oral Capsule Gabapentin 100 MG Gabapentin 100 MG 09/24/2020 12:00:00 AM EDT 1.0 {capsule} active G abapentin 100 MG eCW1 ([facility]) Acetaminophen 325 MG / Oxycodone Hydroch loride 5 MG Oral Tablet oxyCODONE- Acetaminophen 5-325 MG oxyCODONE-Acetaminophen 5-325 MG 09/24/2020 12:00:00 A M EDT 1.0 {tablet_as_needed} active o xyCODONE-Acetaminophen 5-325 MG eCW1 ([facility]) Acetaminophen 325 MG / Oxycodone Hydroch loride 5 MG Oral Tablet [Percocet] Percocet 5-325 MG Percocet 5-325 MG 09/24/2020 12:00:00 AM EDT 1 .0 {tablet_as_needed} active Percocet 5-32 5 MG eCW1 ([facility]) Acetaminophen 325 MG / Oxycodone Hydroch loride 5 MG Oral Tablet [Percocet] Percocet 5-325 MG Percocet 5-325 MG 09/24/2020 12:00:00 AM EDT 1 .0 {tablet_as_needed} active Percocet 5-32 5 MG eCW1 ([facility]) gabapentin 100 MG Oral Capsule Gabapentin 100 MG Gabapentin 100 MG 09/24/2020 12:00:00 AM EDT 1.0 {capsule} active G abapentin 100 MG eCW1 ([facility]) topiramate 25 MG Oral Tablet [Topamax] Topamax 25 MG Topamax 25 MG 09/24/2020 12:00:00 AM EDT 1.0 {tablet} active To pamax 25 MG eCW1 ([facility]) gabapentin 100 MG Oral Capsule Gabapentin 100 MG Gabapentin 100 MG 09/24/2020 12:00:00 AM EDT 1.0 {capsule} active G abapentin 100 MG eCW1 ([facility]) Acetaminophen 325 MG / Oxycodone Hydroch loride 5 MG Oral Tablet oxyCODONE- Acetaminophen 5-325 MG oxyCODONE-Acetaminophen 5-325 MG 09/24/2020 12:00:00 A M EDT 1.0 {tablet_as_needed} active o xyCODONE-Acetaminophen 5-325 MG eCW1 ([facility]) Acetaminophen 325 MG / Oxycodone Hydroch loride 5 MG Oral Tablet [Percocet] Percocet 5-325 MG Percocet 5-325 MG 09/24/2020 12:00:00 AM EDT 1 .0 {tablet_as_needed} active Percocet 5-32 5 MG eCW1 ([facility]) topiramate 25 MG Oral Tablet [Topamax] Topamax 25 MG Topamax 25 MG 09/24/2020 12:00:00 AM EDT 1.0 {tablet} active To pamax 25 MG eCW1 ([facility]) Acetaminophen 325 MG / Oxycodone Hydroch loride 5 MG Oral Tablet [Percocet] Percocet 5-325 MG Percocet 5-325 MG 09/24/2020 12:00:00 AM EDT 1 .0 {tablet_as_needed} active Percocet 5-32 5 MG eCW1 ([facility]) Acetaminophen 325 MG / Oxycodone Hydroch loride 5 MG Oral Tablet oxyCODONE- Acetaminophen 5-325 MG oxyCODONE-Acetaminophen 5-325 MG 09/24/2020 12:00:00 A M EDT 1.0 {tablet_as_needed} active o xyCODONE-Acetaminophen 5-325 MG eCW1 ([facility]) Acetaminophen 325 MG / Oxycodone Hydroch loride 5 MG Oral Tablet [Percocet] Percocet 5-325 MG Percocet 5-325 MG 09/24/2020 12:00:00 AM EDT 1 .0 {tablet_as_needed} active Percocet 5-32 5 MG eCW1 ([facility]) Acetaminophen 325 MG / Oxycodone Hydroch loride 5 MG Oral Tablet oxyCODONE- Acetaminophen 5-325 MG oxyCODONE-Acetaminophen 5-325 MG 09/24/2020 12:00:00 A M EDT 1.0 {tablet_as_needed} active o xyCODONE-Acetaminophen 5-325 MG eCW1 ([facility]) Acetaminophen 325 MG / Oxycodone Hydroch loride 5 MG Oral Tablet oxyCODONE- Acetaminophen 5-325 MG oxyCODONE-Acetaminophen 5-325 MG 09/24/2020 12:00:00 A M EDT 1.0 {tablet_as_needed} active o xyCODONE-Acetaminophen 5-325 MG eCW1 ([facility]) Acetaminophen 325 MG / Oxycodone Hydroch loride 5 MG Oral Tablet [Percocet] Percocet 5-325 MG Percocet 5-325 MG 09/24/2020 12:00:00 AM EDT 1 .0 {tablet_as_needed} active Percocet 5-32 5 MG eCW1 ([facility]) topiramate 25 MG Oral Tablet [Topamax] Topamax 25 MG Topamax 25 MG 09/24/2020 12:00:00 AM EDT 1.0 {tablet} active To pamax 25 MG eCW1 ([facility]) Acetaminophen 325 MG / Oxycodone Hydroch loride 5 MG Oral Tablet [Percocet] Percocet 5-325 MG Percocet 5-325 MG 09/24/2020 12:00:00 AM EDT 1 .0 {tablet_as_needed} active Percocet 5-32 5 MG eCW1 ([facility]) Acetaminophen 325 MG / Oxycodone Hydroch loride 5 MG Oral Tablet [Percocet] Percocet 5-325 MG Percocet 5-325 MG 09/24/2020 12:00:00 AM EDT 1 .0 {tablet_as_needed} active Percocet 5-32 5 MG eCW1 ([facility]) gabapentin 100 MG Oral Capsule Gabapentin 100 MG Gabapentin 100 MG 09/24/2020 12:00:00 AM EDT 1.0 {capsule} active G abapentin 100 MG eCW1 ([facility]) Acetaminophen 325 MG / Oxycodone Hydroch loride 5 MG Oral Tablet [Percocet] Percocet 5-325 MG Percocet 5-325 MG 09/24/2020 12:00:00 AM EDT 1 .0 {tablet_as_needed} active Percocet 5-32 5 MG eCW1 ([facility]) gabapentin 100 MG Oral Capsule Gabapentin 100 MG Gabapentin 100 MG 09/24/2020 12:00:00 AM EDT 1.0 {capsule} active G abapentin 100 MG eCW1 ([facility]) topiramate 25 MG Oral Tablet [Topamax] Topamax 25 MG Topamax 25 MG 09/24/2020 12:00:00 AM EDT 1.0 {tablet} active To pamax 25 MG eCW1 ([facility]) topiramate 25 MG Oral Tablet [Topamax] Topamax 25 MG Topamax 25 MG 09/24/2020 12:00:00 AM EDT 1.0 {tablet} active To pamax 25 MG eCW1 ([facility]) topiramate 25 MG Oral Tablet [Topamax] Topamax 25 MG Topamax 25 MG 09/24/2020 12:00:00 AM EDT 1.0 {tablet} active To pamax 25 MG eCW1 ([facility]) Acetaminophen 325 MG / Oxycodone Hydroch loride 5 MG Oral Tablet [Percocet] Percocet 5-325 MG Percocet 5-325 MG 09/24/2020 12:00:00 AM EDT 1 .0 {tablet_as_needed} active Percocet 5-32 5 MG eCW1 ([facility]) Acetaminophen 325 MG / Oxycodone Hydroch loride 5 MG Oral Tablet [Percocet] Percocet 5-325 MG Percocet 5-325 MG 09/24/2020 12:00:00 AM EDT 1 .0 {tablet_as_needed} active Percocet 5-32 5 MG eCW1 ([facility]) gabapentin 100 MG Oral Capsule Gabapentin 100 MG Gabapentin 100 MG 09/24/2020 12:00:00 AM EDT 1.0 {capsule} active G abapentin 100 MG eCW1 ([facility]) Acetaminophen 325 MG / Oxycodone Hydroch loride 5 MG Oral Tablet [Percocet] Percocet 5-325 MG Percocet 5-325 MG 09/24/2020 12:00:00 AM EDT 1 .0 {tablet_as_needed} active Percocet 5-32 5 MG eCW1 ([facility]) Acetaminophen 325 MG / Oxycodone Hydroch loride 5 MG Oral Tablet [Percocet] Percocet 5-325 MG Percocet 5-325 MG 09/24/2020 12:00:00 AM EDT 1 .0 {tablet_as_needed} active Percocet 5-32 5 MG eCW1 ([facility]) Metronidazole 0.01 MG/MG Topical Gel Metronidazole 09/15/2020 12:00 :00 AM EDT active MEDENT ([facility]) tizanidine 4 MG Oral Tablet [Zanaflex] Zanaflex 4 MG Zanafle x 4 MG 09/11/2020 12:00:00 AM EDT 1.0 {tablet_as_needed} active Zanaflex 4 MG eCW1 ([facility]) Medrol 4 MG Medrol 4 MG 09/11/2020 12:00:00 AM EDT active Medrol 4 MG eCW1 ([facility]) tizanidine 4 MG Oral Tablet [Zanaflex] Zanaflex 4 MG Zanafle x 4 MG 09/11/2020 12:00:00 AM EDT 1.0 {tablet_as_needed} active Zanaflex 4 MG eCW1 ([facility]) Medrol 4 MG Medrol 4 MG 09/11/2020 12:00:00 AM EDT active Medrol 4 MG eCW1 ([facility]) Medrol 4 MG Medrol 4 MG 09/11/2020 12:00:00 AM EDT active Medrol 4 MG eCW1 ([facility]) tizanidine 4 MG Oral Tablet [Zanaflex] Zanaflex 4 MG Zanafle x 4 MG 09/11/2020 12:00:00 AM EDT 1.0 {tablet_as_needed} active Zanaflex 4 MG eCW1 ([facility]) Ciprofloxacin 3 MG/ML / Dexamethasone 1 MG/ML Otic Mel pension [Ciprodex] Ciprodex 06/11/2020 12:00:00 AM EDT active MEDENT ([facility], ) 12/24/2019 12:00:00 AM EST compl eted Suprep Bowel Prep Kit 17.5-3.13-1.6 gram recon soln gMED ([facility] /[facility]) Ofloxacin 3 MG/ML Otic Solution Ofloxacin (Otic) 11/19/2019 12:00:00 AM EDT AURICULAR active MEDENT ([facility], ) Qvar Redihaler Qvar Redihaler 11/08/2019 12:00:00 AM EDT RESPIRATORY active MEDENT ([facility], ) Cyclobenzaprine hydrochloride 5 MG Oral Tablet cyclobe nzaprine 5 mg tablet cyclobenzaprine 5 mg tablet completed cyclobenzaprine hydrochloride 5 MG Oral Tablet WERO ([facility]) buspirone hydrochloride 5 MG Oral Tablet buspirone 5 m g tablet buspirone 5 mg tablet completed buspirone hydro chloride 5 MG Oral Tablet WERO ([facility]) 0.5 ML Streptococcus pneumoniae serotype 1 capsular antigen diphtheria [id number] protein conjugate vaccine 0.0044 MG/ML / Streptococcus pneumoniae serotype 14 capsular antigen diphtheria [id number] protein conjugate vaccine 0.0044 MG/ML / Streptococcus pneumonia Prevnar 13 (PF) 0.5 mL intramuscular syringe Prevnar 13 (PF) 0.5 mL intramuscular syringe comp leted 0.5 ML Streptococcus pneumoniae serotype 1 capsular antigen diphtheria [id number] protein conjugate vaccine 0.0044 MG/ML / Streptococcus pneumoniae serotype 14 capsular antigen diphtheria [id number] protein conjugate vaccine 0.0044 MG/ML / Streptococcus pneumoniae serotype 18C capsular antigen diphtheria [id number] protein conjugate vaccine 0.0044 MG/ML / Streptococcus pneumoniae serotype 19A capsular antigen d iphtheria [id number] protein conjugate vaccine 0.0044 MG/ML / Streptococcus pneumoniae serotype 19F capsular antigen diphtheria [id number] protein conjugate vaccine 0.0044 MG/ML / Streptococcus pneumoniae serotype 23F capsular antigen diphtheria [id number] protein conjugate vaccine 0.0044 MG/ML / Streptococcus pneumoniae serotype 3 capsular antigen diphtheria [id number] protein conjugate vaccine 0.0044 MG/ML / Streptococcus pneumoniae serotype 4 capsular antigen diphtheria [id number] protein conjugate vaccine 0.0044 MG/ML / Streptococcus pneumoniae serotype 5 capsular antigen diphtheria [id number] protein conjugate vaccine 0.0044 MG/ML / Streptococcus pneumoniae serotype 6A capsular antigen diphtheria [id number] protein conjugate vaccine 0.0044 MG/ML / Streptococcus pneumoniae serotype 6B capsular antigen diphtheria [id number] protein conjugate vaccine 0.0088 MG/ML / Streptococcus pneumoniae serotype 7F capsular antigen diphtheria [id number] protein conjugate vaccine 0.0044 MG/ML / Streptococcus pneumoniae serotype 9V capsular antigen diphtheria [id number] protein conjugate vaccine 0.0044 MG/ML Prefilled Syringe [Prevnar 13] WERO ([facility]) NITROFURANTOIN, MACROCRYSTALS 25 MG / Ni trofurantoin, Monohydrate 75 MG Oral Capsule nitrofurantoin monohydrate/macrocrystals 100 mg capsule TAKE 1 CAPSULE BY MOUTH TWICE DAILY nitrofurantoin monohydrate/macrocrystals 100 mg capsule TAKE 1 CAPSULE BY MOUTH TWICE DAILY co mpleted nitrofurantoin, macrocrystals 25 MG / nitrofurantoin, monohydrate 75 MG Oral Capsule WERO ([facility]) Cyclobenzaprine hydrochloride 5 MG Oral Tablet cyclobe nzaprine 5 mg tablet cyclobenzaprine 5 mg tablet completed cyclobenzaprine hydrochloride 5 MG Oral Tablet WERO ([facility]) valacyclovir 1000 MG Oral Tablet valacyclovir 1 gram t ablet valacyclovir 1 gram tablet completed valacyclovir 10 00 MG Oral Tablet WERO ([facility]) 24 HR Bupropion Hydrochloride 300 MG Ext ended Release Oral Tablet [Wellbutrin] Wellbutrin XL 300 mg 24 hr tablet, extended release Wellbutrin XL 300 mg 24 hr tablet, extended release completed 24 HR bupropion hydrochloride 300 MG Extended Release Oral Tablet [Wellbutrin] WERO ([facility]) 24 HR Bupropion Hydrochloride 300 MG Ext ended Release Oral Tablet [Wellbutrin] Wellbutrin XL 300 mg 24 hr tablet, extended release Wellbutrin XL 300 mg 24 hr tablet, extended release completed 24 HR bupropion hydrochloride 300 MG Extended Release Oral Tablet [Wellbutrin] WERO ([facility]) Loratadine 10 MG Oral Tablet loratadine 10 mg tablet loratadine 10 mg tablet completed loratadine 10 MG Oral Tablet WERO ([facility]) 0.5 ML Streptococcus pneumoniae serotype 1 capsular antigen diphtheria [id number] protein conjugate vaccine 0.0044 MG/ML / Streptococcus pneumoniae serotype 14 capsular antigen diphtheria AIN091 protein conjugate vaccine 0.0044 MG/ML / Streptococcus pneumonia Prevnar 13 (PF) 0.5 mL intramuscular syringe Prevnar 13 (PF) 0.5 mL intramuscular syringe comp leted 0.5 ML Streptococcus pneumoniae serotype 1 capsular antigen diphtheria SVL256 protein conjugate vaccine 0.0044 MG/ML / Streptococcus pneumoniae serotype 14 capsular antigen diphtheria OZT304 protein conjugate vaccine 0.0044 MG/ML / Streptococcus pneumoniae serotype 18C capsular antigen diphtheria MEO680 protein conjugate vaccine 0.0044 MG/ML / Streptococcus pneumoniae serotype 19A capsular antigen d iphtheria ABP585 protein conjugate vaccine 0.0044 MG/ML / Streptococcus pneumoniae serotype 19F capsular antigen diphtheria WVK008 protein conjugate vaccine 0.0044 MG/ML / Streptococcus pneumoniae serotype 23F capsular antigen diphtheria KGB787 protein conjugate vaccine 0.0044 MG/ML / Streptococcus pneumoniae serotype 3 capsular antigen diphtheria VJI674 protein conjugate vaccine 0.0044 MG/ML / Streptococcus pneumoniae serotype 4 capsular antigen diphtheria FQC589 protein conjugate vaccine 0.0044 MG/ML / Streptococcus pneumoniae serotype 5 capsular antigen diphtheria CYP550 protein conjugate vaccine 0.0044 MG/ML / Streptococcus pneumoniae serotype 6A capsular antigen diphtheria KIT888 protein conjugate vaccine 0.0044 MG/ML / Streptococcus pneumoniae serotype 6B capsular antigen diphtheria QLS755 protein conjugate vaccine 0.0088 MG/ML / Streptococcus pneumoniae serotype 7F capsular antigen diphtheria VGZ491 protein conjugate vaccine 0.0044 MG/ML / Streptococcus pneumoniae serotype 9V capsular antigen diphtheria WYM453 protein conjugate vaccine 0.0044 MG/ML Prefilled Syringe [Prevnar 13] WERO ([facility]) 24 HR Bupropion Hydrochloride 150 MG Ext ended Release Oral Tablet bupropion HCl XL 150 mg 24 hr tablet, extended release bupropion HCl XL 150 mg 24 hr tablet, extended release completed 24 HR bupropion hydrochloride 150 MG Extended Release Oral Tablet WERO ([facility]) valacyclovir 1000 MG Oral Tablet valacyclovir 1 gram t ablet valacyclovir 1 gram tablet completed valacyclovir 10 00 MG Oral Tablet WERO ([facility]) Azithromycin 250 MG Oral Tablet azithromycin 250 mg ta blet azithromycin 250 mg tablet completed azithromycin 25 0 MG Oral Tablet WERO ([facility]) bacitracin zinc 0.5 UNT/MG Topical Ointm ent bacitracin zinc 500 unit/gram topical ointment bacitracin zinc 500 unit/gram topical ointment completed bacitracin zinc 0.5 UNT/MG Topic al Ointment WERO ([facility]) bismuth subsalicylate 17.5 MG/ML Oral Hooks spension Bismatrol 262 mg/15 mL oral suspension Bismatrol 262 mg/15 mL oral suspension completed bismuth subsalicylate 17.5 MG/ML Oral Suspension WERO ([facility]) 200 ACTUAT Albuterol 0.09 MG/ACTUAT Mete red Dose Inhaler [ProAir] ProAir HFA 90 mcg/actuation aerosol inhaler ProAir HFA 90 mcg/actuation aerosol inhaler completed [id number] 200 ACTUAT albuterol 0.09 MG/ACTUAT Metered Dose Inhaler [ProAir] WREO ([facility]) Acetaminophen 325 MG Oral Tablet acetaminophen 325 mg tablet acetaminophen 325 mg tablet completed acetaminophe n 325 MG Oral Tablet WERO ([facility]) Azithromycin 250 MG Oral Tablet azithromycin 250 mg ta blet azithromycin 250 mg tablet completed azithromycin 25 0 MG Oral Tablet WERO ([facility]) NITROFURANTOIN, MACROCRYSTALS 25 MG / Ni trofurantoin, Monohydrate 75 MG Oral Capsule nitrofurantoin monohydrate/macrocrystals 100 mg capsule TAKE 1 CAPSULE BY MOUTH TWICE DAILY nitrofurantoin monohydrate/macrocrystals 100 mg capsule TAKE 1 CAPSULE BY MOUTH TWICE DAILY co mpleted nitrofurantoin, macrocrystals 25 MG / nitrofurantoin, monohydrate 75 MG Oral Capsule WERO ([facility]) Sodium Chloride 0.111 MEQ/ML Nasal [place] [Deep Sea] [place] Nasal 0.65 % spray aerosol [place] Nasal 0.65 % spray aerosol completed sodium chloride 0.111 MEQ/ML Nasal [place] [Deep Sea] WERO ([facility]) 24 HR Bupropion Hydrochloride 150 MG Ext ended Release Oral Tablet bupropion HCl XL 150 mg 24 hr tablet, extended release bupropion HCl XL 150 mg 24 hr tablet, extended release completed 24 HR bupropion hydrochloride 150 MG Extended Release Oral Tablet WERO ([facility]) 200 ACTUAT Albuterol 0.09 MG/ACTUAT Mete red Dose Inhaler [ProAir] ProAir HFA 90 mcg/actuation aerosol inhaler ProAir HFA 90 mcg/actuation aerosol inhaler completed [id number] 200 ACTUAT albuterol 0.09 MG/ACTUAT Metered Dose Inhaler [ProAir] WERO ([facility]) Ibuprofen 200 MG Oral Tablet ibuprofen 200 mg tablet ibuprofen 2 00 mg tablet completed ibuprofen 200 MG Oral Tablet WERO ([facility]) benzonatate 100 MG Oral Capsule benzonatate 100 mg cap arpita benzonatate 100 mg capsule completed benzonatate 10 0 MG Oral Capsule WERO ([facility]) Sertraline 25 MG Oral Tablet sertraline 25 mg tablet sertraline 25 mg tablet completed sertraline 25 MG Oral Tablet WERO ([facility]) bismuth subsalicylate 17.5 MG/ML Oral Hooks spension Bismatrol 262 mg/15 mL oral suspension Bismatrol 262 mg/15 mL oral suspension completed bismuth subsalicylate 17.5 MG/ML Oral Suspension WERO ([facility]) Ibuprofen 200 MG Oral Tablet ibuprofen 200 mg tablet ibuprofen 2 00 mg tablet completed ibuprofen 200 MG Oral Tablet WERO ([facility]) buspirone hydrochloride 5 MG Oral Tablet buspirone 5 m g tablet buspirone 5 mg tablet completed buspirone hydro chloride 5 MG Oral Tablet WERO ([facility]) benzonatate 100 MG Oral Capsule benzonatate 100 mg cap arpita benzonatate 100 mg capsule completed benzonatate 10 0 MG Oral Capsule WERO ([facility]) Sodium Chloride 0.111 MEQ/ML Nasal [place] [Deep Sea] [place] Nasal 0.65 % spray aerosol [place] Nasal 0.65 % spray aerosol completed sodium chloride 0.111 MEQ/ML Nasal [place] [Deep Sea] WERO ([facility]) Sertraline 25 MG Oral Tablet sertraline 25 mg tablet sertraline 25 mg tablet completed sertraline 25 MG Oral Tablet WERO ([facility]) Insurance Providers Payer name Policy type / Coverage type Policy ID Covered libertarian ID Covered libertarian's relationship to zurita Policy [place] Plan Information U [id number] [facility] [id number] U [id number] Self [id number] [facility] [id number] [facility] [id number] [facility] [id number] [facility] [id number] [facility] [id number] [facility] [id number] [facility] [id number] [facility] [id number] [facility] [id number] [facility] [id number] [facility] [id number] [facility] [id number] [facility] [id number] [facility] [id number] U [id number] [facility] [id number] U [id number] Self [id number] U [id number] Self [id number] [facility] (2018) Health Maintenance Organization (O) [id number] Family Dependent [id number] ANSI-Not a Secondary Insurance [id number] ANSI-Not a Secondary Insurance [id number] ANSI-Not a Secondary Insurance [id number] ANSI-Not a Secondary Insurance [id number] ANSI-Not a Secondary Insurance [id number] ANSI-Not a Secondary Insurance [id number] [facility] [id number] Family Dependent [id number] [employer] Health Maintenance Organization (HMO) 0 [id number] Family Dependent [id number] [facility] (2018) Health Maintenance Organization (HMO) [id number] Family Dependent [id number] [facility] [employer] [place] [id number] 01 [id number] [place] [employer] [id number] Family Dependent [id number] EAST [employer] CO UNAVAILABLE 01 UNAVAILABLE [place] [employer] - PHYSICIAN CO UNAVAILABLE 01 UNAVAILABLE [place] [employer] Commercial [id number] Family Dependent [id number] HUMANA EAST REG O [id number] P [id number] [employer] [place] O [id number] P [id number] East (2018) Commercial [id number] Family Dependent [id number] [employer] [id number] Family Dependent [id number] [employer] PPO O [id number] S [id number] MEDICARE C [id number] S [id number] A [employer] [place] O [id number] O [id number] [employer] [place] [id number] HU2 [id number] [employer] [place] O [id number] S [id number] HEALTH[employer]/ AD O [id number] S [id number] [employer] Health Maintenance Organization (HMO) [id number] Family Dependent HEALTH[employer] O [id number] U 07 [id number] EAST HUMANA [id number] HU2 [id number] [place] [employer] [place] [id number] 01 [id number] [employer] EAST REG O [id number] S [id number] [place] [id number] EAST REGION [id number] [facility] [id number] SPOUSE [id number] EAST [id number] S [id number] FOR LIFE [id number] S [id number] ANSI-Not a Secondary Insurance [id number] ANSI-Not a Secondary Insurance [id number] [facility] Part B [id number] Family Dependent [id number] [facility] Health Maintenance Organization (HMO) [id number] Family Dependent [id number] Problems, Conditions, and Diagnoses Code Display Name Description Problem Type Effective Dates Data Source(s) M5442 Lumbago with sciatica, left side Lumbago with sc iatica, left side Diagnosis 11/28/2020 08:58:00 AM EDT [facility] J44.9 Chronic obstructive pulmonary disease, u nspecified Chronic obstructive pulmonary disease, unspecified Diagnosis 10/14/2020 12:00:00 AM EDT [facility] ([facility]) M32.9 Systemic lupus erythematosus, unspecifie d Systemic lupus erythematosus, unspecified Diagnosis 10/14/2020 12:00:00 AM EDT [facility] ([facility]) F41.1 Generalized anxiety disorder Generalized anxiety disor yuri Diagnosis 10/14/2020 12:00:00 AM EDT [facility] ([facility]) F10.10 Alcohol abuse, uncomplicated Alcohol use disorder, Mil d Diagnosis 10/14/2020 12:00:00 AM EDT [facility] ([facility]) F32.9 Major depressive disorder, single episod e, unspecified Unspecified depressive disorder Diagnosis 10/14/2020 12:00:00 AM EDT [facility] ([facility]) M54.41 [id number] Lumbago with sciatica, right side Problem 11/18/2020 12:00:00 AM EDT eCW1 ([facility]) M54.42 [id number] Left-sided low back pain with left-sided sciatica, unspecified chronicity Problem 09/24/2020 12:00:00 AM EDT eCW1 ([facility]) M54.42 [id number] Acute left-sided low back pain w ith left-sided sciatica Problem 09/11/2020 12:00:00 AM EDT eC ([facility]) Z85.828 [id number] History of skin cancer Problem 06/24/2020 12 :00:00 AM EDT eCW1 ([facility]) R41.3 [id number] Short-term memory loss Problem 11/21/2019 12 :00:00 AM EDT eC1 ([facility]) Surgeries/Procedures Procedure Description Date Indications Data Source(s) OFFICE OUTPATIENT VISIT 15 MINUTES 11/04/2020 12:00:00 AM EDT ARNALDO ([facility]) Shave Biopsy Of Skin, Single Lesion 09/15/2020 12:00:0 0 AM EDT ARNALDO ([facility]) OFFICE CONSULTATION NEW/ESTAB PATIENT 60 MIN 12:00:00 AM EDT ARNALDO ([facility]) Spirometry 06/04/2020 12:00:00 AM EDT M MIKAELA ([facility]) EGD 02/04/2020 12:00:00 AM EST g MED ([facility], /[facility]) Colonoscopy 02/04/2020 12:00:00 AM EST g MED ([facility] /[facility]) MRI, lumbar spine, w/o contrast 11/13/2019 12:00:00 AM EDT WERO ([facility]) Spirometry 11/08/2019 12:00:00 AM EDT Myah AL (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/fRr01TDPEUmIWDIHEAjlZ6GIRdBk9RNIqHynhPjxoDLmg1u6YL [file] AgICAgICAgICAgICAgICAgICAgICAgICAgICAgICAgICAgICAgICAgICAgICAgICAgICAgICAgICAgIC AgICANCiAgICAgICAgICAgICAgICAgICAgICAgICAg ICAgICAgICAgICAgICAgICAgICAgICAgICAgICAgICAgICAgICAgICAgICAgICAgICAgICAgICAgICAg ICAgICAgICAgICAgICANCiAgICAgICAgICAgICAgICAgICAgICAgICAgICAgICAgICAgICAgICAgICAg ICAgICAgICAgICAgICAgICAgICAgICAgICAgICAgIC AgICAgICAgICAgICAgICAgICAgICAgICANCiAgICAgICAgICAgICAgICAgICAgICAgICAgICAgICAgIC AgICAgICAgICAgICAgICAgICAgICAgICAgICAgICAgICAgICAgICAgICAgICAgICAgICAgICAgICAgIC AgICAgICANCiAgICAgICAgICAgICAgICAgICAgICAg ICAgICAgICAgICAgICAgICAgICAgICAgICAgICAgICAgICAgICAgICAgICAgICAgICAgICAgICAgICAg ICAgICAgICAgICAgICAgICANCiAgICAgICAgICAgICAgICAgICAgICAgICAgICAgICAgICAgICAgICAg ICAgICAgICAgICAgICAgICAgICAgICAgICAgICAgIC AgICAgICAgICAgICAgICAgICAgICAgICAgICANCiAgICAgICAgICAgICAgICAgICAgICAgICAgICAgIC AgICAgICAgICAgICAgICAgICAgICAgICAgICAgICAgICAgICAgICAgICAgICAgICAgICAgICAgICAgIC AgICAgICAgICANCiAgICAgICAgICAgICAgICAgICAg ICAgICAgICAgICAgICAgICAgICAgICAgICAgICAgICAgICAgICAgICAgICAgICAgICAgICAgICAgICAg ICAgICAgICAgICAgICAgICAgICANCiAgICAgICAgICAgICAgICAgICAgICAgICAgICAgICAgICAgICAg ICAgICAgICAgICAgICAgICAgICAgICAgICAgICAgIC AgICAgICAgICAgICAgICAgICAgICAgICAgICAgICANCiAgICAgICAgICAgICAgICAgICAgICAgICAgIC AgICAgICAgICAgICAgICAgICAgICAgICAgICAgICAgICAgICAgICAgICAgICAgICAgICAgICAgICAgIC AgICAgICAgICAgICANCjw/xPZuM7mhkLOoyjP2E1qz Jh7UHq3VSB8yl3AqBHQwJKoiosOyCnrTUsVeBYQaTieXJje9XYdyTE2ViPKnM2DkB9KhENtjYL9DLUNk WKJymCAyJXZfVJTqDcC5EZMhRTleHR5CzRSnSSwxJXUsGYEtMiVdJQKiKKOtOISaMTUdYCCPNZ2CDsJe L5QjgX01NWPFZq6+CKftuqQoFgxHGpD4HLDgd7PqRO o3FP5OBSShVoiht9PjRqmcFOWCBJrwRQ0MWZY2JSJ1LJQmZs6ZSYCsI523ooScUT5IUs6OLwSjQK0nww 2ZSnhvYRXxPeyZBfg2YTkeBL8DmXNjAVaPpz8nzkTmqeUWf5VmthGhdQDVQW8ncyKTDQNwlPcvFRlAIR wgTUQgYXQgMTAvMjYvMjAyMSAgMTozMCBQTSkNCiAg F5Rkj3DrItM0IBZmXjLaYGmxOPQyOdW1SN26kJjkLS9AGFGxZAGcUV39YJC8JYLxWn2NXh6EIgWhVC3y ya0AUuCbAXZhZddNNmx8UDweGA0NeRGyG5EnhGTqf6mEKkNoO6YAIOC6JFRoYn2WLDDrNuQlBQYqEAhc UW2rZAVtEMIDoJbvobK8UK8HIA3vliXdMH0CAcSjNs 8tSg3FNaTdA7JbW7CaIGOcVHBOEQorQG1PCMixAB5mAZ7Dg1JVgEAlgE6wrp1ZXXJqXYPnFajhcq4ZNo roC2D9jQtvVESyAkqpRCQODRjwNB4RZGHcWVY5LZPfUyNpIJEMNkDkT98gRG0IN9Uid06gBxP7JIYzTg MnVNilSU45rEzauhIbkMFdlEqvRP3KQe5+DQplbmRv RlpUYkhsKSXZZjHyCtQJTaAoRPGmOQUuZMMmQcA7DsPfEs4WJAGjOKTwLJLgJcJjHFDlFLCpWZoyJJUt MGFhFYKfNOPnASOfPE7XUoSpHUYuLMG3JVwmCMLmRSSwwb2OBIRgMSMbOXE4LmHaIUTjDJFiLTqcSKBc MRMsSiLrVONbRRCfDO9SLsLdKEVcNIF7JIGwQADxVJ Thpk3BGNDvQJWwQoBvWYNzXUMvHVZfVOgiLBImDRU5IwV9HKSkOSPzUQ2UKkWnLMAyKLE4AHTnWCIwJN Nzcm8QRFHyIPGcAPBdSvJcVZNoGZGcWGitCDWdVQPhKDTmNTSnNNQvDF4NHrYpYWXqONC7LltfIOLmQZ Aldo5TELEyEMDdKvJ2GlRqMYVeKLHjUPfvUXCiYRGo Rzm7ZCSgMQYdTP7AGsJfOLVkWTT5PzqtELVdPEJmsa6PPIHoROQxQFioBmJbMXHxRFRpKFtsZFXhIFB1 UIM3XHQaUBYvHR9HCxIaEAIbLJHaCCJpEVRyTSErma4OGLBzIDG8Qql7SASeBYTrFRYbIZkvRWJbHIK8 NZobTMCuGYDfPW1AKdPlBBYsIMg4OAEwTUJuVLQyyk 6CQVWuOYN4ONTlOAPjWDDqSYTtUVdnLMLeDBO8QkpmXKVePUUsRQ2MNuBePAVbSZE0YcXsBKIeVSLniy 1PDKPrOEX4HHxqFrRiSIYpPUOvUCyfFWNhXHJkQRimQHXpCDUgME6XQgOiRORoLUM9UVcyTHPsOWLeog 4KMUBnSIT9Uid6TIUbJZPuWSWeDSkdECGgIVBgCTG7 JHGySCLzAC9EZaOpLTMeLHOxDLksGAOyMVLoap9XzATdjIgmyh4TOSpUSy6NfJbuIGVgMPmmJp4koLMt JUUoGWCJHt9XfnPmTDFtSQXRJFcrTNBzPJwdXCy3PtJyIXU0FSD6NbK1VEE9VhQzYcNhOQXrC2BaAaD9 E1O2ZJiyVAPrSzVqAZkuCwg0Dpm5N6LzZZQ0WhR4K5 Q+KB6iYSk+Zm4Xn7RlgmC7eiOeMUc1OxYgEy1QRVNOQ7ISFc== ID Date Data Source [id number] 09/15/2020 08:28:00 AM EDT MEDENT ([facility]) Name Value Range Interpretation Code Description Data Maude rce(s) Supporting Document(s) Laboratory test finding (navigational concept) Laboratory test result [facility] ([facility]) Recheck for any AK Laboratory test finding (navigational concept) Laboratory test result [facility] ([facility]) Recheck for any [place] ID Date Data Source Comprehensive Metabolic Profile (CMP) 09/11/2020 12:00:00 AM EDT eCW1 ([facility]) Name Value Range Interpretation Code Description Data Maude rce(s) Supporting Document(s) 11 7-18 BLOOD UREA NITROGEN eCW1 ([facility]) 0.53 0.55-1.30 CREATININE FOR GFR eCW1 ([facility]) 86 70-100 GLUCOSE, FASTING eCW1 ([facility]) 138 136-145 SODIUM LEVEL eCW1 ([facility]) > 60.0 >51 GLOMERULAR FILTRATION RATE eCW 1 ([facility]) 4.2 3.5-5.1 POTASSIUM SERUM eCW1 ([facility]) 104 98-107 CHLORIDE LEVEL eCW1 ([facility]) 9.0 8.5-10.1 CALCIUM LEVEL eCW1 ([facility]) 30 21-32 CARBON DIOXIDE LEVEL eCW1 ([facility]) 25 7-37 AST/SGOT eCW1 ([facility]) 39 12-78 ALT/SGPT eCW1 ([facility]) 0.5 0.2-1.0 BILIRUBIN,TOTAL eCW1 ([facility]) 6.8 6.4-8.2 TOTAL PROTEIN eCW1 ([facility]) 65 45-117 ALKALINE PHOSPHATASE eCW1 ([facility]) 3.7 3.2-5.2 ALBUMIN eCW1 ([facility]) 1.2 1.2-2.2 ALBUMIN/GLOBULIN RATIO eCW1 ([facility]) ID Date Data Source CBC with Differential 09/11/2020 12:00:00 AM EDT eCW1 ([facility]) Name Value Range Interpretation Code Description Data Maude rce(s) Supporting Document(s) 4.05 4.00-5.40 RED BLOOD COUNT eCW1 ([facility]) 4.8 4.0-10.0 WHITE BLOOD COUNT eCW1 ([facility]) 40.5 36.0-47.0 HEMATOCRIT eCW1 ([facility]) 100.0 80.0-96.0 MEAN CORPUSCULAR VOLUME e CW1 ([facility]) 13.5 12.0-15.5 HEMOGLOBIN eCW1 ([facility]) 11.7 11.5-14.5 RED CELL DISTRIBUTION WID TH eCW1 ([facility]) 33.3 27.0-33.0 MEAN CORPUSCULAR HEMOGLOB IN eCW1 ([facility]) 33.3 32.0-36.5 MEAN CORPUSCULAR HGB CONC eCW1 ([facility]) 21.6 24.0-44.0 LYMPH % eCW1 ([facility]) 220 150-450 PLATELET COUNT, AUTOMATED eCW1 ([facility]) 60.2 36.0-66.0 NEUTROPHILS % eCW1 ([facility]) 2.9 0.0-3.0 EOS % eCW1 ([facility]) 13.5 2.0-8.0 MONO % eCW1 ([facility]) 2.9 1.5-8.5 NEUTROPHILS # eCW1 ([facility]) 1.0 0.0-1.0 BASO % eCW1 ([facility]) 0.7 0.0-0.8 MONO # eCW1 ([facility]) 1.0 1.5-5.0 LYMPH # eCW1 ([facility]) 0.1 0.0-0.5 EOS # eCW1 ([facility]) 0.1 0.0-0.2 BASO # eCW1 ([facility]) ID Date Data Source [id number] 03/05/2020 04:07:00 PM EST MEDENT ([facility]) Name Value Range Interpretation Code Description Data Maude rce(s) Supporting Document(s) Fungal Smear Laboratory test result MEDENT ([facility]) Testing performed at reference lab . Rep ort copy to follow on a separate form. 04/03/20 REF LAB#:[id number] FAISAL/Calcofluor preparatio No fungus observed. Fungal Culture Other Source Laboratory test result MEDENT ([facility]) Testing performed at reference lab . Rep ort copy to follow on a separate form. 04/03/20 REF LAB#:[id number] FUNGUS CULTURE [facility] No Yeast or Mold Isolated after 4 weeks. ID Date Data Source [id number] 03/05/2020 04:07:00 PM EST MEDENT ([facility]) Name Value Range Interpretation Code Description Data Maude rce(s) Supporting Document(s) Bacteria identified in Ear by Aerobe culture Laboratory test res ult Normal (applies to non-numeric results) [facility] FULL REPORT IN LAB NOTES (eCW and [facility] ). DECREASED NORMAL ZAC PRESENT ID Date Data Source [id number] 02/13/2020 12:00:00 AM EST [facility] Tavo Cummins DO Patient Name: BLANK [id number] [facility] Date of : 1970[place] [address] Date of Exam: 02/13/2020PH#: Fax: [phone] EXAM: [...] this percentage could increase or decrease. Currently, [facility] and [employer] recommendadjunctive breast MRI screening starting [...] read with the assistance of Shahrzad Cooley [employer], an FDAapproved computer aided detection system for [...] rce(s) Supporting Document(s) ID Date Data Source [id number] 01/30/2020 01:48:00 PM EST [facility] Name Value Range Interpretation Code Description Data Maude rce(s) Supporting Document(s) SARS coronavirus 2 RNA [Presence] in Res piratory specimen by JOAO with probe detection [facility] This lab was ordered by Magan wiseman of [facility] and reported by [facility]. ID Date Data Source [id number] 01/30/2020 12:00:00 AM EST [facility]MED ([facility], /[facility]) Name Value Range Interpretation Code Description Data Maude rce(s) Supporting Document(s) Venipuncture DONE -- Venipuncture gMED ([facility], /[facility]) ID Date Data Source [id number] 01/30/2020 12:00:00 AM EST [facility]MED ([facility], /[facility]) Name Value Range Interpretation Code Description Data Maude rce(s) Supporting Document(s) Tissue Transglutaminase IgA 7 Units 0-20 Tissue T ransglutaminase IgA gMED ([facility], /[facility]) Total IgA 277 mg/dL 40-350 Total IgA gMED ([facility], /[facility]) Tissue Transglutaminase IgG 2 Units 0-20 Tissue T ransglutaminase IgG gMED ([facility], /[facility]) ID Date Data Source [id number] 01/30/2020 12:00:00 AM EST gMED ([facility], /[facility], [facility]) Name Value Range Interpretation Code Description Data Maude rce(s) Supporting Document(s) C reactive protein [Mass/volume] in Serum or Plasma <0.4 0-1.0 CRP gMED ([facility], /[facility], [facility]) ID Date Data Source GASTROINTESTINAL GI PANEL (GIPANEL) 11/13/2019 04:31:35 AM EDT eCW1 ([facility]) Name Value Range Interpretation Code Description Data Maude rce(s) Supporting Document(s) This Gastrointestinal PCR Panel detects the following bacteria, GASTROINTESTINAL (GI) PANEL eCW1 ([facility]) ID Date Data Source TSH 11/13/2019 04:30:15 AM EDT eCW1 ([facility]) Name Value Range Interpretation Code Description Data Maude rce(s) Supporting Document(s) 1.430 THYROID STIMULATING HORMONE eC W1 ([facility]) ID Date Data Source ERYTHROCYTE SEDIMENTATION RATE 11/13/2019 04:30:15 AM EDT eC W1 ([facility]) Name Value Range Interpretation Code Description Data Maude rce(s) Supporting Document(s) 5 ERYTHROCYTE SEDIMENTATION RATE eCW1 ([facility]) ID Date Data Source C REACTIVE PROTEIN QUANTITATIV (At [facility]) 11/13/2019 04:30 :15 AM EDT eCW1 ([facility]) Name Value Range Interpretation Code Description Data Maude rce(s) Supporting Document(s) < 0.30 C REACTIVE PROTEIN QUANTI TATIV eCW1 ([facility]) ID Date Data Source [id number] 11/08/2019 08:18:00 AM EDT MEDENT ([facility], ) Name Value Range Interpretation Code Description Data Maude rce(s) Supporting Document(s) FVC-Pred 3.38 L MEDENT ([facility], ) PDFReport Laboratory test result MEDENT ([facility], ) FVC-Pre 3.83 L MEDENT ([facility], ) FVC-LLN 2.58 L MEDENT ([facility], ) FVC-%Pred-Pre 113 L MEDENT ([facility], ) Fev1-Pred 2.72 L MEDENT ([facility], ) Fev1-Pre 2.82 L MEDENT ([facility], ) Fev1-%Pred-Pre 103 L MEDENT ([facility], ) Fev1-LLN 2.03 L MEDENT ([facility], ) Fev6-Pre 3.83 L MEDENT ([facility], ) Fev6-Pred 3.30 L MEDENT ([facility]) Fev6-%Pred-Pre 116 L MEDENT ([facility]) Fev6-LLN 2.51 L MEDENT ([facility]) [id number]-Ajs 74 % MEDENT ([facility]) Kkf4hci-Rasa 82 % MEDENT ([facility]) Iwg5kbj-NAS 71 % MEDENT ([facility]) Mrw9axd-%Pred-Pre 90 % MEDENT (Health system) Iyp1rwy-Uzso 98 % MEDENT ([facility]) Uqq7pqj-Lsf 100 % MEDENT ([facility]) Kgo5ulr-%Pred-Pre 102 % MEDENT (Health system) FEFMax-%Pred-Pre 93 L/E/sec MEDENT (Health system) FEFMax-Pre 6.43 L/E/sec MEDENT ([facility]) FEFMax-Pred 6.91 L/E/sec MEDENT ([facility]) [id number] 2.78 L/E/sec MEDENT ([facility]) FEFMax-LLN 4.64 L/E/sec MEDENT ([facility]) Uvo0730-%Pred-Pre 75 L/E/sec MEDENT ([facility]) [id number]-MIE 1.23 L/E/sec MEDENT ([facility]) [id number]-Wcp 2.11 L/E/sec MEDENT ([facility]) ExpTime-Pre 5.66 sec MEDENT ([facility]) [id number]-Ddqf 84 % MEDENT ([facility]) Ozo3lzq4-GCM 74 % MEDENT ([facility]) Imj8mae8-%Pred-Pre 88 % MEDENT ([facility]) Ldi2lud9-Ipf 74 % MEDENT ([facility]) Procedure Social History Code Duration Value Status Description Data Source(s ) Smoking 09/24/2020 12:00:00 AM EDT Never Smoker completed Never S moker eCW1 ([facility]) Smoking 09/24/2020 12:00:00 AM EDT Never Smoker completed Never S moker eCW1 ([facility]) Smoking 09/24/2020 12:00:00 AM EDT Never Smoker completed Never S moker eCW1 ([facility]) Smoking 09/24/2020 12:00:00 AM EDT Never Smoker completed Never S moker eCW1 ([facility]) Smoking 09/24/2020 12:00:00 AM EDT Never Smoker completed Never S moker eCW1 ([facility]) Smoking 09/24/2020 12:00:00 AM EDT Never Smoker completed Never S moker eCW1 ([facility]) Smoking 09/24/2020 12:00:00 AM EDT Never Smoker completed Never S moker eCW1 ([facility]) Smoking 09/11/2020 12:00:00 AM EDT Never Smoker completed Never S moker eCW1 ([facility]) Smoking 09/11/2020 12:00:00 AM EDT Never Smoker completed Never S moker eCW1 ([facility]) Smoking 09/11/2020 12:00:00 AM EDT Never Smoker completed Never S moker eCW1 ([facility]) Smoking 06/04/2020 12:00:00 AM EDT Non Smoker completed Non Smoke r MEDENT ([facility], ) Smoking 05/29/2020 12:00:00 AM EDT Never Smoker completed Never S moker eCW1 ([facility]) Smoking 05/29/2020 12:00:00 AM EDT Never Smoker completed Never S moker eCW1 ([facility]) Smoking 05/29/2020 12:00:00 AM EDT Never Smoker completed Never S moker eCW1 ([facility]) Smoking 05/29/2020 12:00:00 AM EDT Never Smoker completed Never S moker eCW1 ([facility]) Smoking 05/29/2020 12:00:00 AM EDT Never Smoker completed Never S moker eCW1 ([facility]) Smoking 05/29/2020 12:00:00 AM EDT Never Smoker completed Never S moker eCW1 ([facility]) Vital Signs ID Date Data Source UNK Name Value Range Interpretation Code Description Data Source(s) Systolic blood pressure 142 mm[Hg] 142 mm[Hg] M EDENT ([facility]) Diastolic blood pressure 84 mm[Hg] 84 mm[Hg] MEDENT ([facility]) Body weight 210.00 [lb_av] 210.00 [lb_av] MEDEN T ([facility]) Heart rate 75 /min 75 /min MEDENT ([facility]) Diastolic blood pressure 88 mm[Hg] 88 mm[Hg] eCW1 ([facility]) Body weight 205.8 [lb_av] 205.8 [lb_av] eCW1 ([facility]) Body height 68 [in_i] 68 [in_i] eCW1 ([facility]) Body mass index (BMI) [Ratio] 31.29 kg/m2 31.29 kg/m2 W1 ([facility]) Heart rate 83 /min 83 /min eCW1 ([facility]) Respiratory rate 17 /min 17 /min eCW1 ([facility]) Body temperature 97.7 [degF] 97.7 [degF] eCW1 ( [facility]) Systolic blood pressure 147 mm[Hg] 147 mm[Hg] e CW1 ([facility]) Body mass index (BMI) [Ratio] 31.5 kg/m2 31.5 k g/m2 MEDENT ([facility]) Body height 68 [in_i] 68 [in_i] MEDENT ([facility]) 5'8" Systolic blood pressure 115 mm[Hg] 115 mm[Hg] M EDENT ([facility]) Diastolic blood pressure 75 mm[Hg] 75 mm[Hg] MEDENT ([facility]) Body weight 207.00 [lb_av] 207.00 [lb_av] MEDEN T ([facility]) Body weight 207.00 [lb_av] 207.00 [lb_av] MEDEN T ([facility]) Body height 68 [in_i] 68 [in_i] MEDENT ([facility]) 5'8" Body mass index (BMI) [Ratio] 31.5 kg/m2 31.5 k g/m2 MEDENT ([facility]) Respiratory rate 16 /min 16 /min eCW1 ([facility]) Body weight 208 [lb_av] 208 [lb_av] eCW1 ([facility]) Body temperature 98.2 [degF] 98.2 [degF] eCW1 ( [facility]) Body height 68 [in_i] 68 [in_i] eCW1 ([facility]) Body mass index (BMI) [Ratio] 31.62 kg/m2 31.62 kg/m2 eCW1 ([facility]) Systolic blood pressure 124 mm[Hg] 124 mm[Hg] e CW1 ([facility]) Heart rate 77 /min 77 /min eCW1 ([facility]) Diastolic blood pressure 81 mm[Hg] 81 mm[Hg] eCW1 ([facility]) [place] body weight 140 [lb_av] 140 [lb_av] MEDEN T ([facility], ) Body weight 89.359 kg 89.359 kg [facility] ([facility], ) Body surface area Derived from formula 2.03 m2 2.03 m2 [facility] ([facility]) Body height 68 [in_i] 68 [in_i] [facility] 5'8" Body weight 197.00 [lb_av] 197.00 [lb_av] MEDEN T ([facility]) Body mass index (BMI) [Ratio] 30.0 kg/m2 30.0 k g/m2 [facility] ([facility]) Body height 68 [in_i] 68 [in_i] [facility] 5'8" Body weight 89.359 kg 89.359 kg [facility] ([facility]) Body weight 197.00 [lb_av] 197.00 [lb_av] MEDEN T ([facility]) Body mass index (BMI) [Ratio] 30.0 kg/m2 30.0 k g/m2 [facility] ([facility]) [place] body weight 140 [lb_av] 140 [lb_av] MEDEN T ([facility]) Systolic blood pressure 122 mm[Hg] 122 mm[Hg] M EDENT ([facility]) Body surface area Derived from formula 2.03 m2 2.03 m2 [facility] ([facility]) Diastolic blood pressure 80 mm[Hg] 80 mm[Hg] [facility] ([facility]) Heart rate 72 /min 72 /min [facility] ([facility]) Oxygen saturation in Arterial blood by Pulse oximetry 98 % 98 % [facility] ([facility]) Room Air Body weight 195 [lb_av] 195 [lb_av] eCW1 ([facility]) Body height 68 [in_i] 68 [in_i] eCW1 ([facility]) Body mass index (BMI) [Ratio] 29.65 kg/m2 29.65 kg/m2 W1 ([facility]) Heart rate 73 /min 73 /min eCW1 ([facility]) Diastolic blood pressure 82 mm[Hg] 82 mm[Hg] eCW1 ([facility]) Respiratory rate 17 /min 17 /min eCW1 ([facility]) Body temperature 97.9 [degF] 97.9 [degF] eCW1 ( [facility]) Systolic blood pressure 122 mm[Hg] 122 mm[Hg] e CW1 ([facility]) Body surface area Derived from formula 1.98 m2 1.98 m2 MEDENT ([facility]) Body weight 185.00 [lb_av] 185.00 [lb_av] MEDEN T ([facility]) Body height 68 [in_i] 68 [in_i] MEDENT ([facility]) 5'8" Body mass index (BMI) [Ratio] 28.1 kg/m2 28.1 k g/m2 [facility] ([facility]) [place] body weight 140 [lb_av] 140 [lb_av] MEDEN T ([facility]) Body weight 83.916 kg 83.916 kg [facility] ([facility]) Body height 68 [in_i] 68 [in_i] MEDENT ([facility]) 5'8" Body weight 187.00 [lb_av] 187.00 [lb_av] MEDEN T ([facility]) Body mass index (BMI) [Ratio] 28.4 kg/m2 28.4 k g/m2 [facility] ([facility]) [place] body weight 140 [lb_av] 140 [lb_av] MEDEN T ([facility]) Body weight 84.823 kg 84.823 kg [facility] ([facility]) Body surface area Derived from formula 1.99 m2 1.99 m2 [facility] ([facility]) Body height 68 [in_i] 68 [in_i] gMED ([facility], /[facility]) Systolic blood pressure 122 mm[Hg] 122 mm[Hg] g MED ([facility], /[facility]) Body weight 175 [lb_av] 175 [lb_av] gMED ([facility], /[facility]) Body mass index (BMI) [Ratio] 26.61 kg/m2 26.61 kg/m2 gMED ([facility], /[facility], [facility]) Diastolic blood pressure 75 mm[Hg] 75 mm[Hg] gMED ([facility], /[facility]) Body temperature 98.2 [degF] 98.2 [degF] gMED ( [facility], /[facility]) Heart rate 75 /min 75 /min gMED ([facility] /[facility]) Respiratory rate 16 /min 16 /min gMED ([facility], /[facility]) Oxygen saturation in Arterial blood by Pulse oximetry 96 % 96 % gMED ([facility], /[facility]) Body height 68 [in_i] 68 [in_i] [facility] ([facility]) 5'8" Body weight 187.00 [lb_av] 187.00 [lb_av] MEDEN T ([facility]) Body mass index (BMI) [Ratio] 28.4 kg/m2 28.4 k g/m2 [facility] ([facility]) [place] body weight 140 [lb_av] 140 [lb_av] MEDEN T ([facility]) Body weight 84.823 kg 84.823 kg [facility] ([facility]) Body surface area Derived from formula 1.99 m2 1.99 m2 [facility] ([facility]) Systolic blood pressure 121 mm[Hg] 121 mm[Hg] A THENA ([facility]) Diastolic blood pressure 79 mm[Hg] 79 mm[Hg] WERO ([facility]) Body height 68 [in_i] 68 [in_i] WERO ([facility]) Body mass index (BMI) [Ratio] 28 kg/m2 28 kg/ m2 WERO ([facility]) Body weight 184 [lb_av] 184 [lb_av] WERO ([facility]) Diastolic blood pressure 79 mm[Hg] 79 mm[Hg] WERO ([facility]) Body height 68 [in_i] 68 [in_i] WERO ([facility]) Body mass index (BMI) [Ratio] 28 kg/m2 28 kg/ m2 WERO ([facility]) Systolic blood pressure 121 mm[Hg] 121 mm[Hg] A THENA ([facility]) Body weight 184 [lb_av] 184 [lb_av] WERO ([facility]) [place] body weight 140 [lb_av] 140 [lb_av] MEDEN T ([facility], ) Body weight 84.823 kg 84.823 kg [facility] ([facility], ) Heart rate 80 /min 80 /min [facility] ([facility], ) Oxygen saturation in Arterial blood by Pulse oximetry 97 % 97 % [facility] ([facility], ) Room Air Body height 68 [in_i] 68 [in_i] [facility] ([facility], ) 5'8" Systolic blood pressure 110 mm[Hg] 110 mm[Hg] EDENT ([facility], ) Diastolic blood pressure 70 mm[Hg] 70 mm[Hg] [facility] ([facility], ) Body weight 187.00 [lb_av] 187.00 [lb_av] MEDEN T ([facility], ) Body mass index (BMI) [Ratio] 28.4 kg/m2 28.4 k g/m2 [facility] ([facility], ) ID Date Data Source [id number] 11/20/2020 10:57:34 AM EDT [facility] ([facility]) Name Value Range Interpretation Code Description Data Source(s) Diastolic blood pressure 84 mm[Hg] 84 mm[Hg] [facility] ([facility]) Systolic blood pressure 143 mm[Hg] 143 mm[Hg] M HARS ([facility]) Body weight 210.2 [lb_av] 210.2 [lb_av] [facility] ( [facility]) Body height 68 [in_i] 68 [in_i] [facility] ([facility]) Patient Treatment Plan of Care Planned Activity Planned Date Details Description Data Source (s) Acetaminophen 325 MG / Oxycodone Hydrochloride 5 MG Or al Tablet 09/24/2020 12:00:00 AM EDT eCW1 ([facility]) gabapentin 100 MG Oral Capsule 09/24/2020 12:00:00 AM EDT eCW1 ([facility]) Acetaminophen 325 MG / Oxycodone Hydrochloride 5 MG Or al Tablet [Percocet] 09/24/2020 12:00:00 AM EDT eCW1 ([facility]) Acetaminophen 325 MG / Oxycodone Hydrochloride 5 MG Or al Tablet [Percocet] 09/24/2020 12:00:00 AM EDT eCW1 ([facility]) topiramate 25 MG Oral Tablet [Topamax] 09/24/2020 12:00:00 AM EDT eCW1 ([facility]) Acetaminophen 325 MG / Oxycodone Hydrochloride 5 MG Or al Tablet 09/24/2020 12:00:00 AM EDT eCW1 ([facility]) gabapentin 100 MG Oral Capsule 09/24/2020 12:00:00 AM EDT eCW1 ([facility]) Acetaminophen 325 MG / Oxycodone Hydrochloride 5 MG Or al Tablet [Percocet] 09/24/2020 12:00:00 AM EDT eCW1 ([facility]) Acetaminophen 325 MG / Oxycodone Hydrochloride 5 MG Or al Tablet [Percocet] 09/24/2020 12:00:00 AM EDT eCW1 ([facility]) topiramate 25 MG Oral Tablet [Topamax] 09/24/2020 12:00:00 AM EDT eCW1 ([facility]) Acetaminophen 325 MG / Oxycodone Hydrochloride 5 MG Or al Tablet 09/24/2020 12:00:00 AM EDT eCW1 ([facility]) gabapentin 100 MG Oral Capsule 09/24/2020 12:00:00 AM EDT eCW1 ([facility]) Acetaminophen 325 MG / Oxycodone Hydrochloride 5 MG Or al Tablet [Percocet] 09/24/2020 12:00:00 AM EDT eCW1 ([facility]) Acetaminophen 325 MG / Oxycodone Hydrochloride 5 MG Or al Tablet [Percocet] 09/24/2020 12:00:00 AM EDT eCW1 ([facility]) topiramate 25 MG Oral Tablet [Topamax] 09/24/2020 12:00:00 AM EDT eCW1 ([facility]) Acetaminophen 325 MG / Oxycodone Hydrochloride 5 MG Or al Tablet 09/24/2020 12:00:00 AM EDT eCW1 ([facility]) gabapentin 100 MG Oral Capsule 09/24/2020 12:00:00 AM EDT eCW1 ([facility]) Acetaminophen 325 MG / Oxycodone Hydrochloride 5 MG Or al Tablet [Percocet] 09/24/2020 12:00:00 AM EDT eCW1 ([facility]) Acetaminophen 325 MG / Oxycodone Hydrochloride 5 MG Or al Tablet [Percocet] 09/24/2020 12:00:00 AM EDT eCW1 ([facility]) topiramate 25 MG Oral Tablet [Topamax] 09/24/2020 12:00:00 AM EDT eCW1 ([facility]) Acetaminophen 325 MG / Oxycodone Hydrochloride 5 MG Or al Tablet 09/24/2020 12:00:00 AM EDT eCW1 ([facility]) Acetaminophen 325 MG / Oxycodone Hydrochloride 5 MG Or al Tablet [Percocet] 09/24/2020 12:00:00 AM EDT eCW1 ([facility]) gabapentin 100 MG Oral Capsule 09/24/2020 12:00:00 AM EDT eCW1 ([facility]) Acetaminophen 325 MG / Oxycodone Hydrochloride 5 MG Or al Tablet [Percocet] 09/24/2020 12:00:00 AM EDT eCW1 ([facility]) topiramate 25 MG Oral Tablet [Topamax] 09/24/2020 12:00:00 AM EDT eCW1 ([facility]) Acetaminophen 325 MG / Oxycodone Hydrochloride 5 MG Or al Tablet 09/24/2020 12:00:00 AM EDT eCW1 ([facility]) Acetaminophen 325 MG / Oxycodone Hydrochloride 5 MG Or al Tablet [Percocet] 09/24/2020 12:00:00 AM EDT eCW1 ([facility]) gabapentin 100 MG Oral Capsule 09/24/2020 12:00:00 AM EDT eCW1 ([facility]) Acetaminophen 325 MG / Oxycodone Hydrochloride 5 MG Or al Tablet [Percocet] 09/24/2020 12:00:00 AM EDT eCW1 ([facility]) topiramate 25 MG Oral Tablet [Topamax] 09/24/2020 12:00:00 AM EDT eCW1 ([facility]) Acetaminophen 325 MG / Oxycodone Hydrochloride 5 MG Or al Tablet 09/24/2020 12:00:00 AM EDT eCW1 ([facility]) Acetaminophen 325 MG / Oxycodone Hydrochloride 5 MG Or al Tablet [Percocet] 09/24/2020 12:00:00 AM EDT eCW1 ([facility]) gabapentin 100 MG Oral Capsule 09/24/2020 12:00:00 AM EDT eCW1 ([facility]) Acetaminophen 325 MG / Oxycodone Hydrochloride 5 MG Or al Tablet [Percocet] 09/24/2020 12:00:00 AM EDT eCW1 ([facility]) topiramate 25 MG Oral Tablet [Topamax] 09/24/2020 12:00:00 AM EDT eCW1 ([facility]) Medrol 4 MG 09/11/2020 12:00:00 AM EDT e CW1 ([facility]) tizanidine 4 MG Oral Tablet [Zanaflex] 09/11/2020 12:00:00 AM EDT eCW1 ([facility]) Medrol 4 MG 09/11/2020 12:00:00 AM EDT e CW1 ([facility]) tizanidine 4 MG Oral Tablet [Zanaflex] 09/11/2020 12:00:00 AM EDT eCW1 ([facility]) Medrol 4 MG 09/11/2020 12:00:00 AM EDT e CW1 ([facility]) tizanidine 4 MG Oral Tablet [Zanaflex] 09/11/2020 12:00:00 AM EDT eCW1 ([facility]) 12/24/2019 12:00:00 AM EST g MED ([facility], /[facility], [facility]) NITROFURANTOIN, MACROCRYSTALS 25 MG / Ni trofurantoin, Monohydrate 75 MG Oral Capsule WERO [facility] Ibuprofen 200 MG Oral Tablet WERO ([facility]) Sodium Chloride 0.111 MEQ/ML Nasal [place] [[place]] WERO ([facility]) Cyclobenzaprine hydrochloride 5 MG Oral Tablet WERO ([facility]) buspirone hydrochloride 5 MG Oral Tablet WERO ([facility]) 24 HR Bupropion Hydrochloride 150 MG Extended Release Oral Tablet WERO ([facility]) bismuth subsalicylate 17.5 MG/ML Oral Suspension WERO ([facility]) benzonatate 100 MG Oral Capsule WERO ([facility]) Azithromycin 250 MG Oral Tablet WERO ([facility]) 24 HR Bupropion Hydrochloride 300 MG Extended Release Oral Tablet [Wellbutrin] WERO ([facility]) valacyclovir 1000 MG Oral Tablet WERO ([facility]) Sertraline 25 MG Oral Tablet WERO ([facility]) 200 ACTUAT Albuterol 0.09 MG/ACTUAT Metered Dose Inhaler [ProAir] WERO ([facility]) 0.5 ML Streptococcus pneumoniae serotype 1 capsular antigen diphtheria [id number] protein conjugate vaccine 0.0044 MG/ML / Streptococcus pneumoniae serotype 14 capsular antigen diphtheria [id number] protein conjugate vaccine 0.0044 MG/ML / Streptococcus pneumonia WERO ( [facility]) NITROFURANTOIN, MACROCRYSTALS 25 MG / Ni trofurantoin, Monohydrate 75 MG Oral Capsule [facility] ([facility] Loratadine 10 MG Oral Tablet WERO ([facility]) Ibuprofen 200 MG Oral Tablet WERO ([facility]) Sodium Chloride 0.111 MEQ/ML Nasal [place] [[place]] WERO ([facility]) Cyclobenzaprine hydrochloride 5 MG Oral Tablet WERO ([facility]) buspirone hydrochloride 5 MG Oral Tablet WERO ([facility]) 24 HR Bupropion Hydrochloride 150 MG Extended Release Oral Tablet WERO ([facility]) bismuth subsalicylate 17.5 MG/ML Oral Suspension WERO ([facility]) benzonatate 100 MG Oral Capsule WERO ([facility]) bacitracin zinc 0.5 UNT/MG Topical Ointment WERO ([facility]) Azithromycin 250 MG Oral Tablet WERO ([facility]) Acetaminophen 325 MG Oral Tablet WERO ([facility]) 24 HR Bupropion Hydrochloride 300 MG Extended Release Oral Tablet [Wellbutrin] [facility] ([facility]) valacyclovir 1000 MG Oral Tablet [facility] ([facility]) Sertraline 25 MG Oral Tablet [facility] ([facility]) 200 ACTUAT Albuterol 0.09 MG/ACTUAT Metered Dose Inhaler [ProAir] [facility] ([facility]) 0.5 ML Streptococcus pneumoniae serotype 1 capsular antigen diphtheria [id number] protein conjugate vaccine 0.0044 MG/ML / Streptococcus pneumoniae serotype 14 capsular antigen diphtheria [id number] protein conjugate vaccine 0.0044 MG/ML / Streptococcus pneumonia [facility] ( [facility])
--- NOTE | 2020-12-21 05:54 | ECGEPIP ---
[facility] - ED Test Date: 2020-12-21 Pat Name: SURY JOHNSON Department: Room: - Gender: Female Communications Project Lead: ALLAN : 1970 Requested By: BELA Hill Order Number: [id number] Reading MD: Mando Cardenas Measurements Intervals [place] Rate: 76 P: 54 MN: 156 QRS: 24 QRSD: 76 T: 16 QT: 374 QTc: 420 Interpretive Statements Normal sinus rhythm SIMILAR TO 06/02/17 Electronically Signed on 12-21-2020 5:54:05 EST by Mando Cardenas
[2020-12-21] MEDS ORDERED: AZAT50TA2 PO (07:23)
[2020-12-21] MEDS ORDERED: TOPI25TA10 PO (07:23)
[2020-12-21] MEDS ORDERED: VITMTA PO (07:23)
[2020-12-21] MEDS ORDERED: FISH1000 PO (07:23)
[2020-12-21] MEDS ORDERED: ZOLO100T PO (12:40)
[2020-12-21] MEDS ORDERED: OMEP-221 PO (12:40)
[2020-12-21] MEDS ORDERED: VENTAER INH (16:35)
[2020-12-21] MEDS ORDERED: QVAR80AE8 INH (16:35)
[2020-12-21] MEDS ORDERED: VALT500T PO (16:35)
[2020-12-21] MEDS ORDERED: HOME MED LIST COMPLETE! XX SCH (16:40)
[2020-12-22] MEDS ORDERED: SERTRALINE 100 MG TAB PO SCH (09:00)
[2020-12-22] MEDS ORDERED: HYDROXYCHLOROQUINE 200 MG TAB PO SCH (09:00)
[2020-12-22] MEDS ORDERED: LORATADINE 10 MG TAB PO SCH (09:00)
[2020-12-22] MEDS ORDERED: TOPIRAMATE (TopAMAX) 25 MG TAB PO SCH (09:00)
[2020-12-22] MEDS ORDERED: MULTIVITAMINS/MINERALS THERAP 1 TAB PO SCH (09:00)
[2020-12-22] MEDS ORDERED: buPROPion **XL** TABLET 150MG (WELLBUTRIN XL) PO SCH (09:00)
[2020-12-22 09:45] LABS: RSV AMPLIFICATION NEGATIVE (NEGATIVE)
[2020-12-22] MEDS ORDERED: traZODone 50 MG TAB PO PRN (10:25)
[2020-12-22] MEDS ORDERED: MAALOX 30 ML SUSP *UDC PO PRN (10:25)
[2020-12-22] MEDS ORDERED: ALBUTEROL 90 MCG/ACT 8GM HFA INHALER INH PRN (10:25)
[2020-12-22] MEDS ORDERED: MOM 30ML SUSPENSION UDC PO PRN (10:25)
--- OUTSIDE RECORDS SUMMARY | 2020-12-22 10:48 | CCD ---
Author Author [facility] Organization [facility] Address Unknown Phone Unavailable Support Name Relationship Address Phone UE Next Of Kin Unknown Unavailable [facility] Next Of Kin [phone] [place] [address] - TAVO JOHNSON Next Of Kin Unknown Unavailable TAVO POE Next Of Kin [address] [facility] [address] Unavailable [facility] [facility] [employer] Next Of Kin [phone] [place] [address] [place] Next Of Kin [address] [place] [address] [place] Next Of Kin [address] [facility] [place] [address] [facility] CIVILIAN Next Of Kin 04/[address] [place] [address] [facility] Next Of Kin [address] [place] [address] - TAVO JOHNSON Next Of Kin [address] [place] [address] TAVO JOHNSON ECON [address] [place] [address] Unavailable Care Team Providers Care 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 Parts Assembler Name Role Phone Sharif Yuen Unavailable Unavailable [...] Unavailable Dynaveed, C Humberto MD Unavailable Unavailable Garza, Jordyn SUGAR TRUCKER Unavailable Unavailable Garza, Jordyn SUGAR TRUCKER Unavailable Unavailable Garza, Jordyn SUGAR TRUCKER Unavailable Unavailable Garza, Jordyn SUGAR TRUCKER Unavailable Unavailable Garza, Jordyn SUGAR TRUCKER Unavailable Unavailable Garza, Jordyn SUGAR TRUCKER Unavailable Unavailable Garza, Jordyn SUGAR TRUCKER Unavailable Unavailable Garza, Jordyn SUGAR TRUCKER Unavailable Unavailable Garza, Jordyn SUGAR TRUCKER Unavailable Unavailable Garza, Jordyn SUGAR TRUCKER Unavailable Unavailable Garza, Jordyn SUGAR TRUCKER Unavailable Unavailable Garza, Jordyn SUGAR TRUCKER Unavailable Unavailable Garza, Jordyn SUGAR TRUCKER Unavailable Unavailable Garza, Jordyn SUGAR TRUCKER Unavailable Unavailable Garza, Jordyn SUGAR TRUCKER Unavailable Unavailable Garza, Jordyn SUGAR TRUCKER Unavailable Unavailable Garza, Jordyn SUGAR TRUCKER Unavailable Unavailable Garza, Jordyn SUGAR TRUCKER Unavailable Unavailable Garza, Jordyn SUGAR TRUCKER Unavailable Unavailable Garza, Jordyn SUGAR TRUCKER Unavailable Unavailable Garza, Jordyn SUGAR TRUCKER Unavailable Unavailable Garza, Jordyn SUGAR TRUCKER Unavailable Unavailable Garza, Jordyn SUGAR TRUCKER Unavailable Unavailable Garza, Jordyn SUGAR TRUCKER Unavailable Unavailable Garza, Jordyn SUGAR TRUCKER Unavailable Unavailable Garza, Jordyn SUGAR TRUCKER Unavailable Unavailable Garza, Jordyn SUGAR TRUCKER Unavailable Unavailable Garza, Jordyn SUGAR TRUCKER Unavailable Unavailable Garza, Jordyn SUGAR TRUCKER Unavailable Unavailable Garza, Jordyn SUGAR TRUCKER Unavailable Unavailable Garza, Jordyn SUGAR TRUCKER Unavailable Unavailable Garza, Jordyn SUGAR TRUCKER Unavailable Unavailable Garza, Jordyn SUGAR TRUCKER Unavailable Unavailable Garza, Jordyn SUGAR TRUCKER Unavailable Unavailable Garza, Jordyn SUGAR TRUCKER Unavailable Unavailable Garza, Jordyn SUGAR TRUCKER Unavailable Unavailable HIGINIO CUMMINS MD Unavailable Unavailable [...] Unavailable Unavailable Petros Cutler MD Unavailable Unavailable Petrso Cutler MD Unavailable Unavailable Petros Cutler MD [...] Unavailable Unavailable Petros Cutler MD Unavailable Unavailable Pteros Cutler MD Unavailable Unavailable Petros Cutler MD [...] is protected by Article 27-F of the [facility] Public Health law. If you continue you may have access to information: Regarding HIV / AIDS; Provided by facilities licensed or operated by the [facility] Office of Mental Health; or Provided by the [facility] Office for People With Developmental Disabilities. If such information is present, then the following [facility] mandated warning applies: This information has been [...] law may result in a fine or correction sentence or both. A general authorization for the release of medical or other information is NOT sufficient authorization for further disc losure. Allergies and Adverse Reactions Type Description Substance Reaction Status Data Source(s ) Propensity to adverse reactions BANDAID ADHESIVE BANDAID ADHESIVE RED NESS [facility] Propensity to adverse reactions LATEX LATEX REDNESS [facility] Propensity to adverse reactions SULFA (sulfonamide) SULFA (sulfo namide) ANAPHYLAXIS [facility] Family History Family Member Name Family Member Gender Family Member Status Date o f Status Description Data Source(s) Unknown Unknown Problem 06/13/2014 12:00:00 AM EDT [facility] ([facility] ) MATERNAL GREAT AUNTS X2 BOTH DIAGNOSED I N THERE 50'S Unknown Male Problem MEDENT ([facility]) () Unknown Male Problem MEDENT ([facility] () Encounters Encounter Providers Location Date Indications Data Source(s ) Outpatient Attender: Humberto Ryan MDReferrer: Selvin Prado II [id number] 12/09/2020 12:00:00 AM EDT [facility] Unknown [address] [facility] [address] 11/26/2020 12:00:00 AM EDT eCW1 ([facility]) Outpatient Attender: TAVO CUMMINS MDConsultant: TAVO Bolden MD 11/25/2020 08:19:50 AM EDT [facility] Unknown [address] [facility] [address] 11/18/2020 12:00:00 AM EDT [facility]CW1 [facility] Outpatient Attender: Ernestina Lozano [facility] Main Office 11/04/2020 10:00:00 AM EDT [facility] Unknown [address] [facility] [address] 10/23/2020 12:00:00 AM EDT eCW1 ([facility]) Unknown [address] [facility] [address] 10/06/2020 12:00:00 AM EDT eCW1 ([facility]) Outpatient [address] [facility] [address] 09/24/2020 12:00:00 AM EDT eCW1 ([facility] Unknown [address] [facility] [address] 09/24/2020 12:00:00 AM EDT eCW1 ([facility] Unknown [address] [facility] [address] 09/23/2020 12:00:00 AM EDT eCW1 ([facility] Unknown [address] [facility] [address] 09/22/2020 12:00:00 AM EDT eCW1 ([facility]) Outpatient Attender: Ernestina Lozano [facility] Main Office 09/15/2020 07:45:00 AM EDT [facility] Outpatient [address] [facility] [address] 09/11/2020 12:00:00 AM EDT eCW1 ([facility]) Unknown [address] [facility] [address] 09/11/2020 12:00:00 AM EDT eCW1 ([facility] Unknown [address] [facility] [address] 07/08/2020 12:00:00 AM EDT eCW1 ([facility] Unknown [address] [facility] [address] 07/03/2020 12:00:00 AM EDT [facility] [place] [address] [facility] [address] 06/24/2020 12:00:00 AM EDT [facility]) Outpatient Attender: BOLIVAR Mensah/Doreen/Niko/Reind l 06/11/2020 09:00:00 AM EDT MED[facility] ([facility] ) Outpatient Attender: Nikolas Mensah/Doreen/Niko/R celinal 06/04/2020 11:30:00 AM EDT MED[facility] ([facility] ) Unknown [address] [facility] [address] 06/04/2020 12:00:00 AM EDT eCW1 ([facility]) Unknown [address] [facility] [address] 05/29/2020 12:00:00 AM EDT eCW1 ([facility]) Outpatient [address] [facility] [address] 05/29/2020 12:00:00 AM EDT eCW1 ([facility]) Outpatient Attender: BOLIVAR Mensah/Doreen/Niko/Reind l 04/30/2020 09:00:00 AM EDT [facility] ([facility] Outpatient Attender: BOLIVAR Mensah/Doreen/Niko/Reind l 03/05/2020 01:30:00 PM EST [facility] ([facility] Unknown [address] [facility] [address] 03/04/2020 12:00:00 AM EST eCW1 ([facility]) Unknown [address] [facility] [address] 03/04/2020 12:00:00 AM EST eCW1 ([facility]) Diaphragmatic hernia without obstruction or gangrene 02/04/2020 12:00:00 AM EST Other specified diseases of esophagusInt ramucosal lesion in antrum of stomachIntramucosal lesion in antrum of stomachDvrtclos of lg int w/o perforation or abscess w/o bleedingDiaphragmatic hernia without obstruction or gangreneScreening for malignant neoplasm of colonFamily history of Colon Cancer-2- 2nd degree relativesChange in Bowel HabitsAcid reflux gMED ([facility]) Other specified diseases of esophagus Intramucosal lesion in antrum of stomach Intramucosal lesion in antrum of stomach Dvrtclos of lg int w/o perforation or ab scess w/o bleeding Diaphragmatic hernia without obstruction or gangrene Screening for malignant neoplasm of colo n Family history of Colon Cancer-2- 2nd de gree relatives Change in Bowel Habits Acid reflux Unknown [address] [facility] [place] [address] 01/01/2020 12:00:00 AM EST eCW1 ([facility]) Unknown [address] [facility] [place] [address] 12/31/2019 12:00:00 AM EST eCW1 ([facility]) Jhonathan Bedoya MD: [address] [facility] [address], [place] [address], Ph. Attender: Jhonathan CHAVEZ - [facility] - Main Office 11/22/2019 12:00:00 AM EDT WERO ([facility]) Outpatient Attender: BOLIVAR Mensah/Doreen/Niko/Damien blankenship 11/19/2019 09:00:00 AM EDT MEDENT ([facility]) Unknown [address] [facility], [place] [address] 11/16/2019 12:00:00 AM EDT eCW1 ([facility]) Jhonathan Bedoya MD: [address], [place] [address], Ph. Attender: Jhon[place] Bedoya MD [place] - [facility] - Main Office 11/13/2019 12:00:00 AM EDT WERO ([facility]) Jhonathan Bedoya MD: [address] [facility] [address], [address], [place] [address], Ph. Attender: Jhonathan Bedoya MD [place] - [facility] - [facility] Office 11/13/2019 12:00:00 AM EDT WERO ([facility]) Outpatient Attender: Nikolas Mensah/Doreen/Niko/R eindl 11/08/2019 08:30:00 AM EDT [facility] ([facility] Unknown [address] [facility] [address] 11/06/2019 12:00:00 AM EDT eCW1 ([facility]) Unknown [address] [facility] [address] 11/06/2019 12:00:00 AM EDT eCW1 ([facility]) Outpatient Attender: TAVO CUMMINS MDConsultant: TAVO Bolden MD 08/21/2019 02:18:00 PM EDT - 09/13/2019 02:14:00 PM EDT [facility] Patient discharged. Outpatient Attender: Sharif Casondmitter: Sharif Lara [address] 07/17/2019 02:30:00 PM EDT [facility] [[email or web address] ([facility]) Patient admitted. Immunizations Vaccine Date Status Description Data Source(s) COVID-19 VACCINE Moderna 06/04/2020 12:00:00 AM EDT completed [facility] Vaccine Series Complete: YESThis Data wa s Submitted to [facility] Via [employer] COVID-19 VACCINE Moderna 05/08/2020 12:00:00 AM EDT completed [facility] Vaccine Series Complete: NOThis Data was Submitted to [facility] [employer] Medications Medication Brand Name Start Date Product Form Dose Route Admi nistrative Instructions Pharmacy Instructions Status Indications Reaction Description Data Source(s) Acetaminophen 325 MG / Oxycodone Hydroch loride 5 MG Oral Tablet oxyCODONE- Acetaminophen 5-325 MG oxyCODONE-Acetaminophen 5-325 MG 09/24/2020 12:00:00 A M EDT 1.0 {tablet_as_needed} active o xyCODONE-Acetaminophen 5-325 MG eCW1 (Pending Sale To [facility]) gabapentin 100 MG Oral Capsule Gabapentin 100 MG Gabapentin 100 MG 09/24/2020 12:00:00 AM EDT 1.0 {capsule} active G abapentin 100 MG eCW1 (Pending Sale To [facility]) topiramate 25 MG Oral Tablet [Topamax] Topamax 25 MG Topamax 25 MG 09/24/2020 12:00:00 AM EDT 1.0 {tablet} active To pamax 25 MG eCW1 (Pending Sale To [facility]) Acetaminophen 325 MG / Oxycodone Hydroch loride 5 MG Oral Tablet oxyCODONE- Acetaminophen 5-325 MG oxyCODONE-Acetaminophen 5-325 MG 09/24/2020 12:00:00 A M EDT 1.0 {tablet_as_needed} active o xyCODONE-Acetaminophen 5-325 MG eCW1 (Pending Sale To [facility]) Acetaminophen 325 MG / Oxycodone Hydroch loride 5 MG Oral Tablet [Percocet] Percocet 5-325 MG Percocet 5-325 MG 09/24/2020 12:00:00 AM EDT 1 .0 {tablet_as_needed} active Percocet 5-32 5 MG eCW1 (Pending Sale To [facility]) gabapentin 100 MG Oral Capsule Gabapentin 100 MG Gabapentin 100 MG 09/24/2020 12:00:00 AM EDT 1.0 {capsule} active G abapentin 100 MG eCW1 (Pending Sale To [facility]) Acetaminophen 325 MG / Oxycodone Hydroch loride 5 MG Oral Tablet oxyCODONE- Acetaminophen 5-325 MG oxyCODONE-Acetaminophen 5-325 MG 09/24/2020 12:00:00 A M EDT 1.0 {tablet_as_needed} active o xyCODONE-Acetaminophen 5-325 MG eCW1 (Pending Sale To [facility]) Acetaminophen 325 MG / Oxycodone Hydroch loride 5 MG Oral Tablet [Percocet] Percocet 5-325 MG Percocet 5-325 MG 09/24/2020 12:00:00 AM EDT 1 .0 {tablet_as_needed} active Percocet 5-32 5 MG eCW1 (Pending Sale To [facility]) Acetaminophen 325 MG / Oxycodone Hydroch loride 5 MG Oral Tablet [Percocet] Percocet 5-325 MG Percocet 5-325 MG 09/24/2020 12:00:00 AM EDT 1 .0 {tablet_as_needed} active Percocet 5-32 5 MG eCW1 (Pending Sale To [facility]) gabapentin 100 MG Oral Capsule Gabapentin 100 MG Gabapentin 100 MG 09/24/2020 12:00:00 AM EDT 1.0 {capsule} active G abapentin 100 MG eCW1 (Pending Sale To [facility]) topiramate 25 MG Oral Tablet [Topamax] Topamax 25 MG Topamax 25 MG 09/24/2020 12:00:00 AM EDT 1.0 {tablet} active To pamax 25 MG eCW1 (Pending Sale To [facility]) gabapentin 100 MG Oral Capsule Gabapentin 100 MG Gabapentin 100 MG 09/24/2020 12:00:00 AM EDT 1.0 {capsule} active G abapentin 100 MG eCW1 (Pending Sale To [facility]) Acetaminophen 325 MG / Oxycodone Hydroch loride 5 MG Oral Tablet oxyCODONE- Acetaminophen 5-325 MG oxyCODONE-Acetaminophen 5-325 MG 09/24/2020 12:00:00 A M EDT 1.0 {tablet_as_needed} active o xyCODONE-Acetaminophen 5-325 MG eCW1 (Pending Sale To [facility]) Acetaminophen 325 MG / Oxycodone Hydroch loride 5 MG Oral Tablet [Percocet] Percocet 5-325 MG Percocet 5-325 MG 09/24/2020 12:00:00 AM EDT 1 .0 {tablet_as_needed} active Percocet 5-32 5 MG eCW1 (Pending Sale To [facility]) topiramate 25 MG Oral Tablet [Topamax] Topamax 25 MG Topamax 25 MG 09/24/2020 12:00:00 AM EDT 1.0 {tablet} active To pamax 25 MG eCW1 (Pending Sale To [facility]) Acetaminophen 325 MG / Oxycodone Hydroch loride 5 MG Oral Tablet [Percocet] Percocet 5-325 MG Percocet 5-325 MG 09/24/2020 12:00:00 AM EDT 1 .0 {tablet_as_needed} active Percocet 5-32 5 MG eCW1 (Pending Sale To [facility]) Acetaminophen 325 MG / Oxycodone Hydroch loride 5 MG Oral Tablet oxyCODONE- Acetaminophen 5-325 MG oxyCODONE-Acetaminophen 5-325 MG 09/24/2020 12:00:00 A M EDT 1.0 {tablet_as_needed} active o xyCODONE-Acetaminophen 5-325 MG eCW1 (Pending Sale To [facility]) Acetaminophen 325 MG / Oxycodone Hydroch loride 5 MG Oral Tablet [Percocet] Percocet 5-325 MG Percocet 5-325 MG 09/24/2020 12:00:00 AM EDT 1 .0 {tablet_as_needed} active Percocet 5-32 5 MG eCW1 (Pending Sale To [facility]) Acetaminophen 325 MG / Oxycodone Hydroch loride 5 MG Oral Tablet oxyCODONE- Acetaminophen 5-325 MG oxyCODONE-Acetaminophen 5-325 MG 09/24/2020 12:00:00 A M EDT 1.0 {tablet_as_needed} active o xyCODONE-Acetaminophen 5-325 MG eCW1 (Pending Sale To [facility]) Acetaminophen 325 MG / Oxycodone Hydroch loride 5 MG Oral Tablet oxyCODONE- Acetaminophen 5-325 MG oxyCODONE-Acetaminophen 5-325 MG 09/24/2020 12:00:00 A M EDT 1.0 {tablet_as_needed} active o xyCODONE-Acetaminophen 5-325 MG eCW1 (Pending Sale To [facility]) Acetaminophen 325 MG / Oxycodone Hydroch loride 5 MG Oral Tablet [Percocet] Percocet 5-325 MG Percocet 5-325 MG 09/24/2020 12:00:00 AM EDT 1 .0 {tablet_as_needed} active Percocet 5-32 5 MG eCW1 (Pending Sale To [facility]) topiramate 25 MG Oral Tablet [Topamax] Topamax 25 MG Topamax 25 MG 09/24/2020 12:00:00 AM EDT 1.0 {tablet} active To pamax 25 MG eCW1 (Pending Sale To [facility]) Acetaminophen 325 MG / Oxycodone Hydroch loride 5 MG Oral Tablet [Percocet] Percocet 5-325 MG Percocet 5-325 MG 09/24/2020 12:00:00 AM EDT 1 .0 {tablet_as_needed} active Percocet 5-32 5 MG eCW1 (Pending Sale To [facility]) Acetaminophen 325 MG / Oxycodone Hydroch loride 5 MG Oral Tablet [Percocet] Percocet 5-325 MG Percocet 5-325 MG 09/24/2020 12:00:00 AM EDT 1 .0 {tablet_as_needed} active Percocet 5-32 5 MG eCW1 (Pending Sale To [facility]) gabapentin 100 MG Oral Capsule Gabapentin 100 MG Gabapentin 100 MG 09/24/2020 12:00:00 AM EDT 1.0 {capsule} active G abapentin 100 MG eCW1 (Pending Sale To [facility]) Acetaminophen 325 MG / Oxycodone Hydroch loride 5 MG Oral Tablet [Percocet] Percocet 5-325 MG Percocet 5-325 MG 09/24/2020 12:00:00 AM EDT 1 .0 {tablet_as_needed} active Percocet 5-32 5 MG eCW1 (Pending Sale To [facility]) gabapentin 100 MG Oral Capsule Gabapentin 100 MG Gabapentin 100 MG 09/24/2020 12:00:00 AM EDT 1.0 {capsule} active G abapentin 100 MG eCW1 (Pending Sale To [facility]) topiramate 25 MG Oral Tablet [Topamax] Topamax 25 MG Topamax 25 MG 09/24/2020 12:00:00 AM EDT 1.0 {tablet} active To pamax 25 MG eCW1 (Pending Sale To [facility]) topiramate 25 MG Oral Tablet [Topamax] Topamax 25 MG Topamax 25 MG 09/24/2020 12:00:00 AM EDT 1.0 {tablet} active To pamax 25 MG eCW1 (Pending Sale To [facility]) topiramate 25 MG Oral Tablet [Topamax] Topamax 25 MG Topamax 25 MG 09/24/2020 12:00:00 AM EDT 1.0 {tablet} active To pamax 25 MG eCW1 (Pending Sale To [facility]) Acetaminophen 325 MG / Oxycodone Hydroch loride 5 MG Oral Tablet [Percocet] Percocet 5-325 MG Percocet 5-325 MG 09/24/2020 12:00:00 AM EDT 1 .0 {tablet_as_needed} active Percocet 5-32 5 MG eCW1 (Pending Sale To [facility]) Acetaminophen 325 MG / Oxycodone Hydroch loride 5 MG Oral Tablet [Percocet] Percocet 5-325 MG Percocet 5-325 MG 09/24/2020 12:00:00 AM EDT 1 .0 {tablet_as_needed} active Percocet 5-32 5 MG eCW1 (Pending Sale To [facility]) gabapentin 100 MG Oral Capsule Gabapentin 100 MG Gabapentin 100 MG 09/24/2020 12:00:00 AM EDT 1.0 {capsule} active G abapentin 100 MG eCW1 (Pending Sale To [facility]) Acetaminophen 325 MG / Oxycodone Hydroch loride 5 MG Oral Tablet [Percocet] Percocet 5-325 MG Percocet 5-325 MG 09/24/2020 12:00:00 AM EDT 1 .0 {tablet_as_needed} active Percocet 5-32 5 MG eCW1 (Pending Sale To [facility]) Acetaminophen 325 MG / Oxycodone Hydroch loride 5 MG Oral Tablet [Percocet] Percocet 5-325 MG Percocet 5-325 MG 09/24/2020 12:00:00 AM EDT 1 .0 {tablet_as_needed} active Percocet 5-32 5 MG eCW1 (Pending Sale To [facility]) Metronidazole 0.01 MG/MG Topical Gel Metronidazole 09/15/2020 12:00 :00 AM EDT active MEDENT ([facility]) tizanidine 4 MG Oral Tablet [Zanaflex] Zanaflex 4 MG Zanafle x 4 MG 09/11/2020 12:00:00 AM EDT 1.0 {tablet_as_needed} active Zanaflex 4 MG eCW1 (Pending Sale To [facility]) Medrol 4 MG Medrol 4 MG 09/11/2020 12:00:00 AM EDT active Medrol 4 MG eCW1 (Pending Sale To [facility]) tizanidine 4 MG Oral Tablet [Zanaflex] Zanaflex 4 MG Zanafle x 4 MG 09/11/2020 12:00:00 AM EDT 1.0 {tablet_as_needed} active Zanaflex 4 MG eCW1 (Pending Sale To [facility]) Medrol 4 MG Medrol 4 MG 09/11/2020 12:00:00 AM EDT active Medrol 4 MG eCW1 (Pending Sale To [facility]) Medrol 4 MG Medrol 4 MG 09/11/2020 12:00:00 AM EDT active Medrol 4 MG eCW1 (Pending Sale To [facility]) tizanidine 4 MG Oral Tablet [Zanaflex] Zanaflex 4 MG Zanafle x 4 MG 09/11/2020 12:00:00 AM EDT 1.0 {tablet_as_needed} active Zanaflex 4 MG eCW1 (Pending Sale To [facility]) Ciprofloxacin 3 MG/ML / Dexamethasone 1 MG/ML Otic Mel pension [Ciprodex] Ciprodex 06/11/2020 12:00:00 AM EDT active MEDENT ([facility], ) 12/24/2019 12:00:00 AM EST compl eted Suprep Bowel Prep Kit 17.5-3.13-1.6 gram recon soln gMED ([facility]) Ofloxacin 3 MG/ML Otic Solution Ofloxacin (Otic) 11/19/2019 12:00:00 AM EDT AURICULAR active MEDENT ([facility], ) Qvar Redihaler Qvar Redihaler 11/08/2019 12:00:00 AM EDT RESPIRATORY active MEDENT ([facility], ) Cyclobenzaprine hydrochloride 5 MG Oral Tablet cyclobe nzaprine 5 mg tablet cyclobenzaprine 5 mg tablet completed cyclobenzaprine hydrochloride 5 MG Oral Tablet WERO ([facility]) buspirone hydrochloride 5 MG Oral Tablet buspirone 5 m g tablet buspirone 5 mg tablet completed buspirone hydro chloride 5 MG Oral Tablet [facility] ([facility]) 0.5 ML Streptococcus pneumoniae serotype 1 capsular antigen diphtheria [id number] protein conjugate vaccine 0.0044 MG/ML / Streptococcus pneumoniae serotype 14 capsular antigen diphtheria [id number] protein conjugate vaccine 0.0044 MG/ML / Streptococcus pneumonia Prevnar 13 (PF) 0.5 mL intramuscular syringe Prevnar 13 (PF) 0.5 mL intramuscular syringe comp leted 0.5 ML Streptococcus pneumoniae serotype 1 capsular antigen diphtheria [id number] protein conjugate vaccine 0.0044 MG/ML / Streptococcus pneumoniae serotype 14 capsular antigen diphtheria [id number] protein conjugate vaccine 0.0044 MG/ML / Streptococcus pneumoniae serotype 18C capsular antigen diphtheria [id number] protein conjugate vaccine 0.0044 MG/ML / Streptococcus pneumoniae serotype 19A capsular antigen d iphtheria [id number] protein conjugate vaccine 0.0044 MG/ML / Streptococcus pneumoniae serotype 19F capsular antigen diphtheria [id number] protein conjugate vaccine 0.0044 MG/ML / Streptococcus pneumoniae serotype 23F capsular antigen diphtheria [id number] protein conjugate vaccine 0.0044 MG/ML / Streptococcus pneumoniae serotype 3 capsular antigen diphtheria [id number] protein conjugate vaccine 0.0044 MG/ML / Streptococcus pneumoniae serotype 4 capsular antigen diphtheria [id number] protein conjugate vaccine 0.0044 MG/ML / Streptococcus pneumoniae serotype 5 capsular antigen diphtheria [id number] protein conjugate vaccine 0.0044 MG/ML / Streptococcus pneumoniae serotype 6A capsular antigen diphtheria [id number] protein conjugate vaccine 0.0044 MG/ML / Streptococcus pneumoniae serotype 6B capsular antigen diphtheria [id number] protein conjugate vaccine 0.0088 MG/ML / Streptococcus pneumoniae serotype 7F capsular antigen diphtheria [id number] protein conjugate vaccine 0.0044 MG/ML / Streptococcus pneumoniae serotype 9V capsular antigen diphtheria [id number] protein conjugate vaccine 0.0044 MG/ML Prefilled Syringe [Prevnar 13] WERO ([facility]) NITROFURANTOIN, MACROCRYSTALS 25 MG / Ni trofurantoin, Monohydrate 75 MG Oral Capsule nitrofurantoin monohydrate/macrocrystals 100 mg capsule TAKE 1 CAPSULE BY MOUTH TWICE DAILY nitrofurantoin monohydrate/macrocrystals 100 mg capsule TAKE 1 CAPSULE BY MOUTH TWICE DAILY co mpleted nitrofurantoin, macrocrystals 25 MG / nitrofurantoin, monohydrate 75 MG Oral Capsule WERO ([facility]) Cyclobenzaprine hydrochloride 5 MG Oral Tablet cyclobe nzaprine 5 mg tablet cyclobenzaprine 5 mg tablet completed cyclobenzaprine hydrochloride 5 MG Oral Tablet WERO ([facility]) valacyclovir 1000 MG Oral Tablet valacyclovir 1 gram t ablet valacyclovir 1 gram tablet completed valacyclovir 10 00 MG Oral Tablet WERO ([facility]) 24 HR Bupropion Hydrochloride 300 MG Ext ended Release Oral Tablet [Wellbutrin] Wellbutrin XL 300 mg 24 hr tablet, extended release Wellbutrin XL 300 mg 24 hr tablet, extended release completed 24 HR bupropion hydrochloride 300 MG Extended Release Oral Tablet [Wellbutrin] WERO ([facility]) 24 HR Bupropion Hydrochloride 300 MG Ext ended Release Oral Tablet [Wellbutrin] Wellbutrin XL 300 mg 24 hr tablet, extended release Wellbutrin XL 300 mg 24 hr tablet, extended release completed 24 HR bupropion hydrochloride 300 MG Extended Release Oral Tablet [Wellbutrin] WERO ([facility]) Loratadine 10 MG Oral Tablet loratadine 10 mg tablet loratadine 10 mg tablet completed loratadine 10 MG Oral Tablet WERO ([facility]) 0.5 ML Streptococcus pneumoniae serotype 1 capsular antigen diphtheria [id number] protein conjugate vaccine 0.0044 MG/ML / Streptococcus pneumoniae serotype 14 capsular antigen diphtheria [id number] protein conjugate vaccine 0.0044 MG/ML / Streptococcus pneumonia Prevnar 13 (PF) 0.5 mL intramuscular syringe Prevnar 13 (PF) 0.5 mL intramuscular syringe comp leted 0.5 ML Streptococcus pneumoniae serotype 1 capsular antigen diphtheria [id number] protein conjugate vaccine 0.0044 MG/ML / Streptococcus pneumoniae serotype 14 capsular antigen diphtheria [id number] protein conjugate vaccine 0.0044 MG/ML / Streptococcus pneumoniae serotype 18C capsular antigen diphtheria [id number] protein conjugate vaccine 0.0044 MG/ML / Streptococcus pneumoniae serotype 19A capsular antigen d iphtheria [id number] protein conjugate vaccine 0.0044 MG/ML / Streptococcus pneumoniae serotype 19F capsular antigen diphtheria [id number] protein conjugate vaccine 0.0044 MG/ML / Streptococcus pneumoniae serotype 23F capsular antigen diphtheria [id number] protein conjugate vaccine 0.0044 MG/ML / Streptococcus pneumoniae serotype 3 capsular antigen diphtheria AUP010 protein conjugate vaccine 0.0044 MG/ML / Streptococcus pneumoniae serotype 4 capsular antigen diphtheria PQB634 protein conjugate vaccine 0.0044 MG/ML / Streptococcus pneumoniae serotype 5 capsular antigen diphtheria LAL215 protein conjugate vaccine 0.0044 MG/ML / Streptococcus pneumoniae serotype 6A capsular antigen diphtheria [id number] protein conjugate vaccine 0.0044 MG/ML / Streptococcus pneumoniae serotype 6B capsular antigen diphtheria [id number] protein conjugate vaccine 0.0088 MG/ML / Streptococcus pneumoniae serotype 7F capsular antigen diphtheria UYI371 protein conjugate vaccine 0.0044 MG/ML / Streptococcus pneumoniae serotype 9V capsular antigen diphtheria [id number] protein conjugate vaccine 0.0044 MG/ML Prefilled Syringe [Prevnar 13] WERO ([facility]) 24 HR Bupropion Hydrochloride 150 MG Ext ended Release Oral Tablet bupropion HCl XL 150 mg 24 hr tablet, extended release bupropion HCl XL 150 mg 24 hr tablet, extended release completed 24 HR bupropion hydrochloride 150 MG Extended Release Oral Tablet WERO ([facility]) valacyclovir 1000 MG Oral Tablet valacyclovir 1 gram t ablet valacyclovir 1 gram tablet completed valacyclovir 10 00 MG Oral Tablet WERO ([facility]) Azithromycin 250 MG Oral Tablet azithromycin 250 mg ta blet azithromycin 250 mg tablet completed azithromycin 25 0 MG Oral Tablet WERO ([facility]) bacitracin zinc 0.5 UNT/MG Topical Ointm ent bacitracin zinc 500 unit/gram topical ointment bacitracin zinc 500 unit/gram topical ointment completed bacitracin zinc 0.5 UNT/MG Topic al Ointment WERO ([facility]) bismuth subsalicylate 17.5 MG/ML Oral Hooks spension Bismatrol 262 mg/15 mL oral suspension Bismatrol 262 mg/15 mL oral suspension completed bismuth subsalicylate 17.5 MG/ML Oral Suspension WERO ([facility]) 200 ACTUAT Albuterol 0.09 MG/ACTUAT Mete red Dose Inhaler [ProAir] ProAir HFA 90 mcg/actuation aerosol inhaler ProAir HFA 90 mcg/actuation aerosol inhaler completed [id number] 200 ACTUAT albuterol 0.09 MG/ACTUAT Metered Dose Inhaler [ProAir] WERO ([facility]) Acetaminophen 325 MG Oral Tablet acetaminophen 325 mg tablet acetaminophen 325 mg tablet completed acetaminophe n 325 MG Oral Tablet WERO ([facility]) Azithromycin 250 MG Oral Tablet azithromycin 250 mg ta blet azithromycin 250 mg tablet completed azithromycin 25 0 MG Oral Tablet WERO ([facility]) NITROFURANTOIN, MACROCRYSTALS 25 MG / Ni trofurantoin, Monohydrate 75 MG Oral Capsule nitrofurantoin monohydrate/macrocrystals 100 mg capsule TAKE 1 CAPSULE BY MOUTH TWICE DAILY nitrofurantoin monohydrate/macrocrystals 100 mg capsule TAKE 1 CAPSULE BY MOUTH TWICE DAILY co mpleted nitrofurantoin, macrocrystals 25 MG / nitrofurantoin, monohydrate 75 MG Oral Capsule WERO ([facility]) Sodium Chloride 0.111 MEQ/ML Nasal [place] [Deep Sea] Deep Sea Nasal 0.65 % spray aerosol [place] Nasal 0.65 % spray aerosol completed sodium chloride 0.111 MEQ/ML Nasal [place] [Deep Sea] WERO ([facility]) 24 HR Bupropion Hydrochloride 150 MG Ext ended Release Oral Tablet bupropion HCl XL 150 mg 24 hr tablet, extended release bupropion HCl XL 150 mg 24 hr tablet, extended release completed 24 HR bupropion hydrochloride 150 MG Extended Release Oral Tablet WERO ([facility]) 200 ACTUAT Albuterol 0.09 MG/ACTUAT Mete red Dose Inhaler [ProAir] ProAir HFA 90 mcg/actuation aerosol inhaler ProAir HFA 90 mcg/actuation aerosol inhaler completed [id number] 200 ACTUAT albuterol 0.09 MG/ACTUAT Metered Dose Inhaler [ProAir] WERO ([facility]) Ibuprofen 200 MG Oral Tablet ibuprofen 200 mg tablet ibuprofen 2 00 mg tablet completed ibuprofen 200 MG Oral Tablet WERO ([facility]) benzonatate 100 MG Oral Capsule benzonatate 100 mg cap arpita benzonatate 100 mg capsule completed benzonatate 10 0 MG Oral Capsule WERO ([facility]) Sertraline 25 MG Oral Tablet sertraline 25 mg tablet sertraline 25 mg tablet completed sertraline 25 MG Oral Tablet WERO ([facility]) bismuth subsalicylate 17.5 MG/ML Oral Hooks spension Bismatrol 262 mg/15 mL oral suspension Bismatrol 262 mg/15 mL oral suspension completed bismuth subsalicylate 17.5 MG/ML Oral Suspension WERO ([facility]) Ibuprofen 200 MG Oral Tablet ibuprofen 200 mg tablet ibuprofen 2 00 mg tablet completed ibuprofen 200 MG Oral Tablet WERO ([facility]) buspirone hydrochloride 5 MG Oral Tablet buspirone 5 m g tablet buspirone 5 mg tablet completed buspirone hydro chloride 5 MG Oral Tablet WERO ([facility]) benzonatate 100 MG Oral Capsule benzonatate 100 mg cap arpita benzonatate 100 mg capsule completed benzonatate 10 0 MG Oral Capsule WERO ([facility]) Sodium Chloride 0.111 MEQ/ML Nasal [place] [Deep Sea] Deep Sea Nasal 0.65 % spray aerosol [place] Nasal 0.65 % spray aerosol completed sodium chloride 0.111 MEQ/ML Nasal [place] [Deep Sea] [facility] ([facility]) Sertraline 25 MG Oral Tablet sertraline 25 mg tablet sertraline 25 mg tablet completed sertraline 25 MG Oral Tablet WERO ([facility]) Insurance Providers Payer name Policy type / Coverage type Policy ID Covered libertarian ID Covered libertarian's relationship to zurita Policy [place] Plan Information U [id number] [facility] [id number] U [id number] Self [id number] [facility] [id number] [facility] [id number] [facility] [id number] [facility] [id number] [facility] [id number] [facility] [id number] [facility] [id number] [facility] [id number] [facility] [id number] [facility] [id number] [facility] [id number] [facility] [id number] [facility] [id number] [facility] [id number] U [id number] [facility] [id number] U [id number] Self [id number] U [id number] Self [id number] [facility] (2018) Health Maintenance Organization (O) [id number] Family Dependent [id number] ANSI-Not a Secondary Insurance [id number] ANSI-Not a Secondary Insurance [id number] ANSI-Not a Secondary Insurance [id number] ANSI-Not a Secondary Insurance [id number] ANSI-Not a Secondary Insurance [id number] ANSI-Not a Secondary Insurance [id number] [facility] Part B [id number] Family Dependent [id number] [employer] Health Maintenance Organization (HMO) 0 [id number] Family Dependent [id number] [facility] (2018) Health Maintenance Organization (HMO) [id number] Family Dependent [id number] [facility] [employer] [place] [id number] 01 [id number] [place] [employer] Commercial [id number] Family Dependent [id number] [place] [employer] CO UNAVAILABLE 01 UNAVAILABLE [place] [employer] - PHYSICIAN CO UNAVAILABLE 01 UNAVAILABLE [place] [employer] Commercial [id number] Family Dependent [id number] HUMANA EAST REG O [id number] P [id number] [employer] [place] O [id number] P [id number] East (2018) Commercial [id number] Family Dependent [id number] Prime Commercial [id number] Family Dependent [id number] [employer] PPO O [id number] S [id number] MEDICARE C [id number] S [id number] A [employer] [place] O [id number] O [id number] [employer] [place] [id number] HU2 [id number] [employer] [place] O [id number] S [id number] HEALTH[employer]/ AD O [id number] S [id number] [employer] Health Maintenance Organization (HMO) [id number] Family Dependent HEALTHNET O [id number] U [id number] [place] HUMANA [id number] HU2 [id number] [place] [employer] [place] [id number] 01 [id number] HU[employer] EAST REG O [id number] S [id number] [place] [id number] [place] REGION [id number] [facility] [id number] SPOUSE [id number] EAST [id number] S [id number] FOR LIFE [id number] S [id number] ANSI-Not a Secondary Insurance [id number] ANSI-Not a Secondary Insurance [id number] [facility] Part B [id number] Family Dependent [id number] [facility] Health Maintenance Organization (HMO) [id number] Family Dependent [id number] Problems, Conditions, and Diagnoses Code Display Name Description Problem Type Effective Dates Data Source(s) M5442 Lumbago with sciatica, left side Lumbago with sc iatica, left side Diagnosis 11/28/2020 08:58:00 AM EDT [facility] J44.9 Chronic obstructive pulmonary disease, u nspecified Chronic obstructive pulmonary disease, unspecified Diagnosis 10/14/2020 12:00:00 AM EDT [facility] ([facility]) M32.9 Systemic lupus erythematosus, unspecifie d Systemic lupus erythematosus, unspecified Diagnosis 10/14/2020 12:00:00 AM EDT [facility] [[email or web address] ([facility]) F41.1 Generalized anxiety disorder Generalized anxiety disor yuri Diagnosis 10/14/2020 12:00:00 AM EDT [facility] [[email or web address] ([facility]) F10.10 Alcohol abuse, uncomplicated Alcohol use disorder, Mil d Diagnosis 10/14/2020 12:00:00 AM EDT [facility] [[email or web address] ([facility]) F32.9 Major depressive disorder, single episod e, unspecified Unspecified depressive disorder Diagnosis 10/14/2020 12:00:00 AM EDT [facility] [[email or web address] ([facility]) M54.41 [id number] Lumbago with sciatica, right side Problem 11/18/2020 12:00:00 AM EDT eCW1 ([facility]) M54.42 [id number] Left-sided low back pain with left-sided sciatica, unspecified chronicity Problem 09/24/2020 12:00:00 AM EDT eCW1 ([facility]) M54.42 [id number] Acute left-sided low back pain w ith left-sided sciatica Problem 09/11/2020 12:00:00 AM EDT eC ([facility]) Z85.828 [id number] History of skin cancer Problem 06/24/2020 12 :00:00 AM EDT eCW1 ([facility]ending [facility] To [facility]) R41.3 [id number] Short-term memory loss Problem 11/21/2019 12 :00:00 AM EDT eC1 ([facility]ending [facility] To [facility]) Surgeries/Procedures Procedure Description Date Indications Data Source(s) OFFICE OUTPATIENT VISIT 15 MINUTES 11/04/2020 12:00:00 AM EDT ARNALDO ([facility]) Shave Biopsy Of Skin, Single Lesion 09/15/2020 12:00:0 0 AM EDT [facility] ([facility]) OFFICE CONSULTATION NEW/ESTAB PATIENT 60 MIN 12:00:00 AM EDT [facility] ([facility]) Spirometry 06/04/2020 12:00:00 AM EDT M MIKAELA ([facility]) EGD 02/04/2020 12:00:00 AM EST g MED ([facility], /[facility]) Colonoscopy 02/04/2020 12:00:00 AM EST g MED ([facility]) MRI, lumbar spine, w/o contrast 11/13/2019 12:00:00 AM EDT WERO ([facility]) Spirometry 11/08/2019 12:00:00 AM EDT [place] ([facility] ) Results ID Date Data Source [id number] 12/09/2020 03:22:27 PM EDT [facility] Name Value Range Interpretation Code Description Data Maude rce(s) Supporting Document(s) Progress Note [facility] KXJRTw4hDdUALsSy53/FPNaoXTVvx6EhWOvcFBk5JWqaMXEjX8MmDTT6gR9nZGK0MBjTQnUtOkKdCOE7 lbm [file] 8olPCazc0y+3oUKQwO3JFap9l+audience development manager/zNl22FOSQMfPTFNBLQtrI0PQYwKz0NQKuHqtdItltKJhu4h7NM [file] AgICAgICAgICAgICAgICAgICAgICAgICAgICAgICAgICAgICAgICAgICAgICAgICAgICAgICAgICAgIC AgICANCiAgICAgICAgICAgICAgICAgICAgICAgICAg ICAgICAgICAgICAgICAgICAgICAgICAgICAgICAgICAgICAgICAgICAgICAgICAgICAgICAgICAgICAg ICAgICAgICAgICAgICANCiAgICAgICAgICAgICAgICAgICAgICAgICAgICAgICAgICAgICAgICAgICAg ICAgICAgICAgICAgICAgICAgICAgICAgICAgICAgIC AgICAgICAgICAgICAgICAgICAgICAgICANCiAgICAgICAgICAgICAgICAgICAgICAgICAgICAgICAgIC AgICAgICAgICAgICAgICAgICAgICAgICAgICAgICAgICAgICAgICAgICAgICAgICAgICAgICAgICAgIC AgICAgICANCiAgICAgICAgICAgICAgICAgICAgICAg ICAgICAgICAgICAgICAgICAgICAgICAgICAgICAgICAgICAgICAgICAgICAgICAgICAgICAgICAgICAg ICAgICAgICAgICAgICAgICANCiAgICAgICAgICAgICAgICAgICAgICAgICAgICAgICAgICAgICAgICAg ICAgICAgICAgICAgICAgICAgICAgICAgICAgICAgIC AgICAgICAgICAgICAgICAgICAgICAgICAgICANCiAgICAgICAgICAgICAgICAgICAgICAgICAgICAgIC AgICAgICAgICAgICAgICAgICAgICAgICAgICAgICAgICAgICAgICAgICAgICAgICAgICAgICAgICAgIC AgICAgICAgICANCiAgICAgICAgICAgICAgICAgICAg ICAgICAgICAgICAgICAgICAgICAgICAgICAgICAgICAgICAgICAgICAgICAgICAgICAgICAgICAgICAg ICAgICAgICAgICAgICAgICAgICANCiAgICAgICAgICAgICAgICAgICAgICAgICAgICAgICAgICAgICAg ICAgICAgICAgICAgICAgICAgICAgICAgICAgICAgIC AgICAgICAgICAgICAgICAgICAgICAgICAgICAgICANCiAgICAgICAgICAgICAgICAgICAgICAgICAgIC AgICAgICAgICAgICAgICAgICAgICAgICAgICAgICAgICAgICAgICAgICAgICAgICAgICAgICAgICAgIC AgICAgICAgICAgICANCjw/nENfN2sddVRlrjT4P8pj Fo6BNi4FHC8bn8OoSXPbZWuswhDwMjzOFzDkWRQgAiaFFni9NSrnMI5WhTZmH7ApE5PcGMguVL6QRRBs MHRpeJFoWKVdZVQoHgR0FVGeKYriNF1ZrYMcGZlzBYEsNXYiZmUxJMTmQPCyLWOtPEWeJUDQZC6JZfHx L7IioB59HFCOEk6+XOochjSfJdnPWxC0IJZdx9KkHV l2PP8CHXArOdjip3MwPypmSJXXZOmaTW2OOOI3JPT8EUAyQi1ONWGrF816smRxDW3ZXl5EYjPdDM5fuc 4WOswqVLDdBqfHIxo5GUkuKF7NwODtUIoImz2pphAccvKNw1HdjbWomOELIK2fomFXBZZooQjgUObDQT wgTUQgYXQgMTAvMjYvMjAyMSAgMTozMCBQTSkNCiAg H2Vtp6HxBnN0CFRdUgXsJWqtWUUjUuZ8BN25nFvgMF8MNUTbQMIuKP50WTZ5FXRiEf7EIu3NRxUlQO8w cn5QFoJdYHIbUtvEIhi1YJtxHI9UmDLnW7AhgHSii0jVKrXxF8YIQCM5JOYsUu2LJSWvUcVsGRNwOBqp YN1pXTNwRUNNdViygmB8MO0XFN1ulqOkBO8PVfAeMs 9sVd0VCoYwW6KqH5EiVPRfJBJZNAbvIP6VTGccDE8mGQ8Gv1WJgHCnqO2apl5WURCtUMGbSoivdt4FBx zzF2O5iQjaXLIjRvfgWETXHBqlZN1LMBHxXHG7YHKoVcFtHUXNIeBdD85zYR8PT1Aux64gFtG0XTBpQi CbWDeyPV34kDdjvvVjdQNfnPwfWJ7DKg6+DQplbmRv MpiHCjxcADHEOkXgJjQFLwIlIGLzPFIzLJDtElH6IvRzNr0VKIXgHPVbTFUkWmEbQZToLONhFYtlOKPs TLTbZZKyZZFcWGNoYJ8YKmIkFXSgKRT0QUehNJTuGUMbpy2YTRQpWEMdUHC5IlQfSBQxBFUmUGafGWDt XTHbAmZxHEOpTGGqJG9BOuEgJTAfSRW6FMEjABRaHV Eiyr9VZNWqSDYdKxMjBRYmLDLgMPXoNPbhOLRwUOM3ZrA2VSDhIKWhIV8XGkBhPNVwOWP5UUUsQDIuCD Lbmu8CTRFnLXTeWBGrUdCwITGqYDKkCVwjYHBuXNZgWBPfCQKfCWGnZV4HOiBgIAIbJJR6NuwfSPDfLI Bzcc4UZORfPEFtBpI9ReQzHXWeGTMrLHuoMYZyDWLm Lbw4ZOPvMWGwFD6HGjIkYXUgDJA9PkzlSXUxHKJrzd2YDYFbODYoUJolNtMySUOoBEOnPIqaNIFsFFU4 QNN4TDJzVRXpLB1XQtWiUPJuFKXsMSIoZYOyIOWhom7KOWUsQKX4Zzx5LZSbKZKeLMQcRKaxPCGrVIB7 FIcoUNJnKEKeAC2TVeOtAPWzDMa4CAKdUMBbOPAhxl 4TXZSrLPE6ZNDxEWIxVTVcKBPhZRsnJRNpWLS7SxirKGGuOUUsVU6BGcFpWDQwYTU5LaVvXCCpSZWggy 0CGLVaYBD1MNnfMgHyUNKeZQDeIDfkZSIpNFLdPTkpYFSzPPFkWT6YLfXrHBAsPDC2ISyuGMLzHPYagu 0HBQCpXAU0Hks0LCYdQBVnFPKsKXydPKKnVXFjKRN1 DELkPNAkWH5QCfSbJXRqCXNyEMiqYKLyMNAxca0AjYGlqRqafp4EHKlYYl7BxSfzXBSwNQjsKc6ggIYl PGSvKIKHTy4EqqVhMIOdRTYTCGqfCVRaIFljTLd8QwNcSNT4HPG0TuN2ALT7XrKfRzPpSSLnJ0SfIoA5 S6W9VZknZAQcPgHdDXdwOip4Lxc1S9TfGAD7NuC5U1 Q+TT4yOBh+Gb0Tu0UgeiH4zcMxVBi7CwRtCq6MMPRMP8VPZh== ID Date Data Source [id number] 09/15/2020 08:28:00 AM EDT [facility]ENT ([facility]) Name Value Range Interpretation Code Description Data Maude rce(s) Supporting Document(s) Laboratory test finding (navigational concept) Laboratory test result [facility] ([facility]) Recheck for any AK Laboratory test finding (navigational concept) Laboratory test result [facility] ([facility]) Recheck for any [place] ID Date Data Source Comprehensive Metabolic Profile (CMP) 09/11/2020 12:00:00 AM EDT eCW1 (Pending [facility] To [facility]) Name Value Range Interpretation Code Description Data Maude rce(s) Supporting Document(s) 11 7-18 BLOOD UREA NITROGEN eCW1 ([facility]) 0.53 0.55-1.30 CREATININE FOR GFR eCW1 ([facility]) 86 70-100 GLUCOSE, FASTING eCW1 ([facility]) 138 136-145 SODIUM LEVEL eCW1 ([facility]) > 60.0 >51 GLOMERULAR FILTRATION RATE eCW 1 ([facility]) 4.2 3.5-5.1 POTASSIUM SERUM eCW1 ([facility]) 104 98-107 CHLORIDE LEVEL eCW1 ([facility]ending [facility] To [facility]) 9.0 8.5-10.1 CALCIUM LEVEL eCW1 (Pending [facility] To [facility]) 30 21-32 CARBON DIOXIDE LEVEL eCW1 ([facility]) 25 7-37 AST/SGOT eCW1 ([facility]) 39 12-78 ALT/SGPT eCW1 ([facility]) 0.5 0.2-1.0 BILIRUBIN,TOTAL eCW1 ([facility]) 6.8 6.4-8.2 TOTAL PROTEIN eCW1 ([facility]ending [facility]) 65 45-117 ALKALINE PHOSPHATASE eCW1 ([facility]) 3.7 3.2-5.2 ALBUMIN eCW1 ([facility]) 1.2 1.2-2.2 ALBUMIN/GLOBULIN RATIO eCW1 ([facility]) ID Date Data Source CBC with Differential 09/11/2020 12:00:00 AM EDT eCW1 ([facility]) Name Value Range Interpretation Code Description Data Maude rce(s) Supporting Document(s) 4.05 4.00-5.40 RED BLOOD COUNT eCW1 ([facility]) 4.8 4.0-10.0 WHITE BLOOD COUNT eCW1 ([facility]) 40.5 36.0-47.0 HEMATOCRIT eCW1 ([facility]) 100.0 80.0-96.0 MEAN CORPUSCULAR VOLUME e CW1 ([facility]) 13.5 12.0-15.5 HEMOGLOBIN eCW1 (Critical access hospital) 11.7 11.5-14.5 RED CELL DISTRIBUTION WID TH eCW1 ([facility]ending [facility] To [facility]) 33.3 27.0-33.0 MEAN CORPUSCULAR HEMOGLOB IN eCW1 (Pending [facility] To [facility]) 33.3 32.0-36.5 MEAN CORPUSCULAR HGB CONC eCW1 ([facility]ending [facility] To [facility]) 21.6 24.0-44.0 LYMPH % eCW1 ([facility]) 220 150-450 PLATELET COUNT, AUTOMATED eCW1 ([facility]) 60.2 36.0-66.0 NEUTROPHILS % eCW1 ([facility]ending [facility] To [facility]) 2.9 0.0-3.0 EOS % eCW1 ([facility]) 13.5 2.0-8.0 MONO % eCW1 ([facility]) 2.9 1.5-8.5 NEUTROPHILS # eCW1 (Pending [facility]) 1.0 0.0-1.0 BASO % eCW1 ([facility]) 0.7 0.0-0.8 MONO # eCW1 ([facility]) 1.0 1.5-5.0 LYMPH # eCW1 ([facility]) 0.1 0.0-0.5 EOS # eCW1 ([facility]) 0.1 0.0-0.2 BASO # eCW1 ([facility]) ID Date Data Source [id number] 03/05/2020 04:07:00 PM EST MED[facility] ([facility]) Name Value Range Interpretation Code Description Data Maude rce(s) Supporting Document(s) Fungal Smear Laboratory test result [facility] ([facility]) Testing performed at reference lab . Rep ort copy to follow on a separate form. 04/03/20 REF LAB#:[id number] FAISAL/Calcofluor preparatio No fungus observed. Fungal Culture Other Source Laboratory test result [facility] ([facility]) Testing performed at reference lab . Rep ort copy to follow on a separate form. 04/03/20 REF LAB#:[id number] FUNGUS CULTURE [facility] No Yeast or Mold Isolated after 4 weeks. ID Date Data Source [id number] 03/05/2020 04:07:00 PM EST [facility] ([facility]) Name Value Range Interpretation Code Description Data Maude rce(s) Supporting Document(s) Bacteria identified in Ear by Aerobe culture Laboratory test res ult Normal (applies to non-numeric results) [facility] FULL REPORT IN LAB NOTES (eCW and [facility] ). DECREASED NORMAL ZAC PRESENT ID Date Data Source [id number] 02/13/2020 12:00:00 AM EST [facility] Tavo Cummins DO Patient Name: BLANK [id number] [facility] Date of : 1970[place] [address] Date of Exam: 02/13/2020PH#: Fax: [phone] EXAM: [...] this percentage could increase or decrease. [facility] and [employer] recommendadjunctive breast MRI screening starting [...] read with the assistance of Shahrzad Cooley [employer], an FDAapproved computer aided detection system for [...] rce(s) Supporting Document(s) ID Date Data Source [id number] 01/30/2020 01:48:00 PM EST [facility] Name Value Range Interpretation Code Description Data Maude rce(s) Supporting Document(s) SARS coronavirus 2 RNA [Presence] in Res piratory specimen by JOAO with probe detection [facility] This lab was ordered by Magan wiseman of [facility] and reported by [employer]. ID Date Data Source [id number] 01/30/2020 12:00:00 AM EST gMED ([facility], /[facility]) Name Value Range Interpretation Code Description Data Maude rce(s) Supporting Document(s) Venipuncture DONE -- Venipuncture gMED ([facility], /[facility]) ID Date Data Source [id number] 01/30/2020 12:00:00 AM EST gMED ([facility], /[facility]) Name Value Range Interpretation Code Description Data Maude rce(s) Supporting Document(s) Tissue Transglutaminase IgA 7 Units 0-20 Tissue T ransglutaminase IgA gMED ([facility], /[facility]) Total IgA 277 mg/dL 40-350 Total IgA gMED ([facility], /[facility]) Tissue Transglutaminase IgG 2 Units 0-20 Tissue T ransglutaminase IgG gMED ([facility], /[facility]) ID Date Data Source [id number] 01/30/2020 12:00:00 AM EST [facility], [facility]) Name Value Range Interpretation Code Description Data Maude rce(s) Supporting Document(s) C reactive protein [Mass/volume] in Serum or Plasma <0.4 0-1.0 CRP gMED ([facility], /[facility], [facility]) ID Date Data Source GASTROINTESTINAL GI PANEL (GIPANEL) 11/13/2019 04:31:35 AM EDT eCW1 (Pending Sale To [facility]) Name Value Range Interpretation Code Description Data Maude rce(s) Supporting Document(s) This Gastrointestinal PCR Panel detects the following bacteria, GASTROINTESTINAL (GI) PANEL eCW1 (Pending Sale To [facility]) ID Date Data Source TSH 11/13/2019 04:30:15 AM EDT eCW1 ([facility]) Name Value Range Interpretation Code Description Data Maude rce(s) Supporting Document(s) 1.430 THYROID STIMULATING HORMONE eC W1 (Pending Sale To [facility]) ID Date Data Source ERYTHROCYTE SEDIMENTATION RATE 11/13/2019 04:30:15 AM EDT eC W1 (Pending Sale To [facility]) Name Value Range Interpretation Code Description Data Maude rce(s) Supporting Document(s) 5 ERYTHROCYTE SEDIMENTATION RATE eCW1 (Pending Sale To [facility]) ID Date Data Source C REACTIVE PROTEIN QUANTITATIV (At [facility]) 11/13/2019 04:30 :15 AM EDT eCW1 (Pending Sale To [facility]) Name Value Range Interpretation Code Description Data Maude rce(s) Supporting Document(s) < 0.30 C REACTIVE PROTEIN QUANTI TATIV eCW1 (Pending Sale To [facility]) ID Date Data Source [id number] 11/08/2019 08:18:00 AM EDT MEDENT ([facility], ) Name Value Range Interpretation Code Description Data Maude rce(s) Supporting Document(s) FVC-Pred 3.38 L MEDENT ([facility], ) PDFReport Laboratory test result MEDENT ([facility], ) FVC-Pre 3.83 L MEDENT ([facility], ) FVC-LLN 2.58 L MEDENT ([facility], ) FVC-%Pred-Pre 113 L MEDENT ([facility], ) Fev1-Pred 2.72 L MEDENT ([facility], ) Fev1-Pre 2.82 L MEDENT ([facility], ) Fev1-%Pred-Pre 103 L MEDENT ([facility], ) Fev1-LLN 2.03 L MEDENT ([facility], ) Fev6-Pre 3.83 L MEDENT ([facility], ) Fev6-Pred 3.30 L MEDENT ([facility]) Fev6-%Pred-Pre 116 L MEDENT ([facility]) Fev6-LLN 2.51 L MEDENT ([facility]) Bsk7cdl-Nyb 74 % MEDENT ([facility]) Mvr9fji-Jibx 82 % MEDENT ([facility]) Rrg3isf-DSS 71 % MEDENT ([facility]) Vej3rqc-%Pred-Pre 90 % MEDENT ([facility]) Boh5eha-Rlly 98 % MEDENT ([facility]) Hmz0otc-Inv 100 % MEDENT ([facility]) Yhq2kzs-%Pred-Pre 102 % MEDENT ([facility]) FEFMax-%Pred-Pre 93 L/E/sec MEDENT ([facility]) FEFMax-Pre 6.43 L/E/sec MEDENT ([facility]) FEFMax-Pred 6.91 L/E/sec MEDENT ([facility]) Pxf3469-Rres 2.78 L/E/sec MEDENT ([facility]) FEFMax-LLN 4.64 L/E/sec MEDENT ([facility]) Zns6040-%Pred-Pre 75 L/E/sec MEDENT ([facility]) Qba8541-ALN 1.23 L/E/sec MEDENT ([facility]) Dmc7780-Ngo 2.11 L/E/sec MEDENT ([facility]) ExpTime-Pre 5.66 sec MEDENT ([facility]) Lms0hcp2-Edye 84 % MEDENT ([facility]) Npb1mte9-VEE 74 % MEDENT ([facility]) Vet7ozx0-%Pred-Pre 88 % MEDENT ([facility]) Seg9hwh3-Sij 74 % MEDENT ([facility]) Procedure Social History Code Duration Value Status Description Data Source(s ) Smoking 09/24/2020 12:00:00 AM EDT Never Smoker completed Never S moker eCW1 (Pending Sale To [facility]) Smoking 09/24/2020 12:00:00 AM EDT Never Smoker completed Never S moker eCW1 (Pending Sale To [facility]) Smoking 09/24/2020 12:00:00 AM EDT Never Smoker completed Never S moker eCW1 (Pending Sale To [facility]) Smoking 09/24/2020 12:00:00 AM EDT Never Smoker completed Never S moker eCW1 (Pending Sale To [facility]) Smoking 09/24/2020 12:00:00 AM EDT Never Smoker completed Never S moker eCW1 (Pending Sale To [facility]) Smoking 09/24/2020 12:00:00 AM EDT Never Smoker completed Never S moker eCW1 (Pending Sale To [facility]) Smoking 09/24/2020 12:00:00 AM EDT Never Smoker completed Never S moker eCW1 (Pending Sale To [facility]) Smoking 09/11/2020 12:00:00 AM EDT Never Smoker completed Never S moker eCW1 (Pending Sale To [facility]) Smoking 09/11/2020 12:00:00 AM EDT Never Smoker completed Never S moker eCW1 (Pending Sale To [facility]) Smoking 09/11/2020 12:00:00 AM EDT Never Smoker completed Never S moker eCW1 (Pending Sale To [facility]) Smoking 06/04/2020 12:00:00 AM EDT Non Smoker completed Non Smoke r MEDENT ([facility], ) Smoking 05/29/2020 12:00:00 AM EDT Never Smoker completed Never S moker eCW1 (Pending Sale To [facility]) Smoking 05/29/2020 12:00:00 AM EDT Never Smoker completed Never S moker eCW1 (Pending Sale To [facility]) Smoking 05/29/2020 12:00:00 AM EDT Never Smoker completed Never S moker eCW1 (Pending Sale To [facility]) Smoking 05/29/2020 12:00:00 AM EDT Never Smoker completed Never S moker eCW1 (Pending Sale To [facility]) Smoking 05/29/2020 12:00:00 AM EDT Never Smoker completed Never S moker eCW1 (Pending Sale To [facility]) Smoking 05/29/2020 12:00:00 AM EDT Never Smoker completed Never S moker eCW1 (Pending Sale To [facility]) Vital Signs ID Date Data Source UNK Name Value Range Interpretation Code Description Data Source(s) Systolic blood pressure 142 mm[Hg] 142 mm[Hg] M EDENT ([facility]) Diastolic blood pressure 84 mm[Hg] 84 mm[Hg] MEDENT ([facility]) Heart rate 75 /min 75 /min MEDENT ([facility]) Body weight 210.00 [lb_av] 210.00 [lb_av] MEDEN T ([facility]) Body weight 205.8 [lb_av] 205.8 [lb_av] eCW1 ([facility]) Body height 68 [in_i] 68 [in_i] eCW1 ([facility]) Body mass index (BMI) [Ratio] 31.29 kg/m2 31.29 kg/m2 eCW1 (Pending Sale To [facility]) Heart rate 83 /min 83 /min eCW1 ([facility]) Respiratory rate 17 /min 17 /min eCW1 ([facility]) Body temperature 97.7 [degF] 97.7 [degF] eCW1 ( Pending Sale To [facility]) Systolic blood pressure 147 mm[Hg] 147 mm[Hg] e CW1 (Pending Sale To [facility]) Diastolic blood pressure 88 mm[Hg] 88 mm[Hg] eCW1 (Pending Sale To [facility]) Systolic blood pressure 115 mm[Hg] 115 mm[Hg] M EDENT ([facility]) Diastolic blood pressure 75 mm[Hg] 75 mm[Hg] MEDENT ([facility]) Body weight 207.00 [lb_av] 207.00 [lb_av] MEDEN T ([facility]) Body height 68 [in_i] 68 [in_i] MEDENT ([facility]) 5'8" Body mass index (BMI) [Ratio] 31.5 kg/m2 31.5 k g/m2 MEDENT ([facility]) Body weight 207.00 [lb_av] 207.00 [lb_av] MEDEN T ([facility]) Body height 68 [in_i] 68 [in_i] MEDENT ([facility]) 5'8" Body mass index (BMI) [Ratio] 31.5 kg/m2 31.5 k g/m2 MEDENT ([facility]) Body weight 208 [lb_av] 208 [lb_av] eCW1 ([facility]) Body height 68 [in_i] 68 [in_i] eCW1 ([facility]) Body mass index (BMI) [Ratio] 31.62 kg/m2 31.62 kg/m2 W1 (Pending Sale To [facility]) Heart rate 77 /min 77 /min eCW1 ([facility]) Respiratory rate 16 /min 16 /min eCW1 (Critical access hospital) Body temperature 98.2 [degF] 98.2 [degF] eCW1 ( Pending Sale To [facility]) Systolic blood pressure 124 mm[Hg] 124 mm[Hg] e CW1 (Pending Sale To [facility]) Diastolic blood pressure 81 mm[Hg] 81 mm[Hg] eCW1 (Pending Sale To [facility]) [place] body weight 140 [lb_av] 140 [lb_av] MEDEN T ([facility], ) Body weight 89.359 kg 89.359 kg MEDJONAH ([facility], ) Body surface area Derived from formula 2.03 m2 2.03 m2 [facility] ([facility]) Body height 68 [in_i] 68 [in_i] [facility] ([facility]) 5'8" Body weight 197.00 [lb_av] 197.00 [lb_av] MEDEN T ([facility]) Body mass index (BMI) [Ratio] 30.0 kg/m2 30.0 k g/m2 [facility] ([facility]) Body height 68 [in_i] 68 [in_i] [facility] ([facility]) 5'8" Body weight 89.359 kg 89.359 kg [facility] ([facility]) Systolic blood pressure 122 mm[Hg] 122 mm[Hg] [facility]) Diastolic blood pressure 80 mm[Hg] 80 mm[Hg] [facility] ([facility]) Heart rate 72 /min 72 /min [facility] ([facility]) Oxygen saturation in Arterial blood by Pulse oximetry 98 % 98 % [facility] ([facility]) Room Air Body weight 197.00 [lb_av] 197.00 [lb_av] MEDEN T ([facility]) Body mass index (BMI) [Ratio] 30.0 kg/m2 30.0 k g/m2 [facility] ([facility]) [place] body weight 140 [lb_av] 140 [lb_av] [facility] Body surface area Derived from formula 2.03 m2 2.03 m2 [facility] ([facility]) Body weight 195 [lb_av] 195 [lb_av] eCW1 ([facility]) Body height 68 [in_i] 68 [in_i] eCW1 ([facility]) Body mass index (BMI) [Ratio] 29.65 kg/m2 29.65 kg/m2 W1 (Pending Sale To [facility]) Heart rate 73 /min 73 /min eCW1 ([facility]) Respiratory rate 17 /min 17 /min eCW1 (Critical access hospital) Body temperature 97.9 [degF] 97.9 [degF] eCW1 ( Pending Sale To [facility]) Systolic blood pressure 122 mm[Hg] 122 mm[Hg] e CW1 (Pending Sale To [facility]) Diastolic blood pressure 82 mm[Hg] 82 mm[Hg] eCW1 (Pending Sale To [facility]) Body height 68 [in_i] 68 [in_i] MEDENT ([facility]) 5'8" Body weight 185.00 [lb_av] 185.00 [lb_av] MEDEN T ([facility]) Body mass index (BMI) [Ratio] 28.1 kg/m2 28.1 k g/m2 MEDENT ([facility]) [place] body weight 140 [lb_av] 140 [lb_av] MEDEN T ([facility]) Body weight 83.916 kg 83.916 kg [facility] ([facility]) Body surface area Derived from formula 1.98 m2 1.98 m2 [facility] ([facility]) Body height 68 [in_i] 68 [in_i] MEDENT ([facility]) 5'8" Body weight 187.00 [lb_av] 187.00 [lb_av] MEDEN T ([facility]) Body mass index (BMI) [Ratio] 28.4 kg/m2 28.4 k g/m2 [facility] ([facility]) [place] body weight 140 [lb_av] 140 [lb_av] MEDEN T ([facility]) Body weight 84.823 kg 84.823 kg MEDENT ([facility]) Body surface area Derived from formula 1.99 m2 1.99 m2 [facility] ([facility]) Body height 68 [in_i] 68 [in_i] gMED ([facility], /[facility], [facility]) Body weight 175 [lb_av] 175 [lb_av] gMED ([facility], /[facility]) Body mass index (BMI) [Ratio] 26.61 kg/m2 26.61 kg/m2 gMED ([facility], /[facility]) Systolic blood pressure 122 mm[Hg] 122 mm[Hg] g MED ([facility], /[facility]) Diastolic blood pressure 75 mm[Hg] 75 mm[Hg] gMED ([facility], /[facility]) Body temperature 98.2 [degF] 98.2 [degF] gMED ( [facility], /[facility]) Heart rate 75 /min 75 /min gMED ([facility] /[facility]) Respiratory rate 16 /min 16 /min gMED ([facility], /[facility]) Oxygen saturation in Arterial blood by Pulse oximetry 96 % 96 % gMED ([facility], /[facility]) Body height 68 [in_i] 68 [in_i] [facility] 5'8" Body weight 187.00 [lb_av] 187.00 [lb_av] MEDEN T ([facility]) Body mass index (BMI) [Ratio] 28.4 kg/m2 28.4 k g/m2 [facility] ([facility]) [place] body weight 140 [lb_av] 140 [lb_av] MEDEN T ([facility]) Body weight 84.823 kg 84.823 kg [facility] ([facility]) Body surface area Derived from formula 1.99 m2 1.99 m2 [facility] Systolic blood pressure 121 mm[Hg] 121 mm[Hg] A THENA ([facility]) Body weight 184 [lb_av] 184 [lb_av] WERO ([facility]) Diastolic blood pressure 79 mm[Hg] 79 mm[Hg] WERO ([facility]) Body height 68 [in_i] 68 [in_i] WERO ([facility]) Body mass index (BMI) [Ratio] 28 kg/m2 28 kg/ m2 WERO ([facility]) Diastolic blood pressure 79 mm[Hg] 79 mm[Hg] WERO ([facility]) Body height 68 [in_i] 68 [in_i] WERO ([facility]) Body mass index (BMI) [Ratio] 28 kg/m2 28 kg/ m2 WERO ([facility]) Systolic blood pressure 121 mm[Hg] 121 mm[Hg] A THENA ([facility]) Body weight 184 [lb_av] 184 [lb_av] WERO ([facility]) Systolic blood pressure 110 mm[Hg] 110 mm[Hg] M EDENT ([facility], ) Diastolic blood pressure 70 mm[Hg] 70 mm[Hg] MEDENT ([facility]) Body weight 187.00 [lb_av] 187.00 [lb_av] MEDEN T ([facility]) Body mass index (BMI) [Ratio] 28.4 kg/m2 28.4 k g/m2 [facility] ([facility]) [place] body weight 140 [lb_av] 140 [lb_av] MEDEN T ([facility], ) Body weight 84.823 kg 84.823 kg [facility] ([facility]) Heart rate 80 /min 80 /min [facility] ([facility], ) Oxygen saturation in Arterial blood by Pulse oximetry 97 % 97 % [facility] ([facility]) Room Air Body height 68 [in_i] 68 [in_i] [facility] ([facility]) 5'8" ID Date Data Source [id number] 11/20/2020 10:57:34 AM EDT [facility] [[email or web address] ([facility]) Name Value Range Interpretation Code Description Data Source(s) Diastolic blood pressure 84 mm[Hg] 84 mm[Hg] [facility] [[email or web address] ([facility]) Systolic blood pressure 143 mm[Hg] 143 mm[Hg] M HARS ([facility]) Body weight 210.2 [lb_av] 210.2 [lb_av] [facility] [[email or web address] ( [facility]) Body height 68 [in_i] 68 [in_i] [facility] [[email or web address] ([facility]) Patient Treatment Plan of Care Planned Activity Planned Date Details Description Data Source (s) Acetaminophen 325 MG / Oxycodone Hydrochloride 5 MG Or al Tablet 09/24/2020 12:00:00 AM EDT eCW1 ([facility]) gabapentin 100 MG Oral Capsule 09/24/2020 12:00:00 AM EDT eCW1 (Pending Sale To [facility]) Acetaminophen 325 MG / Oxycodone Hydrochloride 5 MG Or al Tablet [Percocet] 09/24/2020 12:00:00 AM EDT eCW1 ([facility]) Acetaminophen 325 MG / Oxycodone Hydrochloride 5 MG Or al Tablet [Percocet] 09/24/2020 12:00:00 AM EDT eCW1 ([facility]) topiramate 25 MG Oral Tablet [Topamax] 09/24/2020 12:00:00 AM EDT eCW1 (Pending Sale To [facility]) Acetaminophen 325 MG / Oxycodone Hydrochloride 5 MG Or al Tablet 09/24/2020 12:00:00 AM EDT eCW1 ([facility]) gabapentin 100 MG Oral Capsule 09/24/2020 12:00:00 AM EDT eCW1 (Pending Sale To [facility]) Acetaminophen 325 MG / Oxycodone Hydrochloride 5 MG Or al Tablet [Percocet] 09/24/2020 12:00:00 AM EDT eCW1 ([facility]) Acetaminophen 325 MG / Oxycodone Hydrochloride 5 MG Or al Tablet [Percocet] 09/24/2020 12:00:00 AM EDT eCW1 ([facility]) topiramate 25 MG Oral Tablet [Topamax] 09/24/2020 12:00:00 AM EDT eCW1 (Pending Sale To [facility]) Acetaminophen 325 MG / Oxycodone Hydrochloride 5 MG Or al Tablet 09/24/2020 12:00:00 AM EDT eCW1 ([facility]) gabapentin 100 MG Oral Capsule 09/24/2020 12:00:00 AM EDT eCW1 (Pending Sale To [facility]) Acetaminophen 325 MG / Oxycodone Hydrochloride 5 MG Or al Tablet [Percocet] 09/24/2020 12:00:00 AM EDT eCW1 ([facility]) Acetaminophen 325 MG / Oxycodone Hydrochloride 5 MG Or al Tablet [Percocet] 09/24/2020 12:00:00 AM EDT eCW1 ([facility]) topiramate 25 MG Oral Tablet [Topamax] 09/24/2020 12:00:00 AM EDT eCW1 (Pending Sale To [facility]) Acetaminophen 325 MG / Oxycodone Hydrochloride 5 MG Or al Tablet 09/24/2020 12:00:00 AM EDT eCW1 ([facility]) gabapentin 100 MG Oral Capsule 09/24/2020 12:00:00 AM EDT eCW1 (Pending Sale To [facility]) Acetaminophen 325 MG / Oxycodone Hydrochloride 5 MG Or al Tablet [Percocet] 09/24/2020 12:00:00 AM EDT eCW1 ([facility]) Acetaminophen 325 MG / Oxycodone Hydrochloride 5 MG Or al Tablet [Percocet] 09/24/2020 12:00:00 AM EDT eCW1 ([facility]) topiramate 25 MG Oral Tablet [Topamax] 09/24/2020 12:00:00 AM EDT eCW1 (Pending Sale To [facility]) Acetaminophen 325 MG / Oxycodone Hydrochloride 5 MG Or al Tablet 09/24/2020 12:00:00 AM EDT eCW1 ([facility]) Acetaminophen 325 MG / Oxycodone Hydrochloride 5 MG Or al Tablet [Percocet] 09/24/2020 12:00:00 AM EDT eCW1 ([facility]) gabapentin 100 MG Oral Capsule 09/24/2020 12:00:00 AM EDT eCW1 (Pending Sale To [facility]) Acetaminophen 325 MG / Oxycodone Hydrochloride 5 MG Or al Tablet [Percocet] 09/24/2020 12:00:00 AM EDT eCW1 ([facility]) topiramate 25 MG Oral Tablet [Topamax] 09/24/2020 12:00:00 AM EDT eCW1 (Pending Sale To [facility]) Acetaminophen 325 MG / Oxycodone Hydrochloride 5 MG Or al Tablet 09/24/2020 12:00:00 AM EDT eCW1 ([facility]) Acetaminophen 325 MG / Oxycodone Hydrochloride 5 MG Or al Tablet [Percocet] 09/24/2020 12:00:00 AM EDT eCW1 ([facility]) gabapentin 100 MG Oral Capsule 09/24/2020 12:00:00 AM EDT eCW1 (Pending Sale To [facility]) Acetaminophen 325 MG / Oxycodone Hydrochloride 5 MG Or al Tablet [Percocet] 09/24/2020 12:00:00 AM EDT eCW1 ([facility]) topiramate 25 MG Oral Tablet [Topamax] 09/24/2020 12:00:00 AM EDT eCW1 (Pending Sale To [facility]) Acetaminophen 325 MG / Oxycodone Hydrochloride 5 MG Or al Tablet 09/24/2020 12:00:00 AM EDT eCW1 ([facility]) Acetaminophen 325 MG / Oxycodone Hydrochloride 5 MG Or al Tablet [Percocet] 09/24/2020 12:00:00 AM EDT eCW1 ([facility]) gabapentin 100 MG Oral Capsule 09/24/2020 12:00:00 AM EDT eCW1 (Pending Sale To [facility]) Acetaminophen 325 MG / Oxycodone Hydrochloride 5 MG Or al Tablet [Percocet] 09/24/2020 12:00:00 AM EDT eCW1 ([facility]) topiramate 25 MG Oral Tablet [Topamax] 09/24/2020 12:00:00 AM EDT eCW1 (Pending Sale To [facility]) Medrol 4 MG 09/11/2020 12:00:00 AM EDT e CW1 (Pending Sale To [facility]) tizanidine 4 MG Oral Tablet [Zanaflex] 09/11/2020 12:00:00 AM EDT eCW1 (Pending Sale To [facility]) Medrol 4 MG 09/11/2020 12:00:00 AM EDT e CW1 (Pending Sale To [facility]) tizanidine 4 MG Oral Tablet [Zanaflex] 09/11/2020 12:00:00 AM EDT eCW1 (Pending Sale To [facility]) Medrol 4 MG 09/11/2020 12:00:00 AM EDT e CW1 (Pending Sale To [facility]) tizanidine 4 MG Oral Tablet [Zanaflex] 09/11/2020 12:00:00 AM EDT eCW1 (Pending Sale To [facility]) 12/24/2019 12:00:00 AM EST g MED ([facility], /[facility]) NITROFURANTOIN, MACROCRYSTALS 25 MG / Ni trofurantoin, Monohydrate 75 MG Oral Capsule [facility] Ibuprofen 200 MG Oral Tablet WERO ([facility]) Sodium Chloride 0.111 MEQ/ML Nasal [place] [Deep Sea] WERO ([facility]) Cyclobenzaprine hydrochloride 5 MG Oral Tablet WERO ([facility]) buspirone hydrochloride 5 MG Oral Tablet W[facility] ([facility] [facility]) 24 HR Bupropion Hydrochloride 150 MG Extended Release Oral Tablet [facility] ([facility]) bismuth subsalicylate 17.5 MG/ML Oral Suspension [facility] ([facility]) benzonatate 100 MG Oral Capsule [facility] ([facility]) Azithromycin 250 MG Oral Tablet [facility] ([facility]) 24 HR Bupropion Hydrochloride 300 MG Extended Release Oral Tablet [Wellbutrin] [facility] ([facility]) valacyclovir 1000 MG Oral Tablet [facility] ([facility]) Sertraline 25 MG Oral Tablet [facility] ([facility]) 200 ACTUAT Albuterol 0.09 MG/ACTUAT Metered Dose Inhaler [ProAir] [facility] ([facility]) 0.5 ML Streptococcus pneumoniae serotype 1 capsular antigen diphtheria [id number] protein conjugate vaccine 0.0044 MG/ML / Streptococcus pneumoniae serotype 14 capsular antigen diphtheria [id number] protein conjugate vaccine 0.0044 MG/ML / Streptococcus pneumonia WERO ( [facility]) NITROFURANTOIN, MACROCRYSTALS 25 MG / Ni trofurantoin, Monohydrate 75 MG Oral Capsule [facility] Loratadine 10 MG Oral Tablet [facility] ([facility]) Ibuprofen 200 MG Oral Tablet [facility] ([facility]) Sodium Chloride 0.111 MEQ/ML Nasal [place] [Deep Sea] WERO ([facility]) Cyclobenzaprine hydrochloride 5 MG Oral Tablet [facility] ([facility]) buspirone hydrochloride 5 MG Oral Tablet WERO ([facility]) 24 HR Bupropion Hydrochloride 150 MG Extended Release Oral Tablet [facility] ([facility]) bismuth subsalicylate 17.5 MG/ML Oral Suspension [facility] ([facility]) benzonatate 100 MG Oral Capsule [facility] ([facility]) bacitracin zinc 0.5 UNT/MG Topical Ointment [facility] ([facility]) Azithromycin 250 MG Oral Tablet [facility] ([facility]) Acetaminophen 325 MG Oral Tablet [facility] ([facility]) 24 HR Bupropion Hydrochloride 300 MG Extended Release Oral Tablet [Wellbutrin] [facility] ([facility]) valacyclovir 1000 MG Oral Tablet [facility] ([facility]) Sertraline 25 MG Oral Tablet [facility] ([facility]) 200 ACTUAT Albuterol 0.09 MG/ACTUAT Metered Dose Inhaler [ProAir] WERO ([facility]) 0.5 ML Streptococcus pneumoniae serotype 1 capsular antigen diphtheria [id number] protein conjugate vaccine 0.0044 MG/ML / Streptococcus pneumoniae serotype 14 capsular antigen diphtheria [id number] protein conjugate vaccine 0.0044 MG/ML / Streptococcus pneumonia WERO ( [facility])
[2020-12-22] MEDS ORDERED: PILL CUTTER 1 EACH XX PRN (10:55)
[2020-12-22 11:31] VITALS: BP 122/80
[2020-12-22] MEDS: valACYclovir HCL 500 MG TAB PO SCH (13:54)
[2020-12-22] MEDS: MELOXICAM (MOBIC) 7.5 MG TAB PO SCH (13:55)
[2020-12-22] MEDS: ACETAMINOPHEN TAB 650MG DOSE (2X325MG) PO PRN (13:57)
[2020-12-22 16:50] VITALS: BP 131/69
--- NOTE | 2020-12-22 17:14 | MHHPEPDOC ---
General Date Of Admission: Dec 22, 2020 Legal Status: 9.39 Chief Complaint "I told my daughter that I had a gun to my head after we got into a fight." History of Present Illness HISTORY OF THE PRESENT ILLNESS: Patient is a 50 -year-old , on medical leave from work, domiciled, , female, who was brought in on a 941 after she made a suicidal statement to her daughter on the phone. She reports that she and her daughter got into a verbal argument about the house plants. Patient reports that it was her birthday which is a trigger for her, she had 4 to 5 glasses of wine, marijuana gummy, and she and her daughter got into an agreement about plants because her daughter had moved but was hoping her mother would take care of her plants. The patient had thrown away her plants. 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 Stated to her daughter, "Sade had a rough week I've had a gun to my head. I meant that I was dealing with a lot of pressure" PER ED REPORT: Pt was brought to the ED by police on a 9.41 after texting her daughter that she would put a gun to her head. Per police, pt has medical px's & marital px's, & has been drinking today. 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 She states that her daughter was angry about this & she also had an argument with her . She states that she asked her to leave because she wanted time alone so he left the residence. She states that after he left she spoke to her daughter again & her daughter was still angry. Pt states that today is her birthday & she wanted her daughter to leave her alone & realize that there are other things more important than her plants so she told her daughter that "I had a gun to my head." Pt states that she did not actually have a gun to her head & only said it because she was drunk & angry. Pt states that she does not have access to her 's guns because they are locked in a safe & she does not know the combination. She denies SI, but states she made suicidal statements to her a couple days ago during an argument. Pt denies HI. She has a hx of one suicide attempt in June 2019 during which she made superficial cuts to her neck. Pt denies any hx of self- harm. Pt denies both AH & VH. She does not appear to be psychotic. Pt c/o depressed mood & anxiety. She reports that her concentration, energy levels, sleep, & appetite are normal. Main stressors are that she has lupus & recently had to quit her job due to the severity of her medical issues, marital px's, & in July 2020 she watched her best friend of cancer. Pt also states that she is terrified of lilly COVID because of her compromised immune system. Pt has a hx of depression & SAMREEN with two admissions. She has OP tx at [facility] & her PCP manages her mental health meds. Pt states that she drinks 2-3 glasses of wine daily. Her PRADIP was 0.208 upon arrival. She reports using MJ gummies twice a year & her tox screen was positive for cannabis. TW spoke to pt's daughter, Deandre ([phone]), with pt's permission. She confirms that she had an argument with pt & states that pt told her that she held a gun to her head & pulled the trigger twice this week, but there were no bullets in the gun. Blaise pt made statements that she can't handle everything that is going on & everything would be better off without her. TW spoke to pt's , Joey ([phone]), with pt's permission. He states that pt told him on 12/15/20 that she had figured out the combination for the gun safe & had taken a gun out & pulled the trigger but the gun was not loaded. She asked him to change the combination, which he states he did. He states that she also told him that she needs help. He did not hear the statements that pt made to their daughter because he had already left the house by that time. TW spoke to pt about the reports that she figured out the combination to the gun safe, took out a gun, & pulled the trigger. She did admit to doing it, but states that she did not point the gun at herself. When asked why she would take out a gun & pull the trigger she stated "I don't know." Pt appears to be minimizing in order to be DC. Psychiatric Review of Systems Depression (2 or more weeks): depressed mood, anhedonia, feelings of excess/guilt (feeels guilty about ruining dinner), suicidal thoughts Shawanda (4 or more days of): denies Psychosis: denies PTSD: denies Anxiety: stressor related anxiety Past Psychiatric History Previous Psychiatric Diagnosis: Anxiety and Depression Previous Psychiatric Admissions: June in [facility] Suicide Attempts: Suicidal ideations x 2 Psychiatric Follow-up: [facility] Psychiatric medications: Wellbutrin, Zoloft, Topamax Past Medical History Medical Problems Lupus Herniated Disc L5-S1 Asthma and Sleep Apnea Hysterectomy Gall bladder Head Injury: No Seizures: No Hospitalizations: Yes Surgeries: Yes Family Medical/Psychiatric HX Medical Problems Mom - Breast Cancer, alive Maternal side Breast Cancer Maternal Grandfather diabetes Father - cardiac Psychiatric Disorders: No Addiction: No Suicide Attemps/Completions: No Addiction History alcohol (2-3 glasses every day, does not feel that this is a problem), other (tried Cannabis for the first time. Had a gummy on her birthday) Social History Childhood: Born in [place], [place]. Had only mother and grandparents growing up. No siblings. Did well in school. Describes her childhood "adventurous" Abuse/Trauma: Denies. Current Living Situation: Lives with , a cat and a bunch of chickens. Education: 2 and half years of college Employment: [employer] Social Support: Legal: None Marital: x30 years. Mental Status Examination General Appearance: well groomed, appears stated age, hospital scubs/clothing Build: average Demeanor: average Eye Contact: average Activity: average Behavior: cooperative Speech: clear Mood: euthymic, depressed (Mild) Affect: full Thought Process: logical/linear Thought Content (Other): none reported Thought Content (Aggressive): none reported Perception (Hallucinations): none reported Perception (Other): none reported Cognition (Impairment of): none reported Cognition(Intelligence Est.): above average Oriented: Awake, Alert, Oriented times three Insight: fair Judgment: Fair Psychosis: Denies Diagnoses Alcohol induced depressive disorder Alcohol intoxication Cannabis use disorder states she only used one time on her birthday, A-FIB/CHADSVASC A-FIB History Current/History of A-Fib/PAF?: No Current PO Anticoag Therapy: No Assessment Patient reports that she has had depressive symptoms due to lupus and having to retire from her job due to her lupus symptoms. Patient reports that on her birthday 12/20/2021 that she and her daughter were on the phone got into a verbal argument and she made a suicidal statement -that she had had a gun to her head. The patient had been drinking and had approximately 5 glasses as well is cannabis gummy. The patient reports that her birthday is often a trigger for her. States that growing up that she did not have her birthday recognized by her mother and it was not something that the family celebrated. As she grew older she celebrated her birthday with friends but not disclosing that it was her birthday but would invite them to a lunch and would tell them after the lunch that it was her birthday and that is how she celebrated her birthday. On this occasion she reports that she had gotten into a verbal altercation with her daughter who lives in [place], her daughter was hoping that she would take care of house plants that were left at her house. The patient states that she has an excessive amount of her house plants, did not want to take care of her daughter's plants and threw them away. During this altercation she admits that she had too much to drink, had a cannabis gummy, and states that she has a strained relationship with her daughter many times because her daughter often tries to take the attention away from her and put it on herself. During the interview patient denies that she is currently depressed or anxious, denies that she has any suicidal ideations, in would like to return home. Patient to be afforded individual and group therapy, medication management, milieu therapy and safe environment. We will discuss patient's possible discharge tomorrow in treatment team as patient appears to be stable on interview. Initial Treatment Plan 1. Patient was admitted on a [9.39] status. 2. Complete history was obtained. 3. With patients permission, family will be contacted and database will be expanded. 4. Patients medication regimen will be reviewed and changed accordingly. 5. Patient will be provided with protected environment. 6. Patient will be treated with individual, group, and milieu therapies. 7. Patient will receive supportive psych-education. 8. Discharge planning will commence immediately. 9. Outpatient follow-up treatment will be strongly recommended. 10. The initial treatment plan will focus initially on: * Depression. * Risk for suicide. ESTIMATED LENGTH OF STAY: 1-3 DAYS. TIME SPENT COUNSELING AND COORDINATING INITIAL CARE: 60 minutes. Tobacco Cessation Screen If Patient is a Smoker Patient is not a smoker N/A-No Antipsychotics Vital Signs Vital Signs Date Time Temp Pulse Resp B/P (MAP) Pulse Ox O2 Delivery O2 Flow Rate FiO2 12/22/20 11:31 98.8 94 14 122/80 (94) 96 12/21/20 10:13 Room Air Laboratory Data 24H Labs Laboratory Tests 2 12/22/20 08:45: Coronavirus (COVID-19)(PCR) NEGATIVE, Influenza Type A (RT-PCR) NEGATIVE, Influenza Type B (RT-PCR) NEGATIVE, Respiratory Syncytial Virus (PCR) NEGATIVE Medications Scheduled Azathioprine (Imuran) 50 Mg Tab, 150 MG PO DAILY, (Reported) Beclomethasone Dipropionate (Qvar Redihaler) 80 Mcg/Act Hfa.aeroba, 2 PUFF INH DAILY, (Reported) Bupropion Hcl (Bupropion Xl) 150 Mg Tab.er.24h, 150 MG PO DAILY, (Reported) Cyclosporine (Restasis) 0.05% Droperette, 1 DROP OU BID, (Reported) Hydroxychloroquine Sulfate (Hydroxychloroquine Sulfate) 200 Mg Tablet, 300 MG PO DAILY, (Reported) Loratadine (Loratadine) 10 Mg Tablet, 10 MG PO DAILY, (Reported) Meloxicam (Meloxicam) 15 Mg Tablet, 15 MG PO DAILY, (Reported) Multivitamins (Thera M Plus Tablet) 1 Each Tablet, 1 TAB PO QAM, (Reported) Clancy-3 Fatty Acids/Fish Oil (Fish Oil 1,000 mg Capsule) 1 Each Capsule, 1,000 MG PO DAILY, (Reported) Omeprazole (Omeprazole) 40 Mg Capsule.dr, 40 MG PO DAILY, (Reported) Sertraline Hcl (Zoloft) 100 Mg Tablet, 100 MG PO DAILY, (Reported) Topiramate (Topiramate) 25 Mg Tablet, 25 MG PO BID, (Reported) Valacyclovir HCl (Valtrex) 500 Mg Tablet, 500 MG PO DAILY, (Reported) Scheduled PRN Albuterol Sulfate (Ventolin Hfa) 18 Gm Hfa.aer.ad, 2 PUFFS INH QID PRN for SOB/WHEEZING, (Reported) Allergies Coded Allergies: Sulfa (Sulfonamide Antibiotics) (Verified Allergy, Unknown, 12/06/19) SWELLING chlorhexidine (Verified Allergy, Unknown, 12/06/19) SWELLING latex (Verified Allergy, Unknown, 12/06/19) SENSITIVITY JOESPH ROBLES NP Dec 22, 2020 15:10
[2020-12-23 06:19] VITALS: BP 127/60
[2020-12-23] MEDS: valACYclovir HCL 500 MG TAB PO SCH (08:17)
[2020-12-23] MEDS: MELOXICAM (MOBIC) 7.5 MG TAB PO SCH (08:17)
[2020-12-23] MEDS: ACETAMINOPHEN TAB 650MG DOSE (2X325MG) PO PRN (08:19)
[2020-12-23] MEDS ORDERED: TOPIRAMATE (TopAMAX) 25 MG TAB PO SCH (09:00)
[2020-12-23] MEDS ORDERED: OMEPRAZOLE 20 MG CAP PO SCH (09:00)
[2020-12-23] MEDS ORDERED: MULTIVITAMINS/MINERALS THERAP 1 TAB PO SCH (09:00)
[2020-12-23] MEDS ORDERED: buPROPion **XL** TABLET 150MG (WELLBUTRIN XL) PO SCH (09:00)
[2020-12-23] MEDS ORDERED: SERTRALINE 100 MG TAB PO SCH (09:00)
[2020-12-23] MEDS ORDERED: LORATADINE 10 MG TAB PO SCH (09:00)
--- NOTE | 2020-12-23 14:30 | MHDSPDOC ---
[facility] Discharge Summary Discharge Summary DATE OF ADMISSION: Dec 22, 2020 at 10:22 DATE OF DISCHARGE: Dec 23, 2020 at 12:48 DISCHARGE DIAGNOSES: Alcohol induced depressive disorder Alcohol intoxication Cannabis use disorder, mild states she only used one time on her birthday, REASON FOR ADMISSION: Patient is a 50 -year-old , on medical leave from work, domiciled, , female, who was brought in on a 941 after she made a suicidal statement to her daughter on the phone. She reports that she and her daughter got into a verbal argument about the house plants. Patient reports that it was her birthday which is a trigger for her, she had 4 to 5 glasses of wine, marijuana gummy, and she and her daughter got into an agreement about plants because her daughter had moved but was hoping her mother would take care of her plants. The patient had thrown away her plants. 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 Stated to her daughter, "Sade had a rough week I've had a gun to my head. I meant that I was dealing with a lot of pressure" PER ED REPORT: Pt was brought to the ED by police on a 9.41 after texting her daughter that she would put a gun to her head. Per police, pt has medical px's & marital px's, & has been drinking today. 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 She states that her daughter was angry about this & she also had an argument with her . She states that she asked her to leave because she wanted time alone so he left the residence. She states that after he left she spoke to her daughter again & her daughter was still angry. Pt states that today is her birthday & she wanted her daughter to leave her alone & realize that there are other things more important than her plants so she told her daughter that "I had a gun to my head." Pt states that she did not actually have a gun to her head & only said it because she was drunk & angry. Pt states that she does not have access to her 's guns because they are locked in a safe & she does not know the combination. She denies SI, but states she made suicidal statements to her a couple days ago during an argument. Pt denies HI. She has a hx of one suicide attempt in June 2019 during which she made superficial cuts to her neck. Pt denies any hx of self- harm. Pt denies both AH & VH. She does not appear to be psychotic. Pt c/o depressed mood & anxiety. She reports that her concentration, energy levels, sleep, & appetite are normal. Main stressors are that she has lupus & recently had to quit her job due to the severity of her medical issues, marital px's, & in July 2020 she watched her best friend of cancer. Pt also states that she is terrified of lilly COVID because of her compromised immune system. Pt has a hx of depression & SAMREEN with two admissions. She has OP tx at [facility] & her PCP manages her mental health meds. Pt states that she drinks 2-3 glasses of wine daily. Her PRADIP was 0.208 upon arrival. She reports using MJ gummies twice a year & her tox screen was positive for cannabis. TW spoke to pt's daughter, Deandre ([phone]), with pt's permission. She confirms that she had an argument with pt & states that pt told her that she held a gun to her head & pulled the trigger twice this week, but there were no bullets in the gun. Tonight pt made statements that she can't handle everything that is going on & everything would be better off without her. TW spoke to pt's , Joey ([phone]), with pt's permission. He states that pt told him on 12/15/20 that she had figured out the combination for the gun safe & had taken a gun out & pulled the trigger but the gun was not loaded. She asked him to change the combination, which he states he did. He states that she also told him that she needs help. He did not hear the statements that pt made to their daughter because he had already left the house by that time. TW spoke to pt about the reports that she figured out the combination to the gun safe, took out a gun, & pulled the trigger. She did admit to doing it, but states that she did not point the gun at herself. When asked why she would take out a gun & pull the trigger she stated "I don't know." Pt appears to be minimizing in order to be DC. VITAL SIGNS: See below. CONSULTANTS INVOLVED: See Medical H + P by Hospitalist TREATMENT AND PROGRESS ON THE UNIT: Patient was admitted to the [facility] on a legal status was afforded the following treatment modalities: 1) Individual Therapy 2) Group Therapy 3) Medication Management 4) Milieu Therapy 5) Safe Environment HOSPITAL COURSE: Patient was admitted to [facility] on a legal status. Patient was admitted to inpatient psychiatry for her suicidal statement about pointing a gun to her head . She admits that she had been drinking excessively that night as well as having cannabis gummy. Patient was started on her home medications. The patient on her initial psychiatric evaluation denied continued suicidal ideation expressed remorse and vehemently denied that she had any intent to harm herself. In her evaluation she had a bright mood and affect and she improved with her admission. Pt attended groups daily during stay. Pts symptoms improved with treatment. On day of discharge pt. denied depression, anxiety, insomnia, SI/HI, hallucinations, delusions. Pt was discharged home with follow- up at [facility]. Pt felt safe for discharge. She reports that she has reasons for living, her daughter, her , she enjoys her home life and the outdoors. States that she has good friends and has good supports. DISCHARGE ASSESSMENT: In today's interview, patient is alert and oriented, pt.s dress is appropriate. Hygiene and grooming is well-kempt. Smiles on approach and is pleasant and engaged in the interview. Denies depression and anxiety. Denies suicidal and homicidal ideation, planning or intent. Denies and is not observed with kranthi, psychotic symptoms of delusions, bizarre thinking, obsessions, paranoia, ruminations illogical thoughts, flight of ideas or having poor insight and judgement. Reinforced with patient need to abstain from alcohol and drugs. At discharge patient has normal mentation, declines further hospitalization on a voluntary status and meets criteria for discharge today. Discussed indications of medications, potential benefits and risks, alternatives (including no treatment) and questions were encouraged and answered. Patient encouraged to return to hospital if symptoms worsen or change and encouraged to call unit if he/she/they needs to speak to provider for questions regarding medications or care. MENTAL STATUS EXAMINATION ON DISCHARGE: Patient is a 50 -year-old , on medical leave from work, domiciled, , female, who was brought in on a 941 after she made a suicidal statement to her daughter on the phone. She reports that she and her daughter got into a verbal argument about the house plants. Speech: Is fluid, conversant, normal rate, tone and volume Language skills are intact Thought processes including: linear and goal oriented Thought content: denies depression and anxiety. Denies suicidal/homicidal ideation, planning or intent. Abstract reasoning, and computation: fair Description of associations: denies, none observed Description of abnormal or psychotic thoughts: denies, none observed. Judgment: fair Insight: fair Orientation: alert and oriented to person, place, time and situation Recent and remote memory: intact Attention span and concentration: good Language: expansive Fund of knowledge: average Mood: Euthymic Mood Affect: reactive Suicide Risk Assessment: 1) Does the patient wish to be ? No 2) Since your admission, have you had any actual thought of killing yourself? No 3) Since your admission, have you been thinking about how you might do this? No 4) Since your admission, have you had these thoughts and had some intention of acting on them? No 5) Since your admission, have you started to work out or worked out the details of how to kill yourself? No 5A) Do you intent to carry out this plan? No and NA 6) Have you ever done anything, started anything, or prepared to do anything with any intent to ? No 6A) How long since your admission did you do any of these? NA MEDICATIONS ON DISCHARGE: See Medication Reconciliation PLAN/FOLLOWUP ARRANGEMENTS: Jose Sotelo The amount of time spent in the coordination of care for this patient was approximately 25 minutes. ETOH/Disorder Med Rx ETOH/DRUG DISORDER RX: Offrd @ d/c & pt refused Vital Signs/I&Os Vital Signs Date Time Temp Pulse Resp B/P (MAP) Pulse Ox O2 Delivery O2 Flow Rate FiO2 12/23/20 06:19 97.1 55 16 127/60 (82) 100 Room Air Medications Scheduled Azathioprine (Imuran) 50 Mg Tab, 150 MG PO DAILY, (Reported) Beclomethasone Dipropionate (Qvar Redihaler) 80 Mcg/Act Hfa.aeroba, 2 PUFF INH DAILY, (Reported) Bupropion Hcl (Bupropion Xl) 150 Mg Tab.er.24h, 150 MG PO DAILY, (Reported) Cyclosporine (Restasis) 0.05% Droperette, 1 DROP OU BID, (Reported) Hydroxychloroquine Sulfate (Hydroxychloroquine Sulfate) 200 Mg Tablet, 300 MG PO DAILY, (Reported) Loratadine (Loratadine) 10 Mg Tablet, 10 MG PO DAILY, (Reported) Meloxicam (Meloxicam) 15 Mg Tablet, 15 MG PO DAILY, (Reported) Multivitamins (Thera M Plus Tablet) 1 Each Tablet, 1 TAB PO QAM, (Reported) [place]-3 Fatty Acids/Fish Oil (Fish Oil 1,000 mg Capsule) 1 Each Capsule, 1,000 MG PO DAILY, (Reported) Omeprazole (Omeprazole) 40 Mg Capsule.dr, 40 MG PO DAILY, (Reported) Sertraline Hcl (Zoloft) 100 Mg Tablet, 100 MG PO DAILY, (Reported) Topiramate (Topiramate) 25 Mg Tablet, 25 MG PO BID, (Reported) Valacyclovir HCl (Valtrex) 500 Mg Tablet, 500 MG PO DAILY, (Reported) Scheduled PRN Albuterol Sulfate (Ventolin Hfa) 18 Gm Hfa.aer.ad, 2 PUFFS INH QID PRN for SOB/WHEEZING, (Reported) Allergies Coded Allergies: Sulfa (Sulfonamide Antibiotics) (Verified Allergy, Unknown, 12/06/19) SWELLING chlorhexidine (Verified Allergy, Unknown, 12/06/19) SWELLING latex (Verified Allergy, Unknown, 12/06/19) SENSITIVITY JOESPH ROBLES NP Dec 23, 2020 14:29
== END 2020-12-23 12:48 | disposition home or self-care (01) | DRG 898 ==
LOC: M ED 21:23 → M ED INP 12-22 10:22 → M PSY 12-22 11:24
PROVIDERS: ADMIT Psychiatry & Neurology Psychiatry; ATTEND Psychiatry & Neurology Psychiatry
DX: F10.14 Alcohol abuse with alcohol-induced mood disorder (principal); F10.129 Alcohol abuse with intoxication, unspecified; F12.10 Cannabis abuse, uncomplicated; L93.0 Discoid lupus erythematosus; M51.27 Other intervertebral disc displacement, lumbosacral region; J45.909 Unspecified asthma, uncomplicated; G47.30 Sleep apnea, unspecified; Z20.822 Contact with and (suspected) exposure to COVID-19; Z79.899 Other long term (current) drug therapy; Z88.2 Allergy status to sulfonamides; Z88.8 Allergy status to other drugs, medicaments and biological substances

== ENCOUNTER → 2021-03-15 | Outpatient (CLI) | payer OTHER ==
[~2021-03-15] MED LIST changes: +AZAT50TA2 PO; +FISH1000 PO; +OMEP40CA5 PO; +QVAR80AE8 INH; +TOPI25TA10 PO; +VALT500T PO; +VENTAER INH; +VITMTA PO; +ZOLO100T PO
== END ==
LOC: M RAD 11:05
PROVIDERS: ATTEND Physician Assistant
DX: M79.672 Pain in left foot (principal)

== ENCOUNTER → 2021-04-29 | Outpatient (CLI) | payer OTHER ==
[~2021-04-29] MED LIST changes: +ISOVUE-370 76% 100ML VIAL As Ordered ONE
== END ==
LOC: M RAD 13:16
PROVIDERS: ATTEND Family Medicine
DX: M79.672 Pain in left foot (principal)

== ENCOUNTER → 2021-05-12 | Outpatient (CLI) | payer OTHER ==
[~2021-05-12] MED LIST changes: -ISOVUE-370 76% 100ML VIAL As Ordered ONE
== END ==
LOC: M SOG 08:20
PROVIDERS: ATTEND Physician Assistant
DX: M79.672 Pain in left foot (principal)

== ENCOUNTER 2021-05-18 10:37 | Emergency (ER) | payer OTHER ==
[~2021-05-18] VITALS: Ht 172.7 cm; Wt 88.7 kg
[2021-05-18 10:38] VITALS: BP 134/94
[2021-05-18] MEDS ORDERED: METR0.7534 (11:03)
[2021-05-18] MEDS ORDERED: DOXY100T (11:03)
[2021-05-18] MEDS ORDERED: GABA-1171 (11:03)
[2021-05-18] MEDS ORDERED: NS 1,000 ML IV ONE (14:00)
[2021-05-18] MEDS ORDERED: MAG SULF 1GM/100ML (MAG RUN) 1 GM in IV 1 EA IV ONE (14:05)
[2021-05-18] MEDS ORDERED: dexameTHASONE 4 MG/ML 1ML VIAL (J1100 PER 1MG) IV ONE (14:05)
[2021-05-18 15:32] LABS: BASO % 0.7 % (0.0-1.0); EOS # 0.1 10^3/uL (0.0-0.5); EOS % 1.2 % (0.0-3.0); HEMATOCRIT 45.2 % (36.0-47.0); HEMOGLOBIN 15.5 g/dl (12.0-15.5); LYMPH # 1.1 10^3/uL (1.5-5.0); LYMPH % 19.2 % (24.0-44.0); MEAN CORPUSCULAR HGB CONC 34.3 g/dl (32.0-36.5); MEAN CORPUSCULAR VOLUME 96.4 fl (80.0-96.0); MONO # 0.5 10^3/uL (0.0-0.8); MONO % 9.5 % (2.0-8.0); NEUTROPHILS # 3.9 10^3/uL (1.5-8.5); PLATELET COUNT, AUTOMATED 240 10^3/uL (150-450); RED BLOOD COUNT 4.69 10^6/uL (4.00-5.40); WHITE BLOOD COUNT 5.7 10^3/uL (4.0-10.0)
[2021-05-18 15:50] LABS: ERYTHROCYTE SEDIMENTATION RATE 8 mm/hr (0-30)
== END 2021-05-18 17:31 | disposition home or self-care (01) ==
LOC: M ED 10:37
DX: R51.9 Headache, unspecified (principal); J45.909 Unspecified asthma, uncomplicated; G47.33 Obstructive sleep apnea (adult) (pediatric); M32.9 Systemic lupus erythematosus, unspecified; M51.26 Other intervertebral disc displacement, lumbar region; Z99.89 Dependence on other enabling machines and devices; Z79.899 Other long term (current) drug therapy; Z88.1 Allergy status to other antibiotic agents; Z88.2 Allergy status to sulfonamides; Z91.040 Latex allergy status
CPT/HCPCS: 70450; 72125; 85025; 85652; 86140; 96361; 96374; 99283; J1100; J3475

== ENCOUNTER → 2021-10-08 | Outpatient (CLI) | payer OTHER ==
[~2021-10-08] MED LIST changes: -AZAT50TA2 PO; +AZAT50TA37 PO; +DOXY100T; +METR0.7534
== END ==
LOC: M RAD 12:25
PROVIDERS: ATTEND Family Medicine
DX: M25.561 Pain in right knee (principal)

== ENCOUNTER 2021-11-29 18:19 | Emergency (ER) | payer OTHER ==
[~2021-11-29] VITALS: Ht 172.7 cm; Wt 90.9 kg
[2021-11-29 20:26] LABS: HEMATOCRIT 41.2 % (36.0-47.0); HEMOGLOBIN 14.2 g/dl (12.0-15.5); MEAN CORPUSCULAR HEMOGLOBIN 33.1 pg (27.0-33.0); MEAN CORPUSCULAR HGB CONC 34.5 g/dl (32.0-36.5); PLATELET COUNT, AUTOMATED 237 10^3/uL (150-450); RED BLOOD COUNT 4.29 10^6/uL (4.00-5.40)
[2021-11-29] MEDS: ALPRAZolam 0.5 MG TAB PO ONE (20:55)
[2021-11-29 21:38] LABS: AMPHETAMINES LEVEL URINE NEGATIVE (NEGATIVE); BARBITURATES URINE NEGATIVE (NEGATIVE); BENZODIAZEPINES URINE NEGATIVE (NEGATIVE); CANNABINOIDS URINE NEGATIVE (NEGATIVE); COCAINE METABOLITE URINE NEGATIVE (NEGATIVE); METHADONE URINE NEGATIVE (NEGATIVE); OPIATES URINE NEGATIVE (NEGATIVE); PHENCYCLIDINE URINE NEGATIVE (NEGATIVE)
[2021-11-29 21:50] LABS: ACETAMINOPHEN LEVEL < 2.0 UG/ML (10.0-30.0); ALT/SGPT 33 U/L (12-78); BILIRUBIN,DIRECT 0.2 MG/DL (0.0-0.2); BILIRUBIN,TOTAL 0.5 MG/DL (0.2-1.0); BLOOD UREA NITROGEN 11 MG/DL (7-18); CALCIUM LEVEL 9.4 MG/DL (8.5-10.1); CARBON DIOXIDE LEVEL 26 MEQ/L (21-32); CHLORIDE LEVEL 103 MEQ/L (98-107); CREATININE FOR GFR 0.71 MG/DL (0.55-1.30); ETHYL ALCOHOL (ETHANOL) < 0.003 % (0.000-0.010); GLOMERULAR FILTRATION RATE > 60.0 (>51); GLUCOSE, FASTING 96 MG/DL (70-100); POTASSIUM SERUM 4.5 MEQ/L (3.5-5.1); SALICYLATE LEVEL 1.9 MG/DL (5.0-30.0); SODIUM LEVEL 138 MEQ/L (136-145); TOTAL PROTEIN 7.4 GM/DL (6.4-8.2)
[2021-11-30] MEDS ORDERED: CYCL5TAB PO (08:16)
[2021-11-30] MEDS ORDERED: CLON-412 PO (08:16)
[2021-11-30 08:17] VITALS: BP 137/83
== END 2021-11-30 10:15 | disposition home or self-care (01) ==
LOC: M ED 18:19
DX: F41.9 Anxiety disorder, unspecified (principal); F32.A Depression, unspecified; Z88.1 Allergy status to other antibiotic agents; Z88.2 Allergy status to sulfonamides; Z91.040 Latex allergy status

== ENCOUNTER → 2021-12-22 | Outpatient (CLI) | payer OTHER ==
[~2021-12-22] MED LIST changes: +CLON-412 PO
== END ==
LOC: M PAIN 13:00
PROVIDERS: ATTEND Nurse Practitioner Family
DX: M51.16 Intervertebral disc disorders with radiculopathy, lumbar region (principal); J45.30 Mild persistent asthma, uncomplicated; G47.33 Obstructive sleep apnea (adult) (pediatric); Z86.14 Personal history of Methicillin resistant Staphylococcus aureus infection; Z86.59 Personal history of other mental and behavioral disorders; Z88.2 Allergy status to sulfonamides; Z91.040 Latex allergy status; Z91.09 Other allergy status, other than to drugs and biological substances; Z79.899 Other long term (current) drug therapy

== ENCOUNTER 2022-01-19 12:04 | Emergency (ER) | payer OTHER ==
[~2022-01-19] VITALS: Ht 172.7 cm; Wt 90.0 kg
[2022-01-19 13:30] LABS: HEMATOCRIT 43.7 % (36.0-47.0); HEMOGLOBIN 14.7 g/dl (12.0-15.5); MEAN CORPUSCULAR HEMOGLOBIN 32.2 pg (27.0-33.0); MEAN CORPUSCULAR HGB CONC 33.6 g/dl (32.0-36.5); MEAN CORPUSCULAR VOLUME 95.8 fl (80.0-96.0); PLATELET COUNT, AUTOMATED 262 10^3/uL (150-450); RED BLOOD COUNT 4.56 10^6/uL (4.00-5.40); WHITE BLOOD COUNT 4.5 10^3/uL (4.0-10.0)
[2022-01-19 13:58] LABS: AMPHETAMINES LEVEL URINE NEGATIVE (NEGATIVE); BARBITURATES URINE NEGATIVE (NEGATIVE); BENZODIAZEPINES URINE NEGATIVE (NEGATIVE); CANNABINOIDS URINE NEGATIVE (NEGATIVE); COCAINE METABOLITE URINE NEGATIVE (NEGATIVE); METHADONE URINE NEGATIVE (NEGATIVE); OPIATES URINE NEGATIVE (NEGATIVE); PHENCYCLIDINE URINE NEGATIVE (NEGATIVE)
[2022-01-19 14:02] LABS: ETHYL ALCOHOL (ETHANOL) 0.008 % (0.000-0.010)
[2022-01-19 14:03] LABS: ACETAMINOPHEN LEVEL < 2.0 UG/ML (10.0-20.0)
[2022-01-19 14:04] LABS: ALKALINE PHOSPHATASE 77 U/L (46-116); ALT/SGPT 22 U/L (7.0-40); AST/SGOT 26 U/L (<34); BILIRUBIN,DIRECT 0.1 MG/DL (<0.4); BILIRUBIN,TOTAL 0.5 MG/DL (0.3-1.2); BLOOD UREA NITROGEN 12 MG/DL (9-23); CALCIUM LEVEL 9.2 MG/DL (8.5-10.1); CARBON DIOXIDE LEVEL 27 MMOL/L (20-31); CHLORIDE LEVEL 102 MMOL/L (98-107); CREATININE FOR GFR 0.55 MG/DL (0.55-1.30); GLOMERULAR FILTRATION RATE > 60.0 (>51); GLUCOSE, FASTING 96 MG/DL (60-100); POTASSIUM SERUM 4.2 MMOL/L (3.5-5.1); SALICYLATE LEVEL 3.2 MG/DL (<30); SODIUM LEVEL 137 MMOL/L (136-145); TOTAL PROTEIN 7.4 G/DL (5.7-8.2)
[2022-01-19 14:05] LABS: THYROID STIMULATING HORMONE 1.004 uIU/ML (0.55-4.78)
[2022-01-19 14:07] LABS: RSV AMPLIFICATION NEGATIVE (NEGATIVE)
[2022-01-19] MEDS: cloNIDine 0.1MG TABLET PO PRN (21:15)
[2022-01-19] MEDS ORDERED: METR0.7534 TOP (21:54)
[2022-01-19] MEDS ORDERED: GABA-1171 PO (21:54)
[2022-01-19] MEDS ORDERED: HOME MED LIST COMPLETE! XX SCH (21:55)
[2022-01-20] MEDS: cloNIDine 0.1MG TABLET PO PRN (08:26)
[2022-01-20] MEDS ORDERED: ONDANSETRON 4MG ORAL DISINTEGRATING TAB PO ONE (08:30)
[2022-01-20] MEDS: MELOXICAM (MOBIC) 7.5 MG TAB PO SCH (09:31)
[2022-01-20] MEDS: LORATADINE 10 MG TAB PO SCH (09:31)
[2022-01-20] MEDS: SERTRALINE 100 MG TAB PO SCH (09:31)
[2022-01-20] MEDS: GABAPENTIN 100 MG CAP PO SCH (09:31)
[2022-01-20] MEDS: buPROPion **XL** TABLET 150MG (WELLBUTRIN XL) PO SCH (09:31)
[2022-01-20] MEDS: OMEPRAZOLE 20MG CAP PO SCH (09:31)
[2022-01-20] MEDS: HYDROXYCHLOROQUINE 200 MG TAB PO SCH (09:32)
[2022-01-20] MEDS: valACYclovir HCL 500 MG TAB PO SCH (12:10)
[2022-01-21 00:22] VITALS: BP 126/81
[2022-01-21] MEDS: cloNIDine 0.1MG TABLET PO PRN (00:22)
[2022-01-21 10:08] VITALS: BP 124/73
[2022-01-21] MEDS: OMEPRAZOLE 20MG CAP PO SCH (10:34)
[2022-01-21] MEDS: valACYclovir HCL 500 MG TAB PO SCH (10:35)
[2022-01-21] MEDS: buPROPion **XL** TABLET 150MG (WELLBUTRIN XL) PO SCH (10:35)
[2022-01-21] MEDS: GABAPENTIN 100 MG CAP PO SCH (10:36)
[2022-01-21] MEDS: HYDROXYCHLOROQUINE 200 MG TAB PO SCH (10:36)
[2022-01-21] MEDS: LORATADINE 10 MG TAB PO SCH (10:36)
[2022-01-21] MEDS: SERTRALINE 100 MG TAB PO SCH (10:36)
[2022-01-21] MEDS ORDERED: ACETAMINOPHEN 325 MG TAB PO ONE (11:10)
[2022-01-21] MEDS: MELOXICAM (MOBIC) 7.5 MG TAB PO SCH (11:43)
== END 2022-01-21 17:40 | disposition home or self-care (01) ==
LOC: M ED 12:04
DX: R45.851 Suicidal ideations (principal); F32.A Depression, unspecified; J45.909 Unspecified asthma, uncomplicated; G47.33 Obstructive sleep apnea (adult) (pediatric); Z90.49 Acquired absence of other specified parts of digestive tract; Z90.710 Acquired absence of both cervix and uterus; Z88.2 Allergy status to sulfonamides; Z91.040 Latex allergy status; Z91.51 Personal history of suicidal behavior; Z79.899 Other long term (current) drug therapy

== ENCOUNTER → 2022-01-27 | Outpatient (REF) ==
[~2022-01-27] MED LIST changes: +GABA-1171 PO; +METR0.7534 TOP
== END ==
LOC: M PLAIMG 13:24
PROVIDERS: ATTEND Internal Medicine
DX: M13.80 Other specified arthritis, unspecified site (principal)

== ENCOUNTER → 2022-02-02 | Outpatient (CLI) | payer OTHER | LOC: M WHC 07:57 | PROVIDERS: ATTEND Family Medicine | DX: Z12.31 Encounter for screening mammogram for malignant neoplasm of breast (principal) ==

== ENCOUNTER → 2022-02-02 | Outpatient (CLI) | payer OTHER | LOC: M PLAIMG 06:50 | PROVIDERS: ATTEND Nurse Practitioner Family | DX: M54.16 Radiculopathy, lumbar region (principal); M51.36 Other intervertebral disc degeneration, lumbar region; M51.26 Other intervertebral disc displacement, lumbar region ==

== ENCOUNTER 2022-03-16 11:13 | Inpatient (IN) | payer OTHER ==
[~2022-03-16] VITALS: Ht 172.7 cm; Wt 90.9 kg
[2022-03-16] MEDS ORDERED: LIDO1PAD TOP (11:27)
[2022-03-16] MEDS ORDERED: CYCL5TAB PO (11:27)
[2022-03-16 12:09] LABS: HEMATOCRIT 45.2 % (36.0-47.0); HEMOGLOBIN 15.5 g/dl (12.0-15.5); MEAN CORPUSCULAR HEMOGLOBIN 31.8 pg (27.0-33.0); MEAN CORPUSCULAR HGB CONC 34.3 g/dl (32.0-36.5); MEAN CORPUSCULAR VOLUME 92.8 fl (80.0-96.0); PLATELET COUNT, AUTOMATED 303 10^3/uL (150-450); RED BLOOD COUNT 4.87 10^6/uL (4.00-5.40); WHITE BLOOD COUNT 6.9 10^3/uL (4.0-10.0)
[2022-03-16 12:25] LABS: AMPHETAMINES LEVEL URINE NEGATIVE (NEGATIVE)
[2022-03-16 12:26] LABS: BARBITURATES URINE NEGATIVE (NEGATIVE); BENZODIAZEPINES URINE NEGATIVE (NEGATIVE); CANNABINOIDS URINE NEGATIVE (NEGATIVE); COCAINE METABOLITE URINE NEGATIVE (NEGATIVE); METHADONE URINE NEGATIVE (NEGATIVE); OPIATES URINE NEGATIVE (NEGATIVE); PHENCYCLIDINE URINE NEGATIVE (NEGATIVE)
[2022-03-16 12:29] LABS: ETHYL ALCOHOL (ETHANOL) 0.011 % (0.000-0.010)
[2022-03-16 12:30] LABS: ACETAMINOPHEN LEVEL < 2.0 UG/ML (10.0-20.0)
[2022-03-16 12:31] LABS: ALBUMIN 4.3 G/DL (3.2-5.2); ALKALINE PHOSPHATASE 86 U/L (46-116); ALT/SGPT 38 U/L (7.0-40); AST/SGOT 43 U/L (<34); BILIRUBIN,DIRECT 0.2 MG/DL (<0.4); BILIRUBIN,TOTAL 0.6 MG/DL (0.3-1.2); BLOOD UREA NITROGEN 9 MG/DL (9-23); CALCIUM LEVEL 9.7 MG/DL (8.5-10.1); CARBON DIOXIDE LEVEL 24 MMOL/L (20-31); CHLORIDE LEVEL 100 MMOL/L (98-107); CREATININE FOR GFR 0.58 MG/DL (0.55-1.30); GLOMERULAR FILTRATION RATE > 60.0 (>51); GLUCOSE, FASTING 103 MG/DL (60-100); POTASSIUM SERUM 4.3 MMOL/L (3.5-5.1); SALICYLATE LEVEL < 3.0 MG/DL (<30); SODIUM LEVEL 136 MMOL/L (136-145)
[2022-03-16 12:32] LABS: THYROID STIMULATING HORMONE 1.194 uIU/ML (0.55-4.78)
[2022-03-16 12:37] LABS: RSV AMPLIFICATION NEGATIVE (NEGATIVE)
[2022-03-16] MEDS ORDERED: VALT1TAB PO (18:57)
[2022-03-16] MEDS ORDERED: ACET-897 PO (18:58)
[2022-03-16] MEDS ORDERED: HOME MED LIST COMPLETE! XX SCH (19:00)
[2022-03-16] MEDS ORDERED: CYCLOBENZAPRINE 5MG TABLET PO PRN (20:10)
[2022-03-16] MEDS ORDERED: cloNIDine 0.1MG TABLET PO PRN (20:10)
[2022-03-17] MEDS ORDERED: buPROPion **XL** TABLET 150MG (WELLBUTRIN XL) PO SCH (09:00)
[2022-03-17] MEDS ORDERED: SERTRALINE 100 MG TAB PO ONE (09:00)
[2022-03-17] MEDS ORDERED: valACYclovir HCL 500 MG TAB PO SCH ×2 (09:00)
[2022-03-17] MEDS ORDERED: HYDROXYCHLOROQUINE 200 MG TAB PO SCH (09:00)
[2022-03-17] MEDS: THIAMINE 100 MG TAB PO SCH ×2 (09:00→20:57)
[2022-03-17] MEDS ORDERED: LORATADINE 10 MG TAB PO SCH (09:00)
[2022-03-17] MEDS: NICOTINE 21MG/24HR 1 EA TRANSDERMAL TD SCH (09:00)
[2022-03-17] MEDS ORDERED: LIDOCAINE 5% (LIDODERM) PATCH TD SCH (09:00)
[2022-03-17] MEDS ORDERED: MELOXICAM (MOBIC) 7.5 MG TAB PO SCH (09:00)
[2022-03-17] MEDS ORDERED: buPROPion 75 MG TAB PO SCH (09:00)
[2022-03-17] MEDS ORDERED: OMEPRAZOLE 20MG CAP PO SCH (09:00)
[2022-03-17] MEDS ORDERED: GABAPENTIN 100 MG CAP PO SCH (09:00)
[2022-03-17] MEDS ORDERED: PILL CUTTER 1 EACH XX PRN (09:55)
[2022-03-17] MEDS ORDERED: cloNIDine 0.1MG TABLET PO PRN (11:35)
[2022-03-17] MEDS ORDERED: IBUPROFEN 400MG TAB PO PRN (11:35)
[2022-03-17] MEDS ORDERED: MAALOX 30 ML SUSP *UDC PO PRN (11:35)
[2022-03-17] MEDS ORDERED: LORazepam 2 MG TAB PO PRN (11:35)
[2022-03-17] MEDS ORDERED: ALBUTEROL 90 MCG/ACT 8GM HFA INHALER INH PRN (11:35)
[2022-03-17] MEDS ORDERED: MOM 30ML SUSPENSION UDC PO PRN (11:35)
[2022-03-17] MEDS ORDERED: diphenhydrAMINE 25MG CAP PO PRN (11:35)
[2022-03-17] MEDS ORDERED: traZODone 50 MG TAB PO PRN (11:35)
[2022-03-17] MEDS ORDERED: ACETAMINOPHEN 500 MG TAB PO PRN (11:35)
[2022-03-17 15:02] VITALS: BP 133/76
[2022-03-17 15:07] VITALS: BP 133/76
[2022-03-17] MEDS: FOLIC ACID 1MG TAB PO SCH (16:44)
[2022-03-17] MEDS: MULTIVITAMINS/MINERALS THERAP 1 TAB PO SCH (16:44)
[2022-03-17] MEDS: CYCLOBENZAPRINE 5MG TABLET PO PRN (20:57)
[2022-03-18 06:44] VITALS: BP 110/62
[2022-03-18] MEDS: NICOTINE 21MG/24HR 1 EA TRANSDERMAL TD SCH (09:00)
[2022-03-18] MEDS ORDERED: BECLOMETHASONE 80 MCG INH SCH (09:00)
[2022-03-18] MEDS ORDERED: SERTRALINE 100 MG TAB PO SCH (09:00)
[2022-03-18] MEDS ORDERED: LIDOCAINE 5% (LIDODERM) PATCH TOP SCH (09:00)
[2022-03-18] MEDS ORDERED: buPROPion **XL** TABLET 150MG (WELLBUTRIN XL) PO SCH (09:00)
[2022-03-18] MEDS ORDERED: valACYclovir HCL 500 MG TAB PO SCH (09:00)
[2022-03-18] MEDS: OMEPRAZOLE 20MG CAP PO SCH (09:39)
[2022-03-18] MEDS: FOLIC ACID 1MG TAB PO SCH (09:39)
[2022-03-18] MEDS: valACYclovir HCL 500 MG TAB PO SCH (09:39)
[2022-03-18] MEDS: SERTRALINE 100 MG TAB PO SCH (09:39)
[2022-03-18] MEDS: MULTIVITAMINS/MINERALS THERAP 1 TAB PO SCH (09:39)
[2022-03-18] MEDS: GABAPENTIN 100 MG CAP PO SCH (09:39)
[2022-03-18] MEDS: MELOXICAM (MOBIC) 7.5 MG TAB PO SCH (09:39)
[2022-03-18] MEDS: THIAMINE 100 MG TAB PO SCH ×2 (09:39→20:36)
[2022-03-18] MEDS: HYDROXYCHLOROQUINE 200 MG TAB PO SCH (09:40)
[2022-03-18] MEDS: FLUTICASONE PROP 0.05% NASAL SPRAY 16 GM (FLONASE) NARES SCH ×2 (09:40→20:36)
[2022-03-18] MEDS: LORATADINE 10 MG TAB PO SCH (09:40)
[2022-03-18 14:00] VITALS: BP 142/84
[2022-03-18 18:19] VITALS: BP 140/88
[2022-03-18] MEDS: CYCLOBENZAPRINE 5MG TABLET PO PRN (20:37)
[2022-03-18] MEDS: cloNIDine 0.1MG TABLET PO PRN (20:37)
[2022-03-18] MEDS ORDERED: LIDOCAINE 5% (LIDODERM) PATCH TOP PRN (20:40)
[2022-03-18 21:50] VITALS: BP 126/72
[2022-03-19 06:16] VITALS: BP 111/70
[2022-03-19 07:53] VITALS: BP 111/70
[2022-03-19] MEDS: MELOXICAM (MOBIC) 7.5 MG TAB PO SCH (09:31)
[2022-03-19] MEDS: THIAMINE 100 MG TAB PO SCH (09:31)
[2022-03-19] MEDS: MULTIVITAMINS/MINERALS THERAP 1 TAB PO SCH (09:31)
[2022-03-19] MEDS: LORATADINE 10 MG TAB PO SCH (09:31)
[2022-03-19] MEDS: SERTRALINE 100 MG TAB PO SCH (09:31)
[2022-03-19] MEDS: FOLIC ACID 1MG TAB PO SCH (09:31)
[2022-03-19] MEDS: FLUTICASONE PROP 0.05% NASAL SPRAY 16 GM (FLONASE) NARES SCH (09:32)
[2022-03-19] MEDS: GABAPENTIN 100 MG CAP PO SCH (09:32)
[2022-03-19] MEDS: OMEPRAZOLE 20MG CAP PO SCH (09:32)
[2022-03-19] MEDS: valACYclovir HCL 500 MG TAB PO SCH (09:32)
[2022-03-19] MEDS: HYDROXYCHLOROQUINE 200 MG TAB PO SCH (09:35)
[2022-03-19 12:01] VITALS: BP 139/97
[2022-03-19] MEDS: cloNIDine 0.1MG TABLET PO PRN (12:01)
== END 2022-03-19 13:31 | disposition home or self-care (01) | DRG 885 ==
LOC: M ED 11:13 → M ED INP 03-17 11:33 → M PSY 03-17 14:21
PROVIDERS: ADMIT Student in an Organized Health Care Education/Training Program; ATTEND Student in an Organized Health Care Education/Training Program
DX: F32.89 Other specified depressive episodes (principal); F41.9 Anxiety disorder, unspecified; F60.3 Borderline personality disorder; Z63.0 Problems in relationship with spouse or partner; Z62.811 Personal history of psychological abuse in childhood; Z81.1 Family history of alcohol abuse and dependence; Z79.899 Other long term (current) drug therapy; Z88.2 Allergy status to sulfonamides; Z91.040 Latex allergy status; M32.9 Systemic lupus erythematosus, unspecified; Z91.51 Personal history of suicidal behavior; J45.30 Mild persistent asthma, uncomplicated; G47.33 Obstructive sleep apnea (adult) (pediatric); M51.16 Intervertebral disc disorders with radiculopathy, lumbar region; H04.123 Dry eye syndrome of bilateral lacrimal glands; Z86.14 Personal history of Methicillin resistant Staphylococcus aureus infection; F43.20 Adjustment disorder, unspecified

== ENCOUNTER → 2022-12-16 | Outpatient (CLI) | payer OTHER ==
[~2022-12-16] MED LIST changes: +ACET-897 PO; -HYDR200T3 PO; +HYDR200T46 PO; +LIDO1PAD TOP; +LORA-1041 PO; -LORA-674 PO
== END ==
LOC: M WHC 10:02
PROVIDERS: ATTEND Student in an Organized Health Care Education/Training Program
DX: M85.88 Other specified disorders of bone density and structure, other site (principal); Z87.81 Personal history of (healed) traumatic fracture

== ENCOUNTER → 2023-01-08 | Outpatient (REF) | payer OTHER | LOC: M LAB REF 17:52 | PROVIDERS: ATTEND Physician Assistant | DX: J02.9 Acute pharyngitis, unspecified (principal) ==

== ENCOUNTER → 2023-02-22 | Outpatient (CLI) | payer OTHER | LOC: M WHC 09:46 | PROVIDERS: ATTEND Internal Medicine | DX: Z12.31 Encounter for screening mammogram for malignant neoplasm of breast (principal) ==

== ENCOUNTER → 2023-06-28 | Outpatient (CLI) | payer OTHER ==
[~2023-06-28] MED LIST changes: -METR0.7534; -METR0.7534 TOP; +METR60GE3; +METR60GE3 TOP
[2023-06-28 16:57] LABS: BASO # 0.1 10^3/uL (0.0-0.2); BASO % 1.1 % (0.0-1.0); EOS # 0.1 10^3/uL (0.0-0.5); EOS % 2.3 % (0.0-3.0); HEMATOCRIT 38.5 % (36.0-47.0); LYMPH # 1.3 10^3/uL (1.5-5.0); LYMPH % 23.1 % (24.0-44.0); MEAN CORPUSCULAR HEMOGLOBIN 32.7 pg (27.0-33.0); MEAN CORPUSCULAR HGB CONC 33.8 g/dl (32.0-36.5); MEAN CORPUSCULAR VOLUME 96.7 fl (80.0-96.0); MONO # 0.6 10^3/uL (0.0-0.8); MONO % 10.9 % (2.0-8.0); NEUTROPHILS # 3.5 10^3/uL (1.5-8.5); PLATELET COUNT, AUTOMATED 263 10^3/uL (150-450); RED BLOOD COUNT 3.98 10^6/uL (4.00-5.40)
[2023-06-28 17:23] LABS: ALBUMIN 3.6 G/DL (3.2-5.2); ALKALINE PHOSPHATASE 62 U/L (46-116); ALT/SGPT 21 U/L (7.0-40); AST/SGOT 15 U/L (<34); BILIRUBIN,TOTAL 0.3 MG/DL (0.3-1.2); BLOOD UREA NITROGEN 8 MG/DL (9-23); CALCIUM LEVEL 9.5 MG/DL (8.5-10.1); CARBON DIOXIDE LEVEL 30 MMOL/L (20-31); CHLORIDE LEVEL 104 MMOL/L (98-107); GLOMERULAR FILTRATION RATE > 60.0 (>51); GLUCOSE, FASTING 96 MG/DL (60-100); SODIUM LEVEL 141 MMOL/L (136-145); TOTAL PROTEIN 6.4 G/DL (5.7-8.2)
[2023-06-28 17:25] LABS: FOLATE > 24.0 NG/ML (>5.4); THYROID STIMULATING HORMONE 1.409 uIU/ML (0.55-4.78)
[2023-06-28 17:26] LABS: VITAMIN B12 LEVEL 551 PG/ML (211-911)
[2023-06-28 17:36] LABS: HEPATITIS B SURFACE ANTIGEN NEGATIVE (NEGATIVE)
[2023-06-28 17:57] LABS: HEPATITIS C VIRUS ABY INDEX < 0.02 INDEX (<0.8)
[2023-06-28 17:58] LABS: HEPATITIS B CORE ANTIBODY IGM NEGATIVE (NEGATIVE)
[2023-06-29 10:46] LABS: WHITE BLOOD COUNT 5.7 10^3/uL (4.0-10.0)
[2023-07-04 16:53] LABS: VITAMIN B6,PYRIDOXAL PHOSPHATE 4.6 ug/L (3.4-65.2); VITAMIN D 1,25 DIHYDROXY 64.5 pg/mL (24.8-81.5)
== END ==
LOC: M LAB 16:13
PROVIDERS: ATTEND Physician Assistant
DX: R42 Dizziness and giddiness (principal)

== ENCOUNTER → 2023-07-22 | Outpatient (CLI) | payer OTHER | LOC: M WUC 09:50 | PROVIDERS: ATTEND Physician Assistant | DX: M79.672 Pain in left foot (principal) ==

== ENCOUNTER → 2023-09-06 | Outpatient (CLI) | payer OTHER | LOC: M PAIN 15:30 | PROVIDERS: ATTEND Nurse Practitioner Family | DX: M51.16 Intervertebral disc disorders with radiculopathy, lumbar region (principal); L93.0 Discoid lupus erythematosus; J45.30 Mild persistent asthma, uncomplicated; G47.33 Obstructive sleep apnea (adult) (pediatric); F34.1 Dysthymic disorder; H04.123 Dry eye syndrome of bilateral lacrimal glands; Z79.899 Other long term (current) drug therapy; Z88.2 Allergy status to sulfonamides; Z91.040 Latex allergy status; Z91.048 Other nonmedicinal substance allergy status ==

== ENCOUNTER → 2023-10-26 | Outpatient (CLI) | payer OTHER | LOC: M WUC 12:16 | PROVIDERS: ATTEND Nurse Practitioner Family | DX: M25.551 Pain in right hip (principal) ==

== ENCOUNTER → 2023-10-28 | Outpatient (CLI) | payer OTHER ==
[~2023-10-28] MED LIST changes: +ISOVUE-M 300 61% 15ML VIAL As Ordered ONE; +LIDOCAINE 1% SDV 30ML VIAL As Ordered ONE; +NORCO, ANEXSIA 5/325MG TABLET (HYDROcodone/ACETAMINOPHEN) As Ordered ONE; +dexAMETHasone 10MG/1ML VIAL PRES.FREE As Ordered ONE; +diazePAM 5MG TABLET As Ordered ONE
== END ==
LOC: M PAIN 15:00
PROVIDERS: ATTEND Anesthesiology
DX: M51.16 Intervertebral disc disorders with radiculopathy, lumbar region (principal); G89.29 Other chronic pain; L93.0 Discoid lupus erythematosus; J45.30 Mild persistent asthma, uncomplicated; G47.33 Obstructive sleep apnea (adult) (pediatric); F41.9 Anxiety disorder, unspecified; Z79.899 Other long term (current) drug therapy; Z88.2 Allergy status to sulfonamides; Z91.040 Latex allergy status; Z91.048 Other nonmedicinal substance allergy status
CPT/HCPCS: 62323; J1100; Q9967

== ENCOUNTER 2023-11-14 13:25 | Emergency (ER) | payer OTHER ==
[~2023-11-14] VITALS: Ht 172.7 cm; Wt 76.1 kg
[~2023-11-14 13:25] MED LIST changes: -ISOVUE-M 300 61% 15ML VIAL As Ordered ONE; -LIDOCAINE 1% SDV 30ML VIAL As Ordered ONE; -NORCO, ANEXSIA 5/325MG TABLET (HYDROcodone/ACETAMINOPHEN) As Ordered ONE; -dexAMETHasone 10MG/1ML VIAL PRES.FREE As Ordered ONE; -diazePAM 5MG TABLET As Ordered ONE
[2023-11-14 14:41] LABS: BASO % 0.8 % (0.0-1.0); EOS # 0.2 10^3/uL (0.0-0.5); EOS % 3.2 % (0.0-3.0); HEMATOCRIT 41.7 % (36.0-47.0); HEMOGLOBIN 14.2 g/dl (12.0-15.5); LYMPH # 1.3 10^3/uL (1.5-5.0); LYMPH % 26.3 % (24.0-44.0); MEAN CORPUSCULAR HEMOGLOBIN 32.4 pg (27.0-33.0); MEAN CORPUSCULAR HGB CONC 34.1 g/dl (32.0-36.5); MEAN CORPUSCULAR VOLUME 95.2 fl (80.0-96.0); MONO # 0.5 10^3/uL (0.0-0.8); MONO % 10.6 % (2.0-8.0); NEUTROPHILS # 2.9 10^3/uL (1.5-8.5); NEUTROPHILS % 58.7 % (36.0-66.0); PLATELET COUNT, AUTOMATED 343 10^3/uL (150-450); RED BLOOD COUNT 4.38 10^6/uL (4.00-5.40)
[2023-11-14 15:02] LABS: LIPASE 41 U/L (12-53)
[2023-11-14 15:04] LABS: ALBUMIN 4.2 G/DL (3.2-5.2); ALKALINE PHOSPHATASE 59 U/L (46-116); ALT/SGPT 19 U/L (7.0-40); AST/SGOT 11 U/L (<34); BILIRUBIN,DIRECT 0.1 MG/DL (<0.4); BILIRUBIN,TOTAL 0.5 MG/DL (0.3-1.2); BLOOD UREA NITROGEN 11 MG/DL (9-23); CALCIUM LEVEL 10.1 MG/DL (8.5-10.1); CARBON DIOXIDE LEVEL 28 MMOL/L (20-31); CHLORIDE LEVEL 104 MMOL/L (98-107); GLOMERULAR FILTRATION RATE > 60.0 (>51); GLUCOSE, FASTING 104 MG/DL (60-100); POTASSIUM SERUM 4.8 MMOL/L (3.5-5.1); SODIUM LEVEL 136 MMOL/L (136-145); TOTAL PROTEIN 7.2 G/DL (5.7-8.2)
[2023-11-14] MEDS ORDERED: TRAM1CAP15 PO (18:17)
[2023-11-14] MEDS ORDERED: TIZA4CAP PO (18:17)
[2023-11-14 18:22] VITALS: BP 111/61; TEMP 98.1; O2SAT 97
[2023-11-14] MEDS: traMADol 50 MG TAB PO ONE (18:22)
[2023-11-14] MEDS: tiZANidine 4 MG TAB PO ONE (18:22)
== END 2023-11-14 18:34 | disposition home or self-care (01) ==
LOC: M ED 13:25
DX: M54.50 Low back pain, unspecified (principal); M54.31 Sciatica, right side; Z88.2 Allergy status to sulfonamides; Z91.040 Latex allergy status; Z79.1 Long term (current) use of non-steroidal anti-inflammatories (NSAID); Z79.51 Long term (current) use of inhaled steroids; Z79.899 Other long term (current) drug therapy

== ENCOUNTER 2023-11-15 10:31 | Emergency (ER) | payer OTHER ==
[~2023-11-15] VITALS: Ht 172.7 cm; Wt 96.1 kg
[2023-11-15 10:41] VITALS: TEMP 96.9
[2023-11-15] MEDS ORDERED: KETOROLAC 60MG 2ML VIAL IM ONE (16:35)
[2023-11-15] MEDS: KETOROLAC 60MG 2ML VIAL IM ONE (16:41)
[2023-11-15 16:48] VITALS: BP 128/76; O2SAT 99
== END 2023-11-15 16:49 | disposition home or self-care (01) ==
LOC: M ED 10:31
DX: M54.31 Sciatica, right side (principal); M54.50 Low back pain, unspecified; M54.16 Radiculopathy, lumbar region; J45.909 Unspecified asthma, uncomplicated; K57.92 Diverticulitis of intestine, part unspecified, without perforation or abscess without bleeding; Z88.2 Allergy status to sulfonamides; Z91.040 Latex allergy status; Z79.52 Long term (current) use of systemic steroids; Z79.899 Other long term (current) drug therapy
CPT/HCPCS: 81001; 96372; 99283; J1885

== ENCOUNTER → 2023-11-15 | Outpatient (CLI) | payer OTHER ==
[~2023-11-15] MED LIST changes: +TIZA4CAP PO; +TRAM1CAP15 PO
== END ==
LOC: M PAIN 09:30
PROVIDERS: ATTEND Nurse Practitioner Family
DX: M51.16 Intervertebral disc disorders with radiculopathy, lumbar region (principal); G89.29 Other chronic pain; L93.0 Discoid lupus erythematosus; J45.30 Mild persistent asthma, uncomplicated; G47.33 Obstructive sleep apnea (adult) (pediatric); F34.1 Dysthymic disorder; Z79.1 Long term (current) use of non-steroidal anti-inflammatories (NSAID); Z79.899 Other long term (current) drug therapy; Z88.2 Allergy status to sulfonamides; Z91.040 Latex allergy status; Z91.048 Other nonmedicinal substance allergy status

== ENCOUNTER → 2023-11-25 | Outpatient (CLI) | payer OTHER | LOC: M RAD 15:51 | PROVIDERS: ATTEND Nurse Practitioner Family | DX: M51.16 Intervertebral disc disorders with radiculopathy, lumbar region (principal); M51.26 Other intervertebral disc displacement, lumbar region; M51.27 Other intervertebral disc displacement, lumbosacral region ==

== ENCOUNTER 2024-04-13 10:32 | Emergency (ER) | payer OTHER ==
[~2024-04-13 10:32] MED LIST changes: -CYCL5TAB PO; +CYCL5TAB4 PO
[2024-04-13 11:06] VITALS: BP 143/70; TEMP 98; O2SAT 99
[2024-04-13 11:23] LABS: HEMATOCRIT 40.5 % (36.0-47.0); HEMOGLOBIN 13.6 g/dl (12.0-15.5); MEAN CORPUSCULAR HEMOGLOBIN 30.5 pg (27.0-33.0); MEAN CORPUSCULAR HGB CONC 33.6 g/dl (32.0-36.5); MEAN CORPUSCULAR VOLUME 90.8 fl (80.0-96.0); PLATELET COUNT, AUTOMATED 264 10^3/uL (150-450); RED BLOOD COUNT 4.46 10^6/uL (4.00-5.40); WHITE BLOOD COUNT 7.3 10^3/uL (4.0-10.0)
[2024-04-13 11:50] LABS: AMPHETAMINES LEVEL URINE NEGATIVE (NEGATIVE); BARBITURATES URINE NEGATIVE (NEGATIVE); BENZODIAZEPINES URINE NEGATIVE (NEGATIVE); CANNABINOIDS URINE NEGATIVE (NEGATIVE); COCAINE METABOLITE URINE NEGATIVE (NEGATIVE); METHADONE URINE NEGATIVE (NEGATIVE); OPIATES URINE NEGATIVE (NEGATIVE); PHENCYCLIDINE URINE NEGATIVE (NEGATIVE)
[2024-04-13 11:52] LABS: ETHYL ALCOHOL (ETHANOL) < 0.003 % (0.000-0.010)
[2024-04-13 11:54] LABS: ALBUMIN 4.1 G/DL (3.2-5.2); ALKALINE PHOSPHATASE 75 U/L (35-104); ALT/SGPT 33 U/L (7.0-40); AST/SGOT 20 U/L (<34); BILIRUBIN,DIRECT 0.2 MG/DL (<0.4); BILIRUBIN,TOTAL 0.6 MG/DL (0.3-1.2); BLOOD UREA NITROGEN 12 MG/DL (9-23); CALCIUM LEVEL 9.2 MG/DL (8.5-10.1); CARBON DIOXIDE LEVEL 28 MMOL/L (20-31); CHLORIDE LEVEL 103 MMOL/L (98-107); CREATININE FOR GFR 0.81 MG/DL (0.55-1.30); GLOMERULAR FILTRATION RATE > 60.0 (>51); GLUCOSE, FASTING 151 MG/DL (60-100); POTASSIUM SERUM 4.3 MMOL/L (3.5-5.1); SALICYLATE LEVEL < 3.0 MG/DL (<30); SODIUM LEVEL 138 MMOL/L (136-145)
[2024-04-13 11:56] LABS: THYROID STIMULATING HORMONE 1.758 uIU/ML (0.55-4.78)
[2024-04-13] MEDS ORDERED: CLON-412 PO (12:51)
[2024-04-13] MEDS ORDERED: LAMO150T3 PO (12:51)
[2024-04-13] MEDS ORDERED: LAMO25TA4 PO (12:51)
[2024-04-13] MEDS ORDERED: ATOM25CA7 PO (12:51)
[2024-04-13] MEDS ORDERED: BUPR-597 PO (12:51)
[2024-04-13] MEDS ORDERED: CLON0.5T2 PO (12:51)
[2024-04-13] MEDS ORDERED: SERT25TA21 PO (12:51)
[2024-04-13] MEDS ORDERED: HOME MED LIST COMPLETE! XX SCH (12:55)
== END 2024-04-13 15:21 | disposition home or self-care (01) ==
LOC: M ED 10:32
DX: F43.20 Adjustment disorder, unspecified (principal); F32.A Depression, unspecified; J45.909 Unspecified asthma, uncomplicated; F41.9 Anxiety disorder, unspecified; G47.33 Obstructive sleep apnea (adult) (pediatric); Z88.2 Allergy status to sulfonamides; Z91.040 Latex allergy status

== ENCOUNTER → 2024-06-29 | Outpatient (CLI) | payer OTHER ==
[~2024-06-29] MED LIST changes: +ATOM25CA7 PO; +BUPR-766 PO; +CLON0.5T2 PO; +LAMO-18 PO; +LAMO150T3 PO; +SERT25TA21 PO; +TOPI-256 PO; -TOPI25TA10 PO
== END ==
LOC: M WHC 11:58
PROVIDERS: ATTEND Internal Medicine
DX: Z12.31 Encounter for screening mammogram for malignant neoplasm of breast (principal); R92.323 Mammographic fibroglandular density, bilateral breasts

== ENCOUNTER → 2025-01-01 | Outpatient (CLI) | payer OTHER ==
[2025-01-01 14:51] LABS: PLATELET COUNT, AUTOMATED 302 10^3/uL (150-450)
[2025-01-01 15:20] LABS: ALT/SGPT 27.0 U/L (7.0-40); AST/SGOT 25.0 U/L (<34); CALCIUM LEVEL 9.3 MG/DL (8.5-10.1); CARBON DIOXIDE LEVEL 28.0 MMOL/L (20-31); CHLORIDE LEVEL 103.0 MMOL/L (98-107); CHOLESTEROL LEVEL 223.0 MG/DL (<200); CHOLESTEROL RISK RATIO 3.55 (<5); CREATININE FOR GFR 0.87 MG/DL (0.55-1.30); GLOMERULAR FILTRATION RATE 78.6 (>51); LDL CHOLESTEROL 140.4 MG/DL (<100); NON-HDL-C 160.2 MG/DL; POTASSIUM SERUM 4.1 MMOL/L (3.5-5.1); SODIUM LEVEL 140.0 MMOL/L (136-145); TRIGLYCERIDES LEVEL 99.0 MG/DL (<150)
[2025-01-01 15:22] LABS: TOTAL 25(OH) VITAMIN D 40.7 NG/ML (20.0-100.0)
[2025-01-01 15:23] LABS: ESTIMATED AVERAGE GLUCOSE 114.0 MG/DL (60-110)
== END ==
LOC: M LAB 14:11
PROVIDERS: ATTEND Nurse Practitioner Psychiatric/Mental Health
DX: Z51.81 Encounter for therapeutic drug level monitoring (principal); Z79.899 Other long term (current) drug therapy